=== PATIENT | male | born 1965 ===

== ENCOUNTER 2020-03-10 12:00 | Inpatient (IN) | payer MEDICAID, SELFPAY ==
[2020-03-10 12:56] LABS: COVID-19 Test Negative (Negative)
--- NOTE | 2020-03-10 13:10 | ECG_ITS ---
Test Reason : WEAKNESS Blood Pressure : / mmHG Vent. Rate : 133 BPM Atrial Rate : 133 BPM P-R Int : 122 ms QRS Dur : 086 ms QT Int : 382 ms P-R-T Axes : 050 -08 037 degrees QTc Int : 568 ms Sinus tachycardia Minimal voltage criteria for LVH, may be normal variant T wave abnormality, consider lateral ischemia Abnormal ECG When compared with ECG of 09-APR-2018 14:51, T wave inversion now evident in Lateral leads Referred By: Jesus Del Rosario Electronically Signed By:Gregory Hall
[2020-03-10 13:11] VITALS: BP 125/97; PULSE 136; RESP 18; TEMP 36.6; O2SAT 97; BMI 21.6
--- NOTE | 2020-03-10 13:13 | ED.GENADULT ---
HPI - General Adult General Chief complaint: General Medical <RADHA Ellison Last Filed: 03/10/20 13:16> Stated complaint: covid <RADHA Ellison - Last Filed: 03/10/20 13:16> Time Seen by Provider: 03/10/20 12:19 <RADHA Ellison Last Filed: 03/10/20 13:16> Source: patient and family <RADHA Sinha Last Filed: 03/10/20 16:54> Mode of arrival: ambulatory <RADHA Sinha Last Filed: 03/10/20 16:54> History of Present Illness HPI narrative: 54-year-old Male with a past medical history of asthma, alcohol abuse presenting to the ED for AMS x a few days. Per brother who patient lives with patient has been acting strange, making weird statements, confused, poor appetite. Patient himself reports decreased p.o. intake, generalized fatigue/weakness and feeling unwell. Admits to drinking about a pt of hard liquor daily and 12 pack of beers. Denies other substance abuse. Patient denies recent fall/trauma, CP/SOB, abdominal pain, nausea/vomiting <RADHA Sinha Last Filed: 03/10/20 16:54> Related Data Allergies/adverse reactions: Allergies Allergy/AdvReac Type Severity Reaction Status Date / Time penicillin V Allergy Unknown unknown Verified 12/03/18 00:00 Penicillins [PENICILLINS] Allergy Unknown UNKNOWN Unverified 10/31/19 15:09 <RADHA Ellison Last Filed: 03/10/20 13:16> Review of Systems Review of Systems: Constitutional: No Fever, No Chills, + Fatigue, + Malaise Cardiovascular: No Chest Pain, No SOB Respiratory: No Cough, No Sputum Gastrointestinal: No Nausea, No Vomiting, No Diarrhea, No Constipation, No Abdominal pain Genitourinary: No Dysuria, No Urinary Frequency, No Hematuria Skin: No Skin Lesions, No rash Neuro: + Weakness, No Headache History limited due to patient's AMS <RADHA Sinha Last Filed: 03/10/20 16:54> Yes all other systems are reviewed and are negative <RADHA Sinha Last Filed: 03/10/20 16:54> PMFSH Past Medical History Attestation statement: The following information was validated with the patient. <RADHA Sinha - Last Filed: 03/10/20 16:54> Medical History: Medical History (Updated 03/10/20 @ 16:26 by RADHA Sinha) Asthma <RADHA Ellison - Last Filed: 03/10/20 13:16> Social History Social History: Social History Advance Directives: No Advance Directives Information Provided: Yes <RADHA Ellison - Last Filed: 03/10/20 13:16> Physical Exam Vital Signs: Vital Signs: Last Vital Signs Temp 98.9 F 03/10/20 15:46 Pulse 113 H 03/10/20 15:46 Resp 16 03/10/20 15:46 BP 141/88 H 03/10/20 15:46 Pulse Ox 98 03/10/20 15:46 Body Mass Index 21.6 <RADHA Ellison - Last Filed: 03/10/20 13:16> Vital Signs: Last Vital Signs Temp 98.9 F 03/10/20 15:46 Pulse 113 H 03/10/20 15:46 Resp 16 03/10/20 15:46 BP 141/88 H 03/10/20 15:46 Pulse Ox 98 03/10/20 15:46 Body Mass Index 21.6 <RADHA Sinha - Last Filed: 03/10/20 16:54> Const: General: cooperative <RADHA Sinha Last Filed: 03/10/20 16:54> Orientation/consciousness: oriented to person and oriented to place <RADHA Sinha - Last Filed: 03/10/20 16:54> Limitations: no limitations <RADHA Sinha - Last Filed: 03/10/20 16:54> HENMT: Head: Yes normal to inspection <RADHA Sinha Last Filed: 03/10/20 16:54> Ears: hearing grossly normal bilaterally <RADHA Sinha - Last Filed: 03/10/20 16:54> General nose exam: Normal external nose present <RADHA Sinha Last Filed: 03/10/20 16:54> Face and sinus: Yes normal facial exam <RADHA Sinha - Last Filed: 03/10/20 16:54> Eyes: General: appearance normal, both eyes and all related structures <Deanna Burrell [facility] Last Filed: 03/10/20 16:54> EOM: EOMs intact bilaterally <Deanna Burrell [facility] Last Filed: 03/10/20 16:54> Neck: Neck: Yes normal visual inspection and Yes no meningeal signs <Deanna Burrell [facility] Last Filed: 03/10/20 16:54> Resp: Effort & Inspection: normal respiratory effort <Deanna Burrell [facility] Last Filed: 03/10/20 16:54> Auscultation: clear to auscultation bilaterally, no rhonchi and no wheezes <Deanna Burrell [facility] Last Filed: 03/10/20 16:54> Cardio: Rate: regular rate <Deanna Burrell [facility] Last Filed: 03/10/20 16:54> Heart sounds: S1 normal heart sound present and S2 normal heart sound present <Deanna Burrell [facility] Last Filed: 03/10/20 16:54> GI: Inspection: Yes normal to inspection <Deanna Burrell [facility] Last Filed: 03/10/20 16:54> Palpation (GI): Soft to palpation, nontender, no guarding and not rigid <Deanna Burrell [facility] Last Filed: 03/10/20 16:54> Skin: Rashes: no rashes <Deanna Burrell [facility] Last Filed: 03/10/20 16:54> Wounds: no wounds <Deanna Burrell [facility] Last Filed: 03/10/20 16:54> Neuro: General: oriented to person, oriented to place, tone normal, moves all extremities, no meningeal signs, no focal motor deficits and CN's II-XI intact bilaterally <Deanna Burrell [facility] Last Filed: 03/10/20 16:54> Gait exam (Neuro): Normal gait present <Deanna Burrell [facility] Last Filed: 03/10/20 16:54> Extrem: General: Yes normal to inspection <Deanna Burrell [facility] Last Filed: 03/10/20 16:54> Course Course Course Narrative: 54 yold male with pmh of HTN and alcohol abuse presents to the ED for weakness with symptoms alcohol withdrawal. Brother concerned of possible slight AMS since yesterday. patient will have basic labs including magnesium and troponin. Ehtanol level ordered. HPI, ROS, decision making, and dispostion will be done by ED provider. Neuro exam is intact and patient is A0x3. <RADHA Ellison - Last Filed: 03/10/20 13:16> Mild leukocytosis of 10.9, potassium low at 2.6 > 40 mEq p.o. and 20 IV ordered. Anion gap of 22 likely from dehydration. Bilirubin/AST/ALT chronically elevated from ETOH abuse, lipase 329 > will obtain CT AP Spoke to patient's brother Rangel at [phone], states patient lives with mother and him currently, has been concerned about patient over the past week progressing deconditioning, is not showering, is not eating, confused, does not feel safe for patient to go home. Patient persistently tachycardic, ripped out IV. Will initiate phenobarb protocol. Anticipate admission for alcohol withdrawal delirium -1700-- ED care transferred to [facility] pending UA, CT AP, and admission. <RADHA Sinha - Last Filed: 03/10/20 16:54> Medical Decision Making MDM Narrative Medical decision making narrative: 54-year-old Male with a past medical history of asthma, alcohol abuse presenting to the ED for AMS x a few days. Per brother who patient lives with patient has been acting strange, making weird statements, confused, poor appetite. Patient himself reports decreased p.o. intake, generalized fatigue/weakness and feeling unwell. On exam tachycardic, NAD, A&O x2, no other focal neuro deficits, confused. Nontoxic. Concern for encephalopathy vs alcohol withdrawal delirium vs metabolic abnormality/infectious etiology. Low concern for severe sepsis at this time. Rule out substance abuse/ICH. Low concern for meningitis/encephalitis Plan: EKG, labs, UA, CXR, head CT, re-evaluate, anticipated admission <RADHA Sinha - Last Filed: 03/10/20 16:54> Lab Data Result diagrams: : 03/10/20 13:24 03/10/20 13:24 <RADHA Ellison - Last Filed: 03/10/20 13:16> Labs: Lab Results 03/10/20 03/10/20 03/10/20 Range/Units 12:22 13:24 13:24 WBC 10.9 H (4.8-10.8) X10*3/uL RBC 4.01 L (4.60-5.80) X10*6/uL Hgb 14.1 (14.0-18.0) g/dl Hct 38.5 L (42-52) % MCV 96.0 (80-98) fL MCH 35.2 H (27.0-33.0) pg MCHC 36.6 H (31.0-36.0) g/dl RDW 11.4 (11.0-16.0) % Plt Count 182 (160-400) X10*3/uL MPV 11.4 (9.4-12.4) fL Immature Gran % (Auto) 0.7 H (0.0-0.4) % Neut % (Auto) 77.8 H (45-73) % Lymph % (Auto) 8.1 L (20-40) % Schuyler % (Auto) 12.6 H (2-11) % Eos % (Auto) 0.5 (0-4) % Baso % (Auto) 0.3 (0-2) % Lymph # (Auto) 0.9 L (1.2-4.9) X10*3/uL Schuyler # (Auto) 1.4 H (0.1-1.2) X10*3/uL Eos # (Auto) 0.1 (0.0-0.4) X10*3/uL Baso # (Auto) 0.0 (0.0-0.2) X10*3/uL Abs Immat Gran (auto) 0.08 H (0.00-0.03) X10*3/uL Absolute Neuts (auto) 8.5 H (2.0-8.3) X10*3/uL Absolute Nucleated RBC 0.040 H (0.0-0.012) X10*3/uL Nucleated RBC % (auto) 0.4 H (0.0-0.2) /100WBC PT 15.8 H (10.8-13.0) SEC INR 1.3 H (0.9-1.1) APTT 27.3 (24.1-38.0) SEC Sodium (135-145) mmol/L Potassium (3.3-5.1) mmol/l Chloride (96-108) mmol/L Carbon Dioxide (22-29) mmol/L Anion Gap (12-20) BUN (9-16) mg/dL Creatinine (0.5-1.4) mg/dL Estim Creat Clear Calc Estimated GFR Random Glucose (60-115) mg/dL Calcium (8.4-10.2) mg/dL Magnesium (1.6-2.6) mg/dL Total Bilirubin (0.0-1.0) mg/dL Direct Bilirubin (0.0-0.5) mg/dL AST (5-37) U/L ALT (0-40) U/L Alkaline Phosphatase (39-117) U/L Ammonia (13-55) umol/L Troponin I High Sens (<3.5-35.0) ng/L Total Protein (6.5-8.0) g/dL Albumin (3.5-5.0) g/dL Lipase (8-78) U/L Ethyl Alcohol mg/dL COVID-19 ([facility]) Negative (Negative) COVID-19 Clin Com See Note 03/10/20 03/10/20 03/10/20 Range/Units 13:24 13:24 13:24 WBC (4.8-10.8) X10*3/uL RBC (4.60-5.80) X10*6/uL Hgb (14.0-18.0) g/dl Hct (42-52) % MCV (80-98) fL MCH (27.0-33.0) pg MCHC (31.0-36.0) g/dl RDW (11.0-16.0) % Plt Count (160-400) X10*3/uL MPV (9.4-12.4) fL Immature Gran % (Auto) (0.0-0.4) % Neut % (Auto) (45-73) % Lymph % (Auto) (20-40) % Schuyler % (Auto) (2-11) % Eos % (Auto) (0-4) % Baso % (Auto) (0-2) % Lymph # (Auto) (1.2-4.9) X10*3/uL Schuyler # (Auto) (0.1-1.2) X10*3/uL Eos # (Auto) (0.0-0.4) X10*3/uL Baso # (Auto) (0.0-0.2) X10*3/uL Abs Immat Gran (auto) (0.00-0.03) X10*3/uL Absolute Neuts (auto) (2.0-8.3) X10*3/uL Absolute Nucleated RBC (0.0-0.012) X10*3/uL Nucleated RBC % (auto) (0.0-0.2) /100WBC PT (10.8-13.0) SEC INR (0.9-1.1) APTT (24.1-38.0) SEC Sodium 135 (135-145) mmol/L Potassium 2.6 L (3.3-5.1) mmol/l Chloride 89 L (96-108) mmol/L Carbon Dioxide 27 (22-29) mmol/L Anion Gap 22 H (12-20) BUN 16 (9-16) mg/dL Creatinine 1.02 (0.5-1.4) mg/dL Estim Creat Clear Calc 70.6 Estimated GFR > 60 Random Glucose 137 H (60-115) mg/dL Calcium 9.6 (8.4-10.2) mg/dL Magnesium 1.6 (1.6-2.6) mg/dL Total Bilirubin 3.7 H (0.0-1.0) mg/dL Direct Bilirubin 2.1 H (0.0-0.5) mg/dL AST 79 H (5-37) U/L ALT 60 H (0-40) U/L Alkaline Phosphatase 60 (39-117) U/L Ammonia (13-55) umol/L Troponin I High Sens < 3.5 (<3.5-35.0) ng/L Total Protein 8.4 H (6.5-8.0) g/dL Albumin 3.7 (3.5-5.0) g/dL Lipase 329 H (8-78) U/L Ethyl Alcohol < 10 mg/dL COVID-19 ([facility]) (Negative) COVID-19 Clin Com 03/10/20 Range/Units 14:30 WBC (4.8-10.8) X10*3/uL RBC (4.60-5.80) X10*6/uL Hgb (14.0-18.0) g/dl Hct (42-52) % MCV (80-98) fL MCH (27.0-33.0) pg MCHC (31.0-36.0) g/dl RDW (11.0-16.0) % Plt Count (160-400) X10*3/uL MPV (9.4-12.4) fL Immature Gran % (Auto) (0.0-0.4) % Neut % (Auto) (45-73) % Lymph % (Auto) (20-40) % Schuyler % (Auto) (2-11) % Eos % (Auto) (0-4) % Baso % (Auto) (0-2) % Lymph # (Auto) (1.2-4.9) X10*3/uL Schuyler # (Auto) (0.1-1.2) X10*3/uL Eos # (Auto) (0.0-0.4) X10*3/uL Baso # (Auto) (0.0-0.2) X10*3/uL Abs Immat Gran (auto) (0.00-0.03) X10*3/uL Absolute Neuts (auto) (2.0-8.3) X10*3/uL Absolute Nucleated RBC (0.0-0.012) X10*3/uL Nucleated RBC % (auto) (0.0-0.2) /100WBC PT (10.8-13.0) SEC INR (0.9-1.1) APTT (24.1-38.0) SEC Sodium (135-145) mmol/L Potassium (3.3-5.1) mmol/l Chloride (96-108) mmol/L Carbon Dioxide (22-29) mmol/L Anion Gap (12-20) BUN (9-16) mg/dL Creatinine (0.5-1.4) mg/dL Estim Creat Clear Calc Estimated GFR Random Glucose (60-115) mg/dL Calcium (8.4-10.2) mg/dL Magnesium (1.6-2.6) mg/dL Total Bilirubin (0.0-1.0) mg/dL Direct Bilirubin (0.0-0.5) mg/dL AST (5-37) U/L ALT (0-40) U/L Alkaline Phosphatase (39-117) U/L Ammonia 46 (13-55) umol/L Troponin I High Sens (<3.5-35.0) ng/L Total Protein (6.5-8.0) g/dL Albumin (3.5-5.0) g/dL Lipase (8-78) U/L Ethyl Alcohol mg/dL COVID-19 ([facility]) (Negative) COVID-19 Clin Com <RADHA Ellison - Last Filed: 03/10/20 13:16> Lab Results 03/10/20 03/10/20 03/10/20 Range/Units 12:22 13:24 13:24 WBC 10.9 H (4.8-10.8) X10*3/uL RBC 4.01 L (4.60-5.80) X10*6/uL Hgb 14.1 (14.0-18.0) g/dl Hct 38.5 L (42-52) % MCV 96.0 (80-98) fL MCH 35.2 H (27.0-33.0) pg MCHC 36.6 H (31.0-36.0) g/dl RDW 11.4 (11.0-16.0) % Plt Count 182 (160-400) X10*3/uL MPV 11.4 (9.4-12.4) fL Immature Gran % (Auto) 0.7 H (0.0-0.4) % Neut % (Auto) 77.8 H (45-73) % Lymph % (Auto) 8.1 L (20-40) % Schuyler % (Auto) 12.6 H (2-11) % Eos % (Auto) 0.5 (0-4) % Baso % (Auto) 0.3 (0-2) % Lymph # (Auto) 0.9 L (1.2-4.9) X10*3/uL Schuyler # (Auto) 1.4 H (0.1-1.2) X10*3/uL Eos # (Auto) 0.1 (0.0-0.4) X10*3/uL Baso # (Auto) 0.0 (0.0-0.2) X10*3/uL Abs Immat Gran (auto) 0.08 H (0.00-0.03) X10*3/uL Absolute Neuts (auto) 8.5 H (2.0-8.3) X10*3/uL Absolute Nucleated RBC 0.040 H (0.0-0.012) X10*3/uL Nucleated RBC % (auto) 0.4 H (0.0-0.2) /100WBC PT 15.8 H (10.8-13.0) SEC INR 1.3 H (0.9-1.1) APTT 27.3 (24.1-38.0) SEC Sodium (135-145) mmol/L Potassium (3.3-5.1) mmol/l Chloride (96-108) mmol/L Carbon Dioxide (22-29) mmol/L Anion Gap (12-20) BUN (9-16) mg/dL Creatinine (0.5-1.4) mg/dL Estim Creat Clear Calc Estimated GFR Random Glucose (60-115) mg/dL Calcium (8.4-10.2) mg/dL Magnesium (1.6-2.6) mg/dL Total Bilirubin (0.0-1.0) mg/dL Direct Bilirubin (0.0-0.5) mg/dL AST (5-37) U/L ALT (0-40) U/L Alkaline Phosphatase (39-117) U/L Ammonia (13-55) umol/L Troponin I High Sens (<3.5-35.0) ng/L Total Protein (6.5-8.0) g/dL Albumin (3.5-5.0) g/dL Lipase (8-78) U/L Ethyl Alcohol mg/dL COVID-19 ([facility]) Negative (Negative) COVID-19 Clin Com See Note 03/10/20 03/10/20 03/10/20 Range/Units 13:24 13:24 13:24 WBC (4.8-10.8) X10*3/uL RBC (4.60-5.80) X10*6/uL Hgb (14.0-18.0) g/dl Hct (42-52) % MCV (80-98) fL MCH (27.0-33.0) pg MCHC (31.0-36.0) g/dl RDW (11.0-16.0) % Plt Count (160-400) X10*3/uL MPV (9.4-12.4) fL Immature Gran % (Auto) (0.0-0.4) % Neut % (Auto) (45-73) % Lymph % (Auto) (20-40) % Schuyler % (Auto) (2-11) % Eos % (Auto) (0-4) % Baso % (Auto) (0-2) % Lymph # (Auto) (1.2-4.9) X10*3/uL Schuyler # (Auto) (0.1-1.2) X10*3/uL Eos # (Auto) (0.0-0.4) X10*3/uL Baso # (Auto) (0.0-0.2) X10*3/uL Abs Immat Gran (auto) (0.00-0.03) X10*3/uL Absolute Neuts (auto) (2.0-8.3) X10*3/uL Absolute Nucleated RBC (0.0-0.012) X10*3/uL Nucleated RBC % (auto) (0.0-0.2) /100WBC PT (10.8-13.0) SEC INR (0.9-1.1) APTT (24.1-38.0) SEC Sodium 135 (135-145) mmol/L Potassium 2.6 L (3.3-5.1) mmol/l Chloride 89 L (96-108) mmol/L Carbon Dioxide 27 (22-29) mmol/L Anion Gap 22 H (12-20) BUN 16 (9-16) mg/dL Creatinine 1.02 (0.5-1.4) mg/dL Estim Creat Clear Calc 70.6 Estimated GFR > 60 Random Glucose 137 H (60-115) mg/dL Calcium 9.6 (8.4-10.2) mg/dL Magnesium 1.6 (1.6-2.6) mg/dL Total Bilirubin 3.7 H (0.0-1.0) mg/dL Direct Bilirubin 2.1 H (0.0-0.5) mg/dL AST 79 H (5-37) U/L ALT 60 H (0-40) U/L Alkaline Phosphatase 60 (39-117) U/L Ammonia (13-55) umol/L Troponin I High Sens < 3.5 (<3.5-35.0) ng/L Total Protein 8.4 H (6.5-8.0) g/dL Albumin 3.7 (3.5-5.0) g/dL Lipase 329 H (8-78) U/L Ethyl Alcohol < 10 mg/dL COVID-19 ([facility]) (Negative) COVID-19 Clin Com 03/10/20 Range/Units 14:30 WBC (4.8-10.8) X10*3/uL RBC (4.60-5.80) X10*6/uL Hgb (14.0-18.0) g/dl Hct (42-52) % MCV (80-98) fL MCH (27.0-33.0) pg MCHC (31.0-36.0) g/dl RDW (11.0-16.0) % Plt Count (160-400) X10*3/uL MPV (9.4-12.4) fL Immature Gran % (Auto) (0.0-0.4) % Neut % (Auto) (45-73) % Lymph % (Auto) (20-40) % Schuyler % (Auto) (2-11) % Eos % (Auto) (0-4) % Baso % (Auto) (0-2) % Lymph # (Auto) (1.2-4.9) X10*3/uL Schuyler # (Auto) (0.1-1.2) X10*3/uL Eos # (Auto) (0.0-0.4) X10*3/uL Baso # (Auto) (0.0-0.2) X10*3/uL Abs Immat Gran (auto) (0.00-0.03) X10*3/uL Absolute Neuts (auto) (2.0-8.3) X10*3/uL Absolute Nucleated RBC (0.0-0.012) X10*3/uL Nucleated RBC % (auto) (0.0-0.2) /100WBC PT (10.8-13.0) SEC INR (0.9-1.1) APTT (24.1-38.0) SEC Sodium (135-145) mmol/L Potassium (3.3-5.1) mmol/l Chloride (96-108) mmol/L Carbon Dioxide (22-29) mmol/L Anion Gap (12-20) BUN (9-16) mg/dL Creatinine (0.5-1.4) mg/dL Estim Creat Clear Calc Estimated GFR Random Glucose (60-115) mg/dL Calcium (8.4-10.2) mg/dL Magnesium (1.6-2.6) mg/dL Total Bilirubin (0.0-1.0) mg/dL Direct Bilirubin (0.0-0.5) mg/dL AST (5-37) U/L ALT (0-40) U/L Alkaline Phosphatase (39-117) U/L Ammonia 46 (13-55) umol/L Troponin I High Sens (<3.5-35.0) ng/L Total Protein (6.5-8.0) g/dL Albumin (3.5-5.0) g/dL Lipase (8-78) U/L Ethyl Alcohol mg/dL COVID-19 ([facility]) (Negative) COVID-19 Clin Com <RADHA Sinha - Last Filed: 03/10/20 16:54> ECG Data Attestation: I personally reviewed and interpreted this ECG as follows: <RADHA Sinha Last Filed: 03/10/20 16:54> Interpretation: EKG sinus tachycardia with a rate of 133. ST depressions in V4 through V6. Artifact present <RADHA Sinha Last Filed: 03/10/20 16:54> Discharge Plan Discharge Clinical Impression: Alcohol abuse with withdrawal delirium <RADHA Ellison Last Filed: 03/10/20 13:16> Patient Disposition: Admitted As Inpatient <RADHA Ellison Last Filed: 03/10/20 13:16>
--- NOTE | 2020-03-10 13:29 | XR_ITS ---
EXAMINATION: XR CHEST CLINICAL INFORMATION: Loss of appetite. COMPARISON: None TECHNIQUE: 2 views of the chest were obtained. FINDINGS: No significant abnormality is noted involving the heart, lungs, mediastinum, bony thorax or soft tissues. XR/XR chest 2V IMPRESSION: Unremarkable chest examination.
[2020-03-10 13:30] LABS: MANUAL DIFF FLAG NO
[2020-03-10 13:34] LABS: Basophils Percent Auto 0.3 % (0-2); Eosinophils Absolute Auto 0.1 X10*3/uL (0.0-0.4); Eosinophils Percent Auto 0.5 % (0-4); Hematocrit 38.5 % (42-52); Hemoglobin 14.1 g/dl (14.0-18.0); Imm Gran Abs Auto 0.08 X10*3/uL (0.00-0.03); Imm Gran Pct Auto 0.7 % (0.0-0.4); Lymphocytes Absolute Auto 0.9 X10*3/uL (1.2-4.9); Lymphocytes Percent Auto 8.1 % (20-40); Mean Corpuscular HGB Conc 36.6 g/dl (31.0-36.0); Mean Corpuscular Hemoglobin 35.2 pg (27.0-33.0); Mean Platelet Volume 11.4 fL (9.4-12.4); Monocytes Absolute Auto 1.4 X10*3/uL (0.1-1.2); Monocytes Percent Auto 12.6 % (2-11); NRBC Pct Auto 0.4 /100WBC (0.0-0.2); Neutrophils Absolute Auto 8.5 X10*3/uL (2.0-8.3); Neutrophils Percent Auto 77.8 % (45-73); Platelet Count 182 X10*3/uL (160-400); Red Blood Count 4.01 X10*6/uL (4.60-5.80); Red Cell Distribution Width 11.4 % (11.0-16.0); White Blood Count 10.9 X10*3/uL (4.8-10.8)
[2020-03-10 13:39] LABS: INTERNATIONAL NORM RATIO 1.3 (0.9-1.1); Prothrombin Time 15.8 SEC (10.8-13.0)
[2020-03-10 13:42] LABS: Partial Thromboplastin Time 27.3 SEC (24.1-38.0)
[2020-03-10 14:10] LABS: Ethanol < 10 mg/dL
[2020-03-10 14:15] LABS: Troponin-I High Sensitivity < 3.5 ng/L (<3.5-35.0)
--- NOTE | 2020-03-10 14:20 | CT_ITS ---
EXAMINATION: CT HEAD WITHOUT CONTRAST CLINICAL INFORMATION: Confusion COMPARISON: Previous head CT June 2017 TECHNIQUE: Contiguous axial imaging was performed from the skull base to vertex without intravenous administration of contrast. This CT examination was performed using dose optimization techniques as appropriate, variously including the following: *Automated exposure control *Adjustment of mA and/or kV according to patient size (this includes techniques or standardized protocols for targeted exams where dose is matched to indication/reason for exam; i.e. extremities or head) *Use of iterative reconstruction technique DLP: 6 x 8 mGy-cm FINDINGS: There is no evidence of an extra-axial collection. There is no evidence of intra-axial or extra-axial hemorrhage. The ventricles and extra-axial CSF spaces are prominent suggestive of generalized. There is nonspecific periventricular white matter disease. No mass, mass effect or infarct is seen. Review at bone windows is normal. No skull fracture is seen. Visualized paranasal sinuses, mastoid air cells and middle ears are clear. CT/CT head/brain wo con IMPRESSION: No acute findings. Generalized nonspecific periventricular white matter disease.
[2020-03-10 14:27] LABS: Alanine Aminotransferase 60 U/L (0-40); Albumin Level 3.7 g/dL (3.5-5.0); Alkaline Phosphatase 60 U/L (39-117); Aspartate Amino Transferase 79 U/L (5-37); Bilirubin Direct 2.1 mg/dL (0.0-0.5); Bilirubin Total 3.7 mg/dL (0.0-1.0); Blood Urea Nitrogen 16 mg/dL (9-16); Calcium 9.6 mg/dL (8.4-10.2); Creatinine Clr Calc Pharmacy 70.6; Estimated Glomerular Filt Rate > 60; Glucose Random 137 mg/dL (60-115); Magnesium 1.6 mg/dL (1.6-2.6); Total Protein 8.4 g/dL (6.5-8.0)
[2020-03-10 14:40] LABS: Anion Gap 22 (12-20); Carbon Dioxide 27 mmol/L (22-29); Chloride 89 mmol/L (96-108); Lipase 329 U/L (8-78); Potassium 2.6 mmol/l (3.3-5.1); Sodium 135 mmol/L (135-145)
[2020-03-10 15:08] LABS: Ammonia 46 umol/L (13-55)
--- NOTE | 2020-03-10 15:15 | CT_ITS ---
EXAMINATION: CT ABDOMEN AND PELVIS WITH CONTRAST CLINICAL INFORMATION: Elevated LFTs/lipase. Decreased by mouth intake. COMPARISON: 04/07/2018 TECHNIQUE: Multidetector volumetric images were obtained from the superior aspect of the liver through the pubic symphysis following administration 85 mL of Omnipaque 350 intravenous contrast. Sagittal and coronal reformatted images were obtained on the technologist's workstation. Oral contrast: No This CT examination was performed using dose optimization techniques as appropriate, variously including the following: *Automated exposure control *Adjustment of mA and/or kV according to patient size (this includes techniques or standardized protocols for targeted exams where dose is matched to indication/reason for exam; i.e. extremities or head) *Use of iterative reconstruction technique DLP: 418 mGy-cm FINDINGS: LUNG BASES: The visualized lung bases are unremarkable. LIVER, GALLBLADDER, AND BILIARY TREE: The liver is normal size and shape with decreased attenuation. No biliary ductal dilatation. There is an area of increased enhancement at the periphery of segment 5 of the liver measuring 1.3 cm. This is less prominent than on the prior study.. Gallstone in the neck of the gallbladder. No wall thickening or pericholecystic fluid. PANCREAS: Unremarkable. SPLEEN: Unremarkable. ADRENAL GLANDS: Unremarkable. KIDNEYS AND URETERS: The kidneys are normal in size, shape, and attenuation. No hydronephrosis, hydroureter, or calculi seen. No perinephric stranding. BLADDER: Unremarkable. GASTROINTESTINAL TRACT: The stomach is unremarkable. Normal caliber small bowel. There is no obstruction. Colonic diverticulosis noted at the descending and sigmoid colon. No diverticulitis. Normal appendix. ABDOMINAL WALL: No colonic wall thickening or inflammatory change. No free air. LYMPH NODES: No free fluid. VASCULAR: Normal caliber aorta with mild atherosclerotic calcification. PELVIC VISCERA: The prostate and seminal vesicles are unremarkable. OSSEOUS STRUCTURES: No acute or suspicious osseous abnormality. Degenerative changes of the spine. Area of sclerosis in the L4 vertebral body is unchanged from prior. CT/CT abdomen pelvis w con IMPRESSION: Hepatic steatosis. Area of increased enhancement the periphery of segment 5 of the liver is noted, decreased in prominence from prior. This is nonspecific. Enhancing lesion is possible such as a hemangioma. This could be an area of altered perfusion or fatty sparing. This can be further evaluated with nonemergent MRI. Colonic diverticulosis without diverticulitis. Small stone in the gallbladder neck. No inflammatory change of the gallbladder.
[2020-03-10] MEDS: LORazepam 1 MG TABLET PO (15:18)
[2020-03-10 15:46] VITALS: BP 141/88; PULSE 113; RESP 16; TEMP 37.2; O2SAT 98
[2020-03-10] MEDS: Potassium Chloride Packet 20 MEQ PACKET 40 MEQ PO (15:47)
[2020-03-10] MEDS: Potassium Chloride/H20 10 MEQ/100 ML PIGGYBACK 100 MEQ IV ×2 (15:47→17:57)
--- NOTE | 2020-03-10 15:49 | PC.NURSE ---
PATIENT'S NIECE CALLS AT THIS TIME TO LEAVE CALL BACK NUMBER. PAT KASPER [phone]
[2020-03-10] MEDS: iohexoL 350 MG/ML 100 ML INFUS..BTL IV (16:41)
--- NOTE | 2020-03-10 17:06 | PC.NURSE ---
PT NOTED TO HAVE PULLED IV FROM ARM WHEN CLINICAL APPLICATION SPECIALIST CAME TO TAKE PT FOR IMAGING, PT DENEID HAVING REMOVED IT, STS IT JUST CAME OUT ON ITS OWN. NEW IV ESTABLISHED, PT TO CT, BACK IN ROOM W/ IV KCL INFUSING PER EMAR. NEW IV WRAPPED WITH GAUZE TO KEEP IN PLACE, PT AGAIN PULLING AT IV, REDIRECTED AND INSTRUCTED TO LEAVE IN PLACE. PT MAKING NONSENSICAL STATEMENTS IN NO RELATION TO SITUATION AT HAND. PT TALKING ABOUT THE SUNSHINE, THEN STATING HE WAS ABOUT TO GO TAKE A SHOWER, WHEN THIS RN ASKED IF PT WAS AWARE HE WAS IN HOSPITAL PT DID NOT RESPOND. PT IN NAD, AWAITING RESULTS AND DISPO.
[2020-03-10 17:34] VITALS: BP 124/79; PULSE 115; RESP 18; TEMP 37.3; O2SAT 95
[2020-03-10] MEDS: Multivitamin TABLET 1 TAB PO (17:58)
[2020-03-10] MEDS: PHENobarbitaL sodium 130 MG/ML VIAL 142 MG IM (17:58)
[2020-03-10] MEDS: Thiamine HCL 100 MG TABLET 50 MG PO (17:58)
--- NOTE | 2020-03-10 18:12 | PM.IMHP ---
History of Present Illness Date of Service: 03/10/20 Chief Complaint: Alcohol intoxication 54-year-old Montenegrin-speaking man presenting to the ER with alcohol intoxication. Patient was somewhat confused and vague and was unable to tell the year. 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 Usually drinking 12 beers a day with hard liquor. according to record his brother with whom lives stated that he had been acting strange and seemed confused. He had not drinking and seemed generally fatigued and weak. He did have some lab abnormalities including potassium of 2.6, total bilirubin 3.7, AST 79, ALT 60, lipase 329. Abdominal pelvic CT showed hepatic steatosis, diverticulosis without diverticulitis and small stone in the gallbladder neck. Head CT and chest x-ray were both negative for any acute abnormalities. He was started on phenobarbital, given potassium, thiamine, multivitamin. Heavy admitted for further management treatment of encephalopathy secondary to alcohol intoxication. Review of Systems Review of Systems: Yes Unobtainable due to mental status [facility] Medical History (Updated 03/10/20 @ 16:26 by RADHA Sinha) Asthma Pertinent family history: Unable to obtain due to patient's mental status. Social History (Updated 03/10/20 @ 19:36 by Marnie Armendariz NP) Alcohol intake: current Alcohol intake frequency: 3 or more drinks per day Alcohol type: beer and hard liquor Advance Directives: No Advance Directives Information Provided: Yes Meds Allergies Allergy/AdvReac Type Severity Reaction Status Date / Time penicillin V Allergy Unknown unknown Verified 12/03/18 00:00 Penicillins [PENICILLINS] Allergy Unknown UNKNOWN Unverified 10/31/19 15:09 Physical Exam Vital Signs and Narrative: Vital Signs: Last Vital Signs Temp 99.1 F 03/10/20 17:34 Pulse 115 H 03/10/20 17:34 Resp 18 03/10/20 17:34 BP 124/79 03/10/20 17:34 Pulse Ox 95 03/10/20 17:34 Body Mass Index 21.6 Appearing Sleepy head is normocephalic atraumatic eyes pupils are PERRLA sclera is anicteric mouth throat mucous membranes are intact and dry neck is supple no lymphadenopathy, no JVD noted lung sounds are clear to auscultation heart regular rate rhythm, clear S1, S2 positive bowel sounds, abdomen is soft, nontender neuro patient is alert when prompted Results Labs CBC and Chem 7: 03/10/20 13:24 03/10/20 13:24 Labs: Laboratory Results - last 24 hr 03/10/20 03/10/20 03/10/20 12:22 13:24 13:24 MCV 96.0 MCH 35.2 H MCHC 36.6 H RDW 11.4 Plt Count 182 MPV 11.4 Immature Gran % (Auto) 0.7 H Neut % (Auto) 77.8 H Lymph % (Auto) 8.1 L [place] % (Auto) 12.6 H Eos % (Auto) 0.5 Baso % (Auto) 0.3 Lymph # (Auto) 0.9 L [place] # (Auto) 1.4 H Eos # (Auto) 0.1 Baso # (Auto) 0.0 Abs Immat Gran (auto) 0.08 H Absolute Neuts (auto) 8.5 H Absolute Nucleated RBC 0.040 H Nucleated RBC % (auto) 0.4 H PT 15.8 H INR 1.3 H APTT 27.3 Anion Gap Estim Creat Clear Calc Estimated GFR Random Glucose Calcium Magnesium Total Bilirubin Direct Bilirubin AST ALT Alkaline Phosphatase Ammonia Troponin I High Sens Total Protein Albumin Lipase Ethyl Alcohol COVID-19 ([facility]) Negative COVID-19 Clin Com See Note 03/10/20 03/10/20 03/10/20 13:24 13:24 13:24 MCV MCH MCHC RDW Plt Count MPV Immature Gran % (Auto) Neut % (Auto) Lymph % (Auto) [place] % (Auto) Eos % (Auto) Baso % (Auto) Lymph # (Auto) [place] # (Auto) Eos # (Auto) Baso # (Auto) Abs Immat Gran (auto) Absolute Neuts (auto) Absolute Nucleated RBC Nucleated RBC % (auto) PT INR APTT Anion Gap 22 H Estim Creat Clear Calc 70.6 Estimated GFR > 60 Random Glucose 137 H Calcium 9.6 Magnesium 1.6 Total Bilirubin 3.7 H Direct Bilirubin 2.1 H AST 79 H ALT 60 H Alkaline Phosphatase 60 Ammonia Troponin I High Sens < 3.5 Total Protein 8.4 H Albumin 3.7 Lipase 329 H Ethyl Alcohol < 10 COVID-19 ([facility]) COVID-19 Clin Com 03/10/20 14:30 MCV MCH MCHC RDW Plt Count MPV Immature Gran % (Auto) Neut % (Auto) Lymph % (Auto) [place] % (Auto) Eos % (Auto) Baso % (Auto) Lymph # (Auto) [place] # (Auto) Eos # (Auto) Baso # (Auto) Abs Immat Gran (auto) Absolute Neuts (auto) Absolute Nucleated RBC Nucleated RBC % (auto) PT INR APTT Anion Gap Estim Creat Clear Calc Estimated GFR Random Glucose Calcium Magnesium Total Bilirubin Direct Bilirubin AST ALT Alkaline Phosphatase Ammonia 46 Troponin I High Sens Total Protein Albumin Lipase Ethyl Alcohol COVID-19 ([facility]) COVID-19 Clin Com Imaging Radiologist's Impressions: Impressions Chest X-Ray 03/10/20 13:29 IMPRESSION: Unremarkable chest examination. Head CT 03/10/20 14:20 IMPRESSION: No acute findings. Generalized nonspecific periventricular white matter disease. Abdomen/Pelvis CT 03/10/20 15:15 IMPRESSION: Hepatic steatosis. Area of increased enhancement the periphery of segment 5 of the liver is noted, decreased in prominence from prior. This is nonspecific. Enhancing lesion is possible such as a hemangioma. This could be an area of altered perfusion or fatty sparing. This can be further evaluated with nonemergent MRI. Colonic diverticulosis without diverticulitis. Small stone in the gallbladder neck. No inflammatory change of the gallbladder. Assessment and Plan (1) Alcohol abuse with withdrawal delirium: Status: Acute 54-year-old Montenegrin-speaking male admitted with encephalopathy secondary to alcohol intoxication. Acute encephalopathy, secondary to alcohol intoxication. Started phenobarbital protocol, thiamine, folic acid. Hypokalemia. Related to dehydration, alcohol use. Repleted, follow in the morning. Transaminitis and hyperbilirubinemia. No abdominal pain, fever or leukocytosis noted. Gallstone noted in the neck a gallbladder. Will obtain abdominal ultrasound to rule out any acute abnormalities.Recheck tomorrow if no improvement noted consider consulting Gastroenterology. DVT prophylaxis with heparin Case discussed with Dr. Sulema Beasley code
[2020-03-10 20:28] LABS: Glucose Urine UA NEG (NEG); Leukocyte Esterase Urine NEG (NEG); Nitrite Urine NEG (NEG); PH 5.5 (5.0-8.0); Specific Gravity - Urine <= 1.005 (1.005-1.025); Urine Blood 3+ (NEG); Urine Ketones 5 MG/DL (NEG); Urine Protein 1+ MG/DL (NEG-TRACE)
[2020-03-10 20:29] LABS: Appearance Urine CLEAR; Color Urine AMBER
[2020-03-10 20:38] LABS: Bacteria Urine 1+ /LPF; Squamous Epithelial Cell Urine 1+ /LPF; WBC Urine 0 /HPF (0-4)
[2020-03-10 20:53] LABS: Amphetamine Screen Urine Not Detected (Not Detect); Barbiturates, Urine POSITIVE (Not Detect); Benzodiazepines Screen Urine Not Detected (Not Detect); Cannabinoid Screen Urine Not Detected (Not Detect); Cocaine Screen Urine Not Detected (Not Detect); Opiate Screen Urine Not Detected (Not Detect); Phencyclidine Screen Urine Not Detected (Not Detect)
[2020-03-10 21:05] VITALS: BP 118/79; PULSE 106; RESP 20; TEMP 36.6; O2SAT 97
[2020-03-10] MEDS: Heparin Sodium,Porcine 5,000 UNIT/ML VIAL 5000 UNIT SUBCUT (21:06)
[2020-03-10] MEDS: PHENobarbitaL sodium 130 MG/ML VIAL 106 MG IM (21:07)
[2020-03-10 21:51] VITALS: BP 121/83; PULSE 103; RESP 24; O2SAT 95
[2020-03-11] VITALS (8 sets, daily range): BP systolic 96–137; BP diastolic 63–95; PULSE 91–108; RESP 15–20; TEMP 36.6–37; O2SAT 96–99; BMI 24.2
--- NOTE | 2020-03-11 00:11 | US_ITS ---
EXAMINATION: US ABDOMEN LIMITED CLINICAL INFORMATION: Gallstone. COMPARISON: CT 03/10/2020 TECHNIQUE: Real-time imaging of the right upper quadrant abdominal viscera. FINDINGS: PANCREAS: The visualized proximal portion of the pancreas is unremarkable. The distal portion is obscured secondary to overlying bowel gas. LIVER: The liver is normal in size. The liver contour is normal. There is diffusely increased liver parenchymal echogenicity, suspicious for hepatic steatosis. No focal hepatic lesion identified. There is no intrahepatic biliary duct dilatation seen. GALLBLADDER: The gallbladder is physiologically distended and contains some sludge without discrete stones. No gallbladder wall thickening or pericholecystic fluid. COMMON BILE DUCT: Normal in caliber measuring 0.6 cm in diameter. RIGHT KIDNEY: No hydronephrosis. No renal calculi or focal parenchymal lesions. The kidney measures 11.0 cm in maximum dimension. FREE FLUID: None. US/US abdomen limited IMPRESSION: 1. Gallbladder sludge without discrete gallstones visualized. 2. Increased hepatic echogenicity suspicious for steatosis.
[2020-03-11] MEDS: PHENobarbitaL sodium 130 MG/ML VIAL 106 MG IM (01:07)
[2020-03-11] MEDS: Dextrose 5 % and 0.9 % NaCl 1,000 ML 100 ML IVCONT (01:09)
[2020-03-11] MEDS: Enoxaparin Sodium 40 MG/0.4 ML SYRINGE SUBCUT (01:13)
[2020-03-11] MEDS: 0.9 % Sodium Chloride Flush 3 ML SYRINGE IVFLUSH ×3 (01:13→16:39)
[2020-03-11] MEDS: Potassium Chloride ER 20 MEQ TAB.ER.PRT PO (01:14)
[2020-03-11 08:00] LABS: Basophils Percent Auto 0.3 % (0-2); Eosinophils Absolute Auto 0.1 X10*3/uL (0.0-0.4); Eosinophils Percent Auto 1.3 % (0-4); Hematocrit 34.8 % (42-52); Hemoglobin 11.9 g/dl (14.0-18.0); Imm Gran Abs Auto 0.09 X10*3/uL (0.00-0.03); Imm Gran Pct Auto 0.9 % (0.0-0.4); Lymphocytes Absolute Auto 1.4 X10*3/uL (1.2-4.9); Lymphocytes Percent Auto 13.9 % (20-40); MANUAL DIFF FLAG SCAN; Mean Corpuscular HGB Conc 34.2 g/dl (31.0-36.0); Mean Corpuscular Hemoglobin 33.3 pg (27.0-33.0); Mean Corpuscular Volume 97.5 fL (80-98); Mean Platelet Volume 11.1 fL (9.4-12.4); Monocytes Absolute Auto 1.7 X10*3/uL (0.1-1.2); Monocytes Percent Auto 17.3 % (2-11); Neutrophils Absolute Auto 6.7 X10*3/uL (2.0-8.3); Neutrophils Percent Auto 66.3 % (45-73); Platelet Count 132 X10*3/uL (160-400); Red Blood Count 3.57 X10*6/uL (4.60-5.80); Red Cell Distribution Width 11.5 % (11.0-16.0); SCAN SMEAR FLAG 1; White Blood Count 10.1 X10*3/uL (4.8-10.8)
[2020-03-11 08:26] LABS: SLIDE REVIEW VERIFIED
[2020-03-11 08:40] LABS: Magnesium 1.8 mg/dL (1.6-2.6)
[2020-03-11 08:51] LABS: Alanine Aminotransferase 50 U/L (0-40); Albumin Level 3.1 g/dL (3.5-5.0); Alkaline Phosphatase 56 U/L (39-117); Aspartate Amino Transferase 65 U/L (5-37); Bilirubin Direct 1.5 mg/dL (0.0-0.5); Bilirubin Total 2.6 mg/dL (0.0-1.0); Blood Urea Nitrogen 15 mg/dL (9-16); Creatinine Clr Calc Pharmacy 87.8; Estimated Glomerular Filt Rate > 60; Glucose Random 119 mg/dL (60-115); Total Protein 7.1 g/dL (6.5-8.0)
[2020-03-11 09:08] LABS: Anion Gap 14 (12-20); Calcium 8.6 mg/dL (8.4-10.2); Carbon Dioxide 30 mmol/L (22-29); Chloride 97 mmol/L (96-108); Potassium 3.3 mmol/l (3.3-5.1); Sodium 138 mmol/L (135-145)
[2020-03-11] MEDS: Thiamine HCL 200 MG/2 ML VIAL 100 MG IVPUSH (09:08)
[2020-03-11] MEDS: PHENobarbitaL 15 MG TABLET 45 MG PO ×2 (09:10→20:41)
--- NOTE | 2020-03-11 09:20 | PC.NURSE ---
Pt resting comfortaby on stretcher. Medicated per APR. Hospitalist at bedside for eval. Pt awaiting room assignment. Talking with family on phone, pt gets disoriented to place and time. Very vague. SR on monitor, resp WNL. No acute distress at this time
--- NOTE | 2020-03-11 09:45 | P.PNIM_ITS ---
Subjective Subjective Date of Service: 03/11/20 Interval History: seen and examined this AM in the ED, awaiting bed reports no abdominal pain remains disorieted, but does know he is at [facility] ROS unreliable Physical Exam Vital Signs: Vital Signs: Last Vital Signs Temp 98.6 F 03/11/20 00:59 Pulse 96 03/11/20 09:16 Resp 16 03/11/20 09:16 BP 120/80 03/11/20 09:16 Pulse Ox 96 03/11/20 09:16 Body Mass Index 24.2 Const: General: cooperative and no acute distress Orientation/consciousness: No oriented to person, oriented to place and No oriented to time Eyes: Pupils: Equal, round and reactive pupils present EOM: EOMs intact bilaterally Resp: Effort & Inspection: normal respiratory effort Auscultation: clear to auscultation bilaterally Cardio: Heart sounds: S1 normal heart sound present and S2 normal heart sound present GI: Inspection: Yes normal to inspection Palpation (GI): Soft to palpation, nontender and no guarding Auscultation: normal bowel sounds Skin: General skin exam: no rashes or lesions noted Neuro: General: No oriented to person, oriented to place and No oriented to time Cranial nerves: Yes Equal, round and reactive pupils present Objective Data Current Medications Generic Name Dose Route Start Last Admin Trade Name Freq PRN Reason Stop Dose Admin Acetaminophen 650 mg 03/11/20 00:11 Acetaminophen 325 Mg Tablet PO Q6H PRN Pain, Mild (Pain Scale 1-3) Enoxaparin Sodium 40 mg 03/10/20 23:15 03/11/20 01:13 Enoxaparin Sodium 40 Mg/0.4 Ml Syringe SUBCUT 40 mg Q24H PARAS Administration Folic Acid 1 mg 03/11/20 09:00 03/11/20 09:08 Folic Acid 1 Mg/0.2 Ml Syringe IM 03/13/20 09:01 1 mg DAILY PARAS Administration Heparin Sodium (Porcine) 5,000 unit 03/10/20 19:45 03/11/20 09:07 Heparin Sodium,Porcine 5,000 Unit/Ml Vial SUBCUT Not Given Q12H PARAS Magnesium Hydroxide 30 ml 03/10/20 23:03 Milk Of Magnesia 30 Ml Oral.Susp PO DAILY PRN Constipation Medication 1 each 03/11/20 09:00 No Benzodiazepines MISCELLANE DAILY PARAS Ondansetron HCl 4 mg 03/11/20 00:11 Ondansetron Hcl 4 Mg/2 Ml Vial IVPUSH Q8H PRN Nausea and Vomiting Phenobarbital 45 mg 03/11/20 09:00 03/11/20 09:10 Phenobarbital 15 Mg Tablet PO 03/12/20 21:01 45 mg BID PARAS Administration Phenobarbital 15 mg 03/13/20 09:00 Phenobarbital 15 Mg Tablet PO 03/14/20 21:01 BID PARAS Phenobarbital 15 mg 03/15/20 09:00 Phenobarbital 15 Mg Tablet PO 03/16/20 09:01 DAILY PARAS Sodium Chloride 3 ml 03/11/20 00:00 03/11/20 09:08 0.9 % Sodium Chloride Flush 3 Ml Syringe IVFLUSH Not Given QSHIFT PARAS Sodium Chloride 3 ml 03/11/20 00:11 03/11/20 09:08 0.9 % Sodium Chloride Flush 3 Ml Syringe IVFLUSH Not Given QSHIFT PARAS Thiamine HCl 100 mg 03/11/20 09:00 03/11/20 09:08 Thiamine Hcl 200 Mg/2 Ml Vial IVPUSH 100 mg DAILY PARAS Administration Labs CBC & Chem 7: 03/11/20 07:49 03/11/20 07:49 Assessment and Plan (1) Alcohol abuse with withdrawal delirium: Status: Acute Assessment and Plan: This is a 54 yo M with a PMH of chronic alcohol abuse and dependence who presented to the hospital with alerted mental status. 1. Acute Encephalopathy multifactorial including alcohol abuse / intoxication clincially slightly improved continue with current mgmt 2. Alcohol intoxication / abuse / high risk for withdrawal started on phenobarb upon admission monitor lytes alcohol cessation has been encouraged 3. Alcoholic liver disease downtrending bili downtrending RUQ ultrasound -- no evidence of acute fior (some sludge, but no GB wall thickening / pericholecystit cluid) 4. HypoK Mg low normal -- start oral supplements K normalized, give po x 1 now Full Code DVT pptx -- mechanical due to low platelets
--- NOTE | 2020-03-11 11:38 | PC.NURSE ---
Report given to Ronel from [facility], pt to be transferred to unit.
--- NOTE | 2020-03-11 12:11 | MHC.CM.PN ---
Attempted to meet with patient in regards for discharge planning. Patient currently confused. Spoke with patient's sister, Amarilys via telephone at [phone]. Patient lives with his 78 year old mother, ambulates independently and had no services prior to coming to the hospital. Patient drinks hard liquor daily. He hasn't worked since November 2018 due to ETOH abuse and anxiety. Patient came to the ER due to weakness. Patient has a new patient appointment with Seb Khalil on 03/31. No HCP was found on file. Amarilys states patient hasn't been hospitalized in any other facility. Physical therapy eval for home safety will be needed when medically stable. Amarilys agreeable to referrals being broadcasted now, due to limitied bed avaiilability. Referral has been broadcasted to all facilities within 10 miles that accept Medicaid. If physical therapy feels patient can safely be discharged, family is requesting referral to Care team for substance abuse options: detox, CSS, etc. Continue to monitor for d/c needs.
[2020-03-11] MEDS: Magnesium Oxide 400 MG TABLET PO (16:39)
[2020-03-12] MEDS: 0.9 % Sodium Chloride Flush 3 ML SYRINGE IVFLUSH ×5 (00:05→21:12)
[2020-03-12 03:12] VITALS: BP 122/76; PULSE 94; RESP 18; TEMP 37.1; O2SAT 97
[2020-03-12 05:44] VITALS: BMI 25.0
[2020-03-12 07:04] VITALS: BP 125/81; PULSE 98; RESP 18; TEMP 36.6; O2SAT 97
[2020-03-12 07:08] LABS: Alanine Aminotransferase 48 U/L (0-40); Albumin Level 3.2 g/dL (3.5-5.0); Alkaline Phosphatase 60 U/L (39-117); Anion Gap 20 (12-20); Aspartate Amino Transferase 72 U/L (5-37); Bilirubin Direct 1.7 mg/dL (0.0-0.5); Bilirubin Total 2.8 mg/dL (0.0-1.0); Blood Urea Nitrogen 12 mg/dL (9-16); Calcium 8.6 mg/dL (8.4-10.2); Carbon Dioxide 25 mmol/L (22-29); Chloride 94 mmol/L (96-108); Creatinine Clr Calc Pharmacy 98.9; Estimated Glomerular Filt Rate > 60; Glucose Random 72 mg/dL (60-115); Potassium 2.9 mmol/l (3.3-5.1); Sodium 136 mmol/L (135-145); Total Protein 7.4 g/dL (6.5-8.0)
[2020-03-12 07:39] LABS: Magnesium 1.6 mg/dL (1.6-2.6)
[2020-03-12] MEDS: Potassium Chloride ER 20 MEQ TAB.ER.PRT 40 MEQ PO ×2 (08:38→21:12)
[2020-03-12] MEDS: PHENobarbitaL 15 MG TABLET 45 MG PO ×2 (08:38→21:12)
[2020-03-12] MEDS: Magnesium Oxide 400 MG TABLET PO ×2 (08:38→17:34)
[2020-03-12 10:58] VITALS: BP 114/73; PULSE 93; RESP 18; TEMP 36.4; O2SAT 98
--- NOTE | 2020-03-12 12:13 | MHC.RECOVRN ---
Recovery Support Note: 54 year old male presented to [facility], ambulatory, on 03/10/20 accompanied by brother due to acting strange, making nonsensical statements, appears confused. Pt subsequently admitted to [facility] due to alcohol withdrawal and encephalopathy. T/w met with pt in 444-2 to discuss substance use. Substance: Etoh Age of first use: Amount: 12-15 beers and/or 5-6 nips per day x 5 years Last use: a couple day ago Family history of addiction: +father Supports: mother, sister Denies current w/d symptoms. Pt reports 6 months of abstinence within the past 5 years. Pt stated I didn't pay attention to it, I drank more water, more soda. When asked if there was a trigger to return to use, pt stated Something, I can't recall. Pt reports hx therapy, not current. When asked about current housing and work, pt states I live in [place]. Right now, that I remember, I live with my mother. 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 I called out and I haven't gone back. When asked about desire to reduce alcohol use or engage in alcohol use disorder treatment, pt states not lately, no. Plan: Case discussed [facility] CM and RN. Pt provided with resources as well as t/w card if pt would like to obtain more information or discuss treatment options.
[2020-03-12 15:06] VITALS: BP 128/75; PULSE 92; RESP 20; TEMP 36.7; O2SAT 98
--- NOTE | 2020-03-12 17:44 | P.PNIM_ITS ---
Subjective Subjective Date of Service: 03/12/20 Interval History: seen and examined this AM no complaints, denies pain remains mostly confused, unable to tell me where he is nor where he lives ROS unreliable Physical Exam Vital Signs: Vital Signs: Last Vital Signs Temp 98.0 F 03/12/20 15:06 Pulse 92 03/12/20 15:06 Resp 20 03/12/20 15:06 BP 128/75 03/12/20 15:06 Pulse Ox 98 03/12/20 15:06 Body Mass Index 25.0 Const: General: cooperative and no acute distress Orientation/consciousness: No oriented to person, oriented to place and No oriented to time Eyes: Pupils: Equal, round and reactive pupils present EOM: EOMs intact bilaterally Resp: Effort & Inspection: normal respiratory effort Auscultation: clear to auscultation bilaterally Cardio: Heart sounds: S1 normal heart sound present and S2 normal heart sound present GI: Inspection: Yes normal to inspection Palpation (GI): Soft to palpation, nontender and no guarding Auscultation: normal bowel sounds Skin: General skin exam: no rashes or lesions noted Neuro: General: No oriented to person, oriented to place and No oriented to ti me Cranial nerves: Yes Equal, round and reactive pupils present Objective Data Current Medications Generic Name Dose Route Start Last Admin Trade Name Freq PRN Reason Stop Dose Admin Acetaminophen 650 mg 03/11/20 00:11 Acetaminophen 325 Mg Tablet PO Q6H PRN Pain, Mild (Pain Scale 1-3) Folic Acid 1 mg 03/11/20 09:00 03/12/20 11:23 Folic Acid 1 Mg/0.2 Ml Syringe IM 03/13/20 09:01 1 mg DAILY PARAS Administration Magnesium Hydroxide 30 ml 03/10/20 23:03 Milk Of Magnesia 30 Ml Oral.Susp PO DAILY PRN Constipation Magnesium Oxide 400 mg 03/11/20 17:30 03/12/20 17:34 Magnesium Oxide 400 Mg Tablet PO 400 mg BIDPC PARAS Administration Medication 1 each 03/11/20 09:00 No Benzodiazepines MISCELLANE DAILY PARAS Ondansetron HCl 4 mg 03/11/20 00:11 Ondansetron Hcl 4 Mg/2 Ml Vial IVPUSH Q8H PRN Nausea and Vomiting Phenobarbital 45 mg 03/11/20 09:00 03/12/20 08:38 Phenobarbital 15 Mg Tablet PO 03/12/20 21:01 45 mg BID PARAS Administration Phenobarbital 15 mg 03/13/20 09:00 Phenobarbital 15 Mg Tablet PO 03/14/20 21:01 BID PARAS Phenobarbital 15 mg 03/15/20 09:00 Phenobarbital 15 Mg Tablet PO 03/16/20 09:01 DAILY PARAS Potassium Chloride 40 meq 03/12/20 09:00 03/12/20 08:38 Potassium Chloride Er 20 Meq Tab.Er.Prt PO 03/12/20 21:01 40 meq BID PARAS Administration Sodium Chloride 3 ml 03/11/20 00:00 03/12/20 17:34 0.9 % Sodium Chloride Flush 3 Ml Syringe IVFLUSH 3 ml QSHIFT PARAS Administration Sodium Chloride 3 ml 03/11/20 00:11 03/12/20 17:34 0.9 % Sodium Chloride Flush 3 Ml Syringe IVFLUSH Not Given QSHIFT PARAS Thiamine HCl 100 mg 03/11/20 09:00 03/12/20 14:47 Thiamine Hcl 200 Mg/2 Ml Vial IVPUSH Not Given DAILY PARAS Labs CBC & Chem 7: 03/11/20 07:49 03/12/20 05:19 Assessment and Plan (1) Alcohol abuse with withdrawal delirium: Status: Acute Assessment and Plan: This is a 54 yo M with a PMH of chronic alcohol abuse and dependence who presented to the hospital with alerted mental status. 1. Acute Encephalopathy question chronicity of condition suspect he has some degree of underlying alcoholic dementia / memory impairment question his capacity to make decisions -- will involve psychiatry 2. Alcohol intoxication / abuse / high risk for withdrawal started on phenobarb upon admission monitor lytes alcohol cessation has been encouraged mvi,thiamin,folate 3. Alcoholic liver disease stable RUQ ultrasound -- no evidence of acute fior (some sludge, but no GB wall thickening / pericholecystit cluid) 4. HypoK continue Mg repletement po k 40mg x 2; recheck tomorrow Full Code DVT pptx -- mechanical due to low platelets
[2020-03-12 19:46] VITALS: BP 112/70; PULSE 96; RESP 20; TEMP 37.1; O2SAT 97
[2020-03-12 23:47] VITALS: BP 138/73; PULSE 97; RESP 18; TEMP 36.8; O2SAT 97
[2020-03-13 03:19] VITALS: BP 122/74; PULSE 95; RESP 18; TEMP 36.7; O2SAT 99
[2020-03-13 06:00] VITALS: BMI 26.2
[2020-03-13 07:15] LABS: Blood Urea Nitrogen 9 mg/dL (9-16); Calcium 8.2 mg/dL (8.4-10.2); Creatinine Clr Calc Pharmacy 112.1; Estimated Glomerular Filt Rate > 60; Glucose Random 73 mg/dL (60-115); Magnesium 1.5 mg/dL (1.6-2.6)
[2020-03-13] MEDS: 0.9 % Sodium Chloride Flush 3 ML SYRINGE IVFLUSH ×3 (07:29→22:43)
[2020-03-13] MEDS: Thiamine HCL 200 MG/2 ML VIAL 100 MG IVPUSH (07:29)
[2020-03-13] MEDS: PHENobarbitaL 15 MG TABLET PO ×2 (07:30→22:42)
[2020-03-13] MEDS: Magnesium Oxide 400 MG TABLET PO ×2 (07:30→16:40)
[2020-03-13 07:31] LABS: Anion Gap 18 (12-20); Carbon Dioxide 24 mmol/L (22-29); Chloride 96 mmol/L (96-108); Potassium 3.9 mmol/l (3.3-5.1); Sodium 134 mmol/L (135-145)
[2020-03-13 08:00] VITALS: BP 113/74; PULSE 95; RESP 18; TEMP 36.7; O2SAT 97
[2020-03-13] MEDS: Magnesium Sulfate/H2O 2 GM/50 ML PIGGYBACK IV (09:32)
[2020-03-13 10:55] VITALS: BP 113/75; PULSE 95; RESP 18; TEMP 36.6; O2SAT 97
--- NOTE | 2020-03-13 11:21 | PM.PSYCN ---
History of Present Illness Date of Service: 03/13/2020 Chief Complaint: Encephalopathy, alcohol withdrawal Reason for Consult: Capacity evaluation Requesting physician: Nelson Hannah Discussed with referring provider: Yes Sources of Information: patient interviewed and chart reviewed HPI Narrative: Patient is a 54 year old male with alcohol use disorder currently medically admitted to treat alcohol withdrawal. Consult requested to assess for capacity to make medical decisions related to discharge planning, specifically recommendation for placement. Patient seen in room 444. Awake, alert and engaged in interview. Patient oriented to self only. I don't know, and I thought I remembered, but I don't , is how he responded to almost every question. He is somewhat tangential, but quite calm. He can not recall his address or who he lives with He does recall that he drinks and states that he thinks he's been looking for something to drink, but can't find anything Past Psychiatric History: not reviewed Medical Evaluation Reviewed: Yes Review of Systems Review of Systems Yes Unobtainable due to mental status [facility] Medical History (Updated 03/10/20 @ 16:26 by RADHA Sinha) Asthma Diagnostics Vital Signs (24Hr): Vital Signs - 24 hr 03/12/20 15:06 03/12/20 19:46 03/12/20 23:47 Temperature 98.0 F 98.7 F 98.3 F Pulse Rate 92 96 97 Respiratory Rate 20 20 18 Blood Pressure 128/75 112/70 138/73 Pulse Oximetry 98 97 97 03/13/20 03:19 03/13/20 08:00 03/13/20 10:55 Temperature 98.1 F 98.1 F 97.8 F Pulse Rate 95 95 95 Respiratory Rate 18 18 18 Blood Pressure 122/74 113/74 113/75 Pulse Oximetry 99 97 97 Body Mass Index 26.2 Labs Results: 03/11/20 07:49 03/13/20 05:17 Labs: Laboratory Results - last 48 hr 03/12/20 03/13/20 05:19 05:17 Sodium 136 134 L Potassium 2.9 L 3.9 D Chloride 94 L 96 Carbon Dioxide 25 24 Anion Gap 20 18 BUN 12 9 Creatinine 0.76 0.67 Estim Creat Clear Calc 98.9 112.1 Estimated GFR > 60 > 60 Random Glucose 72 D 73 Calcium 8.6 8.2 L Magnesium 1.6 1.5 L Total Bilirubin 2.8 H Direct Bilirubin 1.7 H AST 72 H ALT 48 H Alkaline Phosphatase 60 Total Protein 7.4 Albumin 3.2 L Imaging Radiology Impressions: ITS Impressions Chest X-Ray 03/10/20 13:29 IMPRESSION: Unremarkable chest examination. Head CT 03/10/20 14:20 IMPRESSION: No acute findings. Generalized nonspecific periventricular white matter disease. Abdomen/Pelvis CT 03/10/20 15:15 IMPRESSION: Hepatic steatosis. Area of increased enhancement the periphery of segment 5 of the liver is noted, decreased in prominence from prior. This is nonspecific. Enhancing lesion is possible such as a hemangioma. This could be an area of altered perfusion or fatty sparing. This can be further evaluated with nonemergent MRI. Colonic diverticulosis without diverticulitis. Small stone in the gallbladder neck. No inflammatory change of the gallbladder. Abdomen Ultrasound 03/11/20 00:11 IMPRESSION: 1. Gallbladder sludge without discrete gallstones visualized. 2. Increased hepatic echogenicity suspicious for steatosis. Mental Status Exam Mental Status Exam Patient Appearance: Appropriate Patient Orientation: Person Level of Consciousness: Awake, Disoriented and Alert Patient Behavior: Appropriate, Passive and Confused Mood Description: Calm and Blunted Affect Description: Blunted Patient Cognition Impaired: Yes Speech Pattern: Clear and Long Pauses Memory Description: Immediate Impaired Thought Process: Confusion Thought Content: positive for Disoriented and positive for Poverty of Content Judgement: Poor Medications Medications Current Medications Generic Name Dose Route Start Last Admin Trade Name Freq PRN Reason Stop Dose Admin Acetaminophen 650 mg 03/11/20 00:11 Acetaminophen 325 Mg Tablet PO Q6H PRN Pain, Mild (Pain Scale 1-3) Magnesium Hydroxide 30 ml 03/10/20 23:03 Milk Of Magnesia 30 Ml Oral.Susp PO DAILY PRN Constipation Magnesium Oxide 400 mg 03/11/20 17:30 03/13/20 07:30 Magnesium Oxide 400 Mg Tablet PO 400 mg BIDPC PARAS Administration Medication 1 each 03/11/20 09:00 No Benzodiazepines MISCELLANE DAILY PARAS Ondansetron HCl 4 mg 03/11/20 00:11 Ondansetron Hcl 4 Mg/2 Ml Vial IVPUSH Q8H PRN Nausea and Vomiting Phenobarbital 15 mg 03/13/20 09:00 03/13/20 07:30 Phenobarbital 15 Mg Tablet PO 03/14/20 21:01 15 mg BID PARAS Administration Phenobarbital 15 mg 03/15/20 09:00 Phenobarbital 15 Mg Tablet PO 03/16/20 09:01 DAILY PARAS Sodium Chloride 3 ml 03/11/20 00:00 03/13/20 07:29 0.9 % Sodium Chloride Flush 3 Ml Syringe IVFLUSH 3 ml QSHIFT PARAS Administration Sodium Chloride 3 ml 03/11/20 00:11 03/13/20 07:29 0.9 % Sodium Chloride Flush 3 Ml Syringe IVFLUSH Not Given QSHIFT PARAS Thiamine HCl 100 mg 03/11/20 09:00 03/13/20 07:29 Thiamine Hcl 200 Mg/2 Ml Vial IVPUSH 100 mg DAILY PARAS Administration Allergies Allergies Allergy/AdvReac Type Severity Reaction Status Date / Time penicillin V Allergy Unknown unknown Verified 12/03/18 00:00 Penicillins [PENICILLINS] Allergy Unknown UNKNOWN Verified 03/12/20 08:37 Assessment & Plan Assessment & Plan (1) Alcohol abuse with withdrawal delirium: Status: Acute Code(s): F10.131 - Alcohol abuse with withdrawal delirium Recommendations: Patient does not appear to have capacity to make medical decisions, including decisions about placement He is unable to articulate risks, benefits, disoriented HCP should become involved in available Greater than 50% of the session was spent on counseling and/or coordination of care
--- NOTE | 2020-03-13 11:22 | HO.PM.IMPN ---
Subjective Subjective Date of Service: 03/13/20 Interval History: seen and examined this AM no complaints, denies pain doesnt remember my name, knows hes in the hospital, but not sure why. ROS unreliable Physical Exam Vital Signs: Vital Signs: Last Vital Signs Temp 97.8 F 03/13/20 10:55 Pulse 95 03/13/20 10:55 Resp 18 03/13/20 10:55 BP 113/75 03/13/20 10:55 Pulse Ox 97 03/13/20 10:55 Body Mass Index 26.2 Const: General: cooperative and no acute distress Orientation/consciousness: No oriented to person, oriented to place and No oriented to time Eyes: Pupils: Equal, round and reactive pupils present EOM: EOMs intact bilaterally Resp: Effort & Inspection: normal respiratory effort Auscultation: clear to auscultation bilaterally Cardio: Heart sounds: S1 normal heart sound present and S2 normal heart sound present GI: Inspection: Yes normal to inspection Palpation (GI): Soft to palpation, nontender and no guarding Auscultation: normal bowel sounds Skin: General skin exam: no rashes or lesions noted Neuro: General: No oriented to person, oriented to place and No oriented to time Cranial nerves: Yes Equal, round and reactive pupils present Objective Data Current Medications Generic Name Dose Route Start Last Admin Trade Name Freq PRN Reason Stop Dose Admin Acetaminophen 650 mg 03/11/20 00:11 Acetaminophen 325 Mg Tablet PO Q6H PRN Pain, Mild (Pain Scale 1-3) Magnesium Hydroxide 30 ml 03/10/20 23:03 Milk Of Magnesia 30 Ml Oral.Susp PO DAILY PRN Constipation Magnesium Oxide 400 mg 03/11/20 17:30 03/13/20 07:30 Magnesium Oxide 400 Mg Tablet PO 400 mg BIDPC PARAS Administration Medication 1 each 03/11/20 09:00 No Benzodiazepines MISCELLANE DAILY PARAS Ondansetron HCl 4 mg 03/11/20 00:11 Ondansetron Hcl 4 Mg/2 Ml Vial IVPUSH Q8H PRN Nausea and Vomiting Phenobarbital 15 mg 03/13/20 09:00 03/13/20 07:30 Phenobarbital 15 Mg Tablet PO 03/14/20 21:01 15 mg BID PARAS Administration Phenobarbital 15 mg 03/15/20 09:00 Phenobarbital 15 Mg Tablet PO 03/16/20 09:01 DAILY PARAS Sodium Chloride 3 ml 03/11/20 00:00 03/13/20 07:29 0.9 % Sodium Chloride Flush 3 Ml Syringe IVFLUSH 3 ml QSHIFT PARAS Administration Sodium Chloride 3 ml 03/11/20 00:11 03/13/20 07:29 0.9 % Sodium Chloride Flush 3 Ml Syringe IVFLUSH Not Given QSHIFT PARAS Thiamine HCl 100 mg 03/11/20 09:00 03/13/20 07:29 Thiamine Hcl 200 Mg/2 Ml Vial IVPUSH 100 mg DAILY PARAS Administration Labs CBC & Chem 7: 03/11/20 07:49 03/13/20 05:17 Assessment and Plan (1) Alcohol abuse with withdrawal delirium: Status: Acute Assessment and Plan: This is a 54 yo M with a PMH of chronic alcohol abuse and dependence who presented to the hospital with alerted mental status. 1. Acute Encephalopathy question chronicity of condition suspect he has some degree of underlying alcoholic dementia / memory impairment psych eval for competency today 2. Alcohol intoxication / abuse / high risk for withdrawal started on phenobarb upon admission monitor lytes alcohol cessation has been encouraged mvi,thiamin,folate 3. Alcoholic liver disease stable RUQ ultrasound -- no evidence of acute fior (some sludge, but no GB wall thickening / pericholecystit cluid) 4. HypoK continue Mg repletement po k 40mg x 2; recheck tomorrow Full Code DVT pptx -- mechanical due to low platelets dispo: tbd pending competency evaluation.
--- NOTE | 2020-03-13 11:58 | MHC.CM.PN ---
per rounds pt not medically ready for dc cm to work on guardianship
--- NOTE | 2020-03-13 12:10 | MHC.CM.PN ---
spoke with pts niece nicol lazaro [phone] who explins that she is the one checking on pt daily her uncle pola lazaro [phone] is usually the one making decisions his address is [address] [place] [id number] SPOKE WITH POLA WHO FEELS A HCP has been filled out in the past he does not have a copy and his dr at [facility] who has since left may have a copy will follw thru with same if not [facility] hcp if pt claers over the weekend
--- NOTE | 2020-03-13 13:06 | MHC.CM.PN ---
called and checked with [facility] medical records pt does not have a hcp on file
--- NOTE | 2020-03-13 13:08 | MHC.CM.PN ---
and [facility] does not have him as going to another hospitial
[2020-03-13 16:00] VITALS: BP 108/72; PULSE 102; RESP 16; TEMP 36.7; O2SAT 98
[2020-03-13 20:00] VITALS: BP 116/76; PULSE 105; RESP 21; TEMP 36.8; O2SAT 98
[2020-03-14] VITALS (7 sets, daily range): BP systolic 114–137; BP diastolic 64–85; PULSE 98–106; RESP 18; TEMP 36.3–37.4; O2SAT 94–99
[2020-03-14] MEDS: Magnesium Oxide 400 MG TABLET PO ×2 (09:22→17:14)
[2020-03-14] MEDS: PHENobarbitaL 15 MG TABLET PO ×2 (09:22→21:42)
[2020-03-14] MEDS: 0.9 % Sodium Chloride Flush 3 ML SYRINGE IVFLUSH ×4 (09:23→21:45)
[2020-03-14] MEDS: Thiamine HCL 200 MG/2 ML VIAL 100 MG IVPUSH (09:23)
--- NOTE | 2020-03-14 12:08 | HO.PM.IMPN ---
Subjective Subjective Date of Service: 03/14/20 Interval History: seen and examined this AM no complaints remains disoriented ROS unreliable Physical Exam Vital Signs: Vital Signs: Last Vital Signs Temp 97.4 F 03/14/20 11:07 Pulse 103 H 03/14/20 11:07 Resp 18 03/14/20 11:07 BP 134/76 03/14/20 11:07 Pulse Ox 95 03/14/20 11:07 Body Mass Index 26.2 Const: General: cooperative and no acute distress Orientation/consciousness: No oriented to person, oriented to place and No oriented to time Eyes: Pupils: Equal, round and reactive pupils present EOM: EOMs intact bilaterally Resp: Effort & Inspection: normal respiratory effort Auscultation: clear to auscultation bilaterally Cardio: Heart sounds: S1 normal heart sound present and S2 normal heart sound present GI: Inspection: Yes normal to inspection Palpation (GI): Soft to palpation, nontender and no guarding Auscultation: normal bowel sounds Skin: General skin exam: no rashes or lesions noted Neuro: General: No oriented to person, oriented to place and No oriented to time Cranial nerves: Yes Equal, round and reactive pupils present Objective Data Current Medications Generic Name Dose Route Start Last Admin Trade Name Freq PRN Reason Stop Dose Admin Acetaminophen 650 mg 03/11/20 00:11 Acetaminophen 325 Mg Tablet PO Q6H PRN Pain, Mild (Pain Scale 1-3) Magnesium Hydroxide 30 ml 03/10/20 23:03 Milk Of Magnesia 30 Ml Oral.Susp PO DAILY PRN Constipation Magnesium Oxide 400 mg 03/11/20 17:30 03/14/20 09:22 Magnesium Oxide 400 Mg Tablet PO 400 mg BIDPC PARAS Administration Medication 1 each 03/11/20 09:00 No Benzodiazepines MISCELLANE DAILY PARAS Ondansetron HCl 4 mg 03/11/20 00:11 Ondansetron Hcl 4 Mg/2 Ml Vial IVPUSH Q8H PRN Nausea and Vomiting Phenobarbital 15 mg 03/13/20 09:00 03/14/20 09:22 Phenobarbital 15 Mg Tablet PO 03/14/20 21:01 15 mg BID PARAS Administration Phenobarbital 15 mg 03/15/20 09:00 Phenobarbital 15 Mg Tablet PO 03/16/20 09:01 DAILY PARAS Sodium Chloride 3 ml 03/11/20 00:00 03/14/20 09:23 0.9 % Sodium Chloride Flush 3 Ml Syringe IVFLUSH 3 ml QSHIFT PARAS Administration Sodium Chloride 3 ml 03/11/20 00:11 03/14/20 09:20 0.9 % Sodium Chloride Flush 3 Ml Syringe IVFLUSH Not Given QSHIFT PARAS Thiamine HCl 100 mg 03/11/20 09:00 03/14/20 09:23 Thiamine Hcl 200 Mg/2 Ml Vial IVPUSH 100 mg DAILY PARAS Administration Labs CBC & Chem 7: 03/11/20 07:49 03/13/20 05:17 Assessment and Plan (1) Alcohol abuse with withdrawal delirium: Status: Acute Assessment and Plan: This is a 54 yo M with a PMH of chronic alcohol abuse and dependence who presented to the hospital with alerted mental status. 1. 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 Acute encephalopathy worsened acute due to above suspect he has at baseline 3. Alcohol intoxication / abuse / high risk for withdrawal started on phenobarb upon admission monitor lytes alcohol cessation has been encouraged mvi,thiamin,folate 4. Alcoholic liver disease stable RUQ ultrasound -- no evidence of acute fior (some sludge, but no GB wall thickening / pericholecystit cluid) 5. HypoK/hypoMg hypoK - normalized hypoMg - PO replacement Full Code DVT pptx -- mechanical due to low platelets dispo: TBD pending safe discharge plan
--- NOTE | 2020-03-14 23:59 | PC.NURSE ---
Patients sister Amarilys called, states she is very concerned about pts poor po intake/nutrition status. Will pass along to day shift.
[2020-03-15 03:56] VITALS: BP 115/80; PULSE 110; RESP 18; TEMP 36.8; O2SAT 98
[2020-03-15 06:00] VITALS: BMI 25.7
[2020-03-15 07:18] VITALS: BP 126/79; PULSE 104; RESP 18; TEMP 36.7; O2SAT 99
[2020-03-15] MEDS: 0.9 % Sodium Chloride Flush 3 ML SYRINGE IVFLUSH ×3 (07:53→20:57)
[2020-03-15] MEDS: Thiamine HCL 200 MG/2 ML VIAL 100 MG IVPUSH (07:53)
[2020-03-15] MEDS: Magnesium Oxide 400 MG TABLET PO ×2 (07:53→16:39)
[2020-03-15] MEDS: PHENobarbitaL 15 MG TABLET PO (07:53)
[2020-03-15 11:18] VITALS: BP 131/86; PULSE 102; RESP 18; TEMP 36.8; O2SAT 98
[2020-03-15 15:11] VITALS: BP 139/87; PULSE 98; RESP 18; TEMP 36.8; O2SAT 98
--- NOTE | 2020-03-15 16:49 | HO.PM.IMPN ---
Subjective Subjective Date of Service: 03/15/20 Interval History: seen and examined this AM no complaints ROS unreliable Physical Exam Vital Signs: Vital Signs: Last Vital Signs Temp 98.3 F 03/15/20 15:11 Pulse 98 03/15/20 15:11 Resp 18 03/15/20 15:11 BP 139/87 03/15/20 15:11 Pulse Ox 98 03/15/20 15:11 Body Mass Index 25.7 Const: General: cooperative and no acute distress Orientation/consciousness: No oriented to person, oriented to place and No oriented to time Eyes: Pupils: Equal, round and reactive pupils present EOM: EOMs intact bilaterally Resp: Effort & Inspection: normal respiratory effort Auscultation: clear to auscultation bilaterally Cardio: Heart sounds: S1 normal heart sound present and S2 normal heart sound present GI: Inspection: Yes normal to inspection Palpation (GI): Soft to palpation, nontender and no guarding Auscultation: normal bowel sounds Skin: General skin exam: no rashes or lesions noted Neuro: General: No oriented to person, oriented to place and No oriented to time Cranial nerves: Yes Equal, round and reactive pupils present Objective Data Current Medications Generic Name Dose Route Start Last Admin Trade Name Freq PRN Reason Stop Dose Admin Acetaminophen 650 mg 03/11/20 00:11 Acetaminophen 325 Mg Tablet PO Q6H PRN Pain, Mild (Pain Scale 1-3) Magnesium Hydroxide 30 ml 03/10/20 23:03 Milk Of Magnesia 30 Ml Oral.Susp PO DAILY PRN Constipation Magnesium Oxide 400 mg 03/11/20 17:30 03/15/20 16:39 Magnesium Oxide 400 Mg Tablet PO 400 mg BIDPC PARAS Administration Medication 1 each 03/11/20 09:00 No Benzodiazepines MISCELLANE DAILY PARAS Ondansetron HCl 4 mg 03/11/20 00:11 Ondansetron Hcl 4 Mg/2 Ml Vial IVPUSH Q8H PRN Nausea and Vomiting Phenobarbital 15 mg 03/15/20 09:00 03/15/20 07:53 Phenobarbital 15 Mg Tablet PO 03/16/20 09:01 15 mg DAILY PARAS Administration Sodium Chloride 3 ml 03/11/20 00:00 03/15/20 15:16 0.9 % Sodium Chloride Flush 3 Ml Syringe IVFLUSH 3 ml QSHIFT PARAS Administration Sodium Chloride 3 ml 03/11/20 00:11 03/15/20 15:16 0.9 % Sodium Chloride Flush 3 Ml Syringe IVFLUSH Not Given QSHIFT PARAS Thiamine HCl 100 mg 03/11/20 09:00 03/15/20 07:53 Thiamine Hcl 200 Mg/2 Ml Vial IVPUSH 100 mg DAILY PARAS Administration Labs CBC & Chem 7: 03/11/20 07:49 03/13/20 05:17 Assessment and Plan (1) Alcohol abuse with withdrawal delirium: Status: Acute Assessment and Plan: This is a 54 yo M with a PMH of chronic alcohol abuse and dependence who presented to the hospital with alerted mental status. 1. 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 Acute encephalopathy worsened acutely due to above suspect he has at baseline 3. Alcohol intoxication / abuse / high risk for withdrawal started on phenobarb upon admission - course to be completed tomorrow monitor lytes alcohol cessation has been encouraged mvi,thiamin,folate 4. Alcoholic liver disease stable RUQ ultrasound -- no evidence of acute fior (some sludge, but no GB wall thickening / pericholecystit cluid) 5. HypoK/hypoMg hypoK - normalized hypoMg - PO replacement Full Code DVT pptx -- mechanical due to low platelets dispo: TBD pending safe discharge plan
--- NOTE | 2020-03-15 17:09 | PC.NURSE ---
PT NOT EATING, ONLY MOSTLY DRINKING ORANGE JUICE. STATES I'LL EAT LATER. PO ENCOURAGED THROUGHOUT THE DAY. DR FERRIS AWARE.
[2020-03-15 19:06] VITALS: BP 132/89; PULSE 105; RESP 18; TEMP 37.4; O2SAT 96
[2020-03-16] VITALS: BP 120/77; PULSE 113; RESP 18; TEMP 36.9; O2SAT 97
[2020-03-16 03:30] VITALS: BP 128/76; PULSE 104; RESP 18; TEMP 36.8; O2SAT 98
[2020-03-16 05:49] VITALS: BMI 25.3
[2020-03-16 07:19] VITALS: BP 100/68; PULSE 105; RESP 18; TEMP 36.4; O2SAT 98
[2020-03-16] MEDS: 0.9 % Sodium Chloride Flush 3 ML SYRINGE IVFLUSH (08:32)
[2020-03-16] MEDS: Thiamine HCL 100 MG TABLET PO (08:33)
[2020-03-16] MEDS: Magnesium Oxide 400 MG TABLET PO (08:33)
[2020-03-16] MEDS: Folic Acid 1 MG TABLET PO (08:34)
[2020-03-16] MEDS: PHENobarbitaL 15 MG TABLET PO (08:34)
--- NOTE | 2020-03-16 09:39 | MHC.CM.PN ---
with interpertator met with pt we completred hcp pt namning brother pola willis [phone] as his agent and nicol willis as alternate [phone] copy placed on chart
[2020-03-16 11:09] VITALS: BP 108/72; PULSE 72; RESP 18; TEMP 36.4; O2SAT 98
[2020-03-16 11:27] VITALS: BP 108/72; PULSE 72; O2SAT 98
--- NOTE | 2020-03-16 11:56 | HO.PM.IMPN ---
Subjective Subjective Date of Service: 03/16/20 Interval History: seen and examined this AM no complaints reports his diet improving slightly asked him about family members whom he trusts to make his decision -- names his brother Rangel and Niece Jack Physical Exam Vital Signs: Vital Signs: Last Vital Signs Temp 97.6 F 03/16/20 11:09 Pulse 72 03/16/20 11:27 Resp 18 03/16/20 11:09 BP 108/72 03/16/20 11:27 Pulse Ox 98 03/16/20 11:27 Body Mass Index 25.3 Const: General: cooperative and no acute distress Orientation/consciousness: No oriented to person, oriented to place and No oriented to time Eyes: Pupils: Equal, round and reactive pupils present EOM: EOMs intact bilaterally Resp: Effort & Inspection: normal respiratory effort Auscultation: clear to auscultation bilaterally Cardio: Heart sounds: S1 normal heart sound present and S2 normal heart sound present GI: Inspection: Yes normal to inspection Palpation (GI): Soft to palpation, nontender and no guarding Auscultation: normal bowel sounds Skin: General skin exam: no rashes or lesions noted Neuro: General: No oriented to person, oriented to place and No oriented to time Cranial nerves: Yes Equal, round and reactive pupils present Objective Data Current Medications Generic Name Dose Route Start Last Admin Trade Name Esvin PRN Reason Stop Dose Admin Acetaminophen 650 mg 03/11/20 00:11 Acetaminophen 325 Mg Tablet PO Q6H PRN Pain, Mild (Pain Scale 1-3) Folic Acid 1 mg 03/16/20 09:00 03/16/20 08:34 Folic Acid 1 Mg Tablet PO 1 mg DAILY PARAS Administration Magnesium Hydroxide 30 ml 03/10/20 23:03 Milk Of Magnesia 30 Ml Oral.Susp PO DAILY PRN Constipation Magnesium Oxide 400 mg 03/11/20 17:30 03/16/20 08:33 Magnesium Oxide 400 Mg Tablet PO 400 mg BIDPC PARAS Administration Medication 1 each 03/11/20 09:00 No Benzodiazepines MISCELLANE DAILY PARAS Ondansetron HCl 4 mg 03/11/20 00:11 Ondansetron Hcl 4 Mg/2 Ml Vial IVPUSH Q8H PRN Nausea and Vomiting Sodium Chloride 3 ml 03/11/20 00:00 03/16/20 08:32 0.9 % Sodium Chloride Flush 3 Ml Syringe IVFLUSH 3 ml QSHIFT PARAS Administration Sodium Chloride 3 ml 03/11/20 00:11 03/16/20 08:35 0.9 % Sodium Chloride Flush 3 Ml Syringe IVFLUSH Not Given QSHIFT PARAS Thiamine HCl 100 mg 03/16/20 09:00 03/16/20 08:33 Thiamine Hcl 100 Mg Tablet PO 100 mg DAILY PARAS Administration Labs CBC & Chem 7: 03/11/20 07:49 03/13/20 05:17 Assessment and Plan (1) Alcohol abuse with withdrawal delirium: Status: Acute Assessment and Plan: This is a 54 yo M with a PMH of chronic alcohol abuse and dependence who presented to the hospital with alerted mental status. 1. 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 2. Acute encephalopathy worsened acutely due to above suspect he has at baseline 3. Alcohol intoxication / abuse / high risk for withdrawal started on phenobarb upon admission - course to be completed tomorrow monitor lytes alcohol cessation has been encouraged mvi,thiamin,folate 4. Alcoholic liver disease stable RUQ ultrasound -- no evidence of acute fior (some sludge, but no GB wall thickening / pericholecystit cluid) 5. HypoK/hypoMg hypoK - normalized hypoMg - PO replacement Full Code DVT pptx -- mechanical due to low platelets dispo: TBD pending safe discharge plan
--- NOTE | 2020-03-16 14:16 | MHC.CM.PN ---
per rounds pt ready for dc ,pt accepted at [facility] which was confirmed first choice awaiting ins auth
--- NOTE | 2020-03-16 14:46 | MHC.CM.PN ---
pt to be dcd today after being seen by care team brother will transport
[2020-03-16 15:10] VITALS: BP 130/83; PULSE 98; RESP 20; TEMP 36.3; O2SAT 99
--- NOTE | 2020-03-16 15:24 | PM.DS ---
DS: Providers Provider Date of Service: 03/16/20 Date of admission: 03/10/20 23:03 Primary care physician: Unknown Physician Consults: 03/12/20 17:43 Consult to Psychiatry Routine Consulting Provider: Cristino Manuel Reason for consultation: competency evaluation, suspected alcoholic memory impairment 03/16/20 14:21 Consult to Care Team Routine Comment: Reason for consultation: alcohol abuse and dependence DS: Diagnosis Discharge Diagnosis (1) Alcohol abuse with withdrawal delirium: Status: Acute (2) Alcoholic dementia: Status: Acute DS: Medications Discharge Medications Home Medications: Previous Rx's Medication Instructions Recorded magnesium oxide 400 mg PO BIDPC #60 tab 03/16/20 omeprazole 20 mg PO DAILY #30 cap 03/16/20 DS: Summary Hospital Course Hospital Course: Patient presented with acute encephalopathy which was initially felt secondary to alcohol intoxication and early withdrawal. He was treated with intravenous fluids and phenobarbital per protocol. He was started on IV thiamine and folate. Despite resolution of his intoxication and treatment of his withdrawal patient remained confused. He was seen by Psychiatry and he was deemed incompetent to make his own medical decisions. He however did have capacity to elect a healthcare proxy and elected some family members. Patient's acute illness resolved and ultimately family decided to take him home and they will be with him 05/09. He and the family have been explained about complete alcohol abstinence as well as the cause of his illness being related to alcohol use. Time Spent with Patient Time attestation: Total time spent providing and/or coordinating discharge services: Discharge coordination time: Greater than 30 minutes Physical Exam Vital Signs: Vital Signs: Last Vital Signs Temp 97.3 F 03/16/20 15:10 Pulse 98 03/16/20 15:10 Resp 20 03/16/20 15:10 BP 130/83 03/16/20 15:10 Pulse Ox 99 03/16/20 15:10 Body Mass Index 25.3 Const: General: cooperative and no acute distress Orientation/consciousness: No oriented to person, oriented to place and No oriented to time Eyes: Pupils: Equal, round and reactive pupils present EOM: EOMs intact bilaterally Resp: Effort & Inspection: normal respiratory effort Auscultation: clear to auscultation bilaterally Cardio: Heart sounds: S1 normal heart sound present and S2 normal heart sound present GI: Inspection: Yes normal to inspection Palpation (GI): Soft to palpation, nontender and no guarding Auscultation: normal bowel sounds Skin: General skin exam: no rashes or lesions noted Neuro: General: No oriented to person, oriented to place and No oriented to time Cranial nerves: Yes Equal, round and reactive pupils present DS: Data Data Completed and Pending Labs on day of discharge: Laboratory Tests 03/10/20 03/10/20 03/10/20 12:22 13:24 13:24 WBC 10.9 H RBC 4.01 L Hgb 14.1 Hct 38.5 L MCV 96.0 MCH 35.2 H MCHC 36.6 H RDW 11.4 Plt Count 182 MPV 11.4 Immature Gran % (Auto) 0.7 H Neut % (Auto) 77.8 H Lymph % (Auto) 8.1 L Ida % (Auto) 12.6 H Eos % (Auto) 0.5 Baso % (Auto) 0.3 Lymph # (Auto) 0.9 L Ida # (Auto) 1.4 H Eos # (Auto) 0.1 Baso # (Auto) 0.0 Abs Immat Gran (auto) 0.08 H Absolute Neuts (auto) 8.5 H Absolute Nucleated RBC 0.040 H Nucleated RBC % (auto) 0.4 H Smear Tech's Comments PT 15.8 H INR 1.3 H APTT 27.3 Sodium Potassium Chloride Carbon Dioxide Anion Gap BUN Creatinine Estim Creat Clear Calc Estimated GFR Random Glucose Calcium Magnesium Total Bilirubin Direct Bilirubin AST ALT Alkaline Phosphatase Ammonia Troponin I High Sens Total Protein Albumin Lipase Urine Color Urine Appearance Urine pH Ur Specific [place] Urine Protein Urine Glucose (UA) Urine Ketones Urine Blood Urine Nitrite Ur Leukocyte Esterase Urine RBC Urine WBC Ur Squamous Epith Cells Urine Bacteria Urine Opiates Screen Ur Barbiturates Screen Ur Phencyclidine Scrn Ur Amphetamines Screen U Benzodiazepines Scrn Urine Cocaine Screen U Marijuana (THC) Screen Ethyl Alcohol COVID-19 ([facility]) Negative COVID-19 Clin Com See Note 03/10/20 03/10/20 03/10/20 13:24 13:24 13:24 WBC RBC Hgb Hct MCV MCH MCHC RDW Plt Count MPV Immature Gran % (Auto) Neut % (Auto) Lymph % (Auto) Ida % (Auto) Eos % (Auto) Baso % (Auto) Lymph # (Auto) Ida # (Auto) Eos # (Auto) Baso # (Auto) Abs Immat Gran (auto) Absolute Neuts (auto) Absolute Nucleated RBC Nucleated RBC % (auto) Smear Tech's Comments PT INR APTT Sodium 135 Potassium 2.6 L Chloride 89 L Carbon Dioxide 27 Anion Gap 22 H BUN 16 Creatinine 1.02 Estim Creat Clear Calc 70.6 Estimated GFR > 60 Random Glucose 137 H Calcium 9.6 Magnesium 1.6 Total Bilirubin 3.7 H Direct Bilirubin 2.1 H AST 79 H ALT 60 H Alkaline Phosphatase 60 Ammonia Troponin I High Sens < 3.5 Total Protein 8.4 H Albumin 3.7 Lipase 329 H Urine Color Urine Appearance Urine pH Ur Specific [place] Urine Protein Urine Glucose (UA) Urine Ketones Urine Blood Urine Nitrite Ur Leukocyte Esterase Urine RBC Urine WBC Ur Squamous Epith Cells Urine Bacteria Urine Opiates Screen Ur Barbiturates Screen Ur Phencyclidine Scrn Ur Amphetamines Screen U Benzodiazepines Scrn Urine Cocaine Screen U Marijuana (THC) Screen Ethyl Alcohol < 10 COVID-19 ([facility]) COVID-19 [employer] 03/10/20 03/10/20 03/10/20 14:30 20:19 20:19 WBC RBC Hgb Hct MCV MCH MCHC RDW Plt Count MPV Immature Gran % (Auto) Neut % (Auto) Lymph % (Auto) Ida % (Auto) Eos % (Auto) Baso % (Auto) Lymph # (Auto) Ida # (Auto) Eos # (Auto) Baso # (Auto) Abs Immat Gran (auto) Absolute Neuts (auto) Absolute Nucleated RBC Nucleated RBC % (auto) Smear Tech's Comments PT INR APTT Sodium Potassium Chloride Carbon Dioxide Anion Gap BUN Creatinine Estim Creat Clear Calc Estimated GFR Random Glucose Calcium Magnesium Total Bilirubin Direct Bilirubin AST ALT Alkaline Phosphatase Ammonia 46 Troponin I High Sens Total Protein Albumin Lipase Urine Color LELE Urine Appearance CLEAR Urine pH 5.5 Ur Specific [place] <= 1.005 Urine Protein 1+ H Urine Glucose (UA) NEG Urine Ketones 5 Urine Blood 3+ H Urine Nitrite NEG Ur Leukocyte Esterase NEG Urine RBC 5-9 H Urine WBC 0 Ur Squamous Epith Cells 1+ Urine Bacteria 1+ Urine Opiates Screen Not Detected Ur Barbiturates Screen POSITIVE H Ur Phencyclidine Scrn Not Detected Ur Amphetamines Screen Not Detected U Benzodiazepines Scrn Not Detected Urine Cocaine Screen Not Detected U Marijuana (THC) Screen Not Detected Ethyl Alcohol COVID-19 ([facility]) COVID-19 [employer] 03/11/20 03/11/20 03/11/20 07:49 07:49 07:49 WBC 10.1 RBC 3.57 L Hgb 11.9 L Hct 34.8 L MCV 97.5 MCH 33.3 H MCHC 34.2 RDW 11.5 Plt Count 132 L D MPV 11.1 Immature Gran % (Auto) 0.9 H Neut % (Auto) 66.3 Lymph % (Auto) 13.9 L Ida % (Auto) 17.3 H Eos % (Auto) 1.3 Baso % (Auto) 0.3 Lymph # (Auto) 1.4 Ida # (Auto) 1.7 H Eos # (Auto) 0.1 Baso # (Auto) 0.0 Abs Immat Gran (auto) 0.09 H Absolute Neuts (auto) 6.7 Absolute Nucleated RBC 0.000 Nucleated RBC % (auto) 0.0 Smear Tech's Comments VERIFIED PT INR APTT Sodium 138 Potassium 3.3 D Chloride 97 Carbon Dioxide 30 H Anion Gap 14 BUN 15 Creatinine 0.82 Estim Creat Clear Calc 87.8 Estimated GFR > 60 Random Glucose 119 H Calcium 8.6 D Magnesium 1.8 Total Bilirubin 2.6 H Direct Bilirubin 1.5 H AST 65 H ALT 50 H Alkaline Phosphatase 56 Ammonia Troponin I High Sens Total Protein 7.1 Albumin 3.1 L Lipase Urine Color Urine Appearance Urine pH Ur Specific [place] Urine Protein Urine Glucose (UA) Urine Ketones Urine Blood Urine Nitrite Ur Leukocyte Esterase Urine RBC Urine WBC Ur Squamous Epith Cells Urine Bacteria Urine Opiates Screen Ur Barbiturates Screen Ur Phencyclidine Scrn Ur Amphetamines Screen U Benzodiazepines Scrn Urine Cocaine Screen U Marijuana (THC) Screen Ethyl Alcohol COVID-19 ([facility]) COVID-19 Clin Com 03/12/20 03/13/20 03/13/20 05:19 05:17 12:58 WBC RBC Hgb Hct MCV MCH MCHC RDW Plt Count MPV Immature Gran % (Auto) Neut % (Auto) Lymph % (Auto) Ida % (Auto) Eos % (Auto) Baso % (Auto) Lymph # (Auto) Ida # (Auto) Eos # (Auto) Baso # (Auto) Abs Immat Gran (auto) Absolute Neuts (auto) Absolute Nucleated RBC Nucleated RBC % (auto) Smear Tech's Comments PT INR APTT Sodium 136 134 L Potassium 2.9 L 3.9 D Cancelled Chloride 94 L 96 Carbon Dioxide 25 24 Anion Gap 20 18 BUN 12 9 Creatinine 0.76 0.67 Estim Creat Clear Calc 98.9 112.1 Estimated GFR > 60 > 60 Random Glucose 72 D 73 Calcium 8.6 8.2 L Magnesium 1.6 1.5 L Total Bilirubin 2.8 H Direct Bilirubin 1.7 H AST 72 H ALT 48 H Alkaline Phosphatase 60 Ammonia Troponin I High Sens Total Protein 7.4 Albumin 3.2 L Lipase Urine Color Urine Appearance Urine pH Ur Specific [place] Urine Protein Urine Glucose (UA) Urine Ketones Urine Blood Urine Nitrite Ur Leukocyte Esterase Urine RBC Urine WBC Ur Squamous Epith Cells Urine Bacteria Urine Opiates Screen Ur Barbiturates Screen Ur Phencyclidine Scrn Ur Amphetamines Screen U Benzodiazepines Scrn Urine Cocaine Screen U Marijuana (THC) Screen Ethyl Alcohol COVID-19 ([facility]) COVID-19 Clin Com Discharge Plan Discharge Patient Disposition: Home Health Service Referrals: Physician,Unknown [Primary Care Provider] - Discharge Medications: New magnesium oxide 400 mg (241.3 mg magnesium) Tablet 400 mg PO BIDPC Qty: 60 RF: 0 omeprazole 20 mg capsule,delayed release(DR/EC) 20 mg PO DAILY Qty: 30 RF: 0 Discharge Orders: Discharge Order (Routine); Ordered 03/16/20 Ordered By: Nelson Hannah Diet: advance to usual diet Activity on Discharge: As tolerated Stand Alone Forms: Patient Portal Discharge page Care Plan Goals: To stay healthy and out of the hospital. Health Concerns: Alcohol Use Plan of Treatment: Do not drink alcohol.
== END 2020-03-16 16:42 | disposition home health service (06) | DRG 42 ==
LOC: HO.ED 20:39 → HO.EDOVER 23:24 → HO.IMC 03-11 10:59
PROVIDERS: Nurse Practitioner Acute Care; Physician Assistant; Admitting Provider Internal Medicine; Emergency Provider Emergency Medicine Emergency Medical Services; PCP Physician Assistant; Visit Provider Family Medicine
DX: G31.2 Degeneration of nervous system due to alcohol (principal); F10.221 Alcohol dependence with intoxication delirium; F10.27 Alcohol dependence with alcohol-induced persisting dementia; E83.42 Hypomagnesemia; K70.9 Alcoholic liver disease, unspecified; E87.6 Hypokalemia; F10.231 Alcohol dependence with withdrawal delirium; Z20.822 Contact with and (suspected) exposure to COVID-19; E86.0 Dehydration; Z88.0 Allergy status to penicillin; Z79.899 Other long term (current) drug therapy
CPT/HCPCS: 36415; 70450; 71046; 74177; 76705; 80048; 80053; 80076; 80307; 80320; 81001; 82140; 83690; 83735; 84484; 85025; 85610; 85730; 87635; 93005; 96365; 96366; 96372; 96375; 97162; 99284; 99285; J1650; J2560; J3411; J3475; Q9967

== ENCOUNTER 2020-10-11 12:36 | Inpatient (IN) | payer OTHER, SELFPAY ==
--- NOTE | 2020-10-11 | ECG_ITS ---
Test Reason : WEAKNESS Blood Pressure : / mmHG Vent. Rate : 086 BPM Atrial Rate : 086 BPM P-R Int : 114 ms QRS Dur : 100 ms QT Int : 438 ms P-R-T Axes : 083 007 050 degrees QTc Int : 524 ms Normal sinus rhythm Moderate voltage criteria for LVH, may be normal variant T wave abnormality, consider anterior ischemia Prolonged QT Abnormal ECG When compared with ECG of 10-MAR-2020 13:28, T wave inversion now evident in Anterior leads Heart rate has decreased Referred By: Generic ED Physician Electronically Signed By:JOSEMANUEL TALAVERA
--- NOTE | ~2020-10-11 | XR_ITS ---
EXAMINATION: XR CHEST CLINICAL INFORMATION: FFT COMPARISON: Chest x-ray March 10, 2020 TECHNIQUE: Frontal view of the chest was obtained. FINDINGS: Cardiac silhouette is normal in size. Lungs are well aerated. There is no lobar consolidation. No pleural effusion or pneumothorax. Degenerative changes of the spine and shoulders. XR/XR chest 1V IMPRESSION: Stable examination demonstrating no acute pulmonary pathology.
[2020-10-11 12:40] VITALS: BP 128/81; PULSE 104; RESP 16; O2SAT 99; BMI 24.3
[2020-10-11 12:59] LABS: MANUAL DIFF FLAG NO
[2020-10-11 13:00] LABS: Basophils Absolute Auto 0.1 X10*3/uL (0.0-0.2); Basophils Percent Auto 1.8 % (0-2); Eosinophils Absolute Auto 0.1 X10*3/uL (0.0-0.4); Eosinophils Percent Auto 1.8 % (0-4); Hematocrit 35.6 % (42-52); Hemoglobin 12.4 g/dl (14.0-18.0); Imm Gran Abs Auto 0.03 X10*3/uL (0.00-0.03); Imm Gran Pct Auto 0.9 % (0.0-0.4); Lymphocytes Percent Auto 30.7 % (20-40); Mean Corpuscular HGB Conc 34.8 g/dl (31.0-36.0); Mean Corpuscular Hemoglobin 33.5 pg (27.0-33.0); Mean Corpuscular Volume 96.2 fL (80-98); Mean Platelet Volume 10.9 fL (9.4-12.4); Monocytes Absolute Auto 0.4 X10*3/uL (0.1-1.2); Monocytes Percent Auto 12.8 % (2-11); Neutrophils Absolute Auto 1.7 X10*3/uL (2.0-8.3); Platelet Count 64 X10*3/uL (160-400); Red Cell Distribution Width 11.3 % (11.0-16.0); White Blood Count 3.3 X10*3/uL (4.8-10.8)
[2020-10-11] MEDS: 0.9 % Sodium Chloride 1,000 ML 999 ML IVCONT ×3 (13:04→15:10)
--- NOTE | 2020-10-11 13:12 | ED.WEAKNESS ---
HPI - Weakness General Chief complaint: Weakness Stated complaint: WEAKNESS,FAILURE TO THRIVE Time Seen by Provider: 10/11/20 12:40 Source: patient and EMS Mode of arrival: EMS History of Present Illness HPI Narrative: 55-year-old male with a past medical history of alcohol abuse with withdrawal delirium, asthma, BIBA from home for family patient is having failure to thrive. Patient reports increased generalized weakness/fatigue. Reports acute on chronic bilateral foot numbness x1 year, and diarrhea. Admits is a daily drinker drinks about 1.5 pint of rum daily last drink this morning. Also reports multiple falls at home, denies head trauma or LOC. Denies illicit drug use. Denies fever, chills, cough, CP/SOB, abdominal pain, nausea/vomiting, LE edema MD Complaint: generalized weakness, tingling and lack of energy Related Data Previous Rx's Medication Instructions Recorded magnesium oxide 400 mg (241.3 mg 400 mg PO BIDPC #60 tab 03/16/20 magnesium) tablet omeprazole 20 mg capsule,delayed 20 mg PO DAILY #30 cap 03/16/20 release fluticasone propionate 220 1 puff INHALATION BID 30 Days #12 g 04/16/20 mcg/actuation HFA aerosol inhaler (Flovent HFA) hydroxyzine HCl 10 mg tablet 10 mg PO BID PRN 10 Days #20 tab 04/16/20 naltrexone 50 mg tablet 50 mg PO DAILY 30 Days #30 tab 04/16/20 erythromycin 5 mg/gram (0.5 %) eye 0.5 inch OPHTHALMIC (EYE) BID 10 05/07/20 ointment Days #3.5 g folic acid 1 mg tablet 1 mg PO DAILY 90 Days #90 tab 05/07/20 pyridoxine (vitamin B6) 250 mg 250 mg PO DAILY 90 Days #90 tab 05/07/20 tablet thiamine HCl (vitamin B1) 100 mg 100 mg PO DAILY 90 Days #90 tab 05/07/20 tablet disulfiram 500 mg tablet 500 mg PO DAILY 14 Days #14 tab 09/02/20 Allergies Allergy/AdvReac Type Severity Reaction Status Date / Time penicillin V Allergy Unknown unknown Verified 09/02/20 10:20 Penicillins [PENICILLINS] Allergy Unknown UNKNOWN Verified 09/02/20 10:20 Review of Systems Review of Systems: Constitutional: No Fever, No Chills, + Fatigue, + Malaise ENT/Mouth: No Ear Pain, No Nasal Congestion, No Sinus Pain, No sore throat Eyes: No Eye Pain, No Swelling, No Redness Cardiovascular: No Chest Pain, No SOB, No Edema, No Palpitations Respiratory: No Cough, No Dyspnea Gastrointestinal: No Nausea, No Vomiting, + Diarrhea, No Constipation, No Abdominal pain Genitourinary: No irregular bleeding, No Dysuria, No Hematuria, No Flank Pain Musculoskeletal: No joint pain, No Myalgias, No Joint Swelling Skin: No Skin Lesions, No rash Neuro: +Weakness, No Numbness, No Paresthesias, No Loss of Consciousness, No Headache Yes all other systems are reviewed and are negative Neurologic: Reports confusion Psychiatric: Psychiatric: Reports confusion [facility] Past Medical History Attestation statement: The following information was validated with the patient. Medical History Alcohol abuse with withdrawal delirium Asthma Surgical History No pertinent past surgical history Family History Family History Father Diabetes Hypertension Substance use disorder Mother Hypertension Sister No problems noted. Brother No problems noted. Brother No problems noted. Brother No problems noted. Brother No problems noted. Social History Social History Household Members: Family Housing: House Do you presently have visiting nurse or other home services: No Alcohol intake: current Alcohol intake frequency: 3 or more drinks per day Alcohol type: beer and hard liquor Patient Tobacco Use Status: Never used Tobacco e-Cigarette/Vaping Use: Never Used Second Hand Smoke Exposure: No Advance Directives: Yes Advance Directives Information Provided: Yes Advance Directives on File: No service: No Current occupational status: disabled Physical Exam Vital Signs: Vital Signs: Last Vital Signs Temp 98.4 F 10/11/20 15:59 Pulse 92 10/11/20 15:59 Resp 18 10/11/20 15:59 BP 143/74 H 10/11/20 15:59 Pulse Ox 99 10/11/20 15:59 Body Mass Index 24.3 Const: General: cooperative, healthy appearing, no acute distress and confusion Orientation/consciousness: patient oriented x3 and confusion Limitations: no limitations HENMT: Head: Yes normal to inspection and Yes atraumatic Ears: hearing grossly normal bilaterally General nose exam: Normal external nose present Face and sinus: Yes normal facial exam Throat: Yes posterior oropharynx normal Eyes: General: appearance normal, both eyes and all related structures Pupils: Equal, round and reactive pupils present EOM: EOMs intact bilaterally Neck: Neck: Yes normal visual inspection and Yes no meningeal signs Resp: Effort & Inspection: normal respiratory effort Auscultation: clear to auscultation bilaterally, no rales, no rhonchi and no wheezes Cardio: Rate: regular rate Heart sounds: S1 normal heart sound present and S2 normal heart sound present GI: Inspection: Yes normal to inspection Palpation (GI): Soft to palpation, nontender, no guarding, not rigid and No Ascites present Skin: Rashes: no rashes Wounds: no wounds Neuro: General: patient oriented x3, tone normal, moves all extremities, no meningeal signs, no focal motor deficits, CN's II-XI intact bilaterally and confusion Cranial nerves: Yes Equal, round and reactive pupils present Gait exam (Neuro): Normal gait present Motor exam (neuro): 5/5 motor strength present throughout and Pronator motor function not present Extrem: General: Yes normal to inspection and Yes no pedal edema Course Course Course Narrative: -leukopenia at 3.3 similar to prior, H&H is stable -1420--potassium low at 3.1 > p.o. repletion ordered, anion gap of 26 and lactic acidosis of 2.1 likely from dehydration/alcoholism rather than severe sepsis -bilirubins/AST/ALT chronically elevated, lipase chronically elevated, ammonia WNL -ethanol 327 -1529--UA not infected, tox screen positive for fentanyl XR chest 1V IMPRESSION: Stable examination demonstrating no acute pulmonary pathology. -1800--repeat lactic acid 1.8, repeat BMP with drop in calcium to 7.2 1 g of IV calcium gluconate ordered. 50mg of p.o. Librium also ordered to prevent ETOH withdrawal. Spoke to patient's niece Neelam, updated on patient's status, are in agreement for PT/case management in hopes of STR -patient placed in physician observation as needs more time to be evaluated by PT/case management MDM - Weakness MDM Narrative Medical decision making narrative: 55-year-old male with a past medical history of alcohol abuse with withdrawal delirium, asthma, BIBA from home for family patient is having failure to thrive. Patient reports increased generalized weakness/fatigue. Reports acute on chronic bilateral foot numbness x1 year, and diarrhea. On exam initially tachycardic, NAD, A&O x3 but pleasantly confused which appears to be patient's baseline from chronic ETOH abuse, no focal neuro deficits. Will rule out metabolic/infectious etiologies. Low concern for CVA. Plan: Labs, UA, CXR, COVID-19 testing, PT/case management Medical Records Attestation: I reviewed the patient's medical records. Lab Data Attestation: I reviewed the patient's lab results. Result diagrams: 10/11/20 12:53 10/11/20 17:04 Labs: Lab Results 10/11/20 10/11/20 10/11/20 Range/Units 12:53 12:53 12:53 WBC 3.3 L (4.8-10.8) X10*3/uL RBC 3.70 L (4.60-5.80) X10*6/uL Hgb 12.4 L (14.0-18.0) g/dl Hct 35.6 L (42-52) % MCV 96.2 (80-98) fL MCH 33.5 H (27.0-33.0) pg MCHC 34.8 (31.0-36.0) g/dl RDW 11.3 (11.0-16.0) % Plt Count 64 L D (160-400) X10*3/uL MPV 10.9 (9.4-12.4) fL Immature Gran % (Auto) 0.9 H (0.0-0.4) % Neut % (Auto) 52.0 (45-73) % Lymph % (Auto) 30.7 (20-40) % [place] % (Auto) 12.8 H (2-11) % Eos % (Auto) 1.8 (0-4) % Baso % (Auto) 1.8 (0-2) % Lymph # (Auto) 1.0 L (1.2-4.9) X10*3/uL [place] # (Auto) 0.4 (0.1-1.2) X10*3/uL Eos # (Auto) 0.1 (0.0-0.4) X10*3/uL Baso # (Auto) 0.1 (0.0-0.2) X10*3/uL Abs Immat Gran (auto) 0.03 (0.00-0.03) X10*3/uL Absolute Neuts (auto) 1.7 L (2.0-8.3) X10*3/uL Absolute Nucleated RBC 0.000 (0.0-0.012) X10*3/uL Nucleated RBC % (auto) 0.0 (0.0-0.2) /100WBC Sodium 137 (135-145) mmol/L Potassium 3.1 L (3.3-5.1) mmol/L Chloride 85 L (96-108) mmol/L Carbon Dioxide 29 (22-29) mmol/L Anion Gap 26 H (12-20) BUN 15 D (9-16) mg/dL Creatinine 0.86 (0.5-1.4) mg/dL Estim Creat Clear Calc 96.1 Estimated GFR > 60 Random Glucose 78 (60-115) mg/dL Lactic Acid 2.1 H* (0.5-2.0) mmol/L Lactic Acid Fup @ 2Hr (0.5-2.0) mmol/L Calcium 8.9 D (8.4-10.2) mg/dL Magnesium 1.7 (1.6-2.6) mg/dL Total Bilirubin 2.0 H (0.0-1.0) mg/dL Direct Bilirubin 1.4 H (0.0-0.5) mg/dL AST 249 H (5-37) U/L ALT 85 H (0-40) U/L Alkaline Phosphatase 60 (39-117) U/L Ammonia (13-55) umol/L Total Protein 8.3 H (6.5-8.0) g/dL Albumin 4.0 D (3.5-5.0) g/dL Lipase 133 H (8-78) U/L Urine Color Urine Appearance Urine pH (5.0-8.0) Ur Specific [place] (1.005-1.025) Urine Protein (NEG-TRACE) MG/DL Urine Glucose (UA) (NEG) MG/DL Urine Ketones (NEG) MG/DL Urine Blood (NEG) Urine Nitrite (NEG) Ur Leukocyte Esterase (NEG) Urine RBC (0) /HPF Urine WBC (0-4) /HPF Ur Squamous Epith Cells /LPF Urine Bacteria /LPF Urine Opiates Screen (Not Detect) Urine Fentanyl Screen (Not Detect) Ur Barbiturates Screen (Not Detect) Ur Phencyclidine Scrn (Not Detect) Ur Amphetamines Screen (Not Detect) U Benzodiazepines Scrn (Not Detect) Urine Cocaine Screen (Not Detect) U Marijuana (THC) Screen (Not Detect) Ethyl Alcohol mg/dL COVID-19 ([facility]) (Negative) COVID-19 Clin Com 10/11/20 10/11/20 10/11/20 Range/Units 12:53 12:55 13:28 WBC (4.8-10.8) X10*3/uL RBC (4.60-5.80) X10*6/uL Hgb (14.0-18.0) g/dl Hct (42-52) % MCV (80-98) fL MCH (27.0-33.0) pg MCHC (31.0-36.0) g/dl RDW (11.0-16.0) % Plt Count (160-400) X10*3/uL MPV (9.4-12.4) fL Immature Gran % (Auto) (0.0-0.4) % Neut % (Auto) (45-73) % Lymph % (Auto) (20-40) % [place] % (Auto) (2-11) % Eos % (Auto) (0-4) % Baso % (Auto) (0-2) % Lymph # (Auto) (1.2-4.9) X10*3/uL [place] # (Auto) (0.1-1.2) X10*3/uL Eos # (Auto) (0.0-0.4) X10*3/uL Baso # (Auto) (0.0-0.2) X10*3/uL Abs Immat Gran (auto) (0.00-0.03) X10*3/uL Absolute Neuts (auto) (2.0-8.3) X10*3/uL Absolute Nucleated RBC (0.0-0.012) X10*3/uL Nucleated RBC % (auto) (0.0-0.2) /100WBC Sodium (135-145) mmol/L Potassium (3.3-5.1) mmol/L Chloride (96-108) mmol/L Carbon Dioxide (22-29) mmol/L Anion Gap (12-20) BUN (9-16) mg/dL Creatinine (0.5-1.4) mg/dL Estim Creat Clear Calc Estimated GFR Random Glucose (60-115) mg/dL Lactic Acid (0.5-2.0) mmol/L Lactic Acid Fup @ 2Hr (0.5-2.0) mmol/L Calcium (8.4-10.2) mg/dL Magnesium (1.6-2.6) mg/dL Total Bilirubin (0.0-1.0) mg/dL Direct Bilirubin (0.0-0.5) mg/dL AST (5-37) U/L ALT (0-40) U/L Alkaline Phosphatase (39-117) U/L Ammonia 35 (13-55) umol/L Total Protein (6.5-8.0) g/dL Albumin (3.5-5.0) g/dL Lipase (8-78) U/L Urine Color Urine Appearance Urine pH (5.0-8.0) Ur Specific [place] (1.005-1.025) Urine Protein (NEG-TRACE) MG/DL Urine Glucose (UA) (NEG) MG/DL Urine Ketones (NEG) MG/DL Urine Blood (NEG) Urine Nitrite (NEG) Ur Leukocyte Esterase (NEG) Urine RBC (0) /HPF Urine WBC (0-4) /HPF Ur Squamous Epith Cells /LPF Urine Bacteria /LPF Urine Opiates Screen (Not Detect) Urine Fentanyl Screen (Not Detect) Ur Barbiturates Screen (Not Detect) Ur Phencyclidine Scrn (Not Detect) Ur Amphetamines Screen (Not Detect) U Benzodiazepines Scrn (Not Detect) Urine Cocaine Screen (Not Detect) U Marijuana (THC) Screen (Not Detect) Ethyl Alcohol 327 H* mg/dL COVID-19 ([facility]) Negative (Negative) COVID-19 Clin Com See Note 10/11/20 10/11/20 10/11/20 Range/Units 14:38 14:38 15:27 WBC (4.8-10.8) X10*3/uL RBC (4.60-5.80) X10*6/uL Hgb (14.0-18.0) g/dl Hct (42-52) % MCV (80-98) fL MCH (27.0-33.0) pg MCHC (31.0-36.0) g/dl RDW (11.0-16.0) % Plt Count (160-400) X10*3/uL MPV (9.4-12.4) fL Immature Gran % (Auto) (0.0-0.4) % Neut % (Auto) (45-73) % Lymph % (Auto) (20-40) % [place] % (Auto) (2-11) % Eos % (Auto) (0-4) % Baso % (Auto) (0-2) % Lymph # (Auto) (1.2-4.9) X10*3/uL [place] # (Auto) (0.1-1.2) X10*3/uL Eos # (Auto) (0.0-0.4) X10*3/uL Baso # (Auto) (0.0-0.2) X10*3/uL Abs Immat Gran (auto) (0.00-0.03) X10*3/uL Absolute Neuts (auto) (2.0-8.3) X10*3/uL Absolute Nucleated RBC (0.0-0.012) X10*3/uL Nucleated RBC % (auto) (0.0-0.2) /100WBC Sodium (135-145) mmol/L Potassium (3.3-5.1) mmol/L Chloride (96-108) mmol/L Carbon Dioxide (22-29) mmol/L Anion Gap (12-20) BUN (9-16) mg/dL Creatinine (0.5-1.4) mg/dL Estim Creat Clear Calc Estimated GFR Random Glucose (60-115) mg/dL Lactic Acid (0.5-2.0) mmol/L Lactic Acid Fup @ 2Hr 1.8 (0.5-2.0) mmol/L Calcium (8.4-10.2) mg/dL Magnesium (1.6-2.6) mg/dL Total Bilirubin (0.0-1.0) mg/dL Direct Bilirubin (0.0-0.5) mg/dL AST (5-37) U/L ALT (0-40) U/L Alkaline Phosphatase (39-117) U/L Ammonia (13-55) umol/L Total Protein (6.5-8.0) g/dL Albumin (3.5-5.0) g/dL Lipase (8-78) U/L Urine Color YELLOW Urine Appearance CLEAR Urine pH 6.0 (5.0-8.0) Ur Specific [place] 1.015 (1.005-1.025) Urine Protein 2+ H (NEG-TRACE) MG/DL Urine Glucose (UA) NEG (NEG) MG/DL Urine Ketones >=80 (NEG) MG/DL Urine Blood 2+ H (NEG) Urine Nitrite NEG (NEG) Ur Leukocyte Esterase NEG (NEG) Urine RBC 5-9 H (0) /HPF Urine WBC 0-2 (0-4) /HPF Ur Squamous Epith Cells TRACE /LPF Urine Bacteria NONE /LPF Urine Opiates Screen Not Detected (Not Detect) Urine Fentanyl Screen POSITIVE H (Not Detect) Ur Barbiturates Screen Not Detected (Not Detect) Ur Phencyclidine Scrn Not Detected (Not Detect) Ur Amphetamines Screen Not Detected (Not Detect) U Benzodiazepines Scrn Not Detected (Not Detect) Urine Cocaine Screen Not Detected (Not Detect) U Marijuana (THC) Screen Not Detected (Not Detect) Ethyl Alcohol mg/dL COVID-19 ([facility]) (Negative) COVID-19 Clin Com 10/11/20 Range/Units 17:04 WBC (4.8-10.8) X10*3/uL RBC (4.60-5.80) X10*6/uL Hgb (14.0-18.0) g/dl Hct (42-52) % MCV (80-98) fL MCH (27.0-33.0) pg MCHC (31.0-36.0) g/dl RDW (11.0-16.0) % Plt Count (160-400) X10*3/uL MPV (9.4-12.4) fL Immature Gran % (Auto) (0.0-0.4) % Neut % (Auto) (45-73) % Lymph % (Auto) (20-40) % [place] % (Auto) (2-11) % Eos % (Auto) (0-4) % Baso % (Auto) (0-2) % Lymph # (Auto) (1.2-4.9) X10*3/uL [place] # (Auto) (0.1-1.2) X10*3/uL Eos # (Auto) (0.0-0.4) X10*3/uL Baso # (Auto) (0.0-0.2) X10*3/uL Abs Immat Gran (auto) (0.00-0.03) X10*3/uL Absolute Neuts (auto) (2.0-8.3) X10*3/uL Absolute Nucleated RBC (0.0-0.012) X10*3/uL Nucleated RBC % (auto) (0.0-0.2) /100WBC Sodium 138 (135-145) mmol/L Potassium 3.1 L (3.3-5.1) mmol/L Chloride 97 (96-108) mmol/L Carbon Dioxide 20 L (22-29) mmol/L Anion Gap 24 H (12-20) BUN 11 (9-16) mg/dL Creatinine 0.66 (0.5-1.4) mg/dL Estim Creat Clear Calc 125.2 Estimated GFR > 60 Random Glucose 60 (60-115) mg/dL Lactic Acid (0.5-2.0) mmol/L Lactic Acid Fup @ 2Hr (0.5-2.0) mmol/L Calcium 7.2 L D (8.4-10.2) mg/dL Magnesium (1.6-2.6) mg/dL Total Bilirubin (0.0-1.0) mg/dL Direct Bilirubin (0.0-0.5) mg/dL AST (5-37) U/L ALT (0-40) U/L Alkaline Phosphatase (39-117) U/L Ammonia (13-55) umol/L Total Protein (6.5-8.0) g/dL Albumin (3.5-5.0) g/dL Lipase (8-78) U/L Urine Color Urine Appearance Urine pH (5.0-8.0) Ur Specific [place] (1.005-1.025) Urine Protein (NEG-TRACE) MG/DL Urine Glucose (UA) (NEG) MG/DL Urine Ketones (NEG) MG/DL Urine Blood (NEG) Urine Nitrite (NEG) Ur Leukocyte Esterase (NEG) Urine RBC (0) /HPF Urine WBC (0-4) /HPF Ur Squamous Epith Cells /LPF Urine Bacteria /LPF Urine Opiates Screen (Not Detect) Urine Fentanyl Screen (Not Detect) Ur Barbiturates Screen (Not Detect) Ur Phencyclidine Scrn (Not Detect) Ur Amphetamines Screen (Not Detect) U Benzodiazepines Scrn (Not Detect) Urine Cocaine Screen (Not Detect) U Marijuana (THC) Screen (Not Detect) Ethyl Alcohol mg/dL COVID-19 ([facility]) (Negative) COVID-19 Clin Com Discharge Plan Discharge Clinical Impression: Adult failure to thrive, Alcohol abuse with alcohol-induced disorder Instructions: Abuse of Alcohol (ED), Failure to Thrive in Older Adults (ED) Prescriptions: No Action magnesium oxide 400 mg (241.3 mg magnesium) Tablet 400 mg PO BIDPC Qty: 60 RF: 0 omeprazole 20 mg capsule,delayed release(DR/EC) 20 mg PO DAILY Qty: 30 RF: 0 Flovent HFA 220 mcg/actuation HFA aerosol inhaler 1 puff inhalation BID 30 Days Qty: 12 RF: 1 naltrexone 50 mg tablet 50 mg PO DAILY 30 Days Qty: 30 RF: 3 hydroxyzine HCl 10 mg tablet 10 mg PO BID PRN (Reason: anxiety) 10 Days Qty: 20 RF: 1 folic acid 1 mg tablet 1 mg PO DAILY 90 Days Qty: 90 RF: 1 thiamine HCl (vitamin B1) 100 mg tablet 100 mg PO DAILY 90 Days Qty: 90 RF: 1 pyridoxine (vitamin B6) 250 mg tablet 250 mg PO DAILY 90 Days Qty: 90 RF: 1 erythromycin 5 mg/gram (0.5 %) ointment 0.5 inch ophthalmic (eye) BID 10 Days Qty: 3.5 RF: 0 disulfiram 500 mg tablet 500 mg PO DAILY 14 Days Qty: 14 RF: 0
[2020-10-11 13:16] LABS: Ammonia 35 umol/L (13-55)
[2020-10-11 13:36] LABS: Alanine Aminotransferase 85 U/L (0-40); Alkaline Phosphatase 60 U/L (39-117); Anion Gap 26 (12-20); Aspartate Amino Transferase 249 U/L (5-37); Bilirubin Direct 1.4 mg/dL (0.0-0.5); Blood Urea Nitrogen 15 mg/dL (9-16); Calcium 8.9 mg/dL (8.4-10.2); Carbon Dioxide 29 mmol/L (22-29); Chloride 85 mmol/L (96-108); Creatinine Clr Calc Pharmacy 96.1; Estimated Glomerular Filt Rate > 60; Glucose Random 78 mg/dL (60-115); Lactic Acid 2.1 mmol/L (0.5-2.0); Lipase 133 U/L (8-78); Potassium 3.1 mmol/L (3.3-5.1); Sodium 137 mmol/L (135-145); Total Protein 8.3 g/dL (6.5-8.0)
[2020-10-11 13:38] LABS: Ethanol 327 mg/dL
[2020-10-11 13:41] LABS: Magnesium 1.7 mg/dL (1.6-2.6)
[2020-10-11 13:53] LABS: COVID-19 Test Negative (Negative); IDNOW Serial# 55D5AD1C
--- NOTE | 2020-10-11 13:57 | PC.NURSE ---
spoke with patients sister Amarilys regarding patients presentation to the hospital today. per pt's sister, his chronic conditions such as anxiety and neuropathy have began to increase over the past few months and within the past few days he has decreased his intake of food and water and continued to drink alcohol resulting in GI upset and patient fatigue.
[2020-10-11] MEDS: Potassium Chloride Packet 20 MEQ PACKET 40 MEQ PO ×2 (14:31→18:01)
[2020-10-11 14:47] LABS: Glucose Urine UA NEG (NEG); Leukocyte Esterase Urine NEG (NEG); Nitrite Urine NEG (NEG); Specific Gravity - Urine 1.015 (1.005-1.025); UACC Culture Trigger NO; Urine Blood 2+ (NEG); Urine Ketones >=80 MG/DL (NEG); Urine Protein 2+ MG/DL (NEG-TRACE)
[2020-10-11 14:57] LABS: Reflex Lactate? Lactic Acid Added
[2020-10-11 14:59] LABS: Appearance Urine CLEAR; Color Urine YELLOW
[2020-10-11 15:01] LABS: Squamous Epithelial Cell Urine TRACE /LPF; WBC Urine 0-2 /HPF (0-4)
[2020-10-11 15:08] LABS: Amphetamine Screen Urine Not Detected (Not Detect); Barbiturates, Urine Not Detected (Not Detect); Benzodiazepines Screen Urine Not Detected (Not Detect); Cannabinoid Screen Urine Not Detected (Not Detect); Cocaine Screen Urine Not Detected (Not Detect); Fentanyl, urine POSITIVE (Not Detect); Opiate Screen Urine Not Detected (Not Detect); Phencyclidine Screen Urine Not Detected (Not Detect)
[2020-10-11] MEDS: Folic Acid 1 MG in 0.9 % Sodium Chloride 50 ML 100.4 MG IV (15:10)
[2020-10-11] MEDS: Thiamine HCL 100 MG in 0.9 % Sodium Chloride 100 ML 202 MG IV (15:11)
[2020-10-11 15:12] VITALS: BP 145/86; PULSE 89; RESP 16; O2SAT 99
[2020-10-11 15:59] VITALS: BP 143/74; PULSE 92; RESP 18; TEMP 36.9; O2SAT 99
[2020-10-11 16:02] LABS: ~Lactic Acid-LAB USE ONLY 1.8 mmol/L (0.5-2.0)
[2020-10-11] MEDS: LORazepam 2 MG/ML VIAL IVPUSH ×2 (16:15→20:28)
[2020-10-11 17:51] LABS: Anion Gap 24 (12-20); Blood Urea Nitrogen 11 mg/dL (9-16); Calcium 7.2 mg/dL (8.4-10.2); Carbon Dioxide 20 mmol/L (22-29); Chloride 97 mmol/L (96-108); Creatinine Clr Calc Pharmacy 125.2; Estimated Glomerular Filt Rate > 60; Glucose Random 60 mg/dL (60-115); Potassium 3.1 mmol/L (3.3-5.1); Sodium 138 mmol/L (135-145)
[2020-10-11] MEDS: Calcium Gluconate/NaCl,Iso-Osm 1 GM/50 ML PLAST..BAG IV (18:12)
[2020-10-11] MEDS: chlordiazePOXIDE HCl 25 MG CAPSULE 50 MG PO (18:17)
[2020-10-11 19:23] VITALS: BP 165/89; PULSE 89; RESP 16; TEMP 36.9; O2SAT 97
--- NOTE | 2020-10-11 19:25 | PC.NURSE ---
Pt resting on stretcher in NAD, breathing with ease on RA. Pt aaox2, oriented only to person and place. Pt disoriented to time and situation, believes it is November 2020 and he is in ED for covid. Pt reoriented. This RN to request home meds be continued by provider, phenobarb protocol to begin. This RN to notify provider of CIWA score. Pt assisted to bedside commode with assist x 1, returned to stretcher without incidence. Side rails raised x 2, padded with seizure precautions, pt on bedside cardiac monitoring. Stretcher in low locked position, call harrison within reach, pt expresses understanding of how to use call harrison for his needs. Red fall prevention socks on, red fall alert bracelet on, red star posted outside of room.
[2020-10-11 20:27] VITALS: BP 162/90; PULSE 82; RESP 13; O2SAT 100
[2020-10-11] MEDS: Erythromycin Base 0.5% Oph Oin 1 GM TUBE 1 CM EYE-BOTH (20:28)
[2020-10-11 21:55] VITALS: BP 145/86; PULSE 93; RESP 18; TEMP 37.1; O2SAT 96
[2020-10-11] MEDS: Fluticasone Propionate 250 MCG BLST.W.DEV 1 PUFF INHALE (21:57)
[2020-10-12] VITALS (14 sets, daily range): BP systolic 138–167; BP diastolic 64–106; PULSE 80–95; RESP 12–18; TEMP 36.5–37; O2SAT 96–100
--- NOTE | 2020-10-12 00:40 | PC.NURSE ---
This RN to bedside to assess VS. Pt asleep but arousable to this RN with verbal stimulus. Pt noted to be HTN at 161/106. Kerry LEROY and Dr Villanueva made aware. Because CIWA does not take BP into consideration, this RN performed MINDs withdrawal scale (not documented as it is not available to this RN in worklist search). Pt with MINDs score of 3 which is minimal. Per Dr Villanueva, hold off on additional ativan dose at this time and reassess VS in at approximately 2a
--- NOTE | 2020-10-12 01:07 | PC.NURSE ---
On [employer], unit aide tech notes pt HR to be in 160s. Stefanie RN, Clara PCT to bedside found pt out of bed. Urine on floor. Pt assisted to bedside commode. This RN to bedside. Pt assisted back to stretcher after urinating in bedside commode. Pt reconnected to bedside [employer], NSR at 84 at this time. Pt transferred to . Bed alarm active and audible. Bed in low locked position, rails raised, call harrison within reach. Pt re-educated on need to call for assistance, expresses understanding. CIWA to be reassessed and reported to Dr Villanueva.
[2020-10-12] MEDS: LORazepam 2 MG/ML VIAL 1 MG IVPUSH ×2 (01:36→03:42)
--- NOTE | 2020-10-12 03:27 | PC.NURSE ---
Pt's CIWA is 10, RR 9-11, ETCO2 35. Dr Villanueva made aware. Unknown if pt's disorientation/numbness and tingling which contributes to his CIWA score is baseline or not. Per Dr Villanueva, pt to be medicated with zofran and 1mg IV ativan. Will medicate per orders
[2020-10-12] MEDS: ondansetron HCL 4 MG/2 ML VIAL IVPUSH (03:42)
--- NOTE | 2020-10-12 04:47 | PC.NURSE ---
Dr Villanueva made aware of pt's CIWA and VS. No additional ativan at this time per Dr Villanueva
--- NOTE | 2020-10-12 05:52 | PC.NURSE ---
Dr Villanueva made aware of pt's persistent HTN including current BP. No HTN listed in diagnoses, no antihypertensives listed in med rec. This RN asks Dr Villanueva if she would like to medicate pt with oral antihypertensives. Dr Villanueva states no, I don't think it's necessary at this point. I think he probably lives with an elevated BP.
[2020-10-12] MEDS: Omeprazole 20 MG CAPSULE.DR PO (06:16)
--- NOTE | 2020-10-12 07:30 | PC.NURSE ---
pt ate 25% of breakfast.
[2020-10-12] MEDS: Magnesium Oxide 400 MG TABLET PO ×2 (08:25→16:00)
--- NOTE | 2020-10-12 08:30 | PC.NURSE ---
pt at this time is a/o x 3 no sob/ridge noted rr 12, pt is very unsteady on his feet and is impulsive, md aware. pt was seen earlier by physical therapy.
[2020-10-12] MEDS: Folic Acid 1 MG TABLET PO (09:59)
[2020-10-12] MEDS: Thiamine HCL 100 MG TABLET PO (10:00)
[2020-10-12] MEDS: Pyridoxine HCl (Vitamin B6) 50 MG TABLET 250 MG PO (10:00)
[2020-10-12] MEDS: Naltrexone HCl 50 MG TABLET PO (10:00)
[2020-10-12] MEDS: PHENobarbitaL sodium 130 MG/ML VIAL 221 MG IM (10:03)
[2020-10-12] MEDS: Erythromycin Base 0.5% Oph Oin 1 GM TUBE 1 CM EYE-BOTH ×2 (10:08→20:51)
--- NOTE | 2020-10-12 11:00 | PC.NURSE ---
pt's sister Amarilys Nunes([phone]) called [facility] [place] was updated on pt status.
--- NOTE | 2020-10-12 11:17 | P.HPHOSP_ITS ---
History of Present Illness Date of Service: 10/12/20 Chief Complaint: alcohol withdrawal This is a 55 yo M with a PMH of EtOh abuse and dependence with prior alcohol withdrawal, who was [place] [facility] [place]16[place] for treatment of acute alcohol withdrawal along with acute encephalopathy. During that admission, he was diagnosed with alcoholic dementia and was deemed incompetant to make his own medical decision. After completion of his acute symptoms, he was discharged home with 24/7 care with his family. He now presents to the emergency room, after being brought in by ambulance. Patient initially presented [place] [facility] [place]. He was worked up in the ED with plans for case management consult for placement. However, on the AM of 10/12 he was noted to be more tachycardic and tremulous and so now will be admitted acute alcohol withdrawal. He has been started on the phenobarbital protocol for alcohol withdrawal. Patient is seen and examined in the ED on 10/12/20 AM around 11. He currently den ies any complaints. He reports that he knows he some ED, but not sure which one. He believes the date is June 29, 2020. He reports daily drinking. When asked about why he came to the ED, he is unable to tell me why. Upon further questioning about who called the paramedics, he tells me that he asked his brother to call him because he was feeling not feeling well. He is unable to divulge more information about this. Review of Systems Review of Systems: unable to compelete ROS due to patients mentation [facility] Medical History Alcohol abuse with withdrawal delirium Asthma Family History Father Diabetes Hypertension Substance use disorder Mother Hypertension Sister No problems noted. Brother No problems noted. Brother No problems noted. Brother No problems noted. Brother No problems noted. Surgical History No pertinent past surgical history Social History Household Members: Family Housing: House Do you presently have visiting nurse or other home services: No Alcohol intake: current Alcohol intake frequency: 3 or more drinks per day Alcohol type: beer and hard liquor Patient Tobacco Use Status: Never used Tobacco e-Cigarette/Vaping Use: Never Used Second Hand Smoke Exposure: No Advance Directives: Yes Advance Directives Information Provided: Yes Advance Directives on File: No service: No Current occupational status: disabled Meds Allergies Allergy/AdvReac Type Severity Reaction Status Date / Time penicillin V Allergy Unknown unknown Verified 10/11/20 19:16 Penicillins [PENICILLINS] Allergy Unknown UNKNOWN Verified 10/11/20 19:16 Active Medications: Current Medications Generic Name Dose Route Start Last Admin Trade Name Freq PRN Reason Stop Dose Admin Erythromycin 1 cm 10/11/20 21:00 10/12/20 10:08 Erythromycin Base 0.5% Oph Oin 1 Gm Tube EYE-BOTH 1 cm BID PARAS Administration Fluticasone Propionate 1 puff 10/11/20 20:00 10/12/20 07:56 Fluticasone Propionate 250 Mcg Blst.W.Dev INHALE Not Given RBID [facility] Folic Acid 1 mg 10/12/20 09:00 10/12/20 09:59 Folic Acid 1 Mg Tablet PO 1 mg DAILY PARAS Administration Hydroxyzine HCl 10 mg 10/11/20 19:40 Hydroxyzine Hcl 10 Mg Tablet PO BID PRN anxiety Magnesium Oxide 400 mg 10/12/20 08:30 10/12/20 08:25 Magnesium Oxide 400 Mg Tablet PO 400 mg BIDPC PARAS Administration Medication 1 each 10/12/20 09:00 No Benzodiazepines MISCELLANE DAILY [facility] Naltrexone HCl 50 mg 10/12/20 09:00 10/12/20 10:00 Naltrexone Hcl 50 Mg Tablet PO 50 mg DAILY PARAS Administration Non-Formulary Medication 500 mg 10/12/20 09:00 Disulfiram PO DAILY PARAS Omeprazole 20 mg 10/12/20 06:30 10/12/20 06:16 Omeprazole 20 Mg Capsule. PO 20 mg DAILY@0630 [facility] Administration Phenobarbital 45 mg 10/12/20 21:00 Phenobarbital 15 Mg Tablet PO 10/14/20 09:01 BID [facility] Protocol Phenobarbital 30 mg 10/14/20 21:00 Phenobarbital 30 Mg Tablet PO 10/16/20 09:01 BID [facility] Protocol Phenobarbital 30 mg 10/17/20 09:00 Phenobarbital 30 Mg Tablet PO 10/18/20 09:01 DAILY [facility] Protocol Phenobarbital Sodium 164.5 mg 10/12/20 13:00 Phenobarbital Sodium 130 Mg/Ml Vial IM 10/12/20 16:01 Q3H [facility] Protocol Pyridoxine HCl 250 mg 10/12/20 09:00 10/12/20 10:00 Pyridoxine Hcl (Vitamin B6) 50 Mg Tablet PO 250 mg DAILY PARAS Administration Thiamine HCl 100 mg 10/12/20 09:00 10/12/20 10:00 Thiamine Hcl 100 Mg Tablet PO 100 mg DAILY PARAS Administration Physical Exam Vital Signs and Narrative: Vital Signs: Last Vital Signs Temp 97.7 F 10/12/20 08:18 Pulse 92 10/12/20 09:37 Resp 12 10/12/20 09:37 BP 165/95 H 10/12/20 09:37 Pulse Ox 99 10/12/20 09:37 Body Mass Index 24.3 Const: Other: Constitutional - Awake and Alert, No apparent distress Eyes - PERRLA, EOMI Cardiovascular - S1S2, RRR, No edema Respiratory - Normal lung expansion, Normal respiratory effort, No respiratory distress, CTA bilaterally Gastrointestinal - NT / ND; +BS; No rebound or guarding - No CVA tenderness Extremities - no calf tenderness bilaterally, no swelling Musculoskeletal - Normal inspection, normal ROM; no spinal tenderness Skin - Warm/Dry Neurological - oriented to self otherwise completely disoriented to place, ti me, situation; moves all 4 limbs; no focal deficits Psychological - Appropriate affect Results Labs CBC and Chem 7: 10/11/20 12:53 10/11/20 17:04 Labs: Laboratory Results - last 24 hr 10/11/20 10/11/20 10/11/20 12:53 12:53 12:53 MCV 96.2 MCH 33.5 H MCHC 34.8 RDW 11.3 Plt Count 64 L D MPV 10.9 Immature Gran % (Auto) 0.9 H Neut % (Auto) 52.0 Lymph % (Auto) 30.7 [place] % (Auto) 12.8 H Eos % (Auto) 1.8 Baso % (Auto) 1.8 Lymph # (Auto) 1.0 L [place] # (Auto) 0.4 Eos # (Auto) 0.1 Baso # (Auto) 0.1 Abs Immat Gran (auto) 0.03 Absolute Neuts (auto) 1.7 L Absolute Nucleated RBC 0.000 Nucleated RBC % (auto) 0.0 Anion Gap 26 H Estim Creat Clear Calc 96.1 Estimated GFR > 60 Random Glucose 78 Lactic Acid 2.1 H* Lactic Acid Fup @ 2Hr Calcium 8.9 D Magnesium 1.7 Total Bilirubin 2.0 H Direct Bilirubin 1.4 H AST 249 H ALT 85 H Alkaline Phosphatase 60 Ammonia Total Protein 8.3 H Albumin 4.0 D Lipase 133 H Urine Color Urine Appearance Urine pH Ur Specific [place] Urine Protein Urine Glucose (UA) Urine Ketones Urine Blood Urine Nitrite Ur Leukocyte Esterase Urine RBC Urine WBC Ur Squamous Epith Cells Urine Bacteria Urine Opiates Screen Urine Fentanyl Screen Ur Barbiturates Screen Ur Phencyclidine Scrn Ur Amphetamines Screen U Benzodiazepines Scrn Urine Cocaine Screen U Marijuana (THC) Screen Ethyl Alcohol COVID-19 (WADE) COVID-[employer] 10/11/20 10/11/20 10/11/20 12:53 12:55 13:28 MCV MCH MCHC RDW Plt Count MPV Immature Gran % (Auto) Neut % (Auto) Lymph % (Auto) [place] % (Auto) Eos % (Auto) Baso % (Auto) Lymph # (Auto) [place] # (Auto) Eos # (Auto) Baso # (Auto) Abs Immat Gran (auto) Absolute Neuts (auto) Absolute Nucleated RBC Nucleated RBC % (auto) Anion Gap Estim Creat Clear Calc Estimated GFR Random Glucose Lactic Acid Lactic Acid Fup @ 2Hr Calcium Magnesium Total Bilirubin Direct Bilirubin AST ALT Alkaline Phosphatase Ammonia 35 Total Protein Albumin Lipase Urine Color Urine Appearance Urine pH Ur Specific [place] Urine Protein Urine Glucose (UA) Urine Ketones Urine Blood Urine Nitrite Ur Leukocyte Esterase Urine RBC Urine WBC Ur Squamous Epith Cells Urine Bacteria Urine Opiates Screen Urine Fentanyl Screen Ur Barbiturates Screen Ur Phencyclidine Scrn Ur Amphetamines Screen U Benzodiazepines Scrn Urine Cocaine Screen U Marijuana (THC) Screen Ethyl Alcohol 327 H* COVID-19 (WADE) Negative COVID-[employer] See Note 10/11/20 10/11/20 10/11/20 14:38 14:38 15:27 MCV MCH MCHC RDW Plt Count MPV Immature Gran % (Auto) Neut % (Auto) Lymph % (Auto) [place] % (Auto) Eos % (Auto) Baso % (Auto) Lymph # (Auto) [place] # (Auto) Eos # (Auto) Baso # (Auto) Abs Immat Gran (auto) Absolute Neuts (auto) Absolute Nucleated RBC Nucleated RBC % (auto) Anion Gap Estim Creat Clear Calc Estimated GFR Random Glucose Lactic Acid Lactic Acid Fup @ 2Hr 1.8 Calcium Magnesium Total Bilirubin Direct Bilirubin AST ALT Alkaline Phosphatase Ammonia Total Protein Albumin Lipase Urine Color YELLOW Urine Appearance CLEAR Urine pH 6.0 Ur Specific [place] 1.015 Urine Protein 2+ H Urine Glucose (UA) NEG Urine Ketones >=80 Urine Blood 2+ H Urine Nitrite NEG Ur Leukocyte Esterase NEG Urine RBC 5-9 H Urine WBC 0-2 Ur Squamous Epith Cells TRACE Urine Bacteria NONE Urine Opiates Screen Not Detected Urine Fentanyl Screen POSITIVE H Ur Barbiturates Screen Not Detected Ur Phencyclidine Scrn Not Detected Ur Amphetamines Screen Not Detected U Benzodiazepines Scrn Not Detected Urine Cocaine Screen Not Detected U Marijuana (THC) Screen Not Detected Ethyl Alcohol COVID-19 (WADE) COVID-19 [employer] 10/11/20 17:04 MCV MCH MCHC RDW Plt Count MPV Immature Gran % (Auto) Neut % (Auto) Lymph % (Auto) [place] % (Auto) Eos % (Auto) Baso % (Auto) Lymph # (Auto) [place] # (Auto) Eos # (Auto) Baso # (Auto) Abs Immat Gran (auto) Absolute Neuts (auto) Absolute Nucleated RBC Nucleated RBC % (auto) Anion Gap 24 H Estim Creat Clear Calc 125.2 Estimated GFR > 60 Random Glucose 60 Lactic Acid Lactic Acid Fup @ 2Hr Calcium 7.2 L D Magnesium Total Bilirubin Direct Bilirubin AST ALT Alkaline Phosphatase Ammonia Total Protein Albumin Lipase Urine Color Urine Appearance Urine pH Ur Specific [place] Urine Protein Urine Glucose (UA) Urine Ketones Urine Blood Urine Nitrite Ur Leukocyte Esterase Urine RBC Urine WBC Ur Squamous Epith Cells Urine Bacteria Urine Opiates Screen Urine Fentanyl Screen Ur Barbiturates Screen Ur Phencyclidine Scrn Ur Amphetamines Screen U Benzodiazepines Scrn Urine Cocaine Screen U Marijuana (THC) Screen Ethyl Alcohol COVID-19 (AWDE) COVID-19 Clin Com Imaging Radiologist's Impressions: Impressions Chest X-Ray 10/11/20 12:59 IMPRESSION: Stable examination demonstrating no acute pulmonary pathology. Assessment and Plan (1) Alcohol abuse with alcohol-induced disorder: Status: Acute This is a 55 yo M with a PMH of Alcohol abuse, dependence and likely alcoholic dementia who initially [place] [facility] [place] after being brought in by family for failure to thrive . At that time his EtOH levels were greater than 300 and he was treated symptomatically with plans for case management consult for placement. Unfortunately, his conditioned worsened and he will now be admitted for treated of alcohol withdrawal. 1. Acute Alcohol withdrawal started on phenobarb in the ED, will continue monitor lytes Thiamin / folate Care team consult 2. Alcoholic liver disease (Labs from 10/11 show): Radha Rice about baseline Transminases acutely elevated will trend check ammonia repeat labs now 3. Lactic acidosis from above and resolved with IVF 4. Pancytopenia only mild anemia, but has leukopenia and significant thrombocytopenia all are likely a result of alcohol abuse 5. HypoK repleted yesterday in the ED, check a repeat now Full Code DVT pptx, mechanical due to significant thrombocytopenia Quality Stroke Does the patient have a stroke diagnosis?: No VTE Prior VTE?: No VTE Risk Level:: Medical - moderate - high VTE Device Contraindication: N/A - Device Ordered VTE Drug Contraindication: Treatment Not Indicated
[2020-10-12 11:46] LABS: Hemoglobin 11.4 g/dl (14.0-18.0); Mean Corpuscular HGB Conc 34.5 g/dl (31.0-36.0); Mean Corpuscular Hemoglobin 33.8 pg (27.0-33.0); Mean Corpuscular Volume 97.9 fL (80-98); Red Blood Count 3.37 X10*6/uL (4.60-5.80); Red Cell Distribution Width 11.3 % (11.0-16.0); White Blood Count 3.5 X10*3/uL (4.8-10.8)
[2020-10-12] MEDS: Dextrose 5 % and 0.9 % NaCl 1,000 ML 100 ML IVCONT ×2 (11:49→20:51)
[2020-10-12 11:54] LABS: Ammonia 34 umol/L (13-55)
[2020-10-12 12:07] LABS: Magnesium 1.1 mg/dL (1.6-2.6)
[2020-10-12 12:08] LABS: Alanine Aminotransferase 71 U/L (0-40); Albumin Level 3.6 g/dL (3.5-5.0); Alkaline Phosphatase 57 U/L (39-117); Anion Gap 22 (12-20); Aspartate Amino Transferase 179 U/L (5-37); Bilirubin Direct 1.6 mg/dL (0.0-0.5); Bilirubin Total 2.6 mg/dL (0.0-1.0); Blood Urea Nitrogen 8 mg/dL (9-16); Calcium 8.7 mg/dL (8.4-10.2); Carbon Dioxide 28 mmol/L (22-29); Chloride 91 mmol/L (96-108); Creatinine Clr Calc Pharmacy 82.6; Estimated Glomerular Filt Rate > 60; Glucose Random 87 mg/dL (60-115); Potassium 3.4 mmol/L (3.3-5.1); Sodium 138 mmol/L (135-145); Total Protein 7.5 g/dL (6.5-8.0)
[2020-10-12] MEDS: PHENobarbitaL sodium 130 MG/ML VIAL 164.5 MG IM ×2 (14:04→16:00)
[2020-10-12 14:05] LABS: Mean Platelet Volume 11.1 fL (9.4-12.4); Platelet Count 43 X10*3/uL (160-400)
[2020-10-12] MEDS: Magnesium Sulfate/H2O 2 GM/50 ML PIGGYBACK IV (14:19)
--- NOTE | 2020-10-12 14:54 | PC.NURSE ---
nurse to nurse given to may. pt/family aware of plan of care for admission to hosp.
[2020-10-12] MEDS: 0.9 % Sodium Chloride Flush 3 ML SYRINGE IVFLUSH ×2 (16:00→20:51)
[2020-10-12] MEDS: PHENobarbitaL 15 MG TABLET 45 MG PO (20:51)
[2020-10-13] VITALS (8 sets, daily range): BP systolic 122–159; BP diastolic 71–106; PULSE 77–99; RESP 15–20; TEMP 36.4–37.7; O2SAT 98–100
[2020-10-13] MEDS: Omeprazole 20 MG CAPSULE.DR PO (05:37)
[2020-10-13 06:29] LABS: MANUAL DIFF FLAG NO
[2020-10-13 06:55] LABS: Alanine Aminotransferase 57 U/L (0-40); Albumin Level 3.4 g/dL (3.5-5.0); Alkaline Phosphatase 50 U/L (39-117); Anion Gap 14 (12-20); Aspartate Amino Transferase 137 U/L (5-37); Bilirubin Direct 1.5 mg/dL (0.0-0.5); Bilirubin Total 2.7 mg/dL (0.0-1.0); Blood Urea Nitrogen 7 mg/dL (9-16); Calcium 8.2 mg/dL (8.4-10.2); Carbon Dioxide 33 mmol/L (22-29); Chloride 91 mmol/L (96-108); Creatinine Clr Calc Pharmacy 99.5; Estimated Glomerular Filt Rate > 60; Glucose Random 96 mg/dL (60-115); Potassium 2.8 mmol/L (3.3-5.1); Sodium 135 mmol/L (135-145); Total Protein 6.9 g/dL (6.5-8.0)
[2020-10-13 06:59] LABS: Basophils Percent Auto 0.6 % (0-2); Eosinophils Absolute Auto 0.1 X10*3/uL (0.0-0.4); Eosinophils Percent Auto 2.2 % (0-4); Hematocrit 30.6 % (42-52); Hemoglobin 10.6 g/dl (14.0-18.0); Imm Gran Abs Auto 0.03 X10*3/uL (0.00-0.03); Lymphocytes Absolute Auto 0.8 X10*3/uL (1.2-4.9); Lymphocytes Percent Auto 25.1 % (20-40); Mean Corpuscular HGB Conc 34.6 g/dl (31.0-36.0); Mean Corpuscular Hemoglobin 33.8 pg (27.0-33.0); Mean Corpuscular Volume 97.5 fL (80-98); Mean Platelet Volume 10.8 fL (9.4-12.4); Monocytes Absolute Auto 0.4 X10*3/uL (0.1-1.2); Monocytes Percent Auto 13.3 % (2-11); Neutrophils Absolute Auto 1.8 X10*3/uL (2.0-8.3); Neutrophils Percent Auto 57.8 % (45-73); Platelet Count 38 X10*3/uL (160-400); Red Blood Count 3.14 X10*6/uL (4.60-5.80); Red Cell Distribution Width 11.1 % (11.0-16.0); White Blood Count 3.2 X10*3/uL (4.8-10.8)
[2020-10-13] MEDS: Folic Acid 1 MG TABLET PO (08:07)
[2020-10-13] MEDS: Erythromycin Base 0.5% Oph Oin 1 GM TUBE 1 CM EYE-BOTH ×2 (08:07→20:16)
[2020-10-13] MEDS: Thiamine HCL 100 MG TABLET PO (08:07)
[2020-10-13] MEDS: PHENobarbitaL 15 MG TABLET 45 MG PO ×2 (08:07→20:15)
[2020-10-13] MEDS: Pyridoxine HCl (Vitamin B6) 50 MG TABLET 250 MG PO (08:07)
[2020-10-13] MEDS: Magnesium Oxide 400 MG TABLET PO ×2 (08:07→17:49)
[2020-10-13] MEDS: Naltrexone HCl 50 MG TABLET PO (08:07)
[2020-10-13] MEDS: 0.9 % Sodium Chloride Flush 3 ML SYRINGE IVFLUSH ×3 (08:08→20:23)
--- NOTE | 2020-10-13 09:30 | MHC.CM.PN ---
Patient noted to have Alcoholic Dementia; CM met briefly with Patient,left a detailed message for Sister/Amarilys at [phone] and spoke with Patient's Mother/Estelita @ [phone].Patient lives with his Mother on the second floor of a house owned by one of her Sons and Patient was functionally independent [employer]. PT is recommending STR and Patient/family are agreeable to referrals being made to area SNFs; CM has initiated and will follow for dc planning. PCP is Dr. Kingsley Khalil.
[2020-10-13] MEDS: Magnesium Sulfate/H2O 2 GM/50 ML PIGGYBACK IV (10:11)
[2020-10-13] MEDS: Potassium Chloride ER 20 MEQ TAB.ER.PRT 40 MEQ PO (10:14)
--- NOTE | 2020-10-13 11:58 | P.CDIC_ITS ---
CDI Concurrent Query Service Date: 10/13/20 Documentation Clarification: Please clarify if you are treating a proba ble/suspected/likely or confirmed: Labs: Hypomagnesemia Other, please specify if known or undetermined Provider Response: Other Other Diagnosis: hypomagnesemia PLEASE DO NOT DELETE/MODIFY EXISTING CONTENT Additional information is needed in order to code to the highest accuracy and appropriate Severity of Illness (SOI). Please clarify the information noted below in your progress notes and discharge summary. Risk Factors/Clinical Indicators/Treatments LABS: magnesium 1.1 L* 1.0 magnesium oxide 400mg PO CDS: Mecca Foster CCS, CDIS Contact Number: [phone] Please Review the information above and exercise your independent professional judgment in responding to the query. If you concur, pleas document in the PROGRESS NOTES and DISCHARGE SUMMARY. If you do not agree with the query, ple ase document in the query above. THIS QUERY IS PART OF THE PERMANENT MEDICAL RECORD
--- NOTE | 2020-10-13 12:14 | P.PNIM_ITS ---
Subjective Subjective Date of Service: 10/13/20 Interval History: Shaky, lethargic Cardiovascular Cardiovascular: Reports no additional cardiovascular complaints Respiratory Respiratory: Reports no additional respiratory complaints Physical Exam Vital Signs: Vital Signs: Last Vital Signs Temp 97.5 F 10/13/20 11:25 Pulse 82 10/13/20 11:25 Resp 20 10/13/20 11:25 BP 129/78 10/13/20 11:25 Pulse Ox 100 10/13/20 11:25 Body Mass Index 24.3 General: AO X 3, no acute distress Resp: CTA bilateral CVS: S1,S2,RRR GI: soft, non tender, non distended Neuro: tremulous Psych: appropriate affect Objective Data Current Medications Generic Name Dose Route Start Last Admin Trade Name Freq PRN Reason Stop Dose Admin Acetaminophen 650 mg 10/12/20 11:15 Acetaminophen 325 Mg Tablet PO Q6H PRN Pain, Mild (Pain Scale 1-3) Erythromycin 1 cm 10/11/20 21:00 10/13/20 08:07 Erythromycin Base 0.5% Oph Oin 1 Gm Tube EYE-BOTH 1 cm BID PARAS Administration Fluticasone Propionate 1 puff 10/11/20 20:00 10/13/20 08:27 Fluticasone Propionate 250 Mcg Blst.W.Dev INHALE Not Given RBID PARAS Folic Acid 1 mg 10/12/20 09:00 10/13/20 08:07 Folic Acid 1 Mg Tablet PO 1 mg DAILY PARAS Administration Hydroxyzine HCl 10 mg 10/11/20 19:40 Hydroxyzine Hcl 10 Mg Tablet PO BID PRN anxiety Magnesium Oxide 400 mg 10/12/20 08:30 10/13/20 08:07 Magnesium Oxide 400 Mg Tablet PO 400 mg BIDPC PARAS Administration Medication 1 each 10/12/20 09:00 No Benzodiazepines MISCELLANE DAILY PARAS Naltrexone HCl 50 mg 10/12/20 09:00 10/13/20 08:07 Naltrexone Hcl 50 Mg Tablet PO 50 mg DAILY PARAS Administration Omeprazole 20 mg 10/12/20 06:30 10/13/20 05:37 Omeprazole 20 Mg Capsule.Dr PO 20 mg DAILY@0630 PARAS Administration Phenobarbital 45 mg 10/12/20 21:00 10/13/20 08:07 Phenobarbital 15 Mg Tablet PO 10/14/20 09:01 45 mg BID PARAS Administration Protocol Phenobarbital 30 mg 10/14/20 21:00 Phenobarbital 30 Mg Tablet PO 10/16/20 09:01 BID [facility] Protocol Phenobarbital 30 mg 10/17/20 09:00 Phenobarbital 30 Mg Tablet PO 10/18/20 09:01 DAILY [facility] Protocol Pyridoxine HCl 250 mg 10/12/20 09:00 10/13/20 08:07 Pyridoxine Hcl (Vitamin B6) 50 Mg Tablet PO 250 mg DAILY PARAS Administration Sodium Chloride 3 ml 10/12/20 16:00 10/13/20 10:14 0.9 % Sodium Chloride Flush 3 Ml Syringe IVFLUSH 3 ml QSHIFT PARAS Administration Thiamine HCl 100 mg 10/12/20 09:00 10/13/20 08:07 Thiamine Hcl 100 Mg Tablet PO 100 mg DAILY PARAS Administration Labs CBC & Chem 7: 10/13/20 06:03 10/13/20 06:03 Labs: Laboratory Results - last 24 hr 10/12/20 10/13/20 10/13/20 11:34 06:03 06:03 MCV 97.5 MCH 33.8 H MCHC 34.6 RDW 11.1 Plt Count 43 L D 38 L MPV 11.1 10.8 Immature Gran % (Auto) 1.0 H Neut % (Auto) 57.8 Lymph % (Auto) 25.1 [place] % (Auto) 13.3 H Eos % (Auto) 2.2 Baso % (Auto) 0.6 Lymph # (Auto) 0.8 L [place] # (Auto) 0.4 Eos # (Auto) 0.1 Baso # (Auto) 0.0 Abs Immat Gran (auto) 0.03 Absolute Neuts (auto) 1.8 L Absolute Nucleated RBC 0.000 Nucleated RBC % (auto) 0.0 Anion Gap 14 Estim Creat Clear Calc 99.5 Estimated GFR > 60 Random Glucose 96 Calcium 8.2 L Magnesium 1.0 L* Total Bilirubin 2.7 H Direct Bilirubin 1.5 H AST 137 H ALT 57 H Alkaline Phosphatase 50 Total Protein 6.9 Albumin 3.4 L Assessment and Plan (1) Alcohol abuse with alcohol-induced disorder: Status: Acute Assessment and Plan: 55M presented with alcohol withdrawal alcohol dependence with withdrawal continue phenonarb, ciwa alcoholic steatohepatitis/cirrhosis with pancytopenia stable avoid alcohol hypokalemia and hypomagnesemia due to ETOH replace and monitor Quality Stroke Does the patient have a stroke diagnosis?: No VTE Prior VTE?: No VTE Risk Level:: Medical - moderate - high VTE Device Contraindication: N/A - Device Ordered VTE Drug Contraindication: Treatment Not Indicated
--- NOTE | 2020-10-13 14:18 | HO.ADDICTCON ---
History of Present Illness Date of Service: 10/13/2020 Chief Complaint: Alcohol withdrawal Reason for Consult: Alcohol use disorder Requesting physician: Tez Clemons HPI Narrative: Patient is a 89 year old male with alcohol use disorder currently admitted with alcohol withdrawal. Consult requested due to ongoing alcohol use. Patient seen in room 462. Recovery support RN present at time of interview. Patient, awake, alert and somewhat engaged in interview. Minimal responses to questions. Endorses drinking at least 6 beers everyday and sometimes a bottle a of rum . Declines medications for alcohol use disorder and very clear that he does not wish to decrease or stop ETOh use. Currently receiving naltrexone inpatient--does not appear he had been taking it outpatient based on pharmacy records. PCP recently ordered disulfiram--unclear if he ever took this--unlikely. Denies any other substance use, though UDS showed +fentanyl. Patient unaware of what this substance is. Past Psychiatric History: not reviewed Personal & Social History: reports that he lives with his mother Review of Systems Review of Systems patient denies nausea, vomiting, loose stools, soes endorse anxiety Diagnostics Vital Signs (24Hr): Vital Signs - 24 hr 10/12/20 15:28 10/12/20 19:29 10/12/20 23:33 Temperature 97.7 F 98.0 F 98.6 F Pulse Rate 91 86 95 Respiratory Rate 17 18 18 Blood Pressure 164/99 H 166/93 H 138/64 Pulse Oximetry 98 100 96 10/13/20 03:32 10/13/20 07:38 10/13/20 11:25 Temperature 98.7 F 97.9 F 97.5 F Pulse Rate 99 77 82 Respiratory Rate 20 20 20 Blood Pressure 159/106 H 148/87 H 129/78 Pulse Oximetry 98 99 100 Body Mass Index 24.3 Labs Results: 10/13/20 06:03 10/13/20 06:03 Labs: Laboratory Results - last 48 hr 10/11/20 10/11/20 10/11/20 12:53 12:53 14:38 WBC RBC Hgb Hct MCV MCH MCHC RDW Plt Count MPV Immature Gran % (Auto) Neut % (Auto) Lymph % (Auto) [place] % (Auto) Eos % (Auto) Baso % (Auto) Lymph # (Auto) [place] # (Auto) Eos # (Auto) Baso # (Auto) Abs Immat Gran (auto) Absolute Neuts (auto) Absolute Nucleated RBC Nucleated RBC % (auto) Sodium Potassium Chloride Carbon Dioxide Anion Gap BUN Creatinine Estim Creat Clear Calc Estimated GFR Random Glucose Lactic Acid Fup @ 2Hr Calcium Magnesium 1.7 Total Bilirubin Direct Bilirubin AST ALT Alkaline Phosphatase Ammonia Total Protein Albumin Urine Color Urine Appearance Urine pH Ur Specific [place] Urine Protein Urine Glucose (UA) Urine Ketones Urine Blood Urine Nitrite Ur Leukocyte Esterase Urine RBC Urine WBC Ur Squamous Epith Cells Urine Bacteria Urine Opiates Screen Not Detected Urine Fentanyl Screen POSITIVE H Ur Barbiturates Screen Not Detected Ur Phencyclidine Scrn Not Detected Ur Amphetamines Screen Not Detected U Benzodiazepines Scrn Not Detected Urine Cocaine Screen Not Detected U Marijuana (THC) Screen Not Detected Ethyl Alcohol 327 H* 10/11/20 10/11/20 10/11/20 14:38 15:27 17:04 WBC RBC Hgb Hct MCV MCH MCHC RDW Plt Count MPV Immature Gran % (Auto) Neut % (Auto) Lymph % (Auto) [place] % (Auto) Eos % (Auto) Baso % (Auto) Lymph # (Auto) [place] # (Auto) Eos # (Auto) Baso # (Auto) Abs Immat Gran (auto) Absolute Neuts (auto) Absolute Nucleated RBC Nucleated RBC % (auto) Sodium 138 Potassium 3.1 L Chloride 97 Carbon Dioxide 20 L Anion Gap 24 H BUN 11 Creatinine 0.66 Estim Creat Clear Calc 125.2 Estimated GFR > 60 Random Glucose 60 Lactic Acid Fup @ 2Hr 1.8 Calcium 7.2 L D Magnesium Total Bilirubin Direct Bilirubin AST ALT Alkaline Phosphatase Ammonia Total Protein Albumin Urine Color YELLOW Urine Appearance CLEAR Urine pH 6.0 Ur Specific [place] 1.015 Urine Protein 2+ H Urine Glucose (UA) NEG Urine Ketones >=80 Urine Blood 2+ H Urine Nitrite NEG Ur Leukocyte Esterase NEG Urine RBC 5-9 H Urine WBC 0-2 Ur Squamous Epith Cells TRACE Urine Bacteria NONE Urine Opiates Screen Urine Fentanyl Screen Ur Barbiturates Screen Ur Phencyclidine Scrn Ur Amphetamines Screen U Benzodiazepines Scrn Urine Cocaine Screen U Marijuana (THC) Screen Ethyl Alcohol 10/12/20 10/12/20 10/12/20 11:34 11:34 11:34 WBC 3.5 L RBC 3.37 L Hgb 11.4 L Hct 33.0 L MCV 97.9 MCH 33.8 H MCHC 34.5 RDW 11.3 Plt Count 43 L D MPV 11.1 Immature Gran % (Auto) Neut % (Auto) Lymph % (Auto) [place] % (Auto) Eos % (Auto) Baso % (Auto) Lymph # (Auto) [place] # (Auto) Eos # (Auto) Baso # (Auto) Abs Immat Gran (auto) Absolute Neuts (auto) Absolute Nucleated RBC 0.000 Nucleated RBC % (auto) 0.0 Sodium 138 Potassium 3.4 Chloride 91 L Carbon Dioxide 28 Anion Gap 22 H BUN 8 L Creatinine 1.00 Estim Creat Clear Calc 82.6 Estimated GFR > 60 Random Glucose 87 D Lactic Acid Fup @ 2Hr Calcium 8.7 D Magnesium 1.1 L* Total Bilirubin 2.6 H Direct Bilirubin 1.6 H AST 179 H ALT 71 H Alkaline Phosphatase 57 Ammonia Total Protein 7.5 Albumin 3.6 Urine Color Urine Appearance Urine pH Ur Specific [place] Urine Protein Urine Glucose (UA) Urine Ketones Urine Blood Urine Nitrite Ur Leukocyte Esterase Urine RBC Urine WBC Ur Squamous Epith Cells Urine Bacteria Urine Opiates Screen Urine Fentanyl Screen Ur Barbiturates Screen Ur Phencyclidine Scrn Ur Amphetamines Screen U Benzodiazepines Scrn Urine Cocaine Screen U Marijuana (THC) Screen Ethyl Alcohol 10/12/20 10/13/20 10/13/20 11:34 06:03 06:03 WBC 3.2 L RBC 3.14 L Hgb 10.6 L Hct 30.6 L MCV 97.5 MCH 33.8 H MCHC 34.6 RDW 11.1 Plt Count 38 L MPV 10.8 Immature Gran % (Auto) 1.0 H Neut % (Auto) 57.8 Lymph % (Auto) 25.1 [place] % (Auto) 13.3 H Eos % (Auto) 2.2 Baso % (Auto) 0.6 Lymph # (Auto) 0.8 L [place] # (Auto) 0.4 Eos # (Auto) 0.1 Baso # (Auto) 0.0 Abs Immat Gran (auto) 0.03 Absolute Neuts (auto) 1.8 L Absolute Nucleated RBC 0.000 Nucleated RBC % (auto) 0.0 Sodium 135 Potassium 2.8 L Chloride 91 L Carbon Dioxide 33 H Anion Gap 14 BUN 7 L Creatinine 0.83 Estim Creat Clear Calc 99.5 Estimated GFR > 60 Random Glucose 96 Lactic Acid Fup @ 2Hr Calcium 8.2 L Magnesium 1.0 L* Total Bilirubin 2.7 H Direct Bilirubin 1.5 H AST 137 H ALT 57 H Alkaline Phosphatase 50 Ammonia 34 Total Protein 6.9 Albumin 3.4 L Urine Color Urine Appearance Urine pH Ur Specific [place] Urine Protein Urine Glucose (UA) Urine Ketones Urine Blood Urine Nitrite Ur Leukocyte Esterase Urine RBC Urine WBC Ur Squamous Epith Cells Urine Bacteria Urine Opiates Screen Urine Fentanyl Screen Ur Barbiturates Screen Ur Phencyclidine Scrn Ur Amphetamines Screen U Benzodiazepines Scrn Urine Cocaine Screen U Marijuana (THC) Screen Ethyl Alcohol Imaging Radiology Impressions: ITS Impressions Chest X-Ray 10/11/20 12:59 IMPRESSION: Stable examination demonstrating no acute pulmonary pathology. Mental Status Exam Mental Status Exam Patient Appearance: Appropriate Patient Orientation: Person Level of Consciousness: Awake and Alert Patient Behavior: Guarded and Timid Mood Description: Flat Affect Description: Flat Patient Cognition Impaired: Yes Speech Pattern: Clear Hallucinations: None Thought Process: Slowed Thinking Judgement: Poor Medications Medications Current Medications Generic Name Dose Route Start Last Admin Trade Name Freq PRN Reason Stop Dose Admin Acetaminophen 650 mg 10/12/20 11:15 Acetaminophen 325 Mg Tablet PO Q6H PRN Pain, Mild (Pain Scale 1-3) Erythromycin 1 cm 10/11/20 21:00 10/13/20 08:07 Erythromycin Base 0.5% Oph Oin 1 Gm Tube EYE-BOTH 1 cm BID PARAS Administration Fluticasone Propionate 1 puff 10/11/20 20:00 10/13/20 08:27 Fluticasone Propionate 250 Mcg Blst.W.Dev INHALE Not Given RBID PARAS Folic Acid 1 mg 10/12/20 09:00 10/13/20 08:07 Folic Acid 1 Mg Tablet PO 1 mg DAILY PARAS Administration Hydroxyzine HCl 10 mg 10/11/20 19:40 Hydroxyzine Hcl 10 Mg Tablet PO BID PRN anxiety Magnesium Oxide 400 mg 10/12/20 08:30 10/13/20 08:07 Magnesium Oxide 400 Mg Tablet PO 400 mg BIDPC PARAS Administration Medication 1 each 10/12/20 09:00 No Benzodiazepines MISCELLANE DAILY PARAS Naltrexone HCl 50 mg 10/12/20 09:00 10/13/20 08:07 Naltrexone Hcl 50 Mg Tablet PO 50 mg DAILY PARAS Administration Omeprazole 20 mg 10/12/20 06:30 10/13/20 05:37 Omeprazole 20 Mg Capsule.Dr PO 20 mg DAILY@0630 PARAS Administration Phenobarbital 45 mg 10/12/20 21:00 10/13/20 08:07 Phenobarbital 15 Mg Tablet PO 10/14/20 09:01 45 mg BID PARAS Administration Protocol Phenobarbital 30 mg 10/14/20 21:00 Phenobarbital 30 Mg Tablet PO 10/16/20 09:01 BID PARAS Protocol Phenobarbital 30 mg 10/17/20 09:00 Phenobarbital 30 Mg Tablet PO 10/18/20 09:01 DAILY PARAS Protocol Pyridoxine HCl 250 mg 10/12/20 09:00 10/13/20 08:07 Pyridoxine Hcl (Vitamin B6) 50 Mg Tablet PO 250 mg DAILY PARAS Administration Sodium Chloride 3 ml 10/12/20 16:00 10/13/20 10:14 0.9 % Sodium Chloride Flush 3 Ml Syringe IVFLUSH 3 ml QSHIFT PARAS Administration Thiamine HCl 100 mg 10/12/20 09:00 10/13/20 08:07 Thiamine Hcl 100 Mg Tablet PO 100 mg DAILY PARAS Administration Allergies Allergies Allergy/AdvReac Type Severity Reaction Status Date / Time penicillin V Allergy Unknown unknown Verified 10/11/20 19:16 Penicillins [PENICILLINS] Allergy Unknown UNKNOWN Verified 10/11/20 19:16 Assessment & Plan Assessment & Plan (1) Alcohol use disorder: Status: Acute Assessment and Plan: patient with limited to no insight regarding alcohol use and risks does not appear to be able to care for himself, including taking medications naltrexone could continue if risks and benefits explained to HCP as patient does not appear able to process or retain information regarding medical care 30 mins with patient Greater than 50% of the session was spent on counseling and/or coordination of care FOR[facility]LY [facility] Past Medical History Medical History Alcohol abuse with withdrawal delirium Asthma Family History Family History Father Diabetes Hypertension Substance use disorder Mother Hypertension Sister No problems noted. Brother No problems noted. Brother No problems noted. Brother No problems noted. Brother No problems noted. Surgical History Surgical History No pertinent past surgical history Social History Social History Household Members: Family Housing: Apartment Do you presently have visiting nurse or other home services: No Alcohol intake: current Alcohol intake frequency: 3 or more drinks per day Alcohol type: beer and hard liquor Patient Tobacco Use Status: Never used Tobacco e-Cigarette/Vaping Use: Never Used Second Hand Smoke Exposure: No Use of substances other than those prescribed or required for medical reasons: No Currently Displaying Signs/Symptoms of Drug Intoxication Withdrawal: No Have you been hit, kicked, punched, or otherwise hurt by someone within the past year? If so, by whom?: No Do you feel safe in your current relationship?: No Current Relationship Is there a partner from a previous relationship who is making you feel unsafe now?: No Are you made to feel afraid or neglected: No Advance Directives: Yes Advance Directives Information Provided: Yes Advance Directives on File: No Advance Directives Date on File: 10/12/20 Do you have thoughts of harming others: None Do you have a plan to hurt others: No Plan Recently lost weight without trying: Yes Eating poorly because of decreased appetite: Yes Nutrition Risks: No Nutritional Risk Poor oral hygiene: No service: No Current occupational status: unemployed
[2020-10-13] MEDS: Fluticasone Propionate 250 MCG BLST.W.DEV 1 PUFF INHALE (20:09)
[2020-10-13] MEDS: Acetaminophen 325 MG TABLET 650 MG PO (20:15)
[2020-10-14] VITALS (9 sets, daily range): BP systolic 120–141; BP diastolic 73–88; PULSE 82–88; RESP 17–20; TEMP 36.4–37; O2SAT 96–100
[2020-10-14] MEDS: Omeprazole 20 MG CAPSULE.DR PO (05:53)
[2020-10-14 07:05] LABS: Hematocrit 32.5 % (42-52); Hemoglobin 11.4 g/dl (14.0-18.0); Mean Corpuscular HGB Conc 35.1 g/dl (31.0-36.0); Mean Corpuscular Hemoglobin 33.7 pg (27.0-33.0); Mean Corpuscular Volume 96.2 fL (80-98); Mean Platelet Volume 12.1 fL (9.4-12.4); Red Blood Count 3.38 X10*6/uL (4.60-5.80); White Blood Count 4.5 X10*3/uL (4.8-10.8)
[2020-10-14 07:06] LABS: Platelet Count 47 X10*3/uL (160-400)
[2020-10-14 07:12] LABS: Anion Gap 19 (12-20); Blood Urea Nitrogen 7 mg/dL (9-16); Calcium 8.4 mg/dL (8.4-10.2); Carbon Dioxide 30 mmol/L (22-29); Chloride 85 mmol/L (96-108); Creatinine Clr Calc Pharmacy 116.4; Estimated Glomerular Filt Rate > 60; Glucose Fasting 84 mg/dL (60-99); Magnesium 1.5 mg/dL (1.6-2.6); Potassium 2.9 mmol/L (3.3-5.1); Sodium 131 mmol/L (135-145)
[2020-10-14] MEDS: Fluticasone Propionate 250 MCG BLST.W.DEV 1 PUFF INHALE ×2 (07:26→18:31)
[2020-10-14] MEDS: Erythromycin Base 0.5% Oph Oin 1 GM TUBE 1 CM EYE-BOTH ×2 (08:33→20:37)
[2020-10-14] MEDS: Naltrexone HCl 50 MG TABLET PO (08:33)
[2020-10-14] MEDS: Potassium Chloride ER 20 MEQ TAB.ER.PRT 40 MEQ PO (08:33)
[2020-10-14] MEDS: Folic Acid 1 MG TABLET PO (08:33)
[2020-10-14] MEDS: Magnesium Oxide 400 MG TABLET PO ×2 (08:33→17:21)
[2020-10-14] MEDS: PHENobarbitaL 15 MG TABLET 45 MG PO (08:33)
[2020-10-14] MEDS: Pyridoxine HCl (Vitamin B6) 50 MG TABLET 250 MG PO (08:33)
[2020-10-14] MEDS: Thiamine HCL 100 MG TABLET PO (08:33)
[2020-10-14] MEDS: 0.9 % Sodium Chloride Flush 3 ML SYRINGE IVFLUSH ×3 (08:39→20:37)
--- NOTE | 2020-10-14 10:10 | P.DS_ITS ---
DS: Providers Provider Date of Service: 10/14/20 Date of admission: 10/12/20 11:14 Primary care physician: Kingsley Khalil PA-C Consults: 10/12/20 11:15 Consult to Care Team Routine Comment: Reason for consultation: alcohol abuse DS: Diagnosis Discharge Diagnosis (1) Alcohol use disorder: Status: Acute DS: Medications Discharge Medications Home Medications: Previous Rx's Medication Instructions Recorded magnesium oxide 400 mg (241.3 mg 400 mg PO BIDPC #60 tab 03/16/20 magnesium) tablet omeprazole 20 mg capsule,delayed 20 mg PO DAILY #30 cap 03/16/20 release fluticasone propionate 220 1 puff INHALATION BID 30 Days #12 g 04/16/20 mcg/actuation HFA aerosol inhaler (Flovent HFA) hydroxyzine HCl 10 mg tablet 10 mg PO BID PRN 10 Days #20 tab 04/16/20 naltrexone 50 mg tablet 50 mg PO DAILY 30 Days #30 tab 04/16/20 erythromycin 5 mg/gram (0.5 %) eye 0.5 inch OPHTHALMIC (EYE) BID 10 05/07/20 ointment Days #3.5 g folic acid 1 mg tablet 1 mg PO DAILY 90 Days #90 tab 05/07/20 pyridoxine (vitamin B6) 250 mg 250 mg PO DAILY 90 Days #90 tab 05/07/20 tablet thiamine HCl (vitamin B1) 100 mg 100 mg PO DAILY 90 Days #90 tab 05/07/20 tablet disulfiram 500 mg tablet 500 mg PO DAILY 14 Days #14 tab 09/02/20 DS: Summary Hospital Course Hospital Course: patient was admitted for alcohol dependence with witdrawal. he was treated with phenobarbital with improvement in withdrawal symptoms. he had significant hypokalemia and hyomagnesemia which was repleted. 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 Patient demonstrated full understanding but is not inter ested at this time. patient is feeling much better and asking to be discharged home. He is not interested in rehab at this time. Time Spent with Patient Time attestation: Total time spent providing and/or coordinating discharge services: Discharge coordination time: Greater than 30 minutes Quality: Stroke Does the patient have a stroke diagnosis?: No Physical Exam Vital Signs: Vital Signs: Last Vital Signs Temp 98.1 F 10/14/20 07:12 Pulse 87 10/14/20 07:12 Resp 18 10/14/20 07:12 BP 135/88 10/14/20 07:12 Pulse Ox 100 10/14/20 07:12 Body Mass Index 24.3 DS: Data Data Completed and Pending Completed studies during hospitalization [Text1]: Procedures Detoxification Services for Substance Abuse Treatment (03/10/20) Labs on day of discharge: Laboratory Results - last 24 hr 10/14/20 10/14/20 05:18 05:18 WBC 4.5 L RBC 3.38 L Hgb 11.4 L Hct 32.5 L MCV 96.2 MCH 33.7 H MCHC 35.1 RDW 11.0 Plt Count 47 L MPV 12.1 Absolute Nucleated RBC 0.000 Nucleated RBC % (auto) 0.0 Sodium 131 L Potassium 2.9 L Chloride 85 L Carbon Dioxide 30 H Anion Gap 19 BUN 7 L Creatinine 0.71 Estim Creat Clear Calc 116.4 Estimated GFR > 60 Fasting Glucose 84 Calcium 8.4 Magnesium 1.5 L Discharge Plan Discharge Patient Disposition: Home, Self-Care Discharge Diagnosis: alcohol withdrawal Referrals: Kingsley Khalil PA-C [Primary Care Provider] - 1 Week Discharge Medications: Continued magnesium oxide 400 mg (241.3 mg magnesium) Tablet 400 mg PO BIDPC Qty: 60 RF: 0 omeprazole 20 mg capsule,delayed release(DR/EC) 20 mg PO DAILY Qty: 30 RF: 0 Flovent HFA 220 mcg/actuation HFA aerosol inhaler 1 puff inhalation BID 30 Days Qty: 12 RF: 1 naltrexone 50 mg tablet 50 mg PO DAILY 30 Days Qty: 30 RF: 3 hydroxyzine HCl 10 mg tablet 10 mg PO BID PRN (Reason: anxiety) 10 Days Qty: 20 RF: 1 folic acid 1 mg tablet 1 mg PO DAILY 90 Days Qty: 90 RF: 1 thiamine HCl (vitamin B1) 100 mg tablet 100 mg PO DAILY 90 Days Qty: 90 RF: 1 pyridoxine (vitamin B6) 250 mg tablet 250 mg PO DAILY 90 Days Qty: 90 RF: 1 erythromycin 5 mg/gram (0.5 %) ointment 0.5 inch ophthalmic (eye) BID 10 Days Qty: 3.5 RF: 0 disulfiram 500 mg tablet 500 mg PO DAILY 14 Days Qty: 14 RF: 0 Discharge Orders: Discharge Order (Routine); Ordered 10/14/20 Ordered By: Tez Clemons Diet: advance to usual diet Activity on Discharge: As tolerated Stand Alone Forms: Patient Portal Discharge page Care Plan Goals: recovery Health Concerns: alcohol Plan of Treatment: avoid alcohol Assessment: see above Patient Instructions: Abuse of Alcohol (ED), Failure to Thrive in Older Adults (ED)
--- NOTE | 2020-10-14 10:20 | MHC.CM.PN ---
Patient has been medically cleared for dc to home, no services.
--- NOTE | 2020-10-14 11:10 | HO.PM.IMPN ---
Subjective Subjective Date of Service: 10/14/20 Interval History: feeling better wants to go home Cardiovascular Cardiovascular: Reports no additional cardiovascular complaints Respiratory Respiratory: Reports no additional respiratory complaints Physical Exam Vital Signs: Vital Signs: Last Vital Signs Temp 98.1 F 10/14/20 07:12 Pulse 87 10/14/20 07:12 Resp 18 10/14/20 07:12 BP 135/88 10/14/20 07:12 Pulse Ox 100 10/14/20 07:12 Body Mass Index 24.3 General: AO X 2, no acute distress Resp: CTA bilateral CVS: S1,S2,RRR GI: soft, non tender, non distended Neuro: motor grossly intact Psych: appropriate affect Objective Data Current Medications Generic Name Dose Route Start Last Admin Trade Name Freq PRN Reason Stop Dose Admin Acetaminophen 650 mg 10/12/20 11:15 10/13/20 20:15 Acetaminophen 325 Mg Tablet PO 650 mg Q6H PRN Administration Pain, Mild (Pain Scale 1-3) Erythromycin 1 cm 10/11/20 21:00 10/14/20 08:33 Erythromycin Base 0.5% Oph Oin 1 Gm Tube EYE-BOTH 1 cm BID PARAS Administration Fluticasone Propionate 1 puff 10/11/20 20:00 10/14/20 07:26 Fluticasone Propionate 250 Mcg Blst.W.Dev INHALE 1 puff RBID PARAS Administration Folic Acid 1 mg 10/12/20 09:00 10/14/20 08:33 Folic Acid 1 Mg Tablet PO 1 mg DAILY PARAS Administration Hydroxyzine HCl 10 mg 10/11/20 19:40 Hydroxyzine Hcl 10 Mg Tablet PO BID PRN anxiety Magnesium Oxide 400 mg 10/12/20 08:30 10/14/20 08:33 Magnesium Oxide 400 Mg Tablet PO 400 mg BIDPC PARAS Administration Medication 1 each 10/12/20 09:00 No Benzodiazepines MISCELLANE DAILY PARAS Naltrexone HCl 50 mg 10/12/20 09:00 10/14/20 08:33 Naltrexone Hcl 50 Mg Tablet PO 50 mg DAILY PARAS Administration Omeprazole 20 mg 10/12/20 06:30 10/14/20 05:53 Omeprazole 20 Mg Capsule. PO 20 mg DAILY@0630 PARAS Administration Phenobarbital 30 mg 10/14/20 21:00 Phenobarbital 30 Mg Tablet PO 10/16/20 09:01 BID PARAS Protocol Phenobarbital 30 mg 10/17/20 09:00 Phenobarbital 30 Mg Tablet PO 10/18/20 09:01 DAILY PARAS Protocol Pyridoxine HCl 250 mg 10/12/20 09:00 10/14/20 08:33 Pyridoxine Hcl (Vitamin B6) 50 Mg Tablet PO 250 mg DAILY PARAS Administration Sodium Chloride 3 ml 10/12/20 16:00 10/14/20 08:39 0.9 % Sodium Chloride Flush 3 Ml Syringe IVFLUSH 3 ml QSHIFT PARAS Administration Thiamine HCl 100 mg 10/12/20 09:00 10/14/20 08:33 Thiamine Hcl 100 Mg Tablet PO 100 mg DAILY PARAS Administration Labs CBC & Chem 7: 10/14/20 05:18 10/14/20 05:18 Labs: Laboratory Results - last 24 hr 10/14/20 10/14/20 05:18 05:18 MCV 96.2 MCH 33.7 H MCHC 35.1 RDW 11.0 Plt Count 47 L MPV 12.1 Absolute Nucleated RBC 0.000 Nucleated RBC % (auto) 0.0 Anion Gap 19 Estim Creat Clear Calc 116.4 Estimated GFR > 60 Fasting Glucose 84 Calcium 8.4 Magnesium 1.5 L Assessment and Plan (1) Alcohol abuse with alcohol-induced disorder: Status: Acute Assessment and Plan: 55M presented with alcohol withdrawal alcohol dependence with withdrawal improved continue phenonarb, ciwa alcohol dementia family requesting capacity to make dispo decision, would like to force patient into rehab, will request psych eval alcoholic steatohepatitis/cirrhosis with pancytopenia stable avoid alcohol hypokalemia and hypomagnesemia due to ETOH replace and monitor Quality Stroke Does the patient have a stroke diagnosis?: No VTE Prior VTE?: No VTE Risk Level:: Medical - moderate - high VTE Device Contraindication: N/A - Device Ordered VTE Drug Contraindication: Treatment Not Indicated
--- NOTE | 2020-10-14 11:16 | MHC.CM.PN ---
Per MD, today's dc has been cancelled; Patient to be seen by Psych. CM will follow.
--- NOTE | 2020-10-14 14:49 | MHC.CM.PN ---
CM spoke with Patient's Sister/Amarilys over the phone. Amarilys, who has been the spokesperson for the Patient/Family will be out of town for the next 4 days and is requesting that Patient's Brother/Wilian @ [phone] be contacted in her absence. Patient's Brother/Rangel is the actual HCP @ [phone], Per Amarilys. Patient lives with his Mother/Nupur who Amarilys feels can no longer care for Patient r/t his drinking and poor/failing memory (she has a PCP and medical issues herself). STEPHAN explained to Amarilys that the MD is having Patient eval'd by Psych to determine if Patient has Capacity to make his own informed decisions and that if he is NOT deemed to have capacity, that Rangel/HCP will need to become more involved if the HCP is invoked. CM will continue to follow for dc planning.
--- NOTE | 2020-10-14 16:15 | PM.PSYCN ---
History of Present Illness Date of Service: 10/14/2020 Chief Complaint: Alcohol withdrawal Reason for Consult: decisional capacity to discharge HPI Narrative: CTSP who is requesting discharge after having been detoxed from alcohol and having had his medical complications from alcohol addiction managed. per hospitalist note of 10/12: his is a 55 yo M with a PMH of EtOh abuse and dependence with prior alcohol withdrawal, who was [place] [facility] [place]10[place] to 03/16/20 for treatment of acute alcohol withdrawal along with acute encephalopathy. During that admission, he was diagnosed with alcoholic dementia and was deemed incompetant to make his own medical decision. After completion of his acute symptoms, he was discharged home with 05/09 care with his family. He now presents to the emergency room, after being brought in by ambulance. Patient initially presented to [facility] on 10/12/11. He was worked up in the ED with plans for case management consult for placement. However, on the AM of 10/12 he was noted to be more tachycardic and tremulous and so now will be admitted acute alcohol withdrawal. He has been started on the phenobarbital protocol for alcohol withdrawal. Patient is seen and examined in the ED on 10/12/20 AM around 11. He currently denies any complaints. He reports that he knows he some ED, but not sure which one. He believes the date is June 29, 2020. He reports daily drinking. When asked about why he came to the ED, he is unable to tell me why. Upon further questioning about who called the paramedics, he tells me that he asked his brother to call him because he was feeling not feeling well. He is unable to divulge more information about this. on interview 10/14 pt is unable to say why he was admitted to the hospital other than because he was having aches and pains. he is unable to describe his treatment here. he reports staff have not been able to give him many answers about what is wrong with him. he believes it is early september 2020, a monday. he was informed of the actual date and then asked a second time several minutes later what the date is. he reported it as november 07, 2020, day of the week unknown. prompted him for the relevance of alcohol use to the present admission, which he originally denied, then minimized, then accepted to some extent. he had no concerns for his health for post-discharge and was confident he could stop drinking. Past Psychiatric History: denies h/o SA, SIBI, psych hosp, or psych Tx Medical Evaluation Reviewed: Yes [facility] Medical History Alcohol abuse with withdrawal delirium Asthma Surgical History No pertinent past surgical history Substance History: alcohol use disorder, severe Trauma History: denies Diagnostics Vital Signs (24Hr): Vital Signs - 24 hr 10/13/20 19:18 10/13/20 21:21 10/13/20 23:09 Temperature 100 F 98.9 F 97.8 F Pulse Rate 86 85 Respiratory Rate 15 18 Blood Pressure 137/79 122/71 Pulse Oximetry 99 98 10/14/20 03:19 10/14/20 07:12 10/14/20 11:20 Temperature 97.6 F 98.1 F 98.1 F Pulse Rate 83 87 82 Respiratory Rate 20 18 18 Blood Pressure 120/73 135/88 135/86 Pulse Oximetry 96 100 98 10/14/20 14:46 10/14/20 15:25 Temperature 98.2 F Pulse Rate 82 87 Respiratory Rate 18 Blood Pressure 135/86 122/74 Pulse Oximetry 98 98 Body Mass Index 24.3 Labs Results: 10/14/20 05:18 10/14/20 05:18 Labs: Laboratory Results - last 48 hr 10/13/20 10/13/20 10/14/20 06:03 06:03 05:18 WBC 3.2 L 4.5 L RBC 3.14 L 3.38 L Hgb 10.6 L 11.4 L Hct 30.6 L 32.5 L MCV 97.5 96.2 MCH 33.8 H 33.7 H MCHC 34.6 35.1 RDW 11.1 11.0 Plt Count 38 L 47 L MPV 10.8 12.1 Immature Gran % (Auto) 1.0 H Neut % (Auto) 57.8 Lymph % (Auto) 25.1 Dale % (Auto) 13.3 H Eos % (Auto) 2.2 Baso % (Auto) 0.6 Lymph # (Auto) 0.8 L Dale # (Auto) 0.4 Eos # (Auto) 0.1 Baso # (Auto) 0.0 Abs Immat Gran (auto) 0.03 Absolute Neuts (auto) 1.8 L Absolute Nucleated RBC 0.000 0.000 Nucleated RBC % (auto) 0.0 0.0 Sodium 135 Potassium 2.8 L Chloride 91 L Carbon Dioxide 33 H Anion Gap 14 BUN 7 L Creatinine 0.83 Estim Creat Clear Calc 99.5 Estimated GFR > 60 Random Glucose 96 Fasting Glucose Calcium 8.2 L Magnesium 1.0 L* Total Bilirubin 2.7 H Direct Bilirubin 1.5 H AST 137 H ALT 57 H Alkaline Phosphatase 50 Total Protein 6.9 Albumin 3.4 L 10/14/20 05:18 WBC RBC Hgb Hct MCV MCH MCHC RDW Plt Count MPV Immature Gran % (Auto) Neut % (Auto) Lymph % (Auto) Dale % (Auto) Eos % (Auto) Baso % (Auto) Lymph # (Auto) Dale # (Auto) Eos # (Auto) Baso # (Auto) Abs Immat Gran (auto) Absolute Neuts (auto) Absolute Nucleated RBC Nucleated RBC % (auto) Sodium 131 L Potassium 2.9 L Chloride 85 L Carbon Dioxide 30 H Anion Gap 19 BUN 7 L Creatinine 0.71 Estim Creat Clear Calc 116.4 Estimated GFR > 60 Random Glucose Fasting Glucose 84 Calcium 8.4 Magnesium 1.5 L Total Bilirubin Direct Bilirubin AST ALT Alkaline Phosphatase Total Protein Albumin Imaging Radiology Impressions: ITS Impressions Chest X-Ray 10/11/20 12:59 IMPRESSION: Stable examination demonstrating no acute pulmonary pathology. Mental Status Exam Mental Status Exam Patient Appearance: Appropriate Patient Orientation: Person Level of Consciousness: Awake and Alert Patient Behavior: Guarded and Timid Affect Description: Flat Patient Cognition Impaired: Yes Speech Pattern: Clear Memory Description: Recent Impaired Hallucinations: None Thought Process: Slowed Thinking Judgement: Poor Medications Medications Current Medications Generic Name Dose Route Start Last Admin Trade Name Freq PRN Reason Stop Dose Admin Acetaminophen 650 mg 10/12/20 11:15 10/13/20 20:15 Acetaminophen 325 Mg Tablet PO 650 mg Q6H PRN Administration Pain, Mild (Pain Scale 1-3) Erythromycin 1 cm 10/11/20 21:00 10/14/20 08:33 Erythromycin Base 0.5% Oph Oin 1 Gm Tube EYE-BOTH 1 cm BID PARAS Administration Fluticasone Propionate 1 puff 10/11/20 20:00 10/14/20 07:26 Fluticasone Propionate 250 Mcg Blst.W.Dev INHALE 1 puff RBID [facility] Administration Folic Acid 1 mg 10/12/20 09:00 10/14/20 08:33 Folic Acid 1 Mg Tablet PO 1 mg DAILY [facility] Administration Hydroxyzine HCl 10 mg 10/11/20 19:40 Hydroxyzine Hcl 10 Mg Tablet PO BID PRN anxiety Magnesium Oxide 400 mg 10/12/20 08:30 10/14/20 08:33 Magnesium Oxide 400 Mg Tablet PO 400 mg BIDPC PARAS Administration Medication 1 each 10/12/20 09:00 No Benzodiazepines MISCELLANE DAILY [facility] Naltrexone HCl 50 mg 10/12/20 09:00 10/14/20 08:33 Naltrexone Hcl 50 Mg Tablet PO 50 mg DAILY [facility] Administration Omeprazole 20 mg 10/12/20 06:30 10/14/20 05:53 Omeprazole 20 Mg Capsule. PO 20 mg DAILY@0630 [facility] Administration Phenobarbital 30 mg 10/14/20 21:00 Phenobarbital 30 Mg Tablet PO 10/16/20 09:01 BID [facility] Protocol Phenobarbital 30 mg 10/17/20 09:00 Phenobarbital 30 Mg Tablet PO 10/18/20 09:01 DAILY [facility] Protocol Pyridoxine HCl 250 mg 10/12/20 09:00 10/14/20 08:33 Pyridoxine Hcl (Vitamin B6) 50 Mg Tablet PO 250 mg DAILY [facility] Administration Sodium Chloride 3 ml 10/12/20 16:00 10/14/20 08:39 0.9 % Sodium Chloride Flush 3 Ml Syringe IVFLUSH 3 ml QSHIFT [facility] Administration Thiamine HCl 100 mg 10/12/20 09:00 10/14/20 08:33 Thiamine Hcl 100 Mg Tablet PO 100 mg DAILY [facility] Administration Allergies Allergies Allergy/AdvReac Type Severity Reaction Status Date / Time penicillin V Allergy Unknown unknown Verified 10/11/20 19:16 Penicillins [PENICILLINS] Allergy Unknown UNKNOWN Verified 10/11/20 19:16 Assessment & Plan Assessment & Plan (1) Delirium due to another medical condition: Status: Acute Code(s): F05 - Delirium due to known physiological condition Assessment and Plan: alcohol withdrawal (2) Alcohol abuse with alcohol-induced disorder: Status: Acute Code(s): F10.19 - Alcohol abuse with unspecified alcohol-induced disorder Assessment and Plan: phenobarb detox protocol Assessment and Plan: due to patient's lack of appreciation of dangers to his health of discharge and likely relapse to alcohol use in concert with his clearly impaired short-term memory, it is the opinion of this business writer that this patient lacks decisional capacity both for treatment of his alcohol use disorder as well as for discharge from the hospital presently. this is a dynamic assessment and if the question arises again, please consult psychiatry for updated opinion. Greater than 50% of the session was spent on counseling and/or coordination of care
--- NOTE | 2020-10-14 17:51 | PC.NURSE ---
Patient her for EtOH withdrawal, CIWA scores 2-5. Cooperative and stable with PO Phenobarb D/C order placed today but after conference with sister whom patient lives with, she does not feel he should be discharged to home. These concerns were relayed to SW, and thus to Dr. Clemons who despite feeling patient held capacity to determine his own dispo, cancelled Discharge for today pending Psych eval to determine capacity. Patient continues to have dark, orange colored urine, loose stools. Fair appetite and very unstable gait with transfers. Camera remains in use.
[2020-10-14] MEDS: PHENobarbitaL 30 MG TABLET PO (20:37)
[2020-10-14] MEDS: hydrOXYzine HCL 10 MG TABLET PO (21:18)
[2020-10-15] VITALS (9 sets, daily range): BP systolic 123–160; BP diastolic 76–96; PULSE 84–120; RESP 18–20; TEMP 36.3–37; O2SAT 94–100
[2020-10-15] MEDS: Acetaminophen 325 MG TABLET 650 MG PO (01:11)
[2020-10-15] MEDS: Omeprazole 20 MG CAPSULE.DR PO (06:34)
[2020-10-15] MEDS: Fluticasone Propionate 250 MCG BLST.W.DEV 1 PUFF INHALE (08:12)
[2020-10-15] MEDS: Erythromycin Base 0.5% Oph Oin 1 GM TUBE 1 CM EYE-BOTH ×2 (08:20→20:46)
[2020-10-15] MEDS: PHENobarbitaL 30 MG TABLET PO ×2 (08:20→20:46)
[2020-10-15] MEDS: Folic Acid 1 MG TABLET PO (08:21)
[2020-10-15] MEDS: Naltrexone HCl 50 MG TABLET PO (08:21)
[2020-10-15] MEDS: Thiamine HCL 100 MG TABLET PO (08:21)
[2020-10-15] MEDS: Pyridoxine HCl (Vitamin B6) 50 MG TABLET 250 MG PO (08:21)
[2020-10-15] MEDS: Magnesium Oxide 400 MG TABLET PO ×2 (08:21→16:14)
[2020-10-15] MEDS: 0.9 % Sodium Chloride Flush 3 ML SYRINGE IVFLUSH ×2 (08:23→16:14)
[2020-10-15 08:53] LABS: Anion Gap 14 (12-20); Blood Urea Nitrogen 7 mg/dL (9-16); Calcium 8.9 mg/dL (8.4-10.2); Carbon Dioxide 28 mmol/L (22-29); Chloride 90 mmol/L (96-108); Creatinine Clr Calc Pharmacy 119.7; Estimated Glomerular Filt Rate > 60; Glucose Random 85 mg/dL (60-115); Magnesium 1.4 mg/dL (1.6-2.6); Potassium 3.2 mmol/L (3.3-5.1); Sodium 129 mmol/L (135-145)
--- NOTE | 2020-10-15 11:19 | HO.PM.IMPN ---
Subjective Subjective Date of Service: 10/15/20 Interval History: no complaints Cardiovascular Cardiovascular: Reports no additional cardiovascular complaints Respiratory Respiratory: Reports no additional respiratory complaints Physical Exam Vital Signs: Vital Signs: Last Vital Signs Temp 98.6 F 10/15/20 07:53 Pulse 85 10/15/20 10:46 Resp 20 10/15/20 07:53 BP 151/83 H 10/15/20 10:46 Pulse Ox 100 10/15/20 10:46 Body Mass Index 24.3 General: AO X 3, no acute distress Resp: CTA bilateral CVS: S1,S2,RRR GI: soft, non tender, non distended Neuro: motor grossly intact Psych: impaired insight Objective Data Active Medications Acetaminophen (Acetaminophen 325 Mg Tablet) 650 mg PO Q6H PRN PRN Reason: Pain, Mild (Pain Scale 1-3) Last Admin: 10/15/20 01:11 Dose: 650 mg Documented by: MOSES Erythromycin (Erythromycin Base 0.5% Oph Oin 1 Gm Tube) 1 cm EYE-BOTH BID [facility] Last Admin: 10/15/20 08:20 Dose: 1 cm Documented by: MATHEW Fluticasone Propionate (Fluticasone Propionate 250 Mcg Blst.W.Dev) 1 puff INHALE RBID [facility] Last Admin: 10/15/20 08:12 Dose: 1 puff Documented by: JESSIE Folic Acid (Folic Acid 1 Mg Tablet) 1 mg PO DAILY [facility] Last Admin: 10/15/20 08:21 Dose: 1 mg Documented by: MATHEW Hydroxyzine HCl (Hydroxyzine Hcl 10 Mg Tablet) 10 mg PO BID PRN PRN Reason: anxiety Last Admin: 10/14/20 21:18 Dose: 10 mg Documented by: MOSES Magnesium Oxide (Magnesium Oxide 400 Mg Tablet) 400 mg PO BIDPC [facility] Last Admin: 10/15/20 08:21 Dose: 400 mg Documented by: MATHEW Medication (No Benzodiazepines) 1 each MISCELLANE DAILY [facility] Naltrexone HCl (Naltrexone Hcl 50 Mg Tablet) 50 mg PO DAILY [facility] Last Admin: 10/15/20 08:21 Dose: 50 mg Documented by: MATHEW Omeprazole (Omeprazole 20 Mg Capsule.Dr) 20 mg PO DAILY@0630 [facility] Last Admin: 10/15/20 06:34 Dose: 20 mg Documented by: MOSES Phenobarbital (Phenobarbital 30 Mg Tablet) 30 mg PO BID [facility]; Protocol Stop: 10/16/20 09:01 Last Admin: 10/15/20 08:20 Dose: 30 mg Documented by: MATHEW Phenobarbital (Phenobarbital 30 Mg Tablet) 30 mg PO DAILY [facility]; Protocol Stop: 10/18/20 09:01 Potassium Chloride (Potassium Chloride Er 20 Meq Tab.Er.Prt) 40 meq PO ONCE ONE Stop: 10/15/20 11:18 Pyridoxine HCl (Pyridoxine Hcl (Vitamin B6) 50 Mg Tablet) 250 mg PO DAILY [facility] Last Admin: 10/15/20 08:21 Dose: 250 mg Documented by: MATHEW Sodium Chloride (0.9 % Sodium Chloride Flush 3 Ml Syringe) 3 ml IVFLUSH QSHIFT [facility] Last Admin: 10/15/20 08:23 Dose: 3 ml Documented by: MATHEW Thiamine HCl (Thiamine Hcl 100 Mg Tablet) 100 mg PO DAILY [facility] Last Admin: 10/15/20 08:21 Dose: 100 mg Documented by: MATHEW Labs CBC & Chem 7: 10/14/20 05:18 10/15/20 08:00 Labs: Laboratory Results - last 24 hr 10/15/20 08:00 Anion Gap 14 Estim Creat Clear Calc 119.7 Estimated GFR > 60 Random Glucose 85 Calcium 8.9 Magnesium 1.4 L* Assessment and Plan (1) Alcohol abuse with alcohol-induced disorder: Status: Acute Assessment and Plan: 55M presented with alcohol withdrawal alcohol dependence with withdrawal improved continue phenonarb, ciwa alcohol dementia psych appreciated, does not have enough insight into medical condition to make decisions regarding disposition, due to deconditioning family would like patient to go to SNF for STR alcoholic steatohepatitis/cirrhosis with pancytopenia stable avoid alcohol hypokalemia and hypomagnesemia due to ETOH replace and monitor Quality Stroke Does the patient have a stroke diagnosis?: No VTE Prior VTE?: No VTE Risk Level:: Medical - moderate - high VTE Device Contraindication: N/A - Device Ordered VTE Drug Contraindication: Treatment Not Indicated
--- NOTE | 2020-10-15 11:23 | MHC.CM.PN ---
Per MD, Psych has deemed Patient NOT to have capacity. Patient's Brother, Rangel is the HCP @ [phone] and CM has requested copies. MD has indicated that HCP will be invoked. PT is recommending and family is in agreement with SNF/STR; referrals have been updated and CM will follow for dc planning.
[2020-10-15] MEDS: Potassium Chloride ER 20 MEQ TAB.ER.PRT 40 MEQ PO (11:53)
--- NOTE | 2020-10-15 12:20 | MHC.CM.PN ---
CM returned a call to Brother/Wilian. CM has asked Wilian to contact his Brother/Rangel to obtain a copy of the HCP. Patient has not been vaccinated for Covid and referrals have been notified of that. Patient is medically cleared for dc pending SNF bed offer. CM will follow.
--- NOTE | 2020-10-15 16:32 | MHC.CM.PN ---
CM SPOKE WITH PTS HCP, MIGUELINA (COPY IS ON FILE). MIGUELINA REPORTS HE FEELS THE PT NEEDS TO GO TO STR HOWEVER THE PT DOES NOT AGREE. HE IS AWARE THE HCP IS INVOKED AND HE WILL BE MAKING DECISIONS ON PLACEMENT. MIGUELINA IS AWARE SEVERAL REFERRALS HAVE BEEN MADE AND ONLY A COUPLE FACILITIES ARE FOLLOWING. PER DISCUSSION, CM WILL CONTACT HIM ONCE BED OFFERS AND DC DATE ARE KNOWN.
[2020-10-15] MEDS: hydrOXYzine HCL 10 MG TABLET PO (20:46)
[2020-10-16] VITALS (8 sets, daily range): BP systolic 135–172; BP diastolic 82–93; PULSE 87–98; RESP 18–20; TEMP 36.3–37.4; O2SAT 95–99
[2020-10-16] MEDS: 0.9 % Sodium Chloride Flush 3 ML SYRINGE IVFLUSH ×3 (00:37→17:00)
[2020-10-16] MEDS: Omeprazole 20 MG CAPSULE.DR PO (06:06)
[2020-10-16] MEDS: Fluticasone Propionate 250 MCG BLST.W.DEV 1 PUFF INHALE (07:56)
[2020-10-16 08:17] LABS: Anion Gap 13 (12-20); Blood Urea Nitrogen 7 mg/dL (9-16); Calcium 9.4 mg/dL (8.4-10.2); Carbon Dioxide 26 mmol/L (22-29); Chloride 95 mmol/L (96-108); Creatinine Clr Calc Pharmacy 119.7; Estimated Glomerular Filt Rate > 60; Glucose Fasting 79 mg/dL (60-99); Magnesium 1.5 mg/dL (1.6-2.6); Potassium 3.1 mmol/L (3.3-5.1); Sodium 131 mmol/L (135-145)
[2020-10-16] MEDS: Thiamine HCL 100 MG TABLET PO (09:45)
[2020-10-16] MEDS: PHENobarbitaL 30 MG TABLET PO (09:45)
[2020-10-16] MEDS: Pyridoxine HCl (Vitamin B6) 50 MG TABLET 250 MG PO (09:45)
[2020-10-16] MEDS: Naltrexone HCl 50 MG TABLET PO (09:46)
[2020-10-16] MEDS: Potassium Chloride ER 20 MEQ TAB.ER.PRT 40 MEQ PO (09:46)
[2020-10-16] MEDS: Erythromycin Base 0.5% Oph Oin 1 GM TUBE 1 CM EYE-BOTH ×2 (09:46→20:17)
[2020-10-16] MEDS: Magnesium Oxide 400 MG TABLET PO ×2 (09:46→17:00)
[2020-10-16] MEDS: Folic Acid 1 MG TABLET PO (09:46)
--- NOTE | 2020-10-16 10:56 | HO.PM.IMPN ---
Subjective Subjective Date of Service: 10/16/20 Interval History: no complaints Cardiovascular Cardiovascular: Reports no additional cardiovascular complaints Respiratory Respiratory: Reports no additional respiratory complaints Physical Exam Vital Signs: Vital Signs: Last Vital Signs Temp 98.3 F 10/16/20 08:00 Pulse 96 10/16/20 10:09 Resp 20 10/16/20 08:00 BP 157/93 H 10/16/20 10:09 Pulse Ox 98 10/16/20 10:09 Body Mass Index 24.3 General: AO X 3, no acute distress Resp:? CTA bilateral CVS: S1,S2,RRR GI: soft, non tender, non distended Neuro:? motor grossly intact Psych: impaired insight Objective Data Active Medications Acetaminophen (Acetaminophen 325 Mg Tablet) 650 mg PO Q6H PRN PRN Reason: Pain, Mild (Pain Scale 1-3) Last Admin: 10/15/20 01:11 Dose: 650 mg Documented by: MOSES Erythromycin (Erythromycin Base 0.5% Oph Oin 1 Gm Tube) 1 cm EYE-BOTH BID [facility] Last Admin: 10/16/20 09:46 Dose: 1 cm Documented by: ALBIN Fluticasone Propionate (Fluticasone Propionate 250 Mcg Blst.W.Dev) 1 puff INHALE RBID [facility] Last Admin: 10/16/20 07:56 Dose: 1 puff Documented by: JESSIE Folic Acid (Folic Acid 1 Mg Tablet) 1 mg PO DAILY [facility] Last Admin: 10/16/20 09:46 Dose: 1 mg Documented by: ALBIN Hydroxyzine HCl (Hydroxyzine Hcl 10 Mg Tablet) 10 mg PO BID PRN PRN Reason: anxiety Last Admin: 10/15/20 20:46 Dose: 10 mg Documented by: PODBANDAR Magnesium Oxide (Magnesium Oxide 400 Mg Tablet) 400 mg PO BIDPC [facility] Last Admin: 10/16/20 09:46 Dose: 400 mg Documented by: ALBIN Medication (No Benzodiazepines) 1 each MISCELLANE DAILY [facility] Naltrexone HCl (Naltrexone Hcl 50 Mg Tablet) 50 mg PO DAILY [facility] Last Admin: 10/16/20 09:46 Dose: 50 mg Documented by: ALBIN Omeprazole (Omeprazole 20 Mg Capsule.Dr) 20 mg PO DAILY@0630 [facility] Last Admin: 10/16/20 06:06 Dose: 20 mg Documented by: JOE Phenobarbital (Phenobarbital 30 Mg Tablet) 30 mg PO DAILY [facility]; Protocol Stop: 10/18/20 09:01 Pyridoxine HCl (Pyridoxine Hcl (Vitamin B6) 50 Mg Tablet) 250 mg PO DAILY [facility] Last Admin: 10/16/20 09:45 Dose: 250 mg Documented by: ALBIN Sodium Chloride (0.9 % Sodium Chloride Flush 3 Ml Syringe) 3 ml IVFLUSH QSHIFT [facility] Last Admin: 10/16/20 09:46 Dose: 3 ml Documented by: ALBIN Thiamine HCl (Thiamine Hcl 100 Mg Tablet) 100 mg PO DAILY [facility] Last Admin: 10/16/20 09:45 Dose: 100 mg Documented by: ALBIN Labs CBC & Chem 7: 10/14/20 05:18 10/16/20 05:45 Labs: Laboratory Results - last 24 hr 10/16/20 05:45 Anion Gap 13 Estim Creat Clear Calc 119.7 Estimated GFR > 60 Fasting Glucose 79 Calcium 9.4 Magnesium 1.5 L Assessment and Plan (1) Alcohol abuse with alcohol-induced disorder: Status: Acute Assessment and Plan: 55M presented with alcohol withdrawal alcohol dependence with withdrawal improved continue phenonarb, ciwa alcohol dementia psych appreciated, does not have enough insight into medical condition to make decisions regarding disposition and health (health care proxy invoked), due to deconditioning family would like patient to go to SNF for STR awaiting bed alcoholic steatohepatitis/cirrhosis with pancytopenia stable avoid alcohol hypokalemia and hypomagnesemia due to ETOH replace and monitor Quality Stroke Does the patient have a stroke diagnosis?: No VTE Prior VTE?: No VTE Risk Level:: Medical - moderate - high VTE Device Contraindication: N/A - Device Ordered VTE Drug Contraindication: Treatment Not Indicated
--- NOTE | 2020-10-16 11:15 | P.DS_ITS ---
DS: Providers Provider Date of Service: 10/17/20 Date of admission: 10/12/20 11:14 Primary care physician: Kingsley Khalil PA-C Consults: 10/12/20 11:15 Consult to Care Team Routine Comment: Reason for consultation: alcohol abuse 10/14/20 11:07 Consult to Psychiatry Routine Consulting Provider: Glenn Diaz Reason for consultation: family questioning capacity to make disposition decision DS: Diagnosis Discharge Diagnosis (1) Alcohol abuse with alcohol-induced disorder: Status: Acute DS: Summary Hospital Course Hospital Course: patient was admitted for alcohol dependence with witdrawal. he was treated with phenobarbital with improvement in withdrawal symptoms. he had significant hypokalemia and hyomagnesemia which was repleted. 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 patient was initially going to be discharged home, however, there was concern about his ability to fully understand his medical con dition, he was seen by psychiatry who felt patient did not understand his medical conidition, therefore, his health care proxy has been invoked. it was determined that he would benefit from STR at SNF, he is expected to require less than 30 days. Time Spent with Patient Time attestation: Total time spent providing and/or coordinating discharge services: Discharge coordination time: Greater than 30 minutes Quality: Stroke Does the patient have a stroke diagnosis?: No Physical Exam Vital Signs: Vital Signs: Last Vital Signs Temp 98.3 F 10/16/20 08:00 Pulse 96 10/16/20 10:09 Resp 20 10/16/20 08:00 BP 157/93 H 10/16/20 10:09 Pulse Ox 98 10/16/20 10:09 Body Mass Index 24.3 General: AO X 3, no acute distress Resp:? CTA bilateral CVS: S1,S2,RRR GI: soft, non tender, non distended Neuro:? motor grossly intact Psych: impaired insight DS: Data Data Completed and Pending Completed studies during hospitalization [Text1]: Procedures Detoxification Services for Substance Abuse Treatment (03/10/20) Labs on day of discharge: Laboratory Results - last 24 hr 10/16/20 05:45 Sodium 131 L Potassium 3.1 L Chloride 95 L Carbon Dioxide 26 Anion Gap 13 BUN 7 L Creatinine 0.69 Estim Creat Clear Calc 119.7 Estimated GFR > 60 Fasting Glucose 79 Calcium 9.4 Magnesium 1.5 L Discharge Plan Discharge Patient Disposition: Xfer SNF Discharge Diagnosis: alcohol withdrawal Referrals: [facility] [Outside] - 1 Week Kingsley Khalil PA-C [Primary Care Provider] - 1 Week Discharge Medications: Continued magnesium oxide 400 mg (241.3 mg magnesium) Tablet 400 mg PO BIDPC Qty: 60 RF: 0 omeprazole 20 mg capsule,delayed release(DR/EC) 20 mg PO DAILY Qty: 30 RF: 0 Flovent HFA 220 mcg/actuation HFA aerosol inhaler 1 puff inhalation BID 30 Days Qty: 12 RF: 1 naltrexone 50 mg tablet 50 mg PO DAILY 30 Days Qty: 30 RF: 3 hydroxyzine HCl 10 mg tablet 10 mg PO BID PRN (Reason: anxiety) 10 Days Qty: 20 RF: 1 folic acid 1 mg tablet 1 mg PO DAILY 90 Days Qty: 90 RF: 1 thiamine HCl (vitamin B1) 100 mg tablet 100 mg PO DAILY 90 Days Qty: 90 RF: 1 pyridoxine (vitamin B6) 250 mg tablet 250 mg PO DAILY 90 Days Qty: 90 RF: 1 erythromycin 5 mg/gram (0.5 %) ointment 0.5 inch ophthalmic (eye) BID 10 Days Qty: 3.5 RF: 0 disulfiram 500 mg tablet 500 mg PO DAILY 14 Days Qty: 14 RF: 0 Discharge Orders: Discharge Order (Routine); Ordered 10/17/20 Ordered By: Tez Clemons Diet: advance to usual diet Activity on Discharge: As tolerated Stand Alone Forms: Patient Portal Discharge page Care Plan Goals: recovery Health Concerns: alcohol Plan of Treatment: avoid alcohol Assessment: see above Patient Instructions: Abuse of Alcohol (ED), Failure to Thrive in Older Adults (ED)
--- NOTE | 2020-10-16 11:34 | MHC.CM.PN ---
Per MD, Patient is medically cleared for dc to SNF/STR today. STEPHAN spoke with Patient's Brother/HCP/Rangel @ [phone] to inform him that Patient will dc to [facility], pending [facility] authorization, likely today or tomorrow (pending auth). Rangel is aware of and in agreement with the dc plan.
[2020-10-16 12:18] LABS: COVID-19 Test Negative (Negative); IDNOW Serial# 9DD0AD1C
[2020-10-16] MEDS: hydrOXYzine HCL 10 MG TABLET PO (20:27)
[2020-10-17] MEDS: 0.9 % Sodium Chloride Flush 3 ML SYRINGE IVFLUSH ×2 (00:19→08:31)
[2020-10-17 03:20] VITALS: BP 164/84; PULSE 78; RESP 18; TEMP 36.4; O2SAT 98
[2020-10-17] MEDS: Omeprazole 20 MG CAPSULE.DR PO (06:40)
[2020-10-17 07:22] LABS: Anion Gap 12 (12-20); Blood Urea Nitrogen 8 mg/dL (9-16); Calcium 9.5 mg/dL (8.4-10.2); Carbon Dioxide 27 mmol/L (22-29); Chloride 98 mmol/L (96-108); Creatinine Clr Calc Pharmacy 125.2; Estimated Glomerular Filt Rate > 60; Glucose Fasting 84 mg/dL (60-99); Magnesium 1.2 mg/dL (1.6-2.6); Potassium 3.6 mmol/L (3.3-5.1); Sodium 133 mmol/L (135-145)
[2020-10-17 07:36] VITALS: BP 149/63; PULSE 78; RESP 18; TEMP 36.9; O2SAT 98
[2020-10-17 07:52] VITALS: PULSE 81; O2SAT 99
[2020-10-17] MEDS: Fluticasone Propionate 250 MCG BLST.W.DEV 1 PUFF INHALE (07:52)
--- NOTE | 2020-10-17 08:11 | MHC.CM.PN ---
CM has received word that SNF has obtained insurance auth. Patient will dc to [facility] today at 11AM, via [facility] (MD & RN have been made aware).
[2020-10-17] MEDS: Pyridoxine HCl (Vitamin B6) 50 MG TABLET 250 MG PO (08:29)
[2020-10-17] MEDS: Folic Acid 1 MG TABLET PO (08:30)
[2020-10-17] MEDS: PHENobarbitaL 30 MG TABLET PO (08:30)
[2020-10-17] MEDS: Naltrexone HCl 50 MG TABLET PO (08:30)
[2020-10-17] MEDS: Magnesium Oxide 400 MG TABLET 800 MG PO (08:30)
[2020-10-17] MEDS: Thiamine HCL 100 MG TABLET PO (08:31)
[2020-10-17] MEDS: Erythromycin Base 0.5% Oph Oin 1 GM TUBE 1 CM EYE-BOTH (08:31)
[2020-10-17] MEDS: Magnesium Sulfate/H2O 2 GM/50 ML PIGGYBACK IV (08:31)
--- NOTE | 2020-10-17 10:43 | MHC.CM.PN ---
CM has sent Brother/HCP/Donnell text @[phone] (per his request) letting him know that Patient is being dc to [facility] today at 11AM, as previously discussed.
== END 2020-10-17 11:20 | disposition skilled nursing facility (03) | DRG 425 ==
LOC: HO.ED 20:55 → HO.EDOVER 10-12 11:21 → HO.IMC 10-12 14:08
PROVIDERS: Physician Assistant; Admitting Provider Family Medicine; Emergency Provider Internal Medicine; PCP Physician Assistant; Visit Provider Internal Medicine
DX: E83.42 Hypomagnesemia (principal); D61.818 Other pancytopenia; F10.231 Alcohol dependence with withdrawal delirium; K70.30 Alcoholic cirrhosis of liver without ascites; K70.0 Alcoholic fatty liver; E87.2 Acidosis; F10.27 Alcohol dependence with alcohol-induced persisting dementia; Z20.822 Contact with and (suspected) exposure to COVID-19; E87.6 Hypokalemia; R62.7 Adult failure to thrive; Z68.24 Body mass index [BMI] 24.0-24.9, adult; Z88.0 Allergy status to penicillin; Z79.51 Long term (current) use of inhaled steroids; Z79.899 Other long term (current) drug therapy
CPT/HCPCS: 36415; 71045; 80048; 80053; 80076; 80307; 81001; 82077; 82140; 82248; 83605; 83690; 83735; 85025; 85027; 87635; 93005; 96361; 96365; 96367; 96372; 96375; 96376; 97116; 97162; 97530; 99285; J0610; J2060; J2405; J2560; J3411; J3475

== ENCOUNTER 2021-08-09 13:37 | Outpatient (REF) | payer OTHER, SELFPAY ==
[2021-08-09 15:02] LABS: MANUAL DIFF FLAG NO
[2021-08-09 15:08] LABS: Basophils Absolute Auto 0.1 X10*3/uL (0.0-0.2); Basophils Percent Auto 0.8 % (0-2); Eosinophils Absolute Auto 0.3 X10*3/uL (0.0-0.4); Eosinophils Percent Auto 4.5 % (0-4); Hemoglobin 13.8 g/dl (14.0-18.0); Imm Gran Abs Auto 0.02 X10*3/uL (0.00-0.03); Imm Gran Pct Auto 0.3 % (0.0-0.4); Lymphocytes Absolute Auto 1.8 X10*3/uL (1.2-4.9); Lymphocytes Percent Auto 27.9 % (20-40); Mean Corpuscular HGB Conc 33.7 g/dl (31.0-36.0); Mean Corpuscular Hemoglobin 32.6 pg (27.0-33.0); Mean Corpuscular Volume 96.9 fL (80.0-98.0); Monocytes Absolute Auto 0.5 X10*3/uL (0.1-1.2); Monocytes Percent Auto 7.4 % (2-11); Neutrophils Absolute Auto 3.8 x10*3/uL (2.0-8.3); Neutrophils Percent Auto 59.1 % (45-73); Platelet Count 189 X10*3/uL (160-400); Red Blood Count 4.23 X10*6/uL (4.60-5.80); Red Cell Distribution Width 11.6 % (11.0-16.0); White Blood Count 6.5 X10*3/uL (4.8-10.8)
[2021-08-09 15:13] LABS: Prothrombin Time 11.4 SEC (9.9-13.0)
[2021-08-09 15:40] LABS: Alanine Aminotransferase 68 U/L (0-40); Albumin Level 4.2 g/dL (3.5-5.0); Alkaline Phosphatase 52 U/L (39-117); Anion Gap 13 (12-20); Aspartate Amino Transferase 103 U/L (5-37); Bilirubin Direct 0.5 mg/dL (0.0-0.5); Bilirubin Total 0.9 mg/dL (0.0-1.0); Blood Urea Nitrogen 12 mg/dL (9-16); Carbon Dioxide 25 mmol/L (22-29); Chloride 102 mmol/L (96-108); Estimated Glomerular Filt Rate > 60; Glucose Random 87 mg/dL (60-115); Potassium 4.4 mmol/L (3.3-5.1); Sodium 136 mmol/L (135-145); Total Protein 8.1 g/dL (6.5-8.0)
[2021-08-09 15:52] LABS: Syphilis Screen Nonreactive (Nonreactive)
[2021-08-10 08:20] LABS: HBS Num1 1.04 mIU/mL (0-7.99); HBc Num1 0.14 S/CO (0.00-0.79); HBsAGNum1 0.17 S/CO (0.00-0.99); HIV AB/AG Nonreactive (Nonreactive); HIV Num 1 0.18 S/CO (0.00-0.99); Hepatitis B Core Antibody Nonreactive (Nonreactive); Hepatitis B Surface Antigen Negative (Negative); ~HepC Num1 0.09 S/CO (0.00-0.79); ~Hepatitis B Surface Antibody NONREACTIVE (Nonreactive); ~Hepatitis C Antibody Nonreactive (Nonreactive)
[2021-08-11 09:00] LABS: Hepatitis A Antibody IgG REACTIVE (Nonreactive); ~Hepatitis A Antibody IgG 16.07 S/CO (0.00-0.99)
[2021-08-11 20:53] LABS: TS Negative Control Passed; TS Panel A 0; TS Panel B 0; TS Positive Control Passed; TSpotTB Negative (Negative)
[2021-08-13 19:06] LABS: FIB-ALT 58 U/L (9-46); FIB-Alpha-2-Macroglobulin 305 mg/dL (106-279); FIB-Apolipoprotein A1 217 mg/dL (94-176); FIB-GGT 152 U/L (3-95); FIB-Haptoglobin 88 mg/dL (43-212); FIB-Total Bilirubin 0.7 mg/dL (0.2-1.2); Liver Fibrosis Score 0.51; Liver Fibrosis Stage F2; Nec Inflam Act Grade A1-A2; Nec Inflam Act Score 0.42
== END 2021-08-09 13:38 | disposition home or self-care (01) ==
LOC: HO.LAB 13:37
PROVIDERS: PCP Physician Assistant; Visit Provider Internal Medicine
DX: Z51.81 Encounter for therapeutic drug level monitoring (principal); Z11.1 Encounter for screening for respiratory tuberculosis; Z11.4 Encounter for screening for human immunodeficiency virus [HIV]; F10.27 Alcohol dependence with alcohol-induced persisting dementia; R29.898 Other symptoms and signs involving the musculoskeletal system; Z79.899 Other long term (current) drug therapy
CPT/HCPCS: 36415; 80048; 80076; 80305; 81596; 85025; 85610; 86481; 86704; 86706; 86708; 86780; 86803; 87340; 87389; 99202

== ENCOUNTER 2021-11-02 15:03 | Outpatient (REF) | payer OTHER, SELFPAY ==
[2021-11-02 17:00] LABS: Estimated Average Glucose 91 mg/dL; Hemoglobin A1c % 4.8 %
[2021-11-02 17:06] LABS: INTERNATIONAL NORM RATIO 1.1 (0.9-1.1); Prothrombin Time 12.2 SEC (10.0-13.1)
[2021-11-02 18:23] LABS: Alanine Aminotransferase 174 U/L (0-40); Albumin Level 3.5 g/dL (3.5-5.0); Alkaline Phosphatase 72 U/L (39-117); Aspartate Amino Transferase 179 U/L (5-37); Bilirubin Total 1.4 mg/dL (0.0-1.0); Blood Urea Nitrogen 35 mg/dL (9-16); Calcium 8.4 mg/dL (8.4-10.2); Cholesterol 105 mg/dL; Estimated Glomerular Filt Rate 28; Glucose Random 92 mg/dL (60-115); Total Protein 7.4 g/dL (6.5-8.0); Triglycerides 257 mg/dL
[2021-11-02 18:40] LABS: Anion Gap 22 (12-20); Carbon Dioxide 24 mmol/L (22-29); Chloride 90 mmol/L (96-108); HDL Cholesterol 7 mg/dL; LDL Cholesterol Calculated 47 mg/dl; Potassium 3.7 mmol/L (3.3-5.1); Sodium 132 mmol/L (135-145)
[2021-11-03 05:27] LABS: HBS Num1 0.66 mIU/mL (0-7.99); Hepatitis B Core Antibody Nonreactive (Nonreactive); Hepatitis B Surface Antigen Negative (Negative); ~HepC Num1 0.06 S/CO (0.00-0.79); ~Hepatitis B Surface Antibody NONREACTIVE (Nonreactive); ~Hepatitis C Antibody Nonreactive (Nonreactive)
== END 2021-11-02 15:04 | disposition home or self-care (01) ==
LOC: HO.HMGCLDS 15:03
PROVIDERS: PCP Physician Assistant; Visit Provider Physician Assistant
DX: Z13.1 Encounter for screening for diabetes mellitus (principal); Z11.3 Encounter for screening for infections with a predominantly sexual mode of transmission; F10.27 Alcohol dependence with alcohol-induced persisting dementia; I10 Essential (primary) hypertension
CPT/HCPCS: 36415; 80048; 80061; 80076; 83036; 83735; 85610; 86704; 86706; 86803; 87340

== ENCOUNTER 2021-11-04 11:35 | Inpatient (IN) | payer OTHER, SELFPAY ==
--- NOTE | ~2021-11-04 | XR_ITS ---
EXAMINATION: XR CHEST CLINICAL INFORMATION: Cough, fever COMPARISON: September 2020. TECHNIQUE: 2 views of the chest were obtained. Patient slightly rotated to the right. FINDINGS: No significant abnormality is noted involving the heart, lungs, mediastinum, bony thorax or soft tissues. XR/XR chest 2V IMPRESSION: Unremarkable examination.
--- NOTE | ~2021-11-04 | CT_ITS ---
EXAMINATION: CT ABDOMEN AND PELVIS WITHOUT CONTRAST CLINICAL INFORMATION: Diffuse abdominal pain COMPARISON: 03/10/2020 TECHNIQUE: Multidetector volumetric imaging was performed from the superior aspect of the liver through the pubic symphysis. Sagittal and coronal reformatted images were obtained on the technologist's workstation. This CT examination was performed using dose optimization techniques as appropriate, variously including the following: *Automated exposure control *Adjustment of mA and/or kV according to patient size (this includes techniques or standardized protocols for targeted exams where dose is matched to indication/reason for exam; i.e. extremities or head) *Use of iterative reconstruction technique DLP: 583 mGy-cm FINDINGS: LUNG BASES: The visualized lung bases are unremarkable. LIVER, GALLBLADDER, AND BILIARY TREE: The area of enhancement seen previously are believed high density lesion on this exam. Etiology is indeterminate Not adequately evaluated for change in size. The borders are not adequately defined gallbladder mildly distended. Gallstone is noted. PANCREAS: Unremarkable SPLEEN: Unremarkable. ADRENAL GLANDS: Unremarkable. KIDNEYS AND URETERS: The kidneys are normal in size, shape, and attenuation. No hydronephrosis, hydroureter, or calculi seen. No perinephric stranding. BLADDER: Mild thickening of the bladder wall. GASTROINTESTINAL TRACT: The small and large bowel are unremarkable. The appendix is unremarkable. ABDOMINAL WALL: No significant hernia is appreciated. LYMPH NODES: Shotty nonpathologically enlarged nodes are noted. Mild portal nodes also seen. VASCULAR: Atherosclerotic changes. No aneurysmal change. PELVIC VISCERA: Some minimal periureteral soft tissue stranding on the left of uncertain etiology. OSSEOUS STRUCTURES: Stable appearing sclerotic lesion at L4. Degenerative changes are noted CT/CT abdomen pelvis wo IV con IMPRESSION: Gallbladder is mildly distended. Gallstone is noted. Overall low attenuation in the liver may be consistent with fatty change. Hepatitis cannot be excluded. Lesion described previously is not adequately defined on this noncontrast study. Some mild periportal nodes are not felt to be changed from previous. This may be reactive. Some mild thickening of the bladder wall. Cystitis cannot be excluded There is some minimal soft tissue stranding around the left ureter but there is no hydronephrosis or stone. Element of The bowel pattern is nonobstructing. There is no free fluid. Fleischner guidelines were followed.
--- NOTE | ~2021-11-04 | MR_ITS ---
EXAMINATION: MR ABDOMEN WITHOUT AND WITH CONTRAST CLINICAL INFORMATION: Liver lesion. Elevated liver function tests. Please including MRCP COMPARISON: CT 11/04/2021. Ultrasound 03/11/2021. TECHNIQUE: MR abdomen was performed without and with use of 6.5 mL intravenous Gadavist gadolinium contrast. Postcontrast images are performed in multiphase dynamic sequences. Imaging was performed in 3 planes. Heavily T2-weighted MRCP images were obtained. FINDINGS: LUNG BASES: Lung bases are clear. LIVER: Mild loss of signal on opposed phase gradient echo T1 weighted images suggesting mild hepatic steatosis. There is areas of focal fatty sparing adjacent to gallbladder fossa. There is a peripheral triangular region of relative early enhancement there remains hyperenhancing relative to adjacent liver on later phase images along the anterior peripheral aspect of the right lobe of liver, postcontrast image 63/104 and coronal image 23/33. There is faint hyperintense T2 signal. The area is slightly hypointense on precontrast T1-weighted images, series 12 image 74/104. The appearance favors a perfusion abnormality likely with some degree of associated focal fatty sparing. This corresponds to the area of abnormal hyperenhancement on the remote prior CT scan 03/10/2020. Otherwise, the liver enhances normally. No new suspicious or concerning focal lesion seen. Hepatic and portal veins enhance normally. GALLBLADDER AND BILIARY TREE: Gallstones are present. Gallbladder upper limits of normal in thickness. No pericholecystic fluid. No intrahepatic biliary ductal dilatation. Common bile duct normal in caliber, 3 mm. SPLEEN: Normal. Normal size. No focal lesion. PANCREAS: Normal. ADRENAL GLANDS: Normal. No adrenal mass. KIDNEYS AND URETERS: Normal symmetric renal enhancement. No hydronephrosis or mass. LYMPHOVASCULAR STRUCTURES: Normal caliber aorta. IVC patent. No pathologically enlarged abdominal or retroperitoneal lymphadenopathy by short axis size criteria. OSSEOUS STRUCTURES: No acute or suspicious osseous abnormalities. MR/MR abdomen wo/w con IMPRESSION: There is a background of mild diffuse hepatic steatosis. Again seen is a 1.3 cm peripheral region of relative early hyperenhancement in segment 5 of the liver. This is unchanged from 03/10/2020, smaller than on the prior study 04/07/2018 (1.9 cm at that time). The appearance remains most consistent with a perfusion abnormality likely with a degree of associated focal fatty sparing. This does not have the expected appearance of a hemangioma. Given the stability since 2020 and interval decrease in size from 2019, this is strongly likely to be a benign finding for which no further imaging follow-up is recommended.
[2021-11-04 11:43] VITALS: BP 137/91; PULSE 82; RESP 18; TEMP 36.1; O2SAT 97; BMI 22.6
[2021-11-04 11:59] LABS: MANUAL DIFF FLAG NO
[2021-11-04 12:05] LABS: Basophils Absolute Auto 0.1 X10*3/uL (0.0-0.2); Basophils Percent Auto 0.4 % (0-2); Eosinophils Percent Auto 0.2 % (0-4); Hematocrit 39.2 % (42.0-52.0); Hemoglobin 13.5 g/dl (14.0-18.0); Imm Gran Abs Auto 0.23 X10*3/uL (0.00-0.03); Imm Gran Pct Auto 1.3 % (0.0-0.4); Lymphocytes Absolute Auto 0.9 X10*3/uL (1.2-4.9); Lymphocytes Percent Auto 4.9 % (20-40); Mean Corpuscular HGB Conc 34.4 g/dl (31.0-36.0); Mean Corpuscular Hemoglobin 32.2 pg (27.0-33.0); Mean Corpuscular Volume 93.6 fL (80.0-98.0); Mean Platelet Volume 10.5 fL (9.4-12.4); Monocytes Absolute Auto 1.4 X10*3/uL (0.1-1.2); Monocytes Percent Auto 7.3 % (2-11); Neutrophils Absolute Auto 15.8 x10*3/uL (2.0-8.3); Neutrophils Percent Auto 85.9 % (45-73); Platelet Count 147 X10*3/uL (160-400); Red Blood Count 4.19 X10*6/uL (4.60-5.80); Red Cell Distribution Width 12.7 % (11.0-16.0); White Blood Count 18.4 X10*3/uL (4.8-10.8)
[2021-11-04 12:28] LABS: COVID-19 Test Negative (Negative); IDNOW Serial# 16C4AD1C
[2021-11-04 12:32] LABS: Alanine Aminotransferase 114 U/L (0-40); Albumin Level 3.3 g/dL (3.5-5.0); Alkaline Phosphatase 81 U/L (39-117); Anion Gap 25 (12-20); Aspartate Amino Transferase 112 U/L (5-37); Bilirubin Direct 1.1 mg/dL (0.0-0.5); Bilirubin Total 1.5 mg/dL (0.0-1.0); Blood Urea Nitrogen 46 mg/dL (9-16); Calcium 8.2 mg/dL (8.4-10.2); Carbon Dioxide 16 mmol/L (22-29); Chloride 95 mmol/L (96-108); Creatinine Clr Calc Pharmacy 30.8; Estimated Glomerular Filt Rate 28; Glucose Random 93 mg/dL (60-115); Lipase 300 U/L (8-78); Potassium 3.5 mmol/L (3.3-5.1); Sodium 132 mmol/L (135-145)
[2021-11-04 12:40] LABS: Appearance Urine Turbid; Color Urine Yellow; Glucose Urine UA Negative (Negative); Leukocyte Esterase Urine Large (3+) (Negative); Nitrite Urine Negative (Negative); PH 5.5 (5.0-9.0); UMIC TRIGGER UACC YES; Urine Blood Large (3+) (Negative); Urine Ketones 15 mg/dL (Negative); Urine Protein 30 (1+) mg/dL (Neg-Trace)
[2021-11-04 12:55] LABS: Bacteria Urine 3+ (None Seen); Hyaline Casts Urine 0-2 /LPF (0-2); RBC Urine >20 /HPF (0-2); Squamous Epithelial Cell Urine 0-2 /HPF (0-2); UACC Culture Trigger YES; WBC Urine >50 /HPF (0-5)
--- NOTE | 2021-11-04 13:38 | ECG_ITS ---
Test Reason : abd Pain Blood Pressure : / mmHG Vent. Rate : 082 BPM Atrial Rate : 082 BPM P-R Int : 144 ms QRS Dur : 100 ms QT Int : 430 ms P-R-T Axes : 062 -09 -05 degrees QTc Int : 502 ms Normal sinus rhythm Inferior infarct , age undetermined Prolonged QT Abnormal ECG When compared with ECG of 11-OCT-2020 13:08, Inferior infarct is now Present Inverted T waves have replaced nonspecific T wave abnormality in Inferior leads T wave inversion no longer evident in Anterior leads Referred By: Carlee Villafuerte Electronically Signed By:JOSEMANUEL TALAVERA
--- NOTE | 2021-11-04 13:51 | ED_ITS ---
HPI - Abdominal Pain General Chief Complaint: Abdominal Pain Stated Complaint: Weakness Levels Low Sent By Kevin Office Time Seen by Provider: 11/04/21 13:28 Source: patient and family Mode of arrival: ambulatory Limitations: no limitations History of Present Illness HPI narrative: 56 yo male with history of alcohol abuse who presents with fever up to 101 since Monday with generalized weakness, abdominal pain, vomiting, diarrhea and cough. No shortness of breath, chest pain, urinary symptoms, black or bloody st ools. Patient drinks beer 6-7 daily with last drink yesterday. Patient had outpatient labs yesterday which showed AMARA-referred in for further eval Related Data Previous Rx's Medication Instructions Recorded cane #1 ea 12/17/20 blood pressure test kit-medium #1 ea 02/16/21 hydroxyzine HCl 10 mg tablet 10 mg PO BID anxiety 30 days #60 04/27/21 tabs magnesium oxide 400 mg (241.3 mg 400 mg PO BIDPC #60 tabs 04/27/21 magnesium) tablet metoprolol tartrate 25 mg tablet 25 mg PO BID 30 days #60 tabs 04/27/21 naltrexone 50 mg tablet 50 mg PO DAILY 30 days #30 tabs 04/27/21 omeprazole 20 mg capsule,delayed 20 mg PO DAILY #30 caps 04/27/21 release pyridoxine (vitamin B6) 250 mg 250 mg PO DAILY 90 days #90 tabs 04/27/21 tablet trazodone 50 mg tablet 50 mg PO BEDTIME 30 days #30 tabs 04/27/21 acamprosate 333 mg tablet,delayed 666 mg PO TID 30 days #180 tabs 08/09/21 release folic acid 1 mg tablet 1 mg PO DAILY 90 days #90 tabs 09/15/21 thiamine HCl (vitamin B1) 100 mg 100 mg PO DAILY 90 days #90 tabs 10/13/21 tablet fluticasone propionate 220 1 puff inhalation BID 30 days #12 10/29/21 mcg/actuation HFA aerosol inhaler grams (Flovent HFA) Allergies Allergy/AdvReac Type Severity Reaction Status Date / Time penicillin V Allergy Unknown unknown Verified 08/09/21 13:46 Penicillins [PENICILLINS] Allergy Unknown UNKNOWN Verified 08/09/21 13:46 Review of Systems Review of Systems Yes all other systems are reviewed and are negative Constitutional: Reports no additional constitutional complaints, Denies body ache(s), Denies chills, Reports fever(s), Denies headache(s) and Reports weakness Eyes: Reports no additional eye complaints and Denies change in vision Reports system reviewed and no additional complaints, except as documented, Den ies dizziness, Denies headache(s), Denies nasal congestion, Denies nasal discharge and Denies neck pain Cardiovascular: Reports no additional cardiovascular complaints, Denies chest pain, Denies leg edema and Denies dyspnea Respiratory: Reports no additional respiratory complaints, Reports cough and Denies dyspnea Gastrointestinal: Reports no additional gastrointestinal complaints, Reports abdominal pain, Reports diarrhea, Reports nausea and Reports vomiting Genitourinary: Denies urinary incontinence Musculoskeletal: Reports no additional musculoskeletal complaints, Denies back pain, Denies arthralgias, Denies joint swelling, Denies neck pain, Denies numbness and Denies tingling Skin/Breast: Reports system reviewed and no additional complaints, except as docu and Denies rash Reports system reviewed and no additional complaints, except as documented, Denies dizziness, Denies headache(s), Denies numbness, Denies tingling and Reports weakness PMFSH Past Medical History Attestation statement: The following information was validated with the patient. Source: old records reviewed and nursing notes reviewed Medical History Alcohol abuse with withdrawal delirium Asthma Surgical History No pertinent past surgical history Family History Family History Father Diabetes Hypertension Substance use disorder Mother Hypertension Sister No problems noted. Brother No problems noted. Brother No problems noted. Brother No problems noted. Brother No problems noted. Social History Social History Household Members: Family Housing: Apartment Do you presently have visiting nurse or other home services: No Alcohol intake: current Alcohol intake frequency: 3 or more drinks per day Patient Tobacco Use Status: Never used Tobacco e-Cigarette/Vaping Use: Never Used Second Hand Smoke Exposure: No Use of substances other than those prescribed or required for medical reasons: No Advance Directives: Yes Advance Directives on File: Yes Advance Directives Date on File: 10/12/20 service: No Current occupational status: unemployed Cognitive needs: Yes (cane) Hearing needs: No Vision needs: Yes (glasses) Physical Exam ED Vital Signs: Vital Signs - 24 hr 11/04/21 11:43 11/04/21 13:55 11/04/21 16:00 Temperature 96.9 F 98.5 F Pulse Rate 82 84 89 Respiratory Rate 18 20 18 Blood Pressure 137/91 H 143/91 H 173/99 H Pulse Oximetry 97 100 97 Oxygen Delivery Method Room Air Room Air Room Air BMI result Body Mass Index 22.6 Const General: cooperative, healthy appearing, comfortable and no acute distress Orientation/consciousness: patient oriented x3 Limitations: no limitations HENMT Head: Yes normal to inspection Ears: hearing grossly normal bilaterally Eyes General: appearance normal, both eyes and all related structures Pupils: Equal, round and reactive pupils present Neck Neck: Yes normal visual inspection, Yes full ROM, Yes no lymphadenopathy and Yes no meningeal signs Chest Chest palpation & inspection: normal inspection of the chest Resp Effort & Inspection: normal respiratory effort Auscultation: clear to auscultation bilaterally Cardio Rate: regular rate Rhythm: regular rhythm Peripheral pulses: Peripheral pulses 2+ throughout GI Inspection: Yes normal to inspection Palpation (GI): Soft to palpation and Tenderness to palpation present (GI) (mild diffuse tenderness ) General: Yes no CVA tenderness Back/Spine/Pelvis Back: no CVA tenderness Thoracic/Lumbar Spine: thoracic and lumbar spine normal to inspection Skin General skin exam: no rashes or lesions noted Neuro General: patient oriented x3, moves all extremities and no meningeal signs Cranial nerves: Yes Equal, round and reactive pupils present Cognition (Neuro): normal cognition Extrem General: Yes normal to inspection, Yes no pedal edema and Yes no calf tenderness Course Course Course Narrative: Reviewed labs which show leukocytosis with shift. Patient has acute kidney injury from baseline. Patient is acidotic with the normal gap. Acetone is pending. Likely alcoholic ketoacidosis. Patient to receive IV fluids and then will start thiamine and D5 normal saline maintenance. CT abdomen and pelvis shows no signs of pancreatitis. There is some cystitis seen and partial hydro with no renal colic. Patient will need admission. Discussed with Dr. Amor who accepted admission MDM - Abdominal Pain MDM Narrative Medical decision making narrative: 56 yo male with longstanding history of alcohol abuse here with several days of fever, weakness, vomiting, diarrhea, generalized abdominal pain and cough. Had labs yesterday which showed AMARA outpatient. Abd soft, diffusely tender. VSS. LS CTA. A&Ox4. Will need labs including blood cultures, lactic acid, UA, EKG, COVID screen, CT A/P and admission At this time infection suspected. Antibiotics ordered. Medical Records Attestation: I reviewed the patient's medical records. Lab Data Attestation: I reviewed the patient's lab results. Result diagrams: 11/04/21 11:53 11/04/21 11:53 Labs: Lab Results 11/04/21 11/04/21 11/04/21 Range/Units 11:53 11:53 11:53 WBC 18.4 H (4.8-10.8) X10*3/uL RBC 4.19 L (4.60-5.80) X10*6/uL Hgb 13.5 L (14.0-18.0) g/dl Hct 39.2 L (42.0-52.0) % MCV 93.6 (80.0-98.0) fL MCH 32.2 (27.0-33.0) pg MCHC 34.4 (31.0-36.0) g/dl RDW 12.7 (11.0-16.0) % Plt Count 147 L (160-400) X10*3/uL MPV 10.5 (9.4-12.4) fL Immature Gran % (Auto) 1.3 H (0.0-0.4) % Neut % (Auto) 85.9 H (45-73) % Lymph % (Auto) 4.9 L (20-40) % [place] % (Auto) 7.3 (2-11) % Eos % (Auto) 0.2 (0-4) % Baso % (Auto) 0.4 (0-2) % Lymph # (Auto) 0.9 L (1.2-4.9) X10*3/uL [place] # (Auto) 1.4 H (0.1-1.2) X10*3/uL Eos # (Auto) 0.0 (0.0-0.4) X10*3/uL Baso # (Auto) 0.1 (0.0-0.2) X10*3/uL Abs Immat Gran (auto) 0.23 H (0.00-0.03) X10*3/uL Absolute Neuts (auto) 15.8 H (2.0-8.3) x10*3/uL Absolute Nucleated RBC 0.000 (0.0-0.012) X10*3/uL Nucleated RBC % (auto) 0.0 (0.0-0.2) /100WBC VBG pH (7.32-7.43) VBG pCO2 mmHg VBG pO2 mmHg VBG HCO3 (22-26) mmol/L VBG O2 Saturation % VBG Base Excess mmol/L Sodium 132 L (135-145) mmol/L Potassium 3.5 (3.3-5.1) mmol/L Chloride 95 L (96-108) mmol/L Carbon Dioxide 16 L (22-29) mmol/L Anion Gap 25 H (12-20) BUN 46 H (9-16) mg/dL Creatinine 2.46 H (0.5-1.4) mg/dL Estim Creat Clear Calc 30.8 Estimated GFR 28 Random Glucose 93 (60-115) mg/dL Lactic Acid (0.5-2.0) mmol/L Calcium 8.2 L (8.4-10.2) mg/dL Magnesium (1.6-2.6) mg/dL Total Bilirubin 1.5 H (0.0-1.0) mg/dL Direct Bilirubin 1.1 H (0.0-0.5) mg/dL AST 112 H (5-37) U/L ALT 114 H (0-40) U/L Alkaline Phosphatase 81 (39-117) U/L Total Protein 7.0 (6.5-8.0) g/dL Albumin 3.3 L (3.5-5.0) g/dL Lipase 300 H (8-78) U/L Urine Color Urine Appearance Urine pH (5.0-9.0) Ur Specific [place] (1.005-1.025) Urine Protein (Neg-Trace) mg/dL Urine Glucose (UA) (Negative) mg/dL Urine Ketones (Negative) mg/dL Urine Blood (Negative) Urine Nitrite (Negative) Ur Leukocyte Esterase (Negative) Urine RBC (0-2) /HPF Urine WBC (0-5) /HPF Ur Squamous Epith Cells (0-2) /HPF Urine Bacteria (None Seen) Hyaline Casts (0-2) /LPF Ethyl Alcohol mg/dL Acetone, Qual (Negative) COVID-19 ([facility]) Negative (Negative) COVID-19 Clin Com See Note 11/04/21 11/04/21 11/04/21 Range/Units 12:06 14:55 14:56 WBC (4.8-10.8) X10*3/uL RBC (4.60-5.80) X10*6/uL Hgb (14.0-18.0) g/dl Hct (42.0-52.0) % MCV (80.0-98.0) fL MCH (27.0-33.0) pg MCHC (31.0-36.0) g/dl RDW (11.0-16.0) % Plt Count (160-400) X10*3/uL MPV (9.4-12.4) fL Immature Gran % (Auto) (0.0-0.4) % Neut % (Auto) (45-73) % Lymph % (Auto) (20-40) % [place] % (Auto) (2-11) % Eos % (Auto) (0-4) % Baso % (Auto) (0-2) % Lymph # (Auto) (1.2-4.9) X10*3/uL [place] # (Auto) (0.1-1.2) X10*3/uL Eos # (Auto) (0.0-0.4) X10*3/uL Baso # (Auto) (0.0-0.2) X10*3/uL Abs Immat Gran (auto) (0.00-0.03) X10*3/uL Absolute Neuts (auto) (2.0-8.3) x10*3/uL Absolute Nucleated RBC (0.0-0.012) X10*3/uL Nucleated RBC % (auto) (0.0-0.2) /100WBC VBG pH (7.32-7.43) VBG pCO2 mmHg VBG pO2 mmHg VBG HCO3 (22-26) mmol/L VBG O2 Saturation % VBG Base Excess mmol/L Sodium (135-145) mmol/L Potassium (3.3-5.1) mmol/L Chloride (96-108) mmol/L Carbon Dioxide (22-29) mmol/L Anion Gap (12-20) BUN (9-16) mg/dL Creatinine (0.5-1.4) mg/dL Estim Creat Clear Calc Estimated GFR Random Glucose (60-115) mg/dL Lactic Acid 1.1 (0.5-2.0) mmol/L Calcium (8.4-10.2) mg/dL Magnesium (1.6-2.6) mg/dL Total Bilirubin (0.0-1.0) mg/dL Direct Bilirubin (0.0-0.5) mg/dL AST (5-37) U/L ALT (0-40) U/L Alkaline Phosphatase (39-117) U/L Total Protein (6.5-8.0) g/dL Albumin (3.5-5.0) g/dL Lipase (8-78) U/L Urine Color Yellow Urine Appearance Turbid Urine pH 5.5 (5.0-9.0) Ur Specific [place] 1.010 (1.005-1.025) Urine Protein 30 (1+) H (Neg-Trace) mg/dL Urine Glucose (UA) Negative (Negative) mg/dL Urine Ketones 15 (Negative) mg/dL Urine Blood Large (3+) H (Negative) Urine Nitrite Negative (Negative) Ur Leukocyte Esterase Large (3+) H (Negative) Urine RBC >20 H (0-2) /HPF Urine WBC >50 H (0-5) /HPF Ur Squamous Epith Cells 0-2 (0-2) /HPF Urine Bacteria 3+ (None Seen) Hyaline Casts 0-2 (0-2) /LPF Ethyl Alcohol < 10 mg/dL Acetone, Qual (Negative) COVID-19 ([facility]) (Negative) COVID-19 Clin Com 11/04/21 11/04/21 Range/Units 15:00 15:32 WBC (4.8-10.8) X10*3/uL RBC (4.60-5.80) X10*6/uL Hgb (14.0-18.0) g/dl Hct (42.0-52.0) % MCV (80.0-98.0) fL MCH (27.0-33.0) pg MCHC (31.0-36.0) g/dl RDW (11.0-16.0) % Plt Count (160-400) X10*3/uL MPV (9.4-12.4) fL Immature Gran % (Auto) (0.0-0.4) % Neut % (Auto) (45-73) % Lymph % (Auto) (20-40) % [place] % (Auto) (2-11) % Eos % (Auto) (0-4) % Baso % (Auto) (0-2) % Lymph # (Auto) (1.2-4.9) X10*3/uL [place] # (Auto) (0.1-1.2) X10*3/uL Eos # (Auto) (0.0-0.4) X10*3/uL Baso # (Auto) (0.0-0.2) X10*3/uL Abs Immat Gran (auto) (0.00-0.03) X10*3/uL Absolute Neuts (auto) (2.0-8.3) x10*3/uL Absolute Nucleated RBC (0.0-0.012) X10*3/uL Nucleated RBC % (auto) (0.0-0.2) /100WBC VBG pH 7.35 (7.32-7.43) VBG pCO2 32 mmHg VBG pO2 45 mmHg VBG HCO3 18 L (22-26) mmol/L VBG O2 Saturation 72.0 % VBG Base Excess -6.1 mmol/L Sodium (135-145) mmol/L Potassium (3.3-5.1) mmol/L Chloride (96-108) mmol/L Carbon Dioxide (22-29) mmol/L Anion Gap (12-20) BUN (9-16) mg/dL Creatinine (0.5-1.4) mg/dL Estim Creat Clear Calc Estimated GFR Random Glucose (60-115) mg/dL Lactic Acid (0.5-2.0) mmol/L Calcium (8.4-10.2) mg/dL Magnesium 2.4 (1.6-2.6) mg/dL Total Bilirubin (0.0-1.0) mg/dL Direct Bilirubin (0.0-0.5) mg/dL AST (5-37) U/L ALT (0-40) U/L Alkaline Phosphatase (39-117) U/L Total Protein (6.5-8.0) g/dL Albumin (3.5-5.0) g/dL Lipase (8-78) U/L Urine Color Urine Appearance Urine pH (5.0-9.0) Ur Specific [place] (1.005-1.025) Urine Protein (Neg-Trace) mg/dL Urine Glucose (UA) (Negative) mg/dL Urine Ketones (Negative) mg/dL Urine Blood (Negative) Urine Nitrite (Negative) Ur Leukocyte Esterase (Negative) Urine RBC (0-2) /HPF Urine WBC (0-5) /HPF Ur Squamous Epith Cells (0-2) /HPF Urine Bacteria (None Seen) Hyaline Casts (0-2) /LPF Ethyl Alcohol mg/dL Acetone, Qual Small H (Negative) COVID-19 ([facility]) (Negative) COVID-19 Clin Com Imaging Data CT scan - abdomen: Attestation: I personally reviewed and interpreted this imaging study as follows: Radiologist's impression: EXAMINATION: CT ABDOMEN AND PELVIS WITHOUT CONTRAST? CLINICAL INFORMATION: Diffuse abdominal pain? COMPARISON: 03/10/2020? TECHNIQUE: Multidetector volumetric imaging was performed from the superior aspect of the liver through the pubic symphysis. Sagittal and coronal reformatted images were obtained on the technologist's workstation.? This CT examination was performed using dose optimization techniques as appropriate, variously including the following: *Automated exposure control *Adjustment of mA and/or kV according to patient size (this includes techniques or standardized protocols for targeted exams where dose is matched to indication/reason for exam; i.e. extremities or head) *Use of iterative reconstruction technique DLP: 583 mGy-cm FINDINGS: LUNG BASES: The visualized lung bases are unremarkable.? LIVER, GALLBLADDER, AND BILIARY TREE: The area of enhancement seen previously are believed high density lesion on this exam. Etiology is indeterminate Not adequately evaluated for change in size. The borders are not adequately defined gallbladder mildly distended. Gallstone is noted.? PANCREAS: Unremarkable? SPLEEN: Unremarkable.? ADRENAL GLANDS: Unremarkable.? KIDNEYS AND URETERS: The kidneys are normal in size, shape, and attenuation. No hydronephrosis, hydroureter, or calculi seen. No perinephric stranding. ? BLADDER: Mild thickening of the bladder wall.? GASTROINTESTINAL TRACT: The small and large bowel are unremarkable. The appendix is unremarkable.? ABDOMINAL WALL: No significant hernia is appreciated.? LYMPH NODES: Shotty nonpathologically enlarged nodes are noted. Mild portal nodes also seen. VASCULAR: Atherosclerotic changes. No aneurysmal change. PELVIC VISCERA: Some minimal periureteral soft tissue stranding on the left of uncertain etiology.? OSSEOUS STRUCTURES: Stable appearing sclerotic lesion at L4. Degenerative changes are noted? CT/CT abdomen pelvis wo IV con IMPRESSION: Gallbladder is mildly distended. Gallstone is noted. ? Overall low attenuation in the liver may be consistent with fatty change. Hepatitis cannot be excluded. Lesion described previously is not adequately defined on this noncontrast study. Some mild periportal nodes are not felt to be changed from previous. This may be reactive. ? Some mild thickening of the bladder wall. Cystitis cannot be excluded ? There is some minimal soft tissue stranding around the left ureter but there is no hydronephrosis or stone. Element of The bowel pattern is nonobstructing. There is no free fluid.? ? Fleischner guidelines were followed. Discharge Plan Discharge Clinical Impression: UTI (urinary tract infection), Leukocytosis, AMARA (acute kidney injury), Alcoholic ketoacidosis Patient Disposition: Admitted As Inpatient
[2021-11-04 13:55] VITALS: BP 143/91; PULSE 84; RESP 20; TEMP 36.9; O2SAT 100
--- NOTE | 2021-11-04 14:22 | PHA.MEDREC ---
Pharmacy Consult ? Medication Reconciliation Pharmacy has completed the medication reconciliation. Patient has a visiting nurse to help administer meds. Thanks Jean-Claude
[2021-11-04 15:04] LABS: Venous Blood Gas Refer to POC result
[2021-11-04 15:05] LABS: VBG Base Excess -6.1 mmol/L; VBG HCO3 18 mmol/L (22-26); VBG pCO2 32 mmHg; VBG pH 7.35 (7.32-7.43); VBG pO2 45 mmHg
[2021-11-04 15:14] LABS: Lactic Acid 1.1 mmol/L (0.5-2.0)
[2021-11-04 15:25] LABS: Ethanol < 10 mg/dL
[2021-11-04] MEDS: 0.9 % Sodium Chloride 1,000 ML 999 ML IV (15:27)
[2021-11-04] MEDS: Morphine Sulfate 2 MG/ML CARTRIDGE IVPUSH (15:27)
[2021-11-04] MEDS: cefTRIAXone sodium 1 GM in 0.9 % Sodium Chloride 50 ML IV (15:27)
[2021-11-04 16:00] VITALS: BP 173/99; PULSE 89; RESP 18; O2SAT 97
[2021-11-04] MEDS: PHENobarbitaL sodium 130 MG/ML IM ONCE 205 MG IM (16:03)
[2021-11-04 16:18] LABS: Magnesium 2.4 mg/dL (1.6-2.6)
[2021-11-04 16:54] LABS: Acetone, serum QL Small (Negative)
--- NOTE | 2021-11-04 17:24 | P.HPHOSP_ITS ---
History of Present Illness Date of Service: 11/04/21 Attending physician on admission: Mohini Amor Chief Complaint: amara,fever ,uti 36-year-old male with a history of hypertension, alcohol abuse, asthma: Who came to the hospital because of almost 1 week history of fever, on and off abdo rossana pain diarrhea. He also complains of body aches. He said that he went to his PCP then was sent to lab for lab work-and subsequently was referred to the ED for further evaluation. In addition to above patient says that he has urinary frequency and irritation specially at night. has dry cough. He said that because of above symptoms he was becoming be weaker and was eating less getting dehydrated-for that region he went to PCP and was referred for the lab work as above. He had 1 COVID vaccine-does not know which company. He lives with his -denies any similar complaints in the family or any acute viral sickness or any new antibiotic use or travel. Denies any new complaint of chest pain or shortness of breath or nausea or vomiting Denies any weakness or numbness. Lab imaging EKG reviewed: WBC 18.4, sodium 132, elevated BUN can not creatinine 46 and 2.46 respectively. Mild elevation of LFTs and lipase. ct abdomen: Fatty liver changes, ?Lesion described previously is not adequately defined on this noncontrast study. Some mild periportal nodes are not felt to be changed from previous. Review of Systems Review of Systems: as above. [facility] Medical History Alcohol abuse with withdrawal delirium Asthma Family History Father Diabetes Hypertension Substance use disorder Mother Hypertension Sister No problems noted. Brother No problems noted. Brother No problems noted. Brother No problems noted. Brother No problems noted. Pertinent family history: Lives with family, ADL independent. He mother has history of hypertension. Surgical History No pertinent past surgical history Social History Household Members: Family Housing: Apartment Do you presently have visiting nurse or other home services: No Alcohol intake: current Alcohol intake frequency: 3 or more drinks per day Patient Tobacco Use Status: Never used Tobacco e-Cigarette/Vaping Use: Never Used Second Hand Smoke Exposure: No Use of substances other than those prescribed or required for medical reasons: No Advance Directives: Yes Advance Directives on File: Yes Advance Directives Date on File: 10/12/20 service: No Current occupational status: unemployed Cognitive needs: Yes (cane) Hearing needs: No Vision needs: Yes (glasses) Meds Allergies Allergy/AdvReac Type Severity Reaction Status Date / Time penicillin V Allergy Unknown unknown Verified 08/09/21 13:46 Penicillins [PENICILLINS] Allergy Unknown UNKNOWN Verified 08/09/21 13:46 Active Medications: Current Medications Fluticasone Propionate (Fluticasone Propionate 250 Mcg Blst.W.Dev) 1 puff INHALE RBID [facility] Folic Acid (Folic Acid 1 Mg Tablet) 1 mg PO DAILY [facility] Ceftriaxone Sodium 1 gm/ (Sodium Chloride) 50 mls @ 100 mls/hr IV Q24H [facility] Magnesium Oxide (Magnesium Oxide 400 Mg Tablet) 400 mg PO BIDPC [facility] Metoprolol Tartrate (Metoprolol Tartrate 25 Mg Tablet) 25 mg PO BID [facility]; Protocol Naltrexone HCl (Naltrexone Hcl 50 Mg Tablet) 50 mg PO DAILY [facility] Omeprazole (Omeprazole 20 Mg Capsule.Dr) 20 mg PO DAILY [facility] Pharmacy Consult (Consult Rx Perform Med Rec) 1 each MISCELLANE ONCE PRN PRN Reason: Consult order Pharmacy Consult (Consult Rx Etoh Phenob Im/Po) 1 each MISCELLANE ONCE PRN; Protocol PRN Reason: Consult order Phenobarbital (Phenobarbital 15 Mg Tablet) 45 mg PO BID [facility]; Protocol Stop: 11/06/21 21:01 Phenobarbital (Phenobarbital 30 Mg Tablet) 30 mg PO BID [facility]; Protocol Stop: 11/08/21 21:01 Phenobarbital (Phenobarbital 30 Mg Tablet) 30 mg PO DAILY [facility]; Protocol Stop: 11/10/21 09:01 Phenobarbital Sodium (Phenobarbital Sodium 130 Mg/Ml Vial Im Q3hx2) 153 mg IM Q3H [facility]; Protocol Stop: 11/04/21 22:01 Pyridoxine HCl (Pyridoxine Hcl (Vitamin B6) 50 Mg Tablet) 250 mg PO DAILY [facility] Sodium Chloride (0.9 % Sodium Chloride Flush 3 Ml Syringe) 3 ml IVFLUSH QSHIFT [facility] Thiamine HCl (Thiamine Hcl 100 Mg Tablet) 100 mg PO DAILY [facility] Physical Exam Vital Signs and Narrative: Vital Signs: Last Vital Signs Temp 98.5 F 11/04/21 13:55 Pulse 89 11/04/21 16:00 Resp 18 11/04/21 16:00 BP 173/99 H 11/04/21 16:00 Pulse Ox 97 11/04/21 16:00 O2 Del Method 11/04/21 16:00 BMI result Body Mass Index 22.6 Appearance: Alert.? Oriented X3.? not in distress.? Eyes: Pupils equal, round and reactive to light.? Sclera nonicteric.? cvs: rrr, [id number] . res: clear to auscultation ,no rhonchii or wheezing abd: no rebound or guarding ,mild diffuse abd pain, bs present. ext pulses present , no cyanosis . neuro: axo3 , nonfocal. Results Labs CBC and Chem 7: 11/04/21 11:53 11/04/21 11:53 Labs: Laboratory Results - last 24 hr 11/04/21 11/04/21 11/04/21 11:53 11:53 11:53 MCV 93.6 MCH 32.2 MCHC 34.4 RDW 12.7 Plt Count 147 L MPV 10.5 Immature Gran % (Auto) 1.3 H Neut % (Auto) 85.9 H Lymph % (Auto) 4.9 L [place] % (Auto) 7.3 Eos % (Auto) 0.2 Baso % (Auto) 0.4 Lymph # (Auto) 0.9 L [place] # (Auto) 1.4 H Eos # (Auto) 0.0 Baso # (Auto) 0.1 Abs Immat Gran (auto) 0.23 H Absolute Neuts (auto) 15.8 H Absolute Nucleated RBC 0.000 Nucleated RBC % (auto) 0.0 VBG pH VBG pCO2 VBG pO2 VBG HCO3 VBG O2 Saturation VBG Base Excess Anion Gap 25 H Estim Creat Clear Calc 30.8 Estimated GFR 28 Random Glucose 93 Lactic Acid Calcium 8.2 L Magnesium Total Bilirubin 1.5 H Direct Bilirubin 1.1 H AST 112 H ALT 114 H Alkaline Phosphatase 81 Total Protein 7.0 Albumin 3.3 L Lipase 300 H Urine Color Urine Appearance Urine pH Ur Specific [place] Urine Protein Urine Glucose (UA) Urine Ketones Urine Blood Urine Nitrite Ur Leukocyte Esterase Urine RBC Urine WBC Ur Squamous Epith Cells Urine Bacteria Hyaline Casts Ethyl Alcohol Acetone, Qual COVID-19 ([facility]) Negative COVID-19 Clin Com See Note 11/04/21 11/04/21 11/04/21 12:06 14:55 14:56 MCV MCH MCHC RDW Plt Count MPV Immature Gran % (Auto) Neut % (Auto) Lymph % (Auto) [place] % (Auto) Eos % (Auto) Baso % (Auto) Lymph # (Auto) [place] # (Auto) Eos # (Auto) Baso # (Auto) Abs Immat Gran (auto) Absolute Neuts (auto) Absolute Nucleated RBC Nucleated RBC % (auto) VBG pH VBG pCO2 VBG pO2 VBG HCO3 VBG O2 Saturation VBG Base Excess Anion Gap Estim Creat Clear Calc Estimated GFR Random Glucose Lactic Acid 1.1 Calcium Magnesium Total Bilirubin Direct Bilirubin AST ALT Alkaline Phosphatase Total Protein Albumin Lipase Urine Color Yellow Urine Appearance Turbid Urine pH 5.5 Ur Specific [place] 1.010 Urine Protein 30 (1+) H Urine Glucose (UA) Negative Urine Ketones 15 Urine Blood Large (3+) H Urine Nitrite Negative Ur Leukocyte Esterase Large (3+) H Urine RBC >20 H Urine WBC >50 H Ur Squamous Epith Cells 0-2 Urine Bacteria 3+ Hyaline Casts 0-2 Ethyl Alcohol < 10 Acetone, Qual COVID-19 ([facility]) COVID-19 [employer] Solution 11/04/21 11/04/21 15:00 15:32 MCV MCH MCHC RDW Plt Count MPV Immature Gran % (Auto) Neut % (Auto) Lymph % (Auto) [place] % (Auto) Eos % (Auto) Baso % (Auto) Lymph # (Auto) [place] # (Auto) Eos # (Auto) Baso # (Auto) Abs Immat Gran (auto) Absolute Neuts (auto) Absolute Nucleated RBC Nucleated RBC % (auto) VBG pH 7.35 VBG pCO2 32 VBG pO2 45 VBG HCO3 18 L VBG O2 Saturation 72.0 VBG Base Excess -6.1 Anion Gap Estim Creat Clear Calc Estimated GFR Random Glucose Lactic Acid Calcium Magnesium 2.4 Total Bilirubin Direct Bilirubin AST ALT Alkaline Phosphatase Total Protein Albumin Lipase Urine Color Urine Appearance Urine pH Ur Specific [place] Urine Protein Urine Glucose (UA) Urine Ketones Urine Blood Urine Nitrite Ur Leukocyte Esterase Urine RBC Urine WBC Ur Squamous Epith Cells Urine Bacteria Hyaline Casts Ethyl Alcohol Acetone, Qual Small H COVID-19 ([facility]) COVID-19 Clin Com ECG Attestation: I personally reviewed and interpreted this ECG as follows: (nsr - some mild t wave inversion in lateral leads ) Imaging Radiologist's Impressions: Impressions Abdomen/Pelvis CT 11/04/21 13:57 IMPRESSION: Gallbladder is mildly distended. Gallstone is noted. Overall low attenuation in the liver may be consistent with fatty change. Hepatitis cannot be excluded. Lesion described previously is not adequately defined on this noncontrast study. Some mild periportal nodes are not felt to be changed from previous. This may be reactive. Some mild thickening of the bladder wall. Cystitis cannot be excluded There is some minimal soft tissue stranding around the left ureter but there is no hydronephrosis or stone. Element of The bowel pattern is nonobstructing. There is no free fluid. Fleischner guidelines were followed. Chest X-Ray 11/04/21 15:26 IMPRESSION: Unremarkable examination. Assessment and Plan (1) UTI (urinary tract infection): Status: Acute (2) Leukocytosis: Status: Acute (3) AMARA (acute kidney injury): Status: Acute (4) Alcoholic ketoacidosis: Status: Acute (5) Urinary frequency: Status: Acute (6) HTN (hypertension): Status: Acute Plan 36-year-old male with a history of hypertension, alcohol abuse, asthma: Who came to the hospital because of almost 1 week history of fever, on and off abdominal pain diarrhea. He also complains of body aches. 1. UTI: No sepsis No fever in ED so far. Has leukocytosis, no tachycardia or tachypnea. Lactic acid normal, blood cultures sent. Added ceftriaxone for UTI. 2. Elevated LFTs: Possible related to alcohol use. Hepatitis-B and C screen11/02/[address] abd : Overall low attenuation in the liver may be consistent with fatty change. Hepatitis cannot be excluded. Lesion described previously is not adequately defined on this noncontrast study. Some mild periportal nodes are not felt to be changed from previous. added stool studies for diarrahe GI eval. 3. AMARA with possible alcoholic ketoacidosis: Continue hydration, PVR if urinary retention above 350 use straight cath. 4. Hypertension : suboptimal Will adjust metoprolol. 5. Possible alcohol withdrawal: CIWA, thiamine, folic acid, phenobarb protocol. 6. Possible mild cognitive impairment: Continue supportive care. 7. Asthma mild intermittent: No shortness of breath Stable continue home medication. 8. Abnormal EKG : Mild T-wave inversion (which was also present in previous 1 of the EKG) Patient is asymptomatic, will add troponin to get baseline. If troponin elevated -may need further workup. Above management discussed with the patient in detail length he understand and in agreement with the above plan, time spent 70 minute. Patient has multiple medical issues including UTI, AMARA, alcohol withdrawal-need IV antibiotic, hydration, phenobarb-patient will need 2 midnight stays. Quality Stroke Does the patient have a stroke diagnosis?: No VTE Prior VTE?: No VTE Risk Level:: Medical - moderate - high VTE Device Contraindication: N/A - Device Ordered VTE Drug Contraindication: N/A - Med Ordered
--- NOTE | 2021-11-04 17:26 | ECG_ITS ---
Test Reason : repeat Blood Pressure : / mmHG Vent. Rate : 091 BPM Atrial Rate : 091 BPM P-R Int : 120 ms QRS Dur : 098 ms QT Int : 400 ms P-R-T Axes : 060 -19 -06 degrees QTc Int : 492 ms Normal sinus rhythm Minimal voltage criteria for LVH, may be normal variant ( R in aVL ) Inferior infarct (cited on or before 04-NOV-2021) Abnormal ECG When compared with ECG of 04-NOV-2021 14:01, No significant change was found Referred By: Carlee Villafuerte Electronically Signed By:JOSEMANUEL TALAVERA
--- NOTE | 2021-11-04 18:12 | PC.NURSE ---
pt able to urinate without difficulty, bladder scanned post void and bladder scan was zero. pt meets no requirement for straight cath.
[2021-11-04 18:39] VITALS: BP 158/86; PULSE 100; RESP 18; O2SAT 96
[2021-11-04] MEDS: Lactated Ringers 1,000 ML 100 ML IVCONT (18:40)
[2021-11-04] MEDS: Magnesium Oxide 400 MG TABLET PO (19:14)
[2021-11-04] MEDS: PHENobarbitaL sodium 130 MG/ML VIAL IM Q3Hx2 153 MG IM ×2 (19:14→21:43)
[2021-11-04] MEDS: Heparin Sodium,Porcine 5,000 UNIT/ML VIAL 5000 UNIT SUBCUT (19:14)
[2021-11-04 19:39] LABS: Troponin-I High Sensitivity 3.8 ng/L (<3.5-35.0)
[2021-11-04] MEDS: Metoprolol Tartrate 50 MG TABLET PO (21:43)
[2021-11-05] VITALS (8 sets, daily range): BP systolic 142–161; BP diastolic 67–89; PULSE 76–92; RESP 12–22; TEMP 36.8–38.1; O2SAT 95–99; BMI 22.6
[2021-11-05] MEDS: Acetaminophen 325 MG TABLET 650 MG PO ×2 (01:10→20:33)
[2021-11-05] MEDS: Lactated Ringers 1,000 ML 100 ML IVCONT ×2 (05:15→17:21)
[2021-11-05 07:14] LABS: Hematocrit 35.2 % (42.0-52.0); Hemoglobin 12.1 g/dl (14.0-18.0); Mean Corpuscular HGB Conc 34.4 g/dl (31.0-36.0); Mean Corpuscular Hemoglobin 32.3 pg (27.0-33.0); Mean Corpuscular Volume 93.9 fL (80.0-98.0); Mean Platelet Volume 10.7 fL (9.4-12.4); Platelet Count 143 X10*3/uL (160-400); Red Blood Count 3.75 X10*6/uL (4.60-5.80); Red Cell Distribution Width 12.8 % (11.0-16.0); White Blood Count 18.9 X10*3/uL (4.8-10.8)
[2021-11-05 07:35] LABS: Anion Gap 20 (12-20); Blood Urea Nitrogen 40 mg/dL (9-16); Calcium 7.5 mg/dL (8.4-10.2); Carbon Dioxide 15 mmol/L (22-29); Chloride 98 mmol/L (96-108); Creatinine Clr Calc Pharmacy 38.5; Estimated Glomerular Filt Rate 36; Glucose Random 83 mg/dL (60-115); Potassium 3.4 mmol/L (3.3-5.1); Sodium 130 mmol/L (135-145)
--- NOTE | 2021-11-05 07:35 | P.CNGI_ITS ---
History of Present Illness Data of Consult Service Date: 11/05/21 Requesting physician: Mohini Aomr Primary Care Provider: Kingsley Khalil PA-C HPI Reason for consult: Abdominal pain, elevated LFTs, abnormal CT scan 56 YM with known hx of alcohol,abuse, hypertension, asthma. Pt was seen at [facility] on 11/03/21 with 1 week history of fever, body aches, dry cough, intermittent abdominal pain diarrhea, urinary frequency and irritation specially at night. Pt reported seeing his PCP and was sent for lab work-and subsequently was referred to the ED for further evaluation. He said that because of above symptoms he was becoming be weaker and was eating less getting dehydrated. Pt complains of intermittent right-sided abdominal pain without clear precipitating factors. He has to stop eating if he is having pain. This afternoon he was able to eat half a sandwich, he has to run to the bathroom to have a bowel movement if he continues to eat. Patient reports his diarrhea has subsided. (he had 5 non-bloody BMs yesterday) Patient admits to poor appetite with weight loss of 30 lb over the past few months He has noted dysphagia to solid food for the past few weeks. Patient admits to drinking a lot for greater than 20 years. He was drinking hard liquor and switch to drinking beer only for the past 1-2 weeks (6 beers per day). He takes 500 mg of acetaminophen 6 times a day for a body aches (30 tablets per week). He had 1 COVID vaccine-does not know which company. He lives with his mother (on the 2nd floor of his brother's house) and has no children Pt denies any similar complaints in the family or any acute viral sickness or any new antibiotic use or travel. 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 Mild elevation of LFTs and lipase. Patient denies major cardiac or pulmonary problems, loud snoring or sleep apnea Denies problems with anesthesia in the past. Denies being on chronic anticoagulation. Patient denies known family history of alcoholism, colon polyps, colon cancer or other GI malignancies. PAST EGD/COLONOSCOPY: Pt denies having an EGD or a colonoscopy in the past. 11/04/[address] SCAN SHOWED: Gallbladder is mildly distended. Gallstone is noted. Overall low attenuation in the liver may be consistent with fatty change. Hepatitis cannot be excluded. Lesion described previously is not adequately defined on this noncontrast study. Some mild periportal nodes are not felt to be changed from previous. This may be reactive. ? Some mild thickening of the bladder wall. Cystitis cannot be excluded ? There is some minimal soft tissue stranding around the left ureter but there is no hydronephrosis or stone. Element of The bowel pattern is nonobstructing. There is no free fluid.? [facility] Past Medical History Medical History (Updated 11/18/21 @ 13:07 by Kingsley Khalil PA-C) Alcohol abuse with withdrawal delirium Alcohol dependence Alcohol use disorder Alcoholic ketoacidosis Asthma Elevated liver enzymes HTN (hypertension) Liver lesion Family History Family History Father Diabetes Hypertension Substance use disorder Mother Hypertension Sister No problems noted. Brother No problems noted. Brother No problems noted. Brother No problems noted. Brother No problems noted. Surgical History Surgical History No pertinent past surgical history Social History Social History Household Members: Family Housing: House Do you presently have visiting nurse or other home services: No Alcohol intake: current Alcohol intake frequency: 3 or more drinks per day Patient Tobacco Use Status: Never used Tobacco e-Cigarette/Vaping Use: Never Used Second Hand Smoke Exposure: No Advance Directives Date on File: 10/12/20 service: No Current occupational status: unemployed Cognitive needs: Yes (cane) Hearing needs: No Vision needs: Yes (glasses) Meds Allergies Allergy/AdvReac Type Severity Reaction Status Date / Time penicillin V Allergy Unknown unknown Verified 11/17/21 11:15 Penicillins [PENICILLINS] Allergy Unknown UNKNOWN Verified 11/17/21 11:15 Active Medications: Current Medications Acetaminophen (Acetaminophen 325 Mg Tablet) 650 mg PO Q6H PRN PRN Reason: Pain, Mild (Pain Scale 1-3) Last Admin: 11/05/21 01:10 Dose: 650 mg Fluticasone Propionate (Fluticasone Propionate 250 Mcg Blst.W.Dev) 1 puff INHALE RBID PARAS Last Admin: 11/04/21 19:13 Dose: Not Given Folic Acid (Folic Acid 1 Mg Tablet) 1 mg PO DAILY [facility] Heparin Sodium (Porcine) (Heparin Sodium,Porcine 5,000 Unit/Ml Vial) 5,000 unit SUBCUT Q8H [facility] Ceftriaxone Sodium 1 gm/ (Sodium Chloride) 50 mls @ 100 mls/hr IV Q24H [facility] Lactated Ringer's (Lr) 1,000 mls @ 100 mls/hr IVCONT .Q10H [facility] Last Admin: 11/05/21 05:15 Dose: 100 mls/hr Magnesium Oxide (Magnesium Oxide 400 Mg Tablet) 400 mg PO BIDPC [facility] Last Admin: 11/04/21 19:14 Dose: 400 mg Metoprolol Tartrate (Metoprolol Tartrate 50 Mg Tablet) 50 mg PO BID [facility]; Protocol Last Admin: 11/04/21 21:43 Dose: 50 mg Naltrexone HCl (Naltrexone Hcl 50 Mg Tablet) 50 mg PO DAILY [facility] Omeprazole (Omeprazole 20 Mg Capsule.Dr) 20 mg PO DAILY [facility] Pharmacy Consult (Consult Rx Perform Med Rec) 1 each MISCELLANE ONCE PRN PRN Reason: Consult order Pharmacy Consult (Consult Rx Etoh Phenob Im/Po) 1 each MISCELLANE ONCE PRN; Protocol PRN Reason: Consult order Phenobarbital (Phenobarbital 15 Mg Tablet) 45 mg PO BID [facility]; Protocol Stop: 11/06/21 21:01 Phenobarbital (Phenobarbital 30 Mg Tablet) 30 mg PO BID [facility]; Protocol Stop: 11/08/21 21:01 Phenobarbital (Phenobarbital 30 Mg Tablet) 30 mg PO DAILY [facility]; Protocol Stop: 11/10/21 09:01 Pyridoxine HCl (Pyridoxine Hcl (Vitamin B6) 50 Mg Tablet) 250 mg PO DAILY [facility] Sodium Chloride (0.9 % Sodium Chloride Flush 3 Ml Syringe) 3 ml IVFLUSH QSHIFT [facility] Last Admin: 11/05/21 00:13 Dose: Not Given Thiamine HCl (Thiamine Hcl 100 Mg Tablet) 100 mg PO DAILY [facility] Physical Exam Vital Signs: Vital Signs: Last Vital Signs Temp 98.2 F 11/05/21 00:48 Pulse 76 11/05/21 00:48 Resp 22 H 11/05/21 00:48 BP 153/81 H 11/05/21 00:48 Pulse Ox 96 11/05/21 00:48 O2 Del Method 11/05/21 00:48 BMI result Body Mass Index 22.6 Const: General: healthy appearing and no acute distress Nutritional Appearance: average body habitus Orientation/consciousness: patient oriented x3 Limitations: no limitations HEENT: Head: Yes normal to inspection Ears: hearing grossly normal bilaterally Eyes: Sclerae: sclerae normal Pupils: Equal, round and reactive pupils present Neck: Neck: Yes normal visual inspection Chest: Chest palpation & inspection: normal inspection of the chest Resp: Effort & Inspection: normal respiratory effort Auscultation: clear to auscultation bilaterally Cardio: Palpation: normal PMI Rate: regular rate Rhythm: regular rhythm Heart sounds: S1 normal heart sound present, S2 normal heart sound present and no murmurs GI: Palpation (GI): Soft to palpation, nontender and No hepatosplenomegaly pre sent Auscultation: normal bowel sounds Rectal Exam - Male: Yes deferred Skin: General skin exam: no rashes or lesions noted Neuro: General: patient oriented x3, gait normal and moves all extremities Cranial nerves: Yes Equal, round and reactive pupils present Psych: Appearance: grossly normal Mental Status: mental status grossly normal Results Labs CBC & Chem 7: 11/08/21 05:32 11/09/21 05:43 Labs: Short CBC 11/04/21 11/05/21 Range/Units 11:53 07:05 WBC 18.4 H 18.9 H (4.8-10.8) X10*3/uL Hgb 13.5 L 12.1 L (14.0-18.0) g/dl Hct 39.2 L 35.2 L (42.0-52.0) % Plt Count 147 L 143 L (160-400) X10*3/uL BMP 11/04/21 11:53 Sodium 132 L Potassium 3.5 Chloride 95 L Carbon Dioxide 16 L BUN 46 H Creatinine 2.46 H Calcium 8.2 L Liver Function 11/04/21 Range/Units 11:53 Total Bilirubin 1.5 H (0.0-1.0) mg/dL Direct Bilirubin 1.1 H (0.0-0.5) mg/dL AST 112 H (5-37) U/L ALT 114 H (0-40) U/L Alkaline Phosphatase 81 (39-117) U/L Albumin 3.3 L (3.5-5.0) g/dL Urine 11/04/21 Range/Units 12:06 Urine Color Yellow Urine Appearance Turbid Urine pH 5.5 (5.0-9.0) Ur Specific [place] 1.010 (1.005-1.025) Urine Protein 30 (1+) H (Neg-Trace) mg/dL Urine Glucose (UA) Negative (Negative) mg/dL Assessment and Plan (1) Elevated liver enzymes: Status: Inactive (2) Sepsis: Status: Resolved Plan 56 YM with known hx of alcohol,abuse, hypertension, asthma admitted with 1 week history of fever, body aches, dry cough, intermittent abdominal pain diarrhea, urinary frequency. Pt complains of intermittent right-sided abdominal pain without clear precipitating factors. Patient admits to poor appetite with weight loss of 30 lb over the past few months He has noted dysphagia to solid food for the past few weeks. He was drinking hard liquor and switch to drinking beer only for the past 1-2 weeks (6 beers per day). He takes 500 mg of acetaminophen 6 times a day for a body aches (30 tablets per week). Lab showed leucocytosis, elevated LFTs, lipase and creatinine - LFTs and renal function is improving. Elevated LFTs are likely due to ETOH abuse. Pt likely has superimposed acute p ancreatitis. Rt sided abdominal pain likely due to alcoholic hepatitis versus biliary pain 03/10/[address] SCAN SHOWED: Area of increased enhancement the periphery of segment 5 of the liver is noted, decreased in prominence from prior. This is nonspecific. Enhancing lesion is possible such as a hemangioma. This could be an area of altered perfusion or fatty sparing. This can be further evaluated with nonemergent MRI. RECOMMENDATIONS: 1. Monitor LFTs daily 2. Agree with CIWA protocol 3. Pt needs further evaluation with an MRI/MRCP to FU on the liver lesion seen on past CT scan (not seen on non-contrast CT obtained during present admission) 4. Pt needs ETOH rehab after discharge ADDENDUM: ABD MRI SHOWED: There is a background of mild diffuse hepatic steatosis. ? Again seen is a 1.3 cm peripheral region of relative early hyperenhancement in segment 5 of the liver. This is unchanged from 03/10/2020, smaller than on the prior study 04/07/2018 (1.9 cm at that time). The appearance remains most consistent with a perfusion abnormality likely with a degree of associated focal fatty sparing. This does not have the expected appearance of a hemangioma. Given the stability since 2020 and interval decrease in size from 2019, this is strongly likely to be a benign finding for which no further imaging follow-up is recommended. Procedures Date of Service Date of Service: 11/05/21
[2021-11-05] MEDS: Heparin Sodium,Porcine 5,000 UNIT/ML VIAL 5000 UNIT SUBCUT ×2 (10:21→17:21)
[2021-11-05] MEDS: Pyridoxine HCl (Vitamin B6) 50 MG TABLET 250 MG PO (10:22)
[2021-11-05] MEDS: PHENobarbitaL 15 MG TABLET 45 MG PO ×2 (10:22→20:33)
[2021-11-05] MEDS: Magnesium Oxide 400 MG TABLET PO ×2 (10:22→17:21)
[2021-11-05] MEDS: Metoprolol Tartrate 50 MG TABLET PO ×2 (10:23→20:32)
[2021-11-05] MEDS: 0.9 % Sodium Chloride Flush 3 ML SYRINGE IVFLUSH ×2 (10:23→20:34)
[2021-11-05] MEDS: Naltrexone HCl 50 MG TABLET PO (10:23)
[2021-11-05] MEDS: Folic Acid 1 MG TABLET PO (10:23)
[2021-11-05] MEDS: Thiamine HCL 100 MG TABLET PO (10:23)
[2021-11-05] MEDS: Omeprazole 20 MG CAPSULE.DR PO (10:23)
[2021-11-05] MEDS: Fluticasone Propionate 250 MCG BLST.W.DEV 1 PUFF INHALE ×2 (11:19→20:09)
--- NOTE | 2021-11-05 11:34 | MHC.CM.PN ---
pt lives with mother and brother he is unsure of vax status had no prebious servcies dc plan home no servceis
[2021-11-05] MEDS: cefTRIAXone sodium 1 GM in 0.9 % Sodium Chloride 50 ML IV (12:44)
--- NOTE | 2021-11-05 14:56 | MHC.RECOVRN ---
T/W met w/ pt, pt alert, oriented, watching t.v when t/w entered the room. Pt reports family supportive. Pt reports drinking 6-7 beers daily for past 2 years. Prior to 2 years ago, pt reports daily drinking of an increased amt, bottles, beers, rum, since 1986. Pt reports 2 years ago, ETOH started effecting health and with support of family decreased drinking. Pt reports no history of ETOH induced seizures, pt states at some point had tried DAMARIS, pt states did not help. Pt states many years ago was in an outpatient program at a hospital for ETOH use. Pt states not interested in recovery resources at this time.
--- NOTE | 2021-11-05 17:09 | P.PNIM_ITS ---
Subjective Subjective Date of Service: 11/05/21 Interval History: amara,fever ,uti Review of Systems Abdominal pain and measures are improving No diarrhea or nausea or fever or vomiting overnight. Physical Exam Vital Signs: Vital Signs: Last Vital Signs Temp 99.2 F 11/05/21 15:19 Pulse 88 11/05/21 15:19 Resp 18 11/05/21 15:19 BP 157/86 H 11/05/21 15:19 Pulse Ox 97 11/05/21 15:19 O2 Del Method 11/05/21 15:19 BMI result Body Mass Index 22.6 Appearance: Alert.? Oriented X3.? not in distress.? Eyes: Pupils equal, round and reactive to light.? Sclera nonicteric.? cvs: rrr, [id number] . res: clear to auscultation ,no rhonchii or wheezing abd: no rebound or guarding ,mild diffuse abd pain improivn, bs present. ext pulses present , no cyanosis . neuro: axo3 , nonfocal. Objective Data Active Medications Acetaminophen (Acetaminophen 325 Mg Tablet) 650 mg PO Q6H PRN PRN Reason: Pain, Mild (Pain Scale 1-3) Last Admin: 11/05/21 01:10 Dose: 650 mg Documented By: BARAK Fluticasone Propionate (Fluticasone Propionate 250 Mcg Blst.W.Dev) 1 puff INHALE RBID [facility] Last Admin: 11/05/21 11:19 Dose: 1 puff Documented By: ADAIR Folic Acid (Folic Acid 1 Mg Tablet) 1 mg PO DAILY [facility] Last Admin: 11/05/21 10:23 Dose: 1 mg Documented By: PANTERA Heparin Sodium (Porcine) (Heparin Sodium,Porcine 5,000 Unit/Ml Vial) 5,000 unit SUBCUT Q8H [facility] Last Admin: 11/05/21 10:21 Dose: 5,000 unit Documented By: PANTERA Ceftriaxone Sodium 1 gm/ (Sodium Chloride) 50 mls @ 100 mls/hr IV Q24H [facility] Last Infusion: 11/05/21 13:26 Dose: 0 mls/hr Documented By: PANTERA Lactated Ringer's (Lr) 1,000 mls @ 100 mls/hr IVCONT .Q10H [facility] Last Infusion: 11/05/21 15:52 Dose: 0 mls/hr Documented By: PANTERA [facility] ([facility] 400 Mg Tablet) [facility] Last Admin: 11/05/21 10: Dose: 400 mg Documented By: PANTERA Metoprolol Tartrate (Metoprolol Tartrate 50 Mg Tablet) 50 mg PO BID [facility]; Protocol Last Admin: 11/05/21 10:23 Dose: 50 mg Documented By: PANTERA Naltrexone HCl (Naltrexone Hcl 50 Mg Tablet) 50 mg PO DAILY [facility] Last Admin: 11/05/21 10:23 Dose: 50 mg Documented By: PANTERA Omeprazole (Omeprazole 20 Mg Capsule.Dr) 20 mg PO DAILY [facility] Last Admin: 11/05/21 10: Dose: 20 mg Documented By: PANTERA Pharmacy Consult (Consult Rx Perform Med Rec) 1 each MISCELLANE ONCE PRN PRN Reason: Consult order Pharmacy Consult (Consult Rx Etoh Phenob Im/Po) 1 each MISCELLANE ONCE PRN; Protocol PRN Reason: Consult order Phenobarbital (Phenobarbital 15 Mg Tablet) 45 mg PO BID [facility]; Protocol Stop: 11/06/21 21:01 Last Admin: 11/05/21 10: Dose: 45 mg Documented By: PANTERA Phenobarbital (Phenobarbital 30 Mg Tablet) 30 mg PO BID [facility]; Protocol Stop: 11/08/21 21:01 Phenobarbital (Phenobarbital 30 Mg Tablet) 30 mg PO DAILY [facility]; Protocol Stop: 11/10/21 09:01 Pyridoxine HCl (Pyridoxine Hcl (Vitamin B6) 50 Mg Tablet) 250 mg PO DAILY [facility] Last Admin: 11/05/21 10:22 Dose: 250 mg Documented By: PANTERA Sodium Chloride (0.9 % Sodium Chloride Flush 3 Ml Syringe) 3 ml IVFLUSH [facility] Last Admin: 11/05/21 10:23 Dose: 3 ml Documented By: PANTERA Thiamine HCl (Thiamine Hcl 100 Mg Tablet) 100 mg PO DAILY [facility] Last Admin: 11/05/21 10:23 Dose: 100 mg Documented By: PANTERA Labs CBC & Chem 7: 11/05/21 07:05 11/05/21 07:05 Labs: Laboratory Results - last 24 hr 11/05/21 11/05/21 07:05 07:05 MCV 93.9 MCH 32.3 MCHC 34.4 RDW 12.8 Plt Count 143 L MPV 10.7 Absolute Nucleated RBC 0.000 Nucleated RBC % (auto) 0.0 Anion Gap 20 Estim Creat Clear Calc 38.5 Estimated GFR 36 Random Glucose 83 Calcium 7.5 L D Microbiology Microbiology Results: Microbiology 11/04/21 14:37 Blood Culture - Preliminary Blood - Venous No growth after 24 hours. 11/04/21 14:37 Blood Culture - Preliminary Blood - Venous No growth after 24 hours. 11/04/21 Unknown Urine Culture - Preliminary Urine clean catch - Urine santana top Gram negative slade Assessment and Plan (1) UTI (urinary tract infection): Status: Acute (2) Leukocytosis: Status: Acute (3) AMARA (acute kidney injury): Status: Acute (4) Alcohol dependence: Status: Acute (5) Alcohol withdrawal: Status: Acute Plan 36-year-old male with a history of hypertension, alcohol abuse, asthma:? Who came to the hospital because of almost 1 week history of fever, on and off abdominal pain diarrhea. He also complains of body aches. 1. UTI: wbc trending up no fevers No sepsis No fever in ED so far. Has leukocytosis, no tachycardia or tachypnea. Lactic acid normal, blood cultures sent. ceftriaxone for UTI. 2. Elevated LFTs:? Possible related to alcohol use. Hepatitis-B and C screen11/02/[address] abd : Overall low attenuation in the liver may be consistent with fatty change. Hepatitis cannot be excluded. Lesion described previously is not adequately defined on this noncontrast study. Some mild periportal nodes are not felt to be changed from previous. added stool studies for diarrahe GI eval. 3. AMARA with possible alcoholic ketoacidosis: Continue hydration, PVR if urinary retention above 350 use straight cath. 4. Hypertension :? suboptimal Will adjust metoprolol. 5. Possible impending alcohol withdrawal: CIWA, thiamine, folic acid, phenobarb protocol. 6. Possible mild cognitive impairment:? Continue supportive care. 7. Asthma mild intermittent:? No shortness of breath Stable continue home medication. 8. Abnormal EKG :? Mild T-wave inversion (which was also present in previous 1 of the EKG) Patient is asymptomatic, will add troponin to get baseline. troponin neg echo added inpatient need: uti on iv antibiotics -urine and blood C&S pending,GI eval and workup for elevated lft's ,amara needs iv hydration Quality Stroke Does the patient have a stroke diagnosis?: No VTE Prior VTE?: No VTE Risk Level:: Medical - moderate - high VTE Device Contraindication: N/A - Device Ordered VTE Drug Contraindication: N/A - Med Ordered
[2021-11-06] VITALS (9 sets, daily range): BP systolic 127–162; BP diastolic 67–90; PULSE 65–97; RESP 16–20; TEMP 36.4–38.3; O2SAT 96–100
[2021-11-06] MEDS: Heparin Sodium,Porcine 5,000 UNIT/ML VIAL 5000 UNIT SUBCUT ×4 (00:16→23:54)
[2021-11-06] MEDS: Lactated Ringers 1,000 ML 100 ML IVCONT ×3 (03:21→21:42)
[2021-11-06 07:21] LABS: Alanine Aminotransferase 94 U/L (0-40); Albumin Level 2.6 g/dL (3.5-5.0); Alkaline Phosphatase 88 U/L (39-117); Anion Gap 17 (12-20); Aspartate Amino Transferase 117 U/L (5-37); Bilirubin Total 1.6 mg/dL (0.0-1.0); Blood Urea Nitrogen 34 mg/dL (9-16); Calcium 7.7 mg/dL (8.4-10.2); Carbon Dioxide 20 mmol/L (22-29); Chloride 101 mmol/L (96-108); Creatinine Clr Calc Pharmacy 43.5; Estimated Glomerular Filt Rate 41; Glucose Random 108 mg/dL (60-115); Sodium 135 mmol/L (135-145); Total Protein 5.8 g/dL (6.5-8.0)
[2021-11-06] MEDS: Fluticasone Propionate 250 MCG BLST.W.DEV 1 PUFF INHALE ×2 (07:37→20:59)
[2021-11-06] MEDS: Potassium Chloride Packet 20 MEQ PACKET 40 MEQ PO (08:00)
[2021-11-06] MEDS: Magnesium Oxide 400 MG TABLET PO ×2 (08:02→16:50)
[2021-11-06 08:03] LABS: Magnesium 1.9 mg/dL (1.6-2.6)
[2021-11-06] MEDS: Metoprolol Tartrate 50 MG TABLET PO ×2 (08:03→21:39)
[2021-11-06] MEDS: Naltrexone HCl 50 MG TABLET PO (08:03)
[2021-11-06] MEDS: PHENobarbitaL 15 MG TABLET 45 MG PO ×2 (08:03→21:40)
[2021-11-06] MEDS: Omeprazole 20 MG CAPSULE.DR PO (08:03)
[2021-11-06] MEDS: Pyridoxine HCl (Vitamin B6) 50 MG TABLET 250 MG PO (08:03)
[2021-11-06] MEDS: Folic Acid 1 MG TABLET PO (08:03)
[2021-11-06] MEDS: Acetaminophen 325 MG TABLET 650 MG PO (08:03)
[2021-11-06] MEDS: Thiamine HCL 100 MG TABLET PO (08:03)
[2021-11-06] MEDS: 0.9 % Sodium Chloride Flush 3 ML SYRINGE IVFLUSH ×2 (08:18→21:40)
[2021-11-06 09:35] LABS: Hematocrit 33.1 % (42.0-52.0); Hemoglobin 11.7 g/dl (14.0-18.0); Mean Corpuscular HGB Conc 35.3 g/dl (31.0-36.0); Mean Corpuscular Hemoglobin 33.1 pg (27.0-33.0); Mean Corpuscular Volume 93.8 fL (80.0-98.0); Mean Platelet Volume 10.8 fL (9.4-12.4); Platelet Count 199 X10*3/uL (160-400); Red Blood Count 3.53 X10*6/uL (4.60-5.80); Red Cell Distribution Width 12.8 % (11.0-16.0); White Blood Count 16.9 X10*3/uL (4.8-10.8)
[2021-11-06 09:50] LABS: Lactic Acid 0.9 mmol/L (0.5-2.0)
[2021-11-06] MEDS: Magnesium Sulfate/D5W 1 GM/100 ML PIGGYBACK IV (10:47)
--- NOTE | 2021-11-06 13:03 | PM.EVENT ---
Event Note Date of Service: 11/06/21 Event Note: Addiction consult Patient seen by recovery support RN on 11/05. Please see note Declining resources or referrals
--- NOTE | 2021-11-06 13:17 | P.PNIM_ITS ---
Subjective Subjective Date of Service: 11/06/21 Interval History: sepsis due to uti Review of Systems Patient still has urinary frequency in discomfort Abdominal pain seems to be improving Febrile Denies any nausea or vomiting. Up Physical Exam Vital Signs: Vital Signs: Last Vital Signs Temp 98.0 F 11/06/21 11:41 Pulse 65 11/06/21 11:41 Resp 16 11/06/21 11:41 BP 141/68 H 11/06/21 11:41 Pulse Ox 97 11/06/21 11:41 O2 Del Method 11/06/21 11:41 BMI result Body Mass Index 22.6 Appearance: Alert.? Oriented X3.? not in distress.? Eyes: Pupils equal, round and reactive to light.? Sclera nonicteric.? cvs: [id number], [id number] . res: clear to auscultation ,no rhonchii or wheezing abd: no rebound or guarding ,mild diffuse abd pain improvin, bs present. ext pulses present , no cyanosis . neuro: axo3 , nonfocal. Objective Data Active Medications Acetaminophen (Acetaminophen 325 Mg Tablet) 650 mg PO Q6H PRN PRN Reason: Pain, Mild (Pain Scale 1-3) Last Admin: 11/06/21 08:03 Dose: 650 mg Documented By: SEVERO Fluticasone Propionate (Fluticasone Propionate 250 Mcg Blst.W.Dev) 1 puff INHALE RBID [facility] Last Admin: 11/06/21 07:37 Dose: 1 puff Documented By: MADELYN Folic Acid (Folic Acid 1 Mg Tablet) 1 mg PO DAILY [facility] Last Admin: 11/06/21 08:03 Dose: 1 mg Documented By: SEVERO Heparin Sodium (Porcine) (Heparin Sodium,Porcine 5,000 Unit/Ml Vial) 5,000 unit SUBCUT Q8H [facility] Last Admin: 11/06/21 08:01 Dose: 5,000 unit Documented By: SEVERO Ceftriaxone Sodium 1 gm/ (Sodium Chloride) 50 mls @ 100 mls/hr IV Q24H [facility] Last Infusion: 11/05/21 13:26 Dose: 0 mls/hr Documented By: PANTERA Lactated Ringer's (Lr) 1,000 mls @ 100 mls/hr IVCONT .Q10H [facility] Last Admin: 11/06/21 10:46 Dose: 100 mls/hr Documented By: SEVERO Magnesium Oxide (Magnesium Oxide 400 Mg Tablet) 400 mg PO BIDPC [facility] Last Admin: 11/06/21 08:02 Dose: 400 mg Documented By: SEVERO Metoprolol Tartrate (Metoprolol Tartrate 50 Mg Tablet) 50 mg PO BID [facility]; Protoc ol Last Admin: 11/06/21 08:03 Dose: 50 mg Documented By: SEVERO Naltrexone HCl (Naltrexone Hcl 50 Mg Tablet) 50 mg PO DAILY [facility] Last Admin: 11/06/21 08:03 Dose: 50 mg Documented By: SEVERO Omeprazole (Omeprazole 20 Mg Capsule.Dr) 20 mg PO DAILY [facility] Last Admin: 11/06/21 08:03 Dose: 20 mg Documented By: SEVERO Pharmacy Consult (Consult Rx Perform Med Rec) 1 each MISCELLANE ONCE PRN PRN Reason: Consult order Pharmacy Consult (Consult Rx Etoh Phenob Im/Po) 1 each MISCELLANE ONCE PRN; Protocol PRN Reason: Consult order Phenobarbital (Phenobarbital 15 Mg Tablet) 45 mg PO BID [facility]; Protocol Stop: 11/06/21 21:01 Last Admin: 11/06/21 08:03 Dose: 45 mg Documented By: SEVERO Phenobarbital (Phenobarbital 30 Mg Tablet) 30 mg PO BID [facility]; Protocol Stop: 11/08/21 21:01 Phenobarbital (Phenobarbital 30 Mg Tablet) 30 mg PO DAILY [facility]; Protocol Stop: 11/10/21 09:01 Pyridoxine HCl (Pyridoxine Hcl (Vitamin B6) 50 Mg Tablet) 250 mg PO DAILY [facility] Last Admin: 11/06/21 08:03 Dose: 250 mg Documented By: SEVERO Sodium Chloride (0.9 % Sodium Chloride Flush 3 Ml Syringe) 3 ml IVFLUSH QSHIFT [facility] Last Admin: 11/06/21 08:18 Dose: 3 ml Documented By: SEVERO Thiamine HCl (Thiamine Hcl 100 Mg Tablet) 100 mg PO DAILY [facility] Last Admin: 11/06/21 08:03 Dose: 100 mg Documented By: SEVERO Labs CBC & Chem 7: 11/06/21 09:25 11/06/21 06:08 Labs: Laboratory Results - last 24 hr 11/06/21 11/06/21 11/06/21 06:08 09:25 09:25 MCV 93.8 MCH 33.1 H MCHC 35.3 RDW 12.8 Plt Count 199 D MPV 10.8 Absolute Nucleated RBC 0.000 Nucleated RBC % (auto) 0.0 Anion Gap 17 Estim Creat Clear Calc 43.5 Estimated GFR 41 Random Glucose 108 Lactic Acid 0.9 Calcium 7.7 L Magnesium 1.9 Total Bilirubin 1.6 H Direct Bilirubin 1.0 H AST 117 H ALT 94 H Alkaline Phosphatase 88 Total Protein 5.8 L Albumin 2.6 L D Microbiology Microbiology Results: Microbiology 11/04/21 Unknown Urine Culture - Preliminary Urine clean catch - Urine santana top Gram negative slade 11/04/21 14:37 Blood Culture - Preliminary Blood - Venous No growth after 24 hours. 11/04/21 14:37 Blood Culture - Preliminary Blood - Venous No growth after 24 hours. Assessment and Plan (1) Alcohol withdrawal: Status: Acute (2) UTI (urinary tract infection): Status: Acute (3) AMARA (acute kidney injury): Status: Acute Plan 36-year-old male with a history of hypertension, alcohol abuse, asthma:? Who came to the hospital because of almost 1 week history of fever, on and off abdominal pain diarrhea. He also complains of body aches. 1. sepsis sec to UTI: sepsis exam completed wbc trending down fever, sepsis Has leukocytosis, no tachycardia or tachypnea. repeat Lactic acid normal, urine culture -grew -gram neg slade, intial blood culture prelim@24hr neg, repeat blood cultures pending ?ceftriaxone for UTI. 2. Elevated LFTs:? Possible related to alcohol use. Hepatitis-B and C screen11/02/[address] abd : Overall low attenuation in the liver may be consistent with fatty change. Hepatitis cannot be excluded. Lesion described previously is not adequately defined on this noncontrast study. Some mild periportal nodes are not felt to be changed from previous. added stool studies for diarrahe GI eval-possible need MRI for above liver lesion? may also need mrcp. 3. AMARA with possible alcoholic ketoacidosis: Continue hydration, PVR if urinary retention above 350 use straight cath. 4. Hypertension :? suboptimal Will adjust metoprolol. 5. Possible impending? alcohol withdrawal: CIWA, thiamine, folic acid, phenobarb protocol. 6. Possible mild cognitive impairment:? Continue supportive care. 7. Asthma mild intermittent:? No shortness of breath Stable continue home medication. 8. Abnormal EKG :? Mild T-wave inversion (which was also present in previous 1 of the EKG) Patient is asymptomatic,tropx1 neg troponin neg, added echo to complete workup. inpatient need: uti on iv antibiotics -urine and blood C&S pending,GI eval and workup for elevated lft's ,amara needs iv hydration Quality Stroke Does the patient have a stroke diagnosis?: No VTE Prior VTE?: No VTE Risk Level:: Medical - moderate - high VTE Device Contraindication: N/A - Device Ordered VTE Drug Contraindication: N/A - Med Ordered
[2021-11-06] MEDS: cefTRIAXone sodium 1 GM in 0.9 % Sodium Chloride 50 ML IV (13:40)
[2021-11-06] MEDS: traZODone HCL 50 MG TABLET PO (21:39)
[2021-11-07] VITALS (7 sets, daily range): BP systolic 125–138; BP diastolic 60–75; PULSE 76–91; RESP 18–20; TEMP 36.7–37.3; O2SAT 96–98
[2021-11-07] MEDS: Fluticasone Propionate 250 MCG BLST.W.DEV 1 PUFF INHALE ×2 (07:50→19:23)
[2021-11-07] MEDS: Heparin Sodium,Porcine 5,000 UNIT/ML VIAL 5000 UNIT SUBCUT ×2 (07:58→17:00)
[2021-11-07] MEDS: PHENobarbitaL 30 MG TABLET PO ×2 (07:58→20:16)
[2021-11-07] MEDS: Magnesium Oxide 400 MG TABLET PO ×2 (07:58→16:59)
[2021-11-07] MEDS: Pyridoxine HCl (Vitamin B6) 50 MG TABLET 250 MG PO (07:59)
[2021-11-07] MEDS: Folic Acid 1 MG TABLET PO (07:59)
[2021-11-07] MEDS: Metoprolol Tartrate 50 MG TABLET PO ×2 (07:59→20:16)
[2021-11-07] MEDS: Omeprazole 20 MG CAPSULE.DR PO (07:59)
[2021-11-07] MEDS: Naltrexone HCl 50 MG TABLET PO (07:59)
[2021-11-07] MEDS: Thiamine HCL 100 MG TABLET PO (07:59)
[2021-11-07 08:27] LABS: Hematocrit 29.5 % (42.0-52.0); Hemoglobin 10.2 g/dl (14.0-18.0); Mean Corpuscular HGB Conc 34.6 g/dl (31.0-36.0); Mean Corpuscular Hemoglobin 32.7 pg (27.0-33.0); Mean Corpuscular Volume 94.6 fL (80.0-98.0); Mean Platelet Volume 10.7 fL (9.4-12.4); Platelet Count 182 X10*3/uL (160-400); Red Blood Count 3.12 X10*6/uL (4.60-5.80); Red Cell Distribution Width 12.9 % (11.0-16.0)
[2021-11-07 08:44] LABS: Anion Gap 14 (12-20); Blood Urea Nitrogen 24 mg/dL (9-16); Calcium 7.5 mg/dL (8.4-10.2); Carbon Dioxide 23 mmol/L (22-29); Chloride 98 mmol/L (96-108); Creatinine Clr Calc Pharmacy 47.7; Estimated Glomerular Filt Rate 46; Glucose Random 99 mg/dL (60-115); Potassium 3.7 mmol/L (3.3-5.1); Sodium 131 mmol/L (135-145)
[2021-11-07] MEDS: cefTRIAXone sodium 1 GM in 0.9 % Sodium Chloride 50 ML IV (13:28)
--- NOTE | 2021-11-07 13:53 | HO.PM.IMPN ---
Subjective Subjective Date of Service: 11/07/21 Interval History: sepsis due to uti Review of Systems Patient still has urinary frequency in discomfort Abdominal pain seems to be improving Febrile Denies any nausea or vomiting. Physical Exam Vital Signs: Vital Signs: Last Vital Signs Temp 99.0 F 11/07/21 11:54 Pulse 77 11/07/21 11:54 Resp 20 11/07/21 11:54 BP 138/75 11/07/21 11:54 Pulse Ox 97 11/07/21 11:54 O2 Del Method 11/07/21 11:54 BMI result Body Mass Index 22.6 Appearance: Alert.? Oriented X3.? not in distress.? Eyes: Pupils equal, round and reactive to light.? Sclera nonicteric.? cvs: rrr, [id number] . res: clear to auscultation ,no rhonchii or wheezing abd: no rebound or guarding ,mild diffuse abd pain improvin, bs present. ext pulses present , no cyanosis . neuro: axo3 , nonfocal. Objective Data Active Medications Acetaminophen (Acetaminophen 325 Mg Tablet) 650 mg PO Q6H PRN PRN Reason: Pain, Mild (Pain Scale 1-3) Last Admin: 11/06/21 08:03 Dose: 650 mg Documented By: SEVERO Fluticasone Propionate (Fluticasone Propionate 250 Mcg Blst.W.Dev) 1 puff INHALE RBID [facility] Last Admin: 11/07/21 07:50 Dose: 1 puff Documented By: MADELYN Folic Acid (Folic Acid 1 Mg Tablet) 1 mg PO DAILY [facility] Last Admin: 11/07/21 07:59 Dose: 1 mg Documented By: SEVERO Heparin Sodium (Porcine) (Heparin Sodium,Porcine 5,000 Unit/Ml Vial) 5,000 unit SUBCUT Q8H [facility] Last Admin: 11/07/21 07:58 Dose: 5,000 unit Documented By: SEVERO Ceftriaxone Sodium 1 gm/ (Sodium Chloride) 50 mls @ 100 mls/hr IV Q24H [facility] Last Admin: 11/07/21 13:28 Dose: 100 mls/hr Documented By: SEVERO Lactated Ringer's (Lr) 1,000 mls @ 100 mls/hr IVCONT .Q10H [facility] Last Infusion: 11/07/21 13:41 Dose: 0 mls/hr Documented By: SEVERO Magnesium Oxide (Magnesium Oxide 400 Mg Tablet) 400 mg PO BIDPC [facility] Last Admin: 11/07/21 07:58 Dose: 400 mg Documented By: SEVERO Metoprolol Tartrate (Metoprolol Tartrate 50 Mg Tablet) 50 mg PO BID [facility]; Protocol Last Admin: 11/07/21 07:59 Dose: 50 mg Documented By: SEVERO Naltrexone HCl (Naltrexone Hcl 50 Mg Tablet) 50 mg PO DAILY [facility] Last Admin: 11/07/21 07:59 Dose: 50 mg Documented By: SEVERO Omeprazole (Omeprazole 20 Mg Capsule.Dr) 20 mg PO DAILY [facility] Last Admin: 11/07/21 07:59 Dose: 20 mg Documented By: SEVERO Pharmacy Consult (Consult Rx Perform Med Rec) 1 each MISCELLANE ONCE PRN PRN Reason: Consult order Pharmacy Consult (Consult Rx Etoh Phenob Im/Po) 1 each MISCELLANE ONCE PRN; Protocol PRN Reason: Consult order Phenobarbital (Phenobarbital 30 Mg Tablet) 30 mg PO BID [facility]; Protocol Stop: 11/08/21 21:01 Last Admin: 11/07/21 07:58 Dose: 30 mg Documented By: SEVERO Phenobarbital (Phenobarbital 30 Mg Tablet) 30 mg PO DAILY [facility]; Protocol Stop: 11/10/21 09:01 Pyridoxine HCl (Pyridoxine Hcl (Vitamin B6) 50 Mg Tablet) 250 mg PO DAILY [facility] Last Admin: 11/07/21 07:59 Dose: 250 mg Documented By: SEVERO Sodium Chloride (0.9 % Sodium Chloride Flush 3 Ml Syringe) 3 [facility] Last Admin: 11/07/21 07:58 Dose: Not Given Documented By: SEVERO Non-Admin Reason: IV Running Thiamine HCl (Thiamine Hcl 100 Mg Tablet) 100 mg PO DAILY [facility] Last Admin: 11/07/21 07:59 Dose: 100 mg Documented By: SEVERO Trazodone HCl (Trazodone Hcl 50 Mg Tablet) 50 mg PO BEDTIME [facility] Last Admin: 11/06/21 21:39 Dose: 50 mg Documented By: LORRIENM Labs CBC & Chem 7: 11/07/21 08:12 11/07/21 08:12 Labs: Laboratory Results - last 24 hr 11/07/21 11/07/21 08:12 08:12 MCV 94.6 MCH 32.7 MCHC 34.6 RDW 12.9 Plt Count 182 MPV 10.7 Absolute Nucleated RBC 0.000 Nucleated RBC % (auto) 0.0 Anion Gap 14 Estim Creat Clear Calc 47.7 Estimated GFR 46 Random Glucose 99 Calcium 7.5 L Microbiology Microbiology Results: Microbiology 11/06/21 09:25 Blood Culture - Preliminary Blood - Venous No growth after 24 hours. 11/06/21 09:25 Blood Culture - Preliminary Blood - Venous No growth after 24 hours. 11/04/21 Unknown Urine Culture - Final Urine clean catch - Urine santana top Escherichia coli 11/04/21 14:37 Blood Culture - Preliminary Blood - Venous No growth after 48 hours. 11/04/21 14:37 Blood Culture - Preliminary Blood - Venous No growth after 48 hours. Assessment and Plan (1) UTI (urinary tract infection): Status: Acute (2) AMARA (acute kidney injury): Status: Acute Plan 36-year-old male with a history of hypertension, alcohol abuse, asthma:? Who came to the hospital because of almost 1 week history of fever, on and off abdominal pain diarrhea. He also complains of body aches. 1. sepsis sec to? UTI: sepsis exam completed wbc trending down sepsis improved Has leukocytosis, no tachycardia or tachypnea. repeat Lactic acid normal, urine culture -grew -gram neg slade, intial blood culture prelim@24hr neg, repeat blood cultures pending ?ceftriaxone for UTI. 2. Elevated LFTs:? Possible related to alcohol use. Hepatitis-B and C screen11/02/[address] abd : Overall low attenuation in the liver may be consistent with fatty change. Hepatitis cannot be excluded. Lesion described previously is not adequately defined on this noncontrast study. Some mild periportal nodes are not felt to be changed from previous. added stool studies for diarrahe GI eval-possible need MRI for above liver lesion? may also need mrcp. 3. AMARA with possible alcoholic ketoacidosis:improving Continue hydration, PVR if urinary retention above 350 use straight cath. 4. Hypertension :? suboptimal Will adjust metoprolol. 5. Possible impending? alcohol withdrawal: CIWA, thiamine, folic acid, phenobarb protocol. 6. Possible mild cognitive impairment:? Continue supportive care. 7. Asthma mild intermittent:? No shortness of breath Stable continue home medication. 8. Abnormal EKG :? Mild T-wave inversion (which was also present in previous 1 of the EKG) Patient is asymptomatic,tropx1 neg troponin neg, may need echo . inpatient need: uti on iv antibiotics -urine and blood C&S pending,GI eval and workup for elevated lft's ,amara needs iv hydration Quality Stroke Does the patient have a stroke diagnosis?: No VTE Prior VTE?: No VTE Risk Level:: Medical - moderate - high VTE Device Contraindication: N/A - Device Ordered VTE Drug Contraindication: N/A - Med Ordered
[2021-11-07] MEDS: Lactated Ringers 1,000 ML 100 ML IVCONT (16:59)
[2021-11-07] MEDS: traZODone HCL 50 MG TABLET PO (20:16)
[2021-11-08] VITALS (7 sets, daily range): BP systolic 134–155; BP diastolic 64–81; PULSE 68–80; RESP 14–20; TEMP 36.6–37.6; O2SAT 95–99
[2021-11-08] MEDS: Heparin Sodium,Porcine 5,000 UNIT/ML VIAL 5000 UNIT SUBCUT ×4 (00:34→23:17)
[2021-11-08] MEDS: Lactated Ringers 1,000 ML 100 ML IVCONT (03:01)
[2021-11-08 05:55] LABS: Hematocrit 28.6 % (42.0-52.0); Hemoglobin 9.8 g/dl (14.0-18.0); Mean Corpuscular HGB Conc 34.3 g/dl (31.0-36.0); Mean Corpuscular Hemoglobin 32.2 pg (27.0-33.0); Mean Corpuscular Volume 94.1 fL (80.0-98.0); Mean Platelet Volume 10.9 fL (9.4-12.4); Platelet Count 233 X10*3/uL (160-400); Red Blood Count 3.04 X10*6/uL (4.60-5.80); Red Cell Distribution Width 12.8 % (11.0-16.0); White Blood Count 10.7 X10*3/uL (4.8-10.8)
[2021-11-08 06:16] LABS: Anion Gap 14 (12-20); Blood Urea Nitrogen 19 mg/dL (9-16); Calcium 7.6 mg/dL (8.4-10.2); Carbon Dioxide 22 mmol/L (22-29); Chloride 101 mmol/L (96-108); Creatinine Clr Calc Pharmacy 54.1; Estimated Glomerular Filt Rate 53; Glucose Random 97 mg/dL (60-115); Potassium 3.3 mmol/L (3.3-5.1); Sodium 134 mmol/L (135-145)
[2021-11-08] MEDS: Pyridoxine HCl (Vitamin B6) 50 MG TABLET 250 MG PO (07:46)
[2021-11-08] MEDS: PHENobarbitaL 30 MG TABLET PO ×2 (07:47→20:05)
[2021-11-08] MEDS: Magnesium Oxide 400 MG TABLET PO ×2 (07:47→16:02)
[2021-11-08] MEDS: Thiamine HCL 100 MG TABLET PO (07:47)
[2021-11-08] MEDS: Naltrexone HCl 50 MG TABLET PO (07:47)
[2021-11-08] MEDS: Omeprazole 20 MG CAPSULE.DR PO (07:47)
[2021-11-08] MEDS: Metoprolol Tartrate 50 MG TABLET PO ×2 (07:47→20:05)
[2021-11-08] MEDS: Folic Acid 1 MG TABLET PO (07:47)
[2021-11-08] MEDS: Fluticasone Propionate 250 MCG BLST.W.DEV 1 PUFF INHALE ×2 (08:12→18:50)
--- NOTE | 2021-11-08 11:44 | HO.PM.IMPN ---
Subjective Subjective Date of Service: 11/08/21 Interval History: amara,liver lesion abd pain Review of Systems abd pain,body pain seems improvin no fevers still has diarrahe Physical Exam Vital Signs: Vital Signs: Last Vital Signs Temp 97.8 F 11/08/21 11:41 Pulse 70 11/08/21 11:41 Resp 18 11/08/21 11:41 BP 135/74 11/08/21 11:41 Pulse Ox 97 11/08/21 11:41 O2 Del Method 11/08/21 11:41 BMI result Body Mass Index 22.6 Appearance: Alert.? Oriented X3.? not in distress.? Eyes: Pupils equal, round and reactive to light.? Sclera nonicteric.? cvs: rrr, [id number] . res: clear to auscultation ,no rhonchii or wheezing abd: no rebound or guarding ,mild diffuse abd pain improvin, bs present. ext pulses present , no cyanosis . neuro: axo3 , nonfocal. Objective Data Active Medications Acetaminophen (Acetaminophen 325 Mg Tablet) 650 mg PO Q6H PRN PRN Reason: Pain, Mild (Pain Scale 1-3) Last Admin: 11/06/21 08:03 Dose: 650 mg Documented By: SEVERO Fluticasone Propionate (Fluticasone Propionate 250 Mcg Blst.W.Dev) 1 puff INHALE RBID [facility] Last Admin: 11/08/21 08:12 Dose: 1 puff Documented By: SHERON Folic Acid (Folic Acid 1 Mg Tablet) 1 mg PO DAILY [facility] Last Admin: 11/08/21 07:47 Dose: 1 mg Documented By: PANTERA Heparin Sodium (Porcine) (Heparin Sodium,Porcine 5,000 Unit/Ml Vial) 5,000 unit SUBCUT Q8H [facility] Last Admin: 11/08/21 07:46 Dose: 5,000 unit Documented By: PANTERA Ceftriaxone Sodium 1 gm/ (Sodium Chloride) 50 mls @ 100 mls/hr IV Q24H [facility] Last Infusion: 11/07/21 14:07 Dose: 0 mls/hr Documented By: SEVERO Magnesium Oxide (Magnesium Oxide 400 Mg Tablet) 400 mg PO BIDPC [facility] Last Admin: 11/08/21 07:47 Dose: 400 mg Documented By: PANTERA Metoprolol Tartrate (Metoprolol Tartrate 50 Mg Tablet) 50 mg PO BID [facility]; Protocol Last Admin: 11/08/21 07:47 Dose: 50 mg Documented By: PANTERA Naltrexone HCl (Naltrexone Hcl 50 Mg Tablet) 50 mg PO DAILY [facility] Last Admin: 11/08/21 07:47 Dose: 50 mg Documented By: PANTERA Omeprazole (Omeprazole 20 Mg Capsule.Dr) 20 mg PO DAILY [facility] Last Admin: 11/08/21 07:47 Dose: 20 mg Documented By: PANTERA Pharmacy Consult (Consult Rx Perform Med Rec) 1 each MISCELLANE ONCE PRN PRN Reason: Consult order Pharmacy Consult (Consult Rx Etoh Phenob Im/Po) 1 each MISCELLANE ONCE PRN; Protocol PRN Reason: Consult order Phenobarbital (Phenobarbital 30 Mg Tablet) 30 mg PO BID [facility]; Protocol Stop: 11/08/21 21:01 Last Admin: 11/08/21 07:47 Dose: 30 mg Documented By: PANTERA Phenobarbital (Phenobarbital 30 Mg Tablet) 30 mg PO DAILY [facility]; Protocol Stop: 11/10/21 09:01 Pyridoxine HCl (Pyridoxine Hcl (Vitamin B6) 50 Mg Tablet) 250 mg PO DAILY [facility] Last Admin: 11/08/21 07:46 Dose: 250 mg Documented By: PANTERA Sodium Chloride (0.9 % Sodium Chloride Flush 3 Ml Syringe) 3 ml IVFLUSH QSHIFT [facility] Last Admin: 11/08/21 07:48 Dose: Not Given Documented By: PANTERA Non-Admin Reason: IV Running Thiamine HCl (Thiamine Hcl 100 Mg Tablet) 100 mg PO DAILY [facility] Last Admin: 11/08/21 07:47 Dose: 100 mg Documented By: PANTERA Trazodone HCl (Trazodone Hcl 50 Mg Tablet) 50 mg PO BEDTIME [facility] Last Admin: 11/07/21 20:16 Dose: 50 mg Documented By: IVANA Labs CBC & Chem 7: 11/08/21 05:32 11/08/21 05:32 Labs: Laboratory Results - last 24 hr 11/08/21 11/08/21 05:32 05:32 MCV 94.1 MCH 32.2 MCHC 34.3 RDW 12.8 Plt Count 233 D MPV 10.9 Absolute Nucleated RBC 0.000 Nucleated RBC % (auto) 0.0 Anion Gap 14 Estim Creat Clear Calc 54.1 Estimated GFR 53 Random Glucose 97 Calcium 7.6 L Microbiology Microbiology Results: Microbiology 11/06/21 09:25 Blood Culture - Preliminary Blood - Venous No growth after 48 hours. 11/06/21 09:25 Blood Culture - Preliminary Blood - Venous No growth after 48 hours. 11/04/21 Unknown Urine Culture - Final Urine clean catch - Urine santana top Escherichia coli Assessment and Plan (1) UTI (urinary tract infection): Status: Acute (2) AMARA (acute kidney injury): Status: Acute (3) Elevated liver enzymes: Status: Acute (4) Alcohol use disorder: Status: Acute (5) Liver lesion: Status: Acute Plan 36-year-old male with a history of hypertension, alcohol abuse, asthma:? Who came to the hospital because of almost 1 week history of fever, on and off abdominal pain diarrhea. He also complains of body aches. 1. sepsis sec to? UTI: sepsis exam completed wbc improved, blood culture neg@48hrs,urine cultures: ecoli senstive to ceftriaxone. sepsis improved Has leukocytosis, no tachycardia or tachypnea. repeat Lactic acid normal, urine culture -grew -gram neg slade, intial blood culture prelim@24hr neg, repeat blood cultures pending ?ceftriaxone for UTI-day 4. 2. Elevated LFTs:? Possible related to alcohol use. Hepatitis-B and C screen11/02/[address] abd : Overall low attenuation in the liver may be consistent with fatty change. Hepatitis cannot be excluded. Lesion described previously is not adequately defined on this noncontrast study. Some mild periportal nodes are not felt to be changed from previous. added stool studies for diarrahe GI eval-added mr/mrcp for above. 3. AMARA with possible alcoholic ketoacidosis:improving Continue hydration, PVR if urinary retention above 350 use straight cath. 4. Hypertension :? suboptimal Will adjust metoprolol. 5. Possible impending? alcohol withdrawal: CIWA, thiamine, folic acid, phenobarb protocol. 6. Possible mild cognitive impairment:? Continue supportive care. 7. Asthma mild intermittent:? No shortness of breath Stable continue home medication. 8. Abnormal EKG :? Mild T-wave inversion (which was also present in previous 1 of the EKG) Patient is asymptomatic,tropx1 neg troponin neg, may need echo . inpatient need: GI eval and workup for elevated lft's ,amara needs iv hydration Quality Stroke Does the patient have a stroke diagnosis?: No VTE Prior VTE?: No VTE Risk Level:: Medical - moderate - high VTE Device Contraindication: N/A - Device Ordered VTE Drug Contraindication: N/A - Med Ordered
[2021-11-08] MEDS: Potassium Chloride Packet 20 MEQ PACKET PO (13:02)
[2021-11-08] MEDS: cefTRIAXone sodium 1 GM in 0.9 % Sodium Chloride 50 ML IV (13:03)
--- NOTE | 2021-11-08 13:22 | MHC.CLN ---
F/U PT IS MODERATELY MALNOURISHED SEE ALSO CLINICAL NUTRITION ASSESSMENT DATED 11/05/21 DIET RX: 2GM NA -APPROPRIATE PT RECEPTIVE TO TRIAL OF ENSURE CLEAR BID TO INCREASE KCALS SUPP TO PROVIDE [id number], 16G PROTEIN MONITOR PO INTAKE CLOSELY
[2021-11-08] MEDS: traZODone HCL 50 MG TABLET PO (20:05)
[2021-11-09] VITALS: BP 172/83; PULSE 65; RESP 20; TEMP 36.9; O2SAT 98
[2021-11-09 03:38] VITALS: BP 153/72; PULSE 78; RESP 16; TEMP 36.9; O2SAT 97
[2021-11-09 06:47] LABS: Alanine Aminotransferase 116 U/L (0-40); Albumin Level 2.4 g/dL (3.5-5.0); Alkaline Phosphatase 70 U/L (39-117); Anion Gap 13 (12-20); Aspartate Amino Transferase 92 U/L (5-37); Bilirubin Direct 0.6 mg/dL (0.0-0.5); Bilirubin Total 0.7 mg/dL (0.0-1.0); Blood Urea Nitrogen 13 mg/dL (9-16); Calcium 7.8 mg/dL (8.4-10.2); Carbon Dioxide 23 mmol/L (22-29); Chloride 102 mmol/L (96-108); Estimated Glomerular Filt Rate 56; Glucose Random 101 mg/dL (60-115); Potassium 3.4 mmol/L (3.3-5.1); Sodium 135 mmol/L (135-145); Total Protein 5.7 g/dL (6.5-8.0)
[2021-11-09 07:47] VITALS: BP 155/79; PULSE 68; RESP 18; TEMP 36.3; O2SAT 96
[2021-11-09] MEDS: Fluticasone Propionate 250 MCG BLST.W.DEV 1 PUFF INHALE (08:08)
[2021-11-09 08:09] VITALS: PULSE 67; RESP 15; O2SAT 98
[2021-11-09] MEDS: Omeprazole 20 MG CAPSULE.DR PO (08:58)
[2021-11-09] MEDS: PHENobarbitaL 30 MG TABLET PO (08:58)
[2021-11-09] MEDS: Naltrexone HCl 50 MG TABLET PO (08:58)
[2021-11-09] MEDS: Pyridoxine HCl (Vitamin B6) 50 MG TABLET 250 MG PO (08:58)
[2021-11-09] MEDS: Heparin Sodium,Porcine 5,000 UNIT/ML VIAL 5000 UNIT SUBCUT ×2 (08:58→16:29)
[2021-11-09] MEDS: Folic Acid 1 MG TABLET PO (08:58)
[2021-11-09] MEDS: Magnesium Oxide 400 MG TABLET PO ×2 (08:58→18:15)
[2021-11-09] MEDS: Metoprolol Tartrate 50 MG TABLET PO (08:58)
[2021-11-09] MEDS: 0.9 % Sodium Chloride Flush 3 ML SYRINGE IVFLUSH (08:59)
[2021-11-09] MEDS: Thiamine HCL 100 MG TABLET PO (09:01)
[2021-11-09 11:40] VITALS: BP 188/86; PULSE 65; RESP 18; TEMP 36.4; O2SAT 99
--- NOTE | 2021-11-09 12:05 | P.DS_ITS ---
DS: Providers Provider Date of Service: 11/09/21 Date of admission: 11/04/21 17:09 Primary care physician: Kingsley Khalil PA-C Consults: 11/04/21 18:06 Consult to Gastroenterology [place]ine [place] [facility] [place] Reason for consultation: abd pain/elevated lft/abnormal ct abd Has provider been notified: No 11/04/21 18:07 Consult to Care Team Routine Comment: Reason for consultation: alcohol abuse 11/06/21 12:19 Addiction Medicine Routine Consulting Provider: Haley Burdick Reason for consultation: alcohol use Has provider been notified: No Attending physician on discharge: Nelson Hannah Discharging clinician: Marnie Armendariz DS: Diagnosis Discharge Diagnosis (1) UTI (urinary tract infection): Status: Acute (2) AMARA (acute kidney injury): Status: Acute (3) Elevated liver enzymes: Status: Acute (4) Alcohol use disorder: Status: Acute (5) Liver lesion: Status: Acute DS: Summary Hospital Course Hospital Course: HP as per admitting provider 56-year-old male with a history of hypertension, alcohol abuse, asthma:? Who came to the hospital because of almost 1 week history of fever, on and off abdominal pain diarrhea. He also complains of body aches. He said that he went to his PCP then was sent to lab for lab work-and subsequently was referred to the ED for further evaluation. In addition to above patient says that he has urinary frequency and irritation specially at night. has dry cough. He said that because of above symptoms he was becoming be weaker and was eating less getting dehydrated-for that region he went to PCP and was referred for the lab work as above. He had 1 COVID vaccine-does not know which company. He lives with his - denies any similar complaints in the family or any acute viral sickness or any new antibiotic use or travel. Denies any new complaint of chest pain or shortness of breath? or nausea or vomiting Denies any weakness or numbness. Lab imaging EKG reviewed:WBC 18.4, sodium 132, elevated BUN can not creatinine 46 and 2.46 respectively. Mild elevation of LFTs and lipase. ct abdomen: Fatty liver changes,??Lesion described previously is not adequately defined on this noncontrast study. Some mild periportal nodes are not felt to be changed from previous. Sepsis secondary to E coli urinary tract infection Blood cultures negative common urine culture positive for E coli Treated with IV Rocephin for total of 4 days, completed treatment Sepsis resolved Transaminitis secondary to alcohol abuse Hepatitis-B and C screen negative MRCP negative for severe abnormality AMARA secondary to alcoholic ketoacidosis Treated with IV fluids Resolved Hypertension. Suboptimal Treated with metoprolol, Norvasc 2.5 mg added Patient to monitor blood pressure closely at home and reports PCP Alcohol abuse Treated with CIWA scale and phenobarbital protocol Chronic mild cognitive impairment Secondary to alcohol abuse Mild intermittent asthma. No exacerbation line continue home medications Time Spent with Patient Time attestation: Total time spent providing and/or coordinating discharge services: Discharge coordination time: Greater than 30 minutes Quality: Safe Use of Opioids Does Pt have an Active Cancer Diagnosis on the Problem List?: No Quality: Stroke Does the patient have a stroke diagnosis?: No Physical Exam Vital Signs: Vital Signs: Last Vital Signs Temp 97.5 F 11/09/21 11:40 Pulse 65 11/09/21 11:40 Resp 18 11/09/21 11:40 BP 188/86 H 11/09/21 11:40 Pulse Ox 99 11/09/21 11:40 O2 Del Method 11/09/21 11:40 BMI result Body Mass Index 22.6 Appearing in no acute distress head is normocephalic atraumatic eyes pupils are PERRLA sclera is anicteric mouth throat mucous membranes are intact and moist neck is supple no lymphadenopathy, no JVD noted lung sounds are clear to auscultation heart regular rate rhythm, clear S1, S2 positive bowel sounds, abdomen is soft, nontender neuro patient is alert x3, no focal deficits DS: Data Data Completed and Pending Completed studies during hospitalization [Text1]: Procedures Detoxification Services for Substance Abuse Treatment (10/12/20) Labs on day of discharge: Laboratory Results - last 24 hr 11/09/21 05:43 Sodium 135 Potassium 3.4 Chloride 102 Carbon Dioxide 23 Anion Gap 13 BUN 13 Creatinine 1.33 Estim Creat Clear Calc 57.0 Estimated GFR 56 Random Glucose 101 Calcium 7.8 L Total Bilirubin 0.7 Direct Bilirubin 0.6 H AST 92 H ALT 116 H Alkaline Phosphatase 70 D Total Protein 5.7 L Albumin 2.4 L Preliminary micro results at discharge 11/06/21 09:25 Blood Culture - Preliminary Blood - Venous No growth after 48 hours. 11/06/21 09:25 Blood Culture - Preliminary Blood - Venous No growth after 48 hours. 11/04/21 14:37 Blood Culture - Preliminary Blood - Venous No growth after 48 hours. 11/04/21 14:37 Blood Culture - Preliminary Blood - Venous No growth after 48 hours. Discharge Plan Discharge Anticipated Discharge Date/Time: 11/09/21 12:00 Patient Disposition: Home, Self-Care Discharge Diagnosis: Sepsis secondary to urinary tract infection Transaminitis AMARA secondary to alcoholic ketoacidosis Referrals: Kingsley Khalil PA-C [Primary Care Provider] - 1 Week Discharge Medications: New amlodipine 5 mg Tablet 2.5 mg PO DAILY 30 Days Qty: 15 0RF Protocol: Hold for SBP< HOLD for SBP < : 90 metoprolol tartrate 50 mg Tablet 50 mg PO BID 30 Days Qty: 60 0RF Protocol: Hold for SBP/HR < HOLD for SBP < : 90 HOLD for HR < : 60 Continued (DME) blood pressure test kit-medium Kit See Rx Instructions .Route Qty: 1 0RF Rx Instructions: As directed folic acid 1 mg tablet 1 mg PO DAILY 90 Days Qty: 90 1RF thiamine HCl (vitamin B1) 100 mg tablet 100 mg PO DAILY 90 Days Qty: 90 1RF Flovent HFA 220 mcg/actuation HFA aerosol inhaler 1 puff inhalation BID 30 Days Qty: 12 1RF (DME) cane Device See Rx Instructions .Route Qty: 1 0RF Rx Instructions: As directed hydroxyzine HCl 10 mg tablet 10 mg PO BID 30 Days Qty: 60 3RF magnesium oxide 400 mg (241.3 mg magnesium) tablet 400 mg PO BIDPC Qty: 60 3RF naltrexone 50 mg tablet 50 mg PO DAILY 30 Days Qty: 30 3RF omeprazole 20 mg capsule,delayed release(DR/EC) 20 mg PO DAILY Qty: 30 3RF pyridoxine (vitamin B6) 250 mg tablet 250 mg PO DAILY 90 Days Qty: 90 1RF trazodone 50 mg tablet 50 mg PO BEDTIME 30 Days Qty: 30 3RF acamprosate 333 mg tablet,delayed release (DR/EC) 666 mg PO TID 30 Days Qty: 180 3RF Discontinued metoprolol tartrate 25 mg tablet 25 mg PO BID 30 Days Qty: 60 3RF Discharge Orders: Discharge Order (Routine); Ordered 11/09/21 Ordered By: Marnie Armendariz Diet: Advance to usual diet Activity on Discharge: As tolerated Stand Alone Forms: Patient Portal Discharge page Care Plan Goals: Stop drinking alcohol Health Concerns: Sepsis secondary to urinary tract infection Transaminitis AMARA secondary to alcoholic ketoacidosis Plan of Treatment: Follow-up with her primary care provider as needed Your been started on a new blood pressure medication called amlodipine, take as prescribed and follow your blood pressure at home closely Assessment: See discharge summary
--- NOTE | 2021-11-09 12:26 | MHC.CM.PN ---
pt dcd home no skilled servceismordered by
[2021-11-09] MEDS: cefTRIAXone sodium 1 GM in 0.9 % Sodium Chloride 50 ML IV (12:45)
[2021-11-09] MEDS: amLODIPine Besylate 5 MG TABLET PO (12:45)
[2021-11-09 16:00] VITALS: BP 152/78; PULSE 69; RESP 14; TEMP 37.4; O2SAT 99
== END 2021-11-09 18:50 | disposition home or self-care (01) | DRG 463 ==
LOC: HO.ED 15:38 → HO.EDOVER 17:20 → HO.IMC 11-05 07:13
PROVIDERS: Nurse Practitioner Family; Admitting Provider Internal Medicine; Emergency Provider Emergency Medicine; PCP Physician Assistant; Visit Provider Nurse Practitioner Acute Care
DX: N39.0 Urinary tract infection, site not specified (principal); A41.9 Sepsis, unspecified organism; N17.9 Acute kidney failure, unspecified; E87.2 Acidosis; K76.0 Fatty (change of) liver, not elsewhere classified; F10.239 Alcohol dependence with withdrawal, unspecified; D72.829 Elevated white blood cell count, unspecified; J45.20 Mild intermittent asthma, uncomplicated; G31.84 Mild cognitive impairment of uncertain or unknown etiology; B96.20 Unspecified Escherichia coli [E. coli] as the cause of diseases classified elsewhere; Z20.822 Contact with and (suspected) exposure to COVID-19; Z28.311 Partially vaccinated for COVID-19; Z88.0 Allergy status to penicillin; Z79.51 Long term (current) use of inhaled steroids; Z79.899 Other long term (current) drug therapy
CPT/HCPCS: 36415; 71046; 74176; 74183; 80048; 80076; 81001; 82009; 82077; 82803; 83605; 83690; 83735; 84484; 85025; 85027; 87040; 87086; 87088; 87186; 87635; 93005; 94640; 94664; 96361; 96372; 96374; 96375; 99285; A9585; J0696; J2270; J2560; J3475

== ENCOUNTER 2021-11-17 11:30 | Outpatient (REF) | payer OTHER, SELFPAY ==
[2021-11-17 11:42] LABS: MANUAL DIFF FLAG NO
[2021-11-17 12:09] LABS: Basophils Absolute Auto 0.1 X10*3/uL (0.0-0.2); Basophils Percent Auto 1.4 % (0-2); Eosinophils Absolute Auto 0.1 X10*3/uL (0.0-0.4); Eosinophils Percent Auto 2.4 % (0-4); Hematocrit 36.2 % (42.0-52.0); Hemoglobin 11.7 g/dl (14.0-18.0); Imm Gran Abs Auto 0.03 X10*3/uL (0.00-0.03); Imm Gran Pct Auto 0.5 % (0.0-0.4); Lymphocytes Absolute Auto 1.7 X10*3/uL (1.2-4.9); Lymphocytes Percent Auto 28.1 % (20-40); Mean Corpuscular HGB Conc 32.3 g/dl (31.0-36.0); Mean Corpuscular Hemoglobin 32.4 pg (27.0-33.0); Mean Corpuscular Volume 100.3 fL (80.0-98.0); Mean Platelet Volume 10.1 fL (9.4-12.4); Monocytes Absolute Auto 0.4 X10*3/uL (0.1-1.2); Monocytes Percent Auto 7.3 % (2-11); Neutrophils Absolute Auto 3.6 x10*3/uL (2.0-8.3); Neutrophils Percent Auto 60.3 % (45-73); Platelet Count 383 X10*3/uL (160-400); Red Blood Count 3.61 X10*6/uL (4.60-5.80); Red Cell Distribution Width 12.1 % (11.0-16.0); White Blood Count 5.9 X10*3/uL (4.8-10.8)
[2021-11-17 12:17] LABS: Prothrombin Time 11.7 SEC (10.0-13.1)
[2021-11-17 12:35] LABS: Alanine Aminotransferase 62 U/L (0-40); Alkaline Phosphatase 76 U/L (39-117); Anion Gap 17 (12-20); Aspartate Amino Transferase 57 U/L (5-37); Bilirubin Total 0.6 mg/dL (0.0-1.0); Blood Urea Nitrogen 16 mg/dL (9-16); Calcium 9.8 mg/dL (8.4-10.2); Carbon Dioxide 24 mmol/L (22-29); Chloride 103 mmol/L (96-108); Estimated Glomerular Filt Rate 39; Glucose Random 96 mg/dL (60-115); Potassium 4.6 mmol/L (3.3-5.1); Sodium 139 mmol/L (135-145); Total Protein 8.5 g/dL (6.5-8.0)
[2021-11-17 13:26] LABS: Appearance Urine Cloudy; Color Urine Yellow; Glucose Urine UA Negative (Negative); Leukocyte Esterase Urine Large (3+) (Negative); Nitrite Urine Negative (Negative); PH 5.5 (5.0-9.0); Specific Gravity - Urine 1.015 (1.005-1.025); UMIC TRIGGER UACC YES; Urine Blood Large (3+) (Negative); Urine Ketones Trace mg/dL (Negative); Urine Protein 30 (1+) mg/dL (Neg-Trace)
[2021-11-17 13:37] LABS: Bacteria Urine None Seen (None Seen); UACC Culture Trigger YES; WBC Urine >50 /HPF (0-5)
== END 2021-11-17 11:31 | disposition home or self-care (01) ==
LOC: HO.LAB 11:30
PROVIDERS: PCP Physician Assistant; Visit Provider Nurse Practitioner Family
DX: F10.27 Alcohol dependence with alcohol-induced persisting dementia (principal); R35.0 Frequency of micturition; R79.89 Other specified abnormal findings of blood chemistry; I10 Essential (primary) hypertension
CPT/HCPCS: 36415; 80053; 81001; 85025; 85027; 85610; 87086

== ENCOUNTER → 2022-01-04 12:30 | Outpatient (BNVA) | payer OTHER, SELFPAY | PROVIDERS: PCP Physician Assistant; Referring Provider Physician Assistant; Visit Provider Internal Medicine | DX: Z12.11 Encounter for screening for malignant neoplasm of colon (principal); R79.89 Other specified abnormal findings of blood chemistry | CPT/HCPCS: 99202 ==

== ENCOUNTER 2022-02-11 09:31 | Outpatient (REF) | payer OTHER, SELFPAY ==
--- NOTE | ~2022-02-11 | US_ITS ---
EXAMINATION: US ABDOMEN COMPLETE CLINICAL INFORMATION: Other specified abnormal findings of blood chemistry. COMPARISON: MRI of the abdomen 11/08/2021. CT of the abdomen and pelvis 11/04/2021. Ultrasound of the abdomen limited 03/11/2020. Ultrasound of the abdomen complete 04/09/2018. TECHNIQUE: Real-time imaging of the abdominal viscera. FINDINGS: PANCREAS: The pancreas appears unremarkable, without masses or ductal dilatation, with the exception of the tail which is obscured by bowel gas. ABDOMINAL AORTA: The proximal, mid, and distal segments are normal in caliber. INFERIOR VENA CAVA: Visualized portions are normal. LIVER: Liver is normal in size measuring 15.3 but demonstrates slightly increased echogenicity suggesting hepatic steatosis. Similar findings were seen on the prior CT of the abdomen as well as MRI of the abdomen. The liver contour is normal. No focal hepatic lesion. There is no intrahepatic biliary duct dilatation seen. GALLBLADDER: The gallbladder is physiologically distended. Multiple mobile gallstones are present. No evidence of gallbladder wall thickening or pericholecystic fluid. COMMON BILE DUCT: Not seen. RIGHT KIDNEY: An upper pole 4 mm nonobstructing calculus is present. No hydronephrosis or focal parenchymal lesions. The kidney measures 9.4 cm in maximum dimension. LEFT KIDNEY: Normal. No hydronephrosis. No renal calculi or focal parenchymal lesions. The kidney measures 9.0 cm in maximum dimension. SPLEEN: Normal. The spleen measures 9.5 cm in maximum dimension. FREE FLUID: None. US/US abdomen complete IMPRESSION: 1. Cholelithiasis without evidence of cholecystitis. 2. Hepatic steatosis. 3. Nonobstructing 4 mm right upper pole calculus.
== END 2022-02-11 09:32 | disposition home or self-care (01) ==
LOC: HO.US 09:31
PROVIDERS: Visit Provider Internal Medicine
DX: R79.89 Other specified abnormal findings of blood chemistry (principal)
CPT/HCPCS: 76700

== ENCOUNTER 2022-05-23 12:54 | Outpatient (REF) | payer OTHER, SELFPAY ==
[2022-05-23 14:38] LABS: Hematocrit 39.6 % (42.0-52.0); Hemoglobin 13.4 g/dl (14.0-18.0); Mean Corpuscular HGB Conc 33.8 g/dl (31.0-36.0); Mean Corpuscular Hemoglobin 30.8 pg (27.0-33.0); Mean Platelet Volume 9.8 fL (9.4-12.4); Platelet Count 241 X10*3/uL (160-400); Red Blood Count 4.35 X10*6/uL (4.60-5.80); Red Cell Distribution Width 11.6 % (11.0-16.0); White Blood Count 8.5 X10*3/uL (4.8-10.8)
[2022-05-23 14:43] LABS: INTERNATIONAL NORM RATIO 1.1 (0.9-1.1); Prothrombin Time 12.5 SEC (10.0-13.1)
[2022-05-23 15:14] LABS: Alanine Aminotransferase 15 U/L (0-40); Albumin Level 3.9 g/dL (3.5-5.0); Alkaline Phosphatase 51 U/L (39-117); Anion Gap 12 (12-20); Aspartate Amino Transferase 23 U/L (5-37); Bilirubin Total 0.9 mg/dL (0.0-1.0); Blood Urea Nitrogen 17 mg/dL (9-16); Calcium 9.4 mg/dL (8.4-10.2); Carbon Dioxide 29 mmol/L (22-29); Chloride 101 mmol/L (96-108); Estimated Glomerular Filt Rate 48; Glucose Random 89 mg/dL (60-115); Iron 72 mcg/dL (45-160); Percent Iron Saturation 33 % (15-50); Potassium 4.4 mmol/L (3.3-5.1); Sodium 138 mmol/L (135-145); Total Iron Binding Capacity 218 mcg/dL (228-428); Total Protein 7.4 g/dL (6.5-8.0); Unsaturated Iron Binding 146 ug/dL
[2022-05-23 15:38] LABS: Ferritin 344 ng/mL (20-250); Folate > 20.0 ng/mL (> or = 4.0); Vitamin B12 704 pg/mL (200-900); Vitamin D 25-OH Total 16.3 ng/mL (>30)
== END 2022-05-23 12:55 | disposition home or self-care (01) ==
LOC: HO.LAB 12:54
PROVIDERS: PCP Physician Assistant; Visit Provider Internal Medicine
DX: D64.9 Anemia, unspecified (principal); R79.89 Other specified abnormal findings of blood chemistry
CPT/HCPCS: 36415; 80053; 82306; 82607; 82728; 82746; 83540; 85027; 85610

== ENCOUNTER → 2022-08-03 13:00 | Outpatient (BNVA) | payer OTHER, SELFPAY | PROVIDERS: PCP Physician Assistant; Visit Provider Internal Medicine | DX: Z12.11 Encounter for screening for malignant neoplasm of colon (principal); R79.89 Other specified abnormal findings of blood chemistry; D64.9 Anemia, unspecified; F10.20 Alcohol dependence, uncomplicated | CPT/HCPCS: 99212 ==

== ENCOUNTER 2022-08-29 10:57 | Outpatient (AMB) | payer OTHER, SELFPAY ==
[2022-08-29 11:05] VITALS: BP 110/80; PULSE 60; O2SAT 95; BMI 28.4
--- NOTE | 2022-08-29 11:05 | MHC.PC.OV ---
Vital Signs 08/29/22 11:05 Height 5 ft 6 in Weight 176 lb 4 oz BMI 28.4 BP 110/80 Blood Pressure Location Lt brachial Position Sitting Pulse 60 Pulse Source Pulse Oximeter Pulse Oximetry (%) 95 Oxygen Delivery Method Room Air Intake Visit Reasons: f/u alcohol dementia Save All Operator Required: No Accompanied by: Self / Same As Patient Allergies penicillin V Allergy (Unknown, Verified 08/29/22 11:27) unknown Penicillins [PENICILLINS] Allergy (Unknown, Verified 08/29/22 11:27) UNKNOWN Medication List - Last Reconciled 08/29/22 by Kingsley Khalil PA-C acamprosate 666 mg (2 x 333 mg) PO TID 30 days blood pressure test kit-medium As directed cane As directed diphenhydramine-zinc acetate 2-0.1 % (Benadryl Extra Strength) 1 appl topical BID 14 days ferrous sulfate 325 mg PO DAILY 90 days folic acid 1 mg PO DAILY 90 days hydroxyzine HCl 10 mg PO BID 90 days magnesium oxide 400 mg PO BIDPC metoprolol tartrate 50 mg PO BID naltrexone 50 mg PO DAILY 30 days omeprazole 20 mg PO DAILY pyridoxine (vitamin B6) 250 mg PO DAILY 90 days thiamine HCl (vitamin B1) 100 mg PO DAILY 90 days trazodone 50 mg PO BEDTIME 90 days Tobacco use date assessed: 08/29/22 Dental Screening Dental Screen Date: 08/29/22 Did you have a dental visit in the last 12 months?: No Did you have a dental problem in the last 6 months where you did not have access to dental care?: No Was dental information given to patient?: No HPI f/u alcohol dementia HPI Details Patient is a 57-year-old male here today for follow-up visit.? Patient has a past medical history significant for hypertension, alcohol use disorder, asthma, anxiety. .. Alcohol use disorder:? Has been sober now for many months.? I congratulated him on this.? His brother does still report he has been asking for him to by a [employer] [place].? He continues on naltrexone and campral for the treatment of his alcohol use disorder. 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 His family is applying him for SSI in [facility].? Has CT of his head in 2020 that did not show any hemorrhage or evidence of malignancy. Has been following gastroenterology, getting ultrasounds of abdomen. Most recent LFTs completely normal. Due to the patient is history and clinical findings his memory loss is most likely due to his previous excessive alcohol use and MRI imaging of brain likely will not change course of treatment. .. Hypertension:? Blood pressure today in office acceptable.? Continues on metoprolol 50 mg b.i.d., has been holding amlodipine due to previous episodes of hypotension.? He does have visiting nurse who administers medications in takes vitals and no reports of blood pressure issues lately. .. Fatty liver disease:? Has follow-up with Gastroenterology, MRI of abdomen showing consistency with fatty liver disease, liver enzymes remain somewhat elevated.? [facility] Medical History Alcohol abuse with withdrawal delirium Alcohol dependence Alcohol use disorder Alcoholic ketoacidosis Asthma Elevated liver enzymes HTN (hypertension) Liver lesion Surgical History No pertinent past surgical history Family History Father Diabetes Hypertension Substance use disorder Mother Hypertension Sister No problems noted. Brother No problems noted. Brother No problems noted. Brother No problems noted. Brother No problems noted. Social History Household Members: Family Housing: House Do you presently have visiting nurse or other home services: No Alcohol intake: current Alcohol intake frequency: 3 or more drinks per day Patient Tobacco Use Status: Never used Tobacco e-Cigarette/Vaping Use: Never Used Second Hand Smoke Exposure: No Advance Directives Date on File: 10/12/20 service: No Current occupational status: unemployed Cognitive needs: Yes (cane) Hearing needs: No Vision needs: Yes (glasses) Questionnaire PHQ-9 Over the last 2 weeks, how often have you been bothered by any of the following problems? 1. Little interest or pleasure in doing things: not at all (Pt is taking depression medication and they are working per Pt.) 2. Feeling down, depressed, or hopeless: not at all 3. Trouble falling or staying asleep, or sleeping too much: not at all 4. Feeling tired or having little energy: not at all 5. Poor appetite or overeating: not at all 6. Feeling bad about yourself - or that you are a failure or have let yourself or your family down: not at all 7. Trouble concentrating on things, such as reading the newspaper or watching television: not at all 8. Moving or speaking so slowly that other people could have noticed. Or the opposite - being so fidgety or restless that you have been moving around a lot more than usual: not at all 9. Thoughts that you would be better off or of hurting yourself in some way: not at all Total score: 0 Depression Screening Interpretation: Negative 63784 - PHQ-9 Billing: Yes Source: Developed by Drs. Eliceo Chino, Uzma Morfin, Chaim Jefferson and colleagues, with an educational sadie from [employer]. Thrive Questionnaire Date Thrive assessed: 08/29/22 I am a: Patient What is your living situation today?: I have a steady place to live Within the past 12 months, did the food you bought not last and you didn't have the money to get more?: Never true Within the past 12 months, did you worry whether your food would run out before you got money to buy more?: Never true Do you have trouble paying for medicines?: No Do you have trouble getting transportation to medical appointments?: No Do you have trouble paying your heating and electricity bill?: No Do you have trouble taking care of your child, family member or friend?: No Do you have trouble with day-to-day activities such as bathing, preparing meals, shopping, managing finances, etc.?: No Are you currently unemployed and looking for a job?: No Are you interested in more education?: No Please select the resources that you would like help with: None Currently or been in a relationship where the following occur: no concerns reported AUDIT C Alcohol Use Questionnaire (AUDIT-C) 1. How often do you have a drink containing alcohol?: Never 3. How often do you have six or more drinks on one occasion?: Never Total Score: 0 Score Reviewed/Action Taken: No BRIT-7 AMB Questionnaire BRIT-7 Date BRIT - 7 assessed: 08/29/22 Feeling nervous, anxious, or on edge: 0 = Not at all Not being able to stop or control worryin = Not at all Worrying too much about different things: 0 = Not at all Trouble relaxin = Not at all Being so restless that it is hard to sit still: 0 = Not at all Becoming easily annoyed or irritable: 0 = Not at all Feeling afraid as if something awful might happen: 0 = Not at all Total BRIT-7 score (0-4 normal; 5-9 mild; 10-14 moderate; 15-21 severe): 0 Source: Developed by Drs. Eliceo Chino, Uzma Morfin, Chaim Jefferson and colleagues, with an educational sadie from [employer]. BRIT-7 Assessment Billing BRIT-7 Assessment Tool: BRIT-7 Assessment 31301 Review of Systems Const Denies headache(s) Eyes Denies loss of vision ENT Denies vertigo, Denies dizziness, Denies headache(s) and Denies sore throat Card Denies chest pain, Denies leg edema and Denies lightheadedness Resp Denies cough, Denies hemoptysis and Denies wheezing GI Denies abdominal pain, Denies melena, Denies constipation, Denies diarrhea and Denies vomiting Denies dysuria, Denies urinary frequency and Denies urinary urgency Musc Denies arthralgias, Denies joint swelling, Denies numbness and Denies tingling Neuro Denies Abnormal speech present, Denies behavioral changes, Denies vertigo, Denies dizziness, Denies headache(s), Denies loss of vision, Denies memory loss, Denies numbness and Denies tingling Psych Denies anxiety, Denies behavioral changes, Denies depression, Denies memory loss and Denies panic attacks Alex/Lymph Denies easy bleeding and Denies easy bruising Aller/Immun Denies wheezing Physical exam (Primary Care) Vital Signs: Last Vital Signs Pulse 60 08/29/22 11:05 BP 110/80 08/29/22 11:05 Pulse Ox 95 08/29/22 11:05 Oxygen Delivery Method Room Air 08/29/22 11:05 BMI result Body Mass Index 28.4 Tobacco/Smoking Status: Tobacco use Status Tobacco use date assessed 08/29/22 08/29/22 11:11 Patient Tobacco Use Status Never used Tobacco 08/29/22 11:11 e-Cigarette/Vaping Use Never Used 08/29/22 11:11 PHQ-9: PHQ-9 Score PHQ-9: Total score 0 08/29/22 11:29 Depression Screening Interpretation: Negative Thrive Assessment: Date of Thrive Assessment Date Thrive assessed 08/29/22 08/29/22 11:11 Currently or been in a relationship where the following occur: no concerns reported Const General: healthy appearing, no acute distress, alert and awake Nutritional Appearance: well nourished Orientation/consciousness: oriented to person, oriented to place and oriented to time HENMT Ears: TM's normal bilaterally General nose exam: Normal nasal mucous membranes and turbinates present Eyes Conjunctivae: conjunctivae normal Sclerae: sclerae normal Pupils: Equal, round and reactive pupils present Neck Neck: Yes no lymphadenopathy and Yes no JVD Thyroid: Thyroid normal Carotids: no bruits Resp Effort & Inspection: normal respiratory effort and not tachypneic Auscultation: no crackles, no rales, no rhonchi and no wheezes Cardio Rate: regular rate Rhythm: regular rhythm Heart sounds: no murmurs and normal S1 and S2 GI Palpation (GI): Soft to palpation, nontender, no hepatomegaly and no splenomegaly Auscultation: normal bowel sounds Skin General skin exam: no rashes or lesions noted and dry skin Neuro General: oriented to person, oriented to place and oriented to time Cranial nerves: Yes Equal, round and reactive pupils present Speech: No Abnormal speech present Gait exam (Neuro): Normal gait present Motor exam (neuro): no tremor noted Extrem Right upper extremity: full ROM Left upper extremity: full ROM Right lower extremity: full ROM; no edema Left lower extremity: full ROM; no edema Psych Mental Status: mental status grossly normal Speech and movement: Normal speech and movement present Affect: normal affect Attitude: cooperative Thought process: Normal thought process present Assessment and Plan Assessment & Plan (1) Alcoholic dementia: Code(s): F10.27 - Alcohol dependence with alcohol-induced persisting dementia Qualifiers: Dementia behavioral disturbance: without behavioral disturbance Qualified Code(s): F10.27 - Alcohol dependence with alcohol-induced persisting dementia Plan: Continues to live with brother from keeps a close eye on patient. Continues to have memory deficit and is currently applying for social security benefits. (2) MDD (major depressive disorder), recurrent episode, moderate: Code(s): F33.1 - Major depressive disorder, recurrent, moderate Plan: Patient continues on daily use of trazodone night. Denies any severe depressive moods. (3) HTN (hypertension): Code(s): I10 - Essential (primary) hypertension Qualifiers: Hypertension type: primary hypertension Qualified Code(s): I10 - Essential (primary) hypertension Plan: Patient's blood pressure acceptable today in office. Will continue metoprolol 50 mg b.i.d.. Heart rates have been stable Orders: Orders Comprehensive [place]in. Panel Fast 4 Months Z13.1 - Encounter for screening for diabetes mellitus Lipid Panel 4 Months I10 - Essential (primary) hypertension Prostate Specific Antigen Scr 4 Months Z12.5 - Encounter for screening for malignant neoplasm of prostate Microalbumin, Random (w Creat) 4 Months I10 - Essential (primary) hypertension Complete Blood Count no Diff 4 Months I10 - Essential (primary) hypertension Vitamin B12 and Folate 4 Months D64.9 - Anemia, unspecified, E53.8 - Deficiency of other specified B group vitamins IRON PROFILE 4 Months D50.9 - Iron deficiency anemia, unspecified, D64.9 - Anemia, unspecified Coding Level of Care Code Est Pt Level 4 (65582) Diagnoses Alcoholic dementia F10.27 Dementia behavioral disturbance: without behavioral disturbance MDD (major depressive disorder), recurrent episode, moderate F33.1 HTN (hypertension) I10 Hypertension type: primary hypertension Additional Codes BRIT-7 Assessment Billing - BRIT-7 Assessment Tool: BRIT-7 Assessment [id number] ([id number])
== END 2022-08-29 11:41 | disposition home or self-care (01) ==
PROVIDERS: PCP Physician Assistant; Visit Provider Physician Assistant
DX: F10.27 Alcohol dependence with alcohol-induced persisting dementia (principal); F33.1 Major depressive disorder, recurrent, moderate; I10 Essential (primary) hypertension
CPT/HCPCS: 99214

== ENCOUNTER 2022-10-26 13:11 | Outpatient (AMB) | payer OTHER, SELFPAY ==
--- NOTE | 2022-10-26 13:18 | MHC.OFFVIS ---
Intake Vital Signs 10/26/22 13:20 Height 5 ft 6 in Weight 171 lb 15.369 oz BMI 27.8 BP 130/76 Blood Pressure Location Lt brachial Position Sitting Pulse 71 Intake Visit Reasons: 3 mnth follow up Intake Note: Arnaud presents in the office as a 3 month follow up. CC: States that he is not having any concerns at this time. Allergies penicillin V Allergy (Unknown, Verified 10/26/22 13:21) unknown Penicillins [PENICILLINS] Allergy (Unknown, Verified 10/26/22 13:21) UNKNOWN HPI HPI Comments History of Present Illness Details This is a 56-year-old gentleman with past medical history of alcohol use disorder, hypertension, who is presenting for follow-up. 01/04/23: He was seen in the hospital in October when he was admitted with fever, was also noted to have elevated LFTs. Patient presents today with his brother. Reports has not had alcohol since his hospitalization in October. He lives with his mother and brother, who ensure that no alcohol was brought to home. He is also continuing acamprosate t.i.d. and thinks that this has helped him. No gastrointestinal complaints today to include abdominal pain nausea, vomiting, abdominal distention, lower extremity edema. He does notice increased fatigue, and lower extremity numbness. In terms of his alcohol use, has been drinking many years. Was told he had abnormal liver enzymes at least 5 years ago, but had a hard time quitting alcohol. Used to consume 6 beers a day with 3 pt of rum per day over the weekend. Denies any IV drug use. Hepatitis serologies negative from recent workup. No family history of iron overload, early neuropsychiatric disorder. No family history of early COPD. No family history of colorectal cancer. Most recent imaging includes an MRI abdomen that shows fatty changes in the liver, as well as a benign lesion. FibroSure testing from July 2021: F2, A2. 08/03/22: Presents today with sister Amarilys. No acute gastrointestinal issues including abd pain, N,V, change in bowel habit. Memory loss and neuropathy seem to be the main concerns. Sister tells me has an appt with Neurologist coming up in a few weeks. Labs from May reviewed, LFTs now completely normal. Pt has been abstinent since November 2021. 10/26/22: Here with his brother. Reports no acute GI issues. Remains abstinent from etOH. Waiting to be booked for the colonoscopy. [facility] Medical History Liver lesion Alcoholic ketoacidosis Alcohol dependence HTN (hypertension) Elevated liver enzymes Alcohol use disorder Alcohol abuse with withdrawal delirium Asthma Surgical History No pertinent past surgical history Family History Father Diabetes Hypertension Substance use disorder Mother Hypertension Sister No problems noted. Brother No problems noted. Brother No problems noted. Brother No problems noted. Brother No problems noted. Social History Household Members: Family Housing: House Do you presently have visiting nurse or other home services: No Alcohol intake: current Alcohol intake frequency: 3 or more drinks per day Patient Tobacco Use Status: Never used Tobacco e-Cigarette/Vaping Use: Never Used Second Hand Smoke Exposure: No Advance Directives Date on File: 10/12/20 service: No Current occupational status: unemployed Cognitive needs: Yes (cane) Hearing needs: No Vision needs: Yes (glasses) Review of Systems Const All systems reviewed & are unremarkable except as noted in HPI and below Physical Exam Vital Signs: Last Vital Signs Pulse 71 10/26/22 13:20 BP 130/76 10/26/22 13:20 BMI result Body Mass Index 27.8 Gen appear: NAD HEENT: nonicteric, no cervical lymphadenopathy Chest: CTA CVS: Regular S1/S2 Abd: soft, nontender, nondistended, bowel sounds + Ext: no peripheral edema Neuro: A/Ox3, noted to move all extremities spontaneously Psych: interacting appropriately Assessment & Plan Assessment & Plan (1) Anemia: Code(s): D64.9 - Anemia, unspecified (2) Colon cancer screening: Code(s): Z12.11 - Encounter for screening for malignant neoplasm of colon Plan: Anemia has improved. Was most likely 2/2 bone marrow suppresion based in iron indices. Patient is due for colon cancer screening. He already has the prep. Instructions reviewed again with him. Will also recheck CBC and ferritin. (3) Alcohol use disorder: Plan: In remission. No advanced fibrosis based on work up (see above). Will rechcek LFTs and INR Plan Follow up after colo. Orders: Orders Comprehensive Met. Panel Today D64.9 - Anemia, unspecified Ferritin Today D64.9 - Anemia, unspecified Prothrombin Time INR Today D64.9 - Anemia, unspecified Complete Blood Count no Diff Today D64.9 - Anemia, unspecified Hemoglobin A1c Today Z13.1 - Encounter for screening for diabetes mellitus Lipid Panel Today Z13.1 - Encounter for screening for diabetes mellitus Medications: New peg 3350-electrolytes 236-22.74-6.74 -5.86 gram (Golytely) as per split prep instructions, until fecal effluent is clear 240 mL PO Q10M 4,000 mL 0RF colonoscopy Coding Level of Care Code Est Pt Level 4 (65426) Diagnoses Anemia D64.9 Colon cancer screening Z12.11 Alcohol use disorder F10.90
[2022-10-26 13:20] VITALS: BP 130/76; PULSE 71; BMI 27.8
== END 2022-10-26 14:38 | disposition home or self-care (01) ==
PROVIDERS: PCP Physician Assistant; Visit Provider Internal Medicine
DX: D64.9 Anemia, unspecified (principal); Z12.11 Encounter for screening for malignant neoplasm of colon; F10.90 Alcohol use, unspecified, uncomplicated
CPT/HCPCS: 99214

== ENCOUNTER → 2022-10-26 13:11 | Outpatient (BNVA) | payer OTHER, SELFPAY | PROVIDERS: PCP Physician Assistant; Visit Provider Internal Medicine | DX: Z12.11 Encounter for screening for malignant neoplasm of colon (principal); F10.90 Alcohol use, unspecified, uncomplicated; D64.9 Anemia, unspecified | CPT/HCPCS: 99212 ==

== ENCOUNTER 2022-12-06 11:29 | Day surgery (SDC) | payer MEDICARE, MEDICAID, SELFPAY ==
[2022-12-02 11:51] VITALS: BMI 27.8
[2022-12-02 13:52] VITALS: BMI 27.8
--- NOTE | 2022-12-05 09:41 | P.CONAN_ITS ---
Documented by User: Gabby Mcnair NP 12/05/22 09:45 HPI - Anesthesia Eval Consult details Narrative: 57yo M for Colonoscopy ETOH abuse - naltrexone daily PMFSH Active Problems Active Problems: All Active Problems (Updated 08/29/22 @ 11:33 by Kingsley Khalil PA-C) Generalized pruritus (Acute) Memory deficit (Acute) MDD (major depressive disorder), recurrent episode, moderate (Acute) Anemia (Acute) Alcohol use disorder (Acute) Pyuria (Acute) Protein in urine (Acute) Elevated LFTs (Acute) Tachycardia (Acute) Lower extremity weakness (Acute) Balance disorder (Acute) Conjunctivitis (Acute) Tremor (Acute) Delirium due to another medical condition (Acute) Alcohol abuse with alcohol-induced disorder (Acute) Adult failure to thrive (Acute) Paresthesia of lower extremity (Acute) Right ankle sprain (Acute) Sprain of ankle, deltoid ligament (Acute) Alcohol abuse (Acute) Colon cancer screening (Acute) Stye (Acute) Screening for diabetes mellitus (DM) (Acute) Asthma (Acute) Insomnia (Acute) Anxiety (Acute) Alcoholic dementia (Acute) Past Medical History Medical History Liver lesion Alcoholic ketoacidosis Alcohol dependence HTN (hypertension) Elevated liver enzymes Alcohol use disorder Alcohol abuse with withdrawal delirium Asthma Family History Family History Father Diabetes Hypertension Substance use disorder Mother Hypertension Sister No problems noted. Brother No problems noted. Brother No problems noted. Brother No problems noted. Brother No problems noted. Surgical History Surgical History No pertinent past surgical history Social History Social History Household Members: Family Housing: House Are you a primary patient care technician to a significant other at home: No Do you presently have visiting nurse or other home services: Yes (daily medication nurse) Alcohol intake: current Alcohol intake frequency: former alcohol drinker Patient Tobacco Use Status: Never used Tobacco e-Cigarette/Vaping Use: Never Used Second Hand Smoke Exposure: No Advance Directives Date on File: 10/12/20 service: No Current occupational status: unemployed Cognitive needs: Yes (cane) Hearing needs: No Vision needs: Yes (glasses) Meds Allergies Allergy/AdvReac Type Severity Reaction Status Date / Time Penicillins [PENICILLINS] Allergy Unknown CHILDHOOD Verified 12/06/22 11:55 ALLERGY Home Medications Medication Instructions Recorded Confirmed Last Taken Type metoprolol tartrate 50 mg tablet 50 mg PO BID 08/03/22 08/29/22 Unknown History Exam Exam Date and Time: December 05, 2022 0941 Height,Weight and Vital Signs: Height 5 ft 6 in Weight 78.018 kg Pertinent Lab Results Pertinent Lab Results: Laboratory Tests 05/23/22 13:06 WBC 8.5 Hgb 13.4 L Hct 39.6 L Plt Count 241 D Sodium 138 Potassium 4.4 Chloride 101 Carbon Dioxide 29 BUN 17 H Creatinine 1.52 H Laboratory Tests 05/23/22 13:06 PT 12.5 INR 1.1 Total Bilirubin 0.9 AST 23 ALT 15 Alkaline Phosphatase 51 Total Protein 7.4 Albumin 3.9 Assessment and Plan Assessment Anesthesia Assessment: Chart Reviewed Documented by User: Louie Ambriz MD 12/06/22 14:13 [facility] Past Medical History Medical History Liver lesion Alcoholic ketoacidosis Alcohol dependence HTN (hypertension) Elevated liver enzymes Alcohol use disorder Alcohol abuse with withdrawal delirium Asthma Family History Family History Father Diabetes Hypertension Substance use disorder Mother Hypertension Sister No problems noted. Brother No problems noted. Brother No problems noted. Brother No problems noted. Brother No problems noted. Family history of problems with anesthesia: No Surgical History Surgical History No pertinent past surgical history History of Problems with Anesthesia: No Social History Social History Household Members: Family Housing: House Are you a primary patient care technician to a significant other at home: No Do you presently have visiting nurse or other home services: Yes (daily medication nurse) Alcohol intake: current Alcohol intake frequency: former alcohol drinker Patient Tobacco Use Status: Never used Tobacco e-Cigarette/Vaping Use: Never Used Second Hand Smoke Exposure: No Advance Directives Date on File: 10/12/20 service: No Current occupational status: unemployed Cognitive needs: Yes (cane) Hearing needs: No Vision needs: Yes (glasses) Meds Allergies Allergy/AdvReac Type Severity Reaction Status Date / Time Penicillins [PENICILLINS] Allergy Unknown CHILDHOOD Verified 12/06/22 11:55 ALLERGY Home Medications Medication Instructions Recorded Confirmed Last Taken Type metoprolol tartrate 50 mg tablet 50 mg PO BID 08/03/22 08/29/22 Unknown History Exam Airway Mallampati Class: II TM Dist: >3cm Neck ROM: Full Loose/Missing/Broken Teeth: Yes Assessment and Plan Assessment Anesthesia Assessment: Anesthesia Plan Discussed Final Anesthetic Review Family History of Problems with Anesthesia: No History of Problems with Anesthesia: No NPO: Yes ASA Class: III Final Preanesthetic Review: No Changes in Pt Med Stat, Meds/Allgs Chart Reviewed, Consent Obtained/Reviewed and Anes Risks/Benef Reviewed Patient Risk: Intermediate Procedure Risk: Low Anesthetic Plan Anesthetic Plan: MAC: Disposition: Standard PACU
[2022-12-06 12:01] VITALS: BP 117/63; PULSE 63; RESP 16; TEMP 36.8; O2SAT 97
[2022-12-06] MEDS: Lactated Ringers 1,000 ML 100 ML IVCONT (12:05)
--- NOTE | 2022-12-06 12:29 | MHC.SHP ---
Pre-Procedural Eval Section A Date of Service: 12/06/22 Section B Chief Complaint: Screening Details of Present Illness: PMH: Alcoholic ketoacidosis Alcohol dependence HTN (hypertension) Elevated liver enzymes Alcohol use disorder Alcohol abuse with withdrawal delirium Asthma Present Medications: see Short Stay Collaborative assessment History of Previous Operations: No relevant previous surgery Allergies: Allergies Allergy/AdvReac Type Severity Reaction Status Date / Time Penicillins [PENICILLINS] Allergy Unknown CHILDHOOD Verified 12/06/22 11:55 ALLERGY Review of Systems Review of Systems Comment: Ten point ROS negative Exam Exam Comment: Gen appear: No acute distress HEENT: no icterus Chest: No overt resp distress Abd: soft, nontender, nondistended Psych: Stable affect, answering questions appropriately Neuro: A/Ox3 noted to move all extremities spontaneously Ext: no peripheral edema Plan Diagnosis/Plan: Unchanged I have reviewed the history and physical and performed a pertinent physical examination on my patient. No changes have occurred unless specified. Time Spent With Patient Time: Total time managing care of this patient today ____ minutes.
--- NOTE | 2022-12-06 12:30 | PC.NURSE ---
Patient unaware of what medications he took this morning. I took a handful of my normal morning medications that the nurse gave me . Dr. Ambriz made aware. OR team aware. Okay to proceed.
--- NOTE | 2022-12-06 12:32 | P.OP_ITS ---
Operative Note Operative Note Date of Service: 12/06/22 Narrative: Procedure: Colonoscopy Indication: Screening Endoscopist: Tessa Mancuso MD Anesthesia Provider: Dr Louie Ambriz Anesthesia type: MAC Instrument: Olympus [id number]-[id number] Consent: Indication, risks vs benefits, and alternatives were discussed with the patient who gave written informed consent to proceed. EKG, pulse, pulse oximetry and blood pressure were monitored throughout the procedure. Please see anesthesia flowsheet. Procedure: The patient was brought to the procedure room and placed in the left lateral decubitus position. IV medications were administered by the anesthesia provider in attendance. A digital rectal exam was performed which was normal. Distal attachment cap was affixed to the tip of the scope and the colonoscope was then inserted through the anus and advanced through the colon to the cecum at 70 cm,and terminal ileum. Appendiceal orifice and ileocecal valve are identified. Mucosa was carefully examined under high definition white light as the instrument was slowly withdrawn in a retrograde panoramic fashion. Retroflexion was performed in rectum. The procedure was not difficult. There were no immediate obvious complications. The quality of the prep was BBPS: 3+3+2 = adequate Withdrawal time 16 minutes. Limitations: No limitations. Findings: Mucosa: Normal to cecum and terminal ileum. Protruding lesions: * 2 sessile polyp of size 4-7 mm in cecum. Cold snare polypectomy was performed. The polyps were completely removed and retrieved. * 2 sessile polyp of size 3-4 mm in sigmoid colon. Cold snare polypectomy was performed. The polyps were completely removed and retrieved. * Large internal hemorrhoids without stigmata of recent bleeding. Excavated lesions: * Scattered diverticulosis of left sided colon. Impression: 1. Normal colon and terminal mucosa 2. Total of 4 polyps removed from cecum and sigmoid colon. 3. Internal hemorrhoids 4. Diverticulosis Recommendations: - Follow path results. - Repeat colonoscopy in 3-5 years depending on path results.
[2022-12-06 13:15] VITALS: BP 102/60; PULSE 60; RESP 16; TEMP 36.7; O2SAT 98
[2022-12-06 13:30] VITALS: BP 120/75; PULSE 67; RESP 16; TEMP 36.4; O2SAT 98
[2022-12-06 14:00] LABS: Hematocrit 41.7 % (42.0-52.0); Hemoglobin 13.8 g/dl (14.0-18.0); Mean Corpuscular HGB Conc 33.1 g/dl (31.0-36.0); Mean Corpuscular Hemoglobin 30.5 pg (27.0-33.0); Mean Corpuscular Volume 92.1 fL (80.0-98.0); Platelet Count 225 X10*3/uL (160-400); Red Blood Count 4.53 X10*6/uL (4.60-5.80); Red Cell Distribution Width 12.3 % (11.0-16.0); White Blood Count 9.7 X10*3/uL (4.8-10.8)
[2022-12-06 14:09] LABS: Prothrombin Time 12.7 SEC (11.1-13.3)
[2022-12-06 14:19] LABS: Alanine Aminotransferase 31 U/L (0-40); Albumin Level 3.5 g/dL (3.5-5.0); Alkaline Phosphatase 50 U/L (39-117); Anion Gap 14 (12-20); Aspartate Amino Transferase 31 U/L (5-37); Bilirubin Total 0.5 mg/dL (0.0-1.0); Blood Urea Nitrogen 12 mg/dL (9-16); Calcium 9.3 mg/dL (8.4-10.2); Carbon Dioxide 25 mmol/L (22-29); Chloride 106 mmol/L (96-108); Creatinine Clr Calc Pharmacy 71.9; Estimated Glomerular Filt Rate > 60; Glucose Random 87 mg/dL (60-115); Potassium 4.4 mmol/L (3.3-5.1); Sodium 141 mmol/L (135-145); Total Protein 7.1 g/dL (6.5-8.0)
[2022-12-06 14:30] LABS: Ferritin 506 ng/mL (20-250)
== END 2022-12-06 14:25 | disposition home or self-care (01) ==
PROVIDERS: Visit Provider Internal Medicine
PROC: 0DJD8ZZ Inspection of Lower Intestinal Tract, Via Natural or Artificial Opening Endoscopic (ICD-10-PCS; CPT 45378; principal; 2022-12-06 13:10)
DX: Z12.11 Encounter for screening for malignant neoplasm of colon (principal); D12.0 Benign neoplasm of cecum; K57.30 Diverticulosis of large intestine without perforation or abscess without bleeding; K64.8 Other hemorrhoids; D64.9 Anemia, unspecified; I10 Essential (primary) hypertension; F10.27 Alcohol dependence with alcohol-induced persisting dementia; J45.909 Unspecified asthma, uncomplicated; F33.1 Major depressive disorder, recurrent, moderate; R00.0 Tachycardia, unspecified; R79.89 Other specified abnormal findings of blood chemistry; R20.2 Paresthesia of skin; R53.1 Weakness; K76.9 Liver disease, unspecified
CPT/HCPCS: 45385; 36415; 80053; 82728; 85027; 85610; 88305

== ENCOUNTER → 2022-12-06 11:29 | Outpatient (BNV) | payer MEDICARE, MEDICAID, SELFPAY | PROVIDERS: Visit Provider Internal Medicine | DX: Z12.11 Encounter for screening for malignant neoplasm of colon (principal); D12.0 Benign neoplasm of cecum; D12.5 Benign neoplasm of sigmoid colon; K64.0 First degree hemorrhoids | CPT/HCPCS: 45385 ==

== ENCOUNTER 2023-04-06 15:22 | Outpatient (AMB) | payer MEDICARE, MEDICAID, SELFPAY ==
--- NOTE | 2023-04-06 15:29 | MHC.PC.OV ---
Vital Signs 04/06/23 15:32 Height 5 ft 6 in Weight 173 lb BMI 27.9 BP 130/80 Blood Pressure Location Lt brachial Position Sitting Pulse 58 Pulse Source Pulse Oximeter Pulse Oximetry (%) 96 Oxygen Delivery Method Room Air Intake Visit Reasons: set up PT & nightmares Intake Note: Pt is here for a follow-up regarding medication and in need of a physical therapy order for bilateral leg pain exacerbated by prolonged standing and weakness. Public Address System Mechanic Required: No Accompanied by: Brother Allergies Penicillins [PENICILLINS] Allergy (Unknown, Verified 04/06/23 15:38) CHILDHOOD ALLERGY Tobacco use date assessed: 04/06/23 Dental Screening Dental Screen Date: 04/06/23 Did you have a dental visit in the last 12 months?: No Did you have a dental problem in the last 6 months where you did not have access to dental care?: No Was dental information given to patient?: Patient has dentist HPI set up PT & nightmares HPI Details Patient is a 57-year-old male here today for follow-up visit.? Patient has a past medical history significant for hypertension, alcohol use disorder, asthma, anxiety. .. Alcohol use disorder:? Has continued to stay sober from alcohol.? I congratulated him on this.? He continues on naltrexone and campral for the treatment of his alcohol use disorder. Family wondering if they can reduce doses of his alcohol determined medication. 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 His family is applying him for SSI in [facility].? Has CT of his head in 2020 that did not show any hemorrhage or evidence of malignancy. He is now followed by a neurologist and has been started on denies a pill a higher dose. Unfortunately has developed what family's calling night terrors . Due to the patient is history and clinical findings his memory loss is most likely due to his previous excessive alcohol use and MRI imaging of brain likely will not change course of treatment. .. Hypertension:? Blood pressure today in office acceptable.? Continues on metoprolol 50 mg b.i.d., has been holding amlodipine due to previous episodes of hypotension.? He does have visiting nurse who administers medications in takes vitals and no reports of blood pressure issues lately. .. Fatty liver disease:? Has follow-up with Gastroenterology, MRI of abdomen showing consistency with fatty liver disease, liver enzymes remain somewhat elevated.? [facility] Medical History Liver lesion Alcoholic ketoacidosis Alcohol dependence HTN (hypertension) Elevated liver enzymes Alcohol use disorder Alcohol abuse with withdrawal delirium Asthma Surgical History No pertinent past surgical history Family History Father Diabetes Hypertension Substance use disorder Mother Hypertension Sister No problems noted. Brother No problems noted. Brother No problems noted. Brother No problems noted. Brother No problems noted. Social History Household Members: Family Housing: House Are you a primary director of health care marketing to a significant other at home: No Do you presently have visiting nurse or other home services: Yes (daily medication nurse) Alcohol intake: current Alcohol intake frequency: former alcohol drinker Patient Tobacco Use Status: Never used Tobacco e-Cigarette/Vaping Use: Never Used Second Hand Smoke Exposure: No Advance Directives Date on File: 10/12/20 service: No Current occupational status: unemployed Cognitive needs: Yes (cane) Hearing needs: No Vision needs: Yes (glasses) Questionnaire PHQ-9 Over the last 2 weeks, how often have you been bothered by any of the following problems? 1. Little interest or pleasure in doing things: not at all (Pt is taking depression medication and they are working per Pt.) 2. Feeling down, depressed, or hopeless: not at all 3. Trouble falling or staying asleep, or sleeping too much: not at all 4. Feeling tired or having little energy: not at all 5. Poor appetite or overeating: not at all 6. Feeling bad about yourself - or that you are a failure or have let yourself or your family down: not at all 7. Trouble concentrating on things, such as reading the newspaper or watching television: not at all 8. Moving or speaking so slowly that other people could have noticed. Or the opposite - being so fidgety or restless that you have been moving around a lot more than usual: not at all 9. Thoughts that you would be better off or of hurting yourself in some way: not at all Total score: 0 Depression Screening Interpretation: Negative Depression Screening Done: Yes 46107 - PHQ-9 Billing: Yes Source: Developed by Drs. Eliceo Chino, Uzma Morfin, Chaim Jefferson and colleagues, with an educational sadie from [employer]. Thrive Questionnaire Date Thrive assessed: 04/06/23 I am a: Patient What is your living situation today?: I have a steady place to live Within the past 12 months, did the food you bought not last and you didn't have the money to get more?: Never true Within the past 12 months, did you worry whether your food would run out before you got money to buy more?: Never true Do you have trouble paying for medicines?: No Do you have trouble getting transportation to medical appointments?: No Do you have trouble paying your heating and electricity bill?: No Do you have trouble taking care of your child, family member or friend?: No Do you have trouble with day-to-day activities such as bathing, preparing meals, shopping, managing finances, etc.?: No Are you currently unemployed and looking for a job?: No Are you interested in more education?: No Please select the resources that you would like help with: None Currently or been in a relationship where the following occur: no concerns reported THRIVE Score: 0 AUDIT C Alcohol Use Questionnaire (AUDIT-C) 1. How often do you have a drink containing alcohol?: Never 3. How often do you have six or more drinks on one occasion?: Never Total Score: 0 Score Reviewed/Action Taken: No BRIT-7 AMB Questionnaire BRIT-7 Date BRIT - 7 assessed: 04/06/23 Feeling nervous, anxious, or on edge: 0 = Not at all Not being able to stop or control worryin = Not at all Worrying too much about different things: 0 = Not at all Trouble relaxin = Not at all Being so restless that it is hard to sit still: 0 = Not at all Becoming easily annoyed or irritable: 0 = Not at all Feeling afraid as if something awful might happen: 0 = Not at all Total BRIT-7 score (0-4 normal; 5-9 mild; 10-14 moderate; 15-21 severe): 0 Source: Developed by Drs. Eliceo Chino, Uzma Morfin, Chaim Jefferson and colleagues, with an educational sadie from [employer]. BRIT-7 Assessment Billing BRIT-7 Assessment Tool: BRIT-7 Assessment 30156 Review of Systems Const Denies headache(s) Eyes Denies loss of vision ENT Denies vertigo, Denies dizziness, Denies headache(s) and Denies sore throat Card Denies chest pain, Denies leg edema and Denies lightheadedness Resp Denies cough, Denies hemoptysis and Denies wheezing GI Denies abdominal pain, Denies melena, Denies constipation, Denies diarrhea and Denies vomiting Denies dysuria, Denies urinary frequency and Denies urinary urgency Musc Denies arthralgias, Denies joint swelling, Denies numbness and Denies tingling Neuro Denies Abnormal speech present, Denies behavioral changes, Denies vertigo, Denies dizziness, Denies headache(s), Denies loss of vision, Denies memory loss, Denies numbness and Denies tingling Psych Denies anxiety, Denies behavioral changes, Denies depression, Denies memory loss and Denies panic attacks Alex/Lymph Denies easy bleeding and Denies easy bruising Aller/Immun Denies wheezing Physical exam (Primary Care) Vital Signs: Last Vital Signs Pulse 58 04/06/23 15:32 BP 130/80 04/06/23 15:32 Pulse Ox 96 04/06/23 15:32 Oxygen Delivery Method Room Air 04/06/23 15:32 BMI result Body Mass Index 27.9 Tobacco/Smoking Status: Tobacco use Status Tobacco use date assessed 04/06/23 04/06/23 15:46 Patient Tobacco Use Status Never used Tobacco 04/06/23 15:29 e-Cigarette/Vaping Use Never Used 04/06/23 15:29 PHQ-9: PHQ-9 Score PHQ-9: Total score 0 04/06/23 15:49 Depression Screening Interpretation: Negative Thrive Assessment: Date of Thrive Assessment Date Thrive assessed 04/06/23 04/06/23 15:46 Currently or been in a relationship where the following occur: no concerns reported Const General: healthy appearing, no acute distress, alert and awake Nutritional Appearance: well nourished Orientation/consciousness: oriented to person, oriented to place and oriented to time HENMT Ears: TM's normal bilaterally General nose exam: Normal nasal mucous membranes and turbinates present Eyes Conjunctivae: conjunctivae normal Sclerae: sclerae normal Pupils: Equal, round and reactive pupils present Neck Neck: Yes no lymphadenopathy and Yes no JVD Thyroid: Thyroid normal Carotids: no bruits Resp Effort & Inspection: normal respiratory effort and not tachypneic Auscultation: no crackles, no rales, no rhonchi and no wheezes Cardio Rate: regular rate Rhythm: regular rhythm Heart sounds: no murmurs and normal S1 and S2 GI Palpation (GI): Soft to palpation, nontender, no hepatomegaly and no splenomegaly Auscultation: normal bowel sounds Skin General skin exam: no rashes or lesions noted and dry skin Neuro General: oriented to person, oriented to place and oriented to time Cranial nerves: Yes Equal, round and reactive pupils present Speech: No Abnormal speech present Gait exam (Neuro): Normal gait present Motor exam (neuro): no tremor noted Extrem Right upper extremity: full ROM Left upper extremity: full ROM Right lower extremity: full ROM; no edema Left lower extremity: full ROM; no edema Psych Mental Status: mental status grossly normal Speech and movement: Normal speech and movement present Affect: normal affect Attitude: cooperative Thought process: Normal thought process present Assessment and Plan Assessment & Plan (1) Balance disorder: Code(s): R26.89 - Other abnormalities of gait and mobility Plan: Patient seems to have developed a balance issue over his years of sedentary lifestyle and excessive alcohol drinking. Family reports he is fairly sedentary at home and often has some issues walking. He is often holding onto furniture and avina when walking in his home. No reported falls. Would likely benefit from physical therapy to increase strength in his lower extremities (2) Alcoholic dementia: Code(s): F10.27 - Alcohol dependence with alcohol-induced persisting dementia Qualifiers: Dementia behavioral disturbance: without behavioral disturbance Qualified Code(s): F10.27 - Alcohol dependence with alcohol-induced persisting dementia Plan: Has been sober from alcohol for nearly a year now and continues on Campral and naltrexone. Will discontinue Campral to reduce polypharmacy. Will continue naltrexone. He has unfortunately developed alcoholic dementia and was started on denies a pill and is followed by Neurology. Since higher dose of benazepril 10 mg he has been experiencing nightmares thus will reduce his dose of benazepril down to 5 mg (3) MDD (major depressive disorder), recurrent episode, moderate: Code(s): F33.1 - Major depressive disorder, recurrent, moderate Plan: Patient continues on daily use of trazodone night. Denies any severe depressive moods. (4) HTN (hypertension): Code(s): I10 - Essential (primary) hypertension Qualifiers: Hypertension type: primary hypertension Qualified Code(s): I10 - Essential (primary) hypertension Plan: Patient's blood pressure acceptable today in office. Will continue metoprolol 50 mg b.i.d.. Heart rates have been stable Orders: Orders PT Evaluation and Treatment 04/06/23 R26.89 - Other abnormalities of gait and mobility, R29.898 - Other symptoms and signs involving the musculoskeletal system Medications: New donepezil 5 mg PO BEDTIME 90 days 90 tabs 0RF F05 - Delirium due to known physiological condition Discontinued acamprosate Discontinued Reason: Doctor's Order 666 mg (2 x 333 mg) PO TID 180 tabs 3RF Coding Level of Care Code Est Pt Level 4 (98833) Diagnoses Balance disorder R26.89 Dementia associated with alcoholism without behavioral disturbance F10.27 Dementia behavioral disturbance: without behavioral disturbance MDD (major depressive disorder), recurrent episode, moderate F33.1 Primary hypertension I10 Hypertension type: primary hypertension Additional Codes BRIT-7 Assessment Billing - BRIT-7 Assessment Tool: BRIT-7 Assessment [id number] ([id number])
[2023-04-06 15:32] VITALS: BP 130/80; PULSE 58; O2SAT 96; BMI 27.9
== END 2023-04-06 16:06 | disposition home or self-care (01) ==
PROVIDERS: PCP Physician Assistant; Visit Provider Physician Assistant
DX: R26.89 Other abnormalities of gait and mobility (principal); F10.27 Alcohol dependence with alcohol-induced persisting dementia; F33.1 Major depressive disorder, recurrent, moderate; I10 Essential (primary) hypertension
CPT/HCPCS: 99214

== ENCOUNTER 2023-08-14 14:11 | Outpatient (AMB) | payer MEDICARE, MEDICAID, SELFPAY ==
[2023-08-14 14:26] VITALS: BP 112/74; PULSE 55; O2SAT 96; BMI 28.1
--- NOTE | 2023-08-14 14:26 | A.OFFPC_ITS ---
Vital Signs 08/14/23 14:26 Height 5 ft 6 in Weight 174 lb 4 oz BMI 28.1 BP 112/74 Blood Pressure Location Lt brachial Position Sitting Pulse 55 Pulse Source Pulse Oximeter Pulse Oximetry (%) 96 Oxygen Delivery Method Room Air Intake Visit Reasons: Meds review Licensing Worker Required: No Accompanied by: Friend Allergies Penicillins [PENICILLINS] Allergy (Unknown, Verified 08/14/23 14:54) CHILDHOOD ALLERGY Medication List - Last Reconciled 08/14/23 by Kingsley Khalil PA-C blood pressure test kit-medium As directed cane As directed diphenhydramine-zinc acetate 2-0.1 % (Benadryl Extra Strength) 1 appl topical BID 14 days donepezil 10 mg PO BEDTIME ferrous sulfate 325 mg PO DAILY 90 days folic acid 1 mg PO DAILY 90 days hydroxyzine HCl 10 mg PO BID 90 days magnesium oxide 400 mg PO BID 30 days metoprolol tartrate 50 mg PO BID 90 days naltrexone 50 mg PO DAILY 30 days omeprazole 20 mg PO DAILY pyridoxine (vitamin B6) 250 mg PO DAILY 90 days sertraline 25 mg PO DAILY 90 days thiamine HCl (vitamin B1) 100 mg PO DAILY 90 days trazodone 50 mg PO BEDTIME 90 days Tobacco use date assessed: 04/06/23 Dental Screening Dental Screen Date: 04/06/23 HPI Meds review HPI Details Patient is a 58 year-old male here today for follow-up visit.? Patient has a past medical history significant for hypertension, alcohol use disorder, asthma, anxiety. .. Alcohol use disorder:? Has continued to stay sober from alcohol.? I congratulated him on this.? He continues on naltrexone for the treatment of his alcohol use disorder. We have discontinued Campral though continues on daily naltrexone given to him home nurse . 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 His family is applying him for SSI in [facility].? Has CT of his head in 2020 that did not show any hemorrhage or evidence of malignancy. He is now followed by a neurologist and has been started on denies a pill a higher dose. Unfortunately has developed what family's calling night terrors . Due to the patient is history and clinical findings his memory loss is most likely due to his previous excessive alcohol use and MRI imaging of brain likely will not change course of treatment. .. Hypertension:? Blood pressure today in office acceptable.? Continues on metoprolol 50 mg b.i.d., has been holding amlodipine due to previous episodes of hypotension.? He does have visiting nurse who administers medications in takes vitals and no reports of blood pressure issues lately. .. Fatty liver disease:? Has follow-up with Gastroenterology, MRI of abdomen showing consistency with fatty liver disease, Continues to abstain from alcohol intake. Continue to follow liver enzymes [facility] Medical History Liver lesion Alcoholic ketoacidosis Alcohol dependence HTN (hypertension) Elevated liver enzymes Alcohol use disorder Alcohol abuse with withdrawal delirium Asthma Surgical History No pertinent past surgical history Family History Father Diabetes Hypertension Substance use disorder Mother Hypertension Sister No problems noted. Brother No problems noted. Brother No problems noted. Brother No problems noted. Brother No problems noted. Social History Household Members: Family Housing: House Are you a primary healthcare analyst to a significant other at home: No Do you presently have visiting nurse or other home services: Yes (daily med ication nurse) Alcohol intake: current Alcohol intake frequency: former alcohol drinker Patient Tobacco Use Status: Never used Tobacco e-Cigarette/Vaping Use: Never Used Second Hand Smoke Exposure: No Advance Directives Date on File: 10/12/20 service: No Current occupational status: unemployed Cognitive needs: Yes (cane) Hearing needs: No Vision needs: Yes (glasses) Questionnaire Thrive Questionnaire Date Thrive assessed: 04/06/23 BRIT-7 AMB Questionnaire BRIT-7 Date BRIT - 7 assessed: 04/06/23 Source: Developed by Drs. Eliceo Chino, Uzma Morfin, Chaim Jefferson and colleagues, with an educational sadie from [employer]. Review of Systems Const Denies headache(s) Eyes Denies loss of vision ENT Denies vertigo, Denies dizziness, Denies headache(s) and Denies sore throat Card Denies chest pain, Denies leg edema and Denies lightheadedness Resp Denies cough, Denies hemoptysis and Denies wheezing GI Denies abdominal pain, Denies melena, Denies constipation, Denies diarrhea and Denies vomiting Denies dysuria, Denies urinary frequency and Denies urinary urgency Musc Denies arthralgias, Denies joint swelling, Denies numbness and Denies tingling Neuro Denies Abnormal speech present, Denies behavioral changes, Denies vertigo, Denies dizziness, Denies headache(s), Denies loss of vision, Denies memory loss, Denies numbness and Denies tingling Psych Denies anxiety, Denies behavioral changes, Denies depression, Denies memory loss and Denies panic attacks Alex/Lymph Denies easy bleeding and Denies easy bruising Aller/Immun Denies wheezing Physical exam (Primary Care) Vital Signs: Last Vital Signs Pulse 55 08/14/23 14:26 BP 112/74 08/14/23 14:26 Pulse Ox 96 08/14/23 14:26 Oxygen Delivery Method Room Air 08/14/23 14:26 BMI result Body Mass Index 28.1 Tobacco/Smoking Status: Tobacco use Status Tobacco use date assessed 04/06/23 08/14/23 14:30 Patient Tobacco Use Status Never used Tobacco 08/14/23 14:30 e-Cigarette/Vaping Use Never Used 08/14/23 14:30 Thrive Assessment: Date of Thrive Assessment Date Thrive assessed 04/06/23 08/14/23 14:30 Const General: healthy appearing, no acute distress, alert and awake Nutritional Appearance: well nourished Orientation/consciousness: oriented to person, oriented to place and oriented to time HENMT Ears: TM's normal bilaterally General nose exam: Normal nasal mucous membranes and turbinates present Eyes Conjunctivae: conjunctivae normal Sclerae: sclerae normal Pupils: Equal, round and reactive pupils present Neck Neck: Yes no lymphadenopathy and Yes no JVD Thyroid: Thyroid normal Carotids: no bruits Resp Effort & Inspection: normal respiratory effort and not tachypneic Auscultation: no crackles, no rales, no rhonchi and no wheezes Cardio Rate: regular rate Rhythm: regular rhythm Heart sounds: no murmurs and normal S1 and S2 GI Palpation (GI): Soft to palpation, nontender, no hepatomegaly and no splenomegaly Auscultation: normal bowel sounds Skin General skin exam: no rashes or lesions noted and dry skin Neuro General: oriented to person, oriented to place and oriented to time Cranial nerves: Yes Equal, round and reactive pupils present Speech: No Abnormal speech present Gait exam (Neuro): Normal gait present Motor exam (neuro): no tremor noted Extrem Right upper extremity: full ROM Left upper extremity: full ROM Right lower extremity: full ROM; no edema Left lower extremity: full ROM; no edema Psych Mental Status: mental status grossly normal Speech and movement: Normal speech and movement present Affect: normal affect Attitude: cooperative Thought process: Normal thought process present Assessment and Plan Assessment & Plan (1) Alcoholic dementia: Code(s): F10.27 - Alcohol dependence with alcohol-induced persisting dementia Qualifiers: Dementia behavioral disturbance: without behavioral disturbance Qualified Code(s): F10.27 - Alcohol dependence with alcohol-induced persisting dementia Plan: Has been sober from alcohol for nearly a year now and continues on Campral and naltrexone. Has discontinue Campral He has unfortunately developed alcoholic dementia and was started on denies a pill and is followed by Neurology. Since higher dose of benazepril 10 mg he has been experiencing nightmares thus will reduce his dose of benazepril down to 5 mg (2) MDD (major depressive disorder), recurrent episode, moderate: Code(s): F33.1 - Major depressive disorder, recurrent, moderate Plan: Patient continues on daily use of trazodone night. Denies any severe depressive moods. (3) HTN (hypertension): Code(s): I10 - Essential (primary) hypertension Qualifiers: Hypertension type: primary hypertension Qualified Code(s): I10 - Essential (primary) hypertension Plan: Patient's blood pressure acceptable today in office. Will continue metoprolol 50 mg b.i.d.. Heart rates have been stable (4) Alcohol abuse with alcohol-induced disorder: Code(s): F10.19 - Alcohol abuse with unspecified alcohol-induced disorder Plan: In remission. Continues on naltrexone 50 mg daily with good effect on reducing his urges to drink. (5) Alcoholic dementia: Code(s): F10.27 - Alcohol dependence with alcohol-induced persisting dementia Qualifiers: Dementia behavioral disturbance: with behavioral disturbance Qualified Code(s): F10.27 - Alcohol dependence with alcohol-induced persisting dementia Plan: Continues to be cared for by visiting nurse and family. Lives with his brother. Continues on benazepril for his dementia. Patient Instructions: Goal: Blood pressure to remain below 140/90 Barriers: Adherence to physical activity and healthy eating habits Coding Level of Care Code Est Pt Level 4 (66823) Complex EM visit Add On G2211 Diagnoses Dementia associated with alcoholism without behavioral disturbance F10.27 Dementia behavioral disturbance: without behavioral disturbance MDD (major depressive disorder), recurrent episode, moderate F33.1 Primary hypertension I10 Hypertension type: primary hypertension Alcohol abuse with alcohol-induced disorder F10.19
== END 2023-08-14 15:09 | disposition home or self-care (01) ==
PROVIDERS: PCP Physician Assistant; Visit Provider Physician Assistant
DX: I10 Essential (primary) hypertension (principal); F10.27 Alcohol dependence with alcohol-induced persisting dementia; F33.1 Major depressive disorder, recurrent, moderate
CPT/HCPCS: 99214; G2211

== ENCOUNTER 2023-12-20 14:33 | Outpatient (AMB) | payer MEDICARE, MEDICAID, SELFPAY ==
--- NOTE | 2023-12-20 14:36 | A.OFFVIS_ITS ---
Intake Vital Signs 12/20/23 14:42 Height 5 ft 6 in Weight 163 lb 6 oz BMI 26.4 BP 102/60 Blood Pressure Location Lt brachial Position Sitting Pulse 59 Pulse Source Pulse Oximeter Pulse Oximetry (%) 95 Oxygen Delivery Method Room Air Intake Visit Reasons: AWV Drill Setup Operator Required: No Accompanied by: Son Allergies Penicillins [PENICILLINS] Allergy (Unknown, Verified 12/20/23 14:42) CHILDHOOD ALLERGY HPI AWV HPI Details Patient is a 58-year-old male here today for an annual wellness visit. Patient's past medical history significant for hypertension, tachycardia and alcohol induced dementia. Today we discussed patient's sent of life planning. Given MOLST and filled out today in office And also reviewed his comprehensive care plan that was scanned into patient's documents. Colorectal cancer screening- up-to-date with colonoscopy Vaccines: Up-to-date with tetanus. Declines flu and COVID vaccines. Considering shingles vaccine HPI Comments History of Present Illness Details reviewed past medical history- yes reviewed surgical / hospitalization history- yes reviewed current medications- yes reviewed family history- yes home safety throw rugs? grab bars? raised toilet seat? working smoke detectors? activities of daily living difficulty bathing or showering? difficulty dressing? difficulty using the toilet? difficulty getting in and out of bed? difficulty walking? receives help from other person's with any of the above tasks? instrumental activities of daily living uses telephone - gets to place out of walking distance- go shopping for groceries- repairs own meals- does own minor home maintenance- does own laundry- does own housework- manages own money- currently takes medication- end of life planning discussed advanced directives- yes advanced directives on file? discussed wishes expressed in advanced directives. fall risk have you had any falls with injuries in the past year? have you had 2 or more falls in the past year? fall risk assessment: [facility] Medical History Liver lesion Alcoholic ketoacidosis Alcohol dependence HTN (hypertension) Elevated liver enzymes Alcohol use disorder Alcohol abuse with withdrawal delirium Asthma Surgical History No pertinent past surgical history Family History Father Diabetes Hypertension Substance use disorder Mother Hypertension Sister No problems noted. Brother No problems noted. Brother No problems noted. Brother No problems noted. Brother No problems noted. Social History Household Members: Family Housing: House Are you a primary medicare biller to a significant other at home: No Do you presently have visiting nurse or other home services: Yes (daily medication nurse) Alcohol intake: current Alcohol intake frequency: former alcohol drinker Patient Tobacco Use Status: Never used Tobacco e-Cigarette/Vaping Use: Never Used Second Hand Smoke Exposure: No Advance Directives Date on File: 10/12/20 service: No Current occupational status: unemployed Cognitive needs: Yes (cane) Hearing needs: No Vision needs: Yes (glasses) Questionnaire Medicare Wellness Checkup What [age] 65-69 What gender do you identify with?: male During the past 4 weeks, how much have you been bothered by emotional problems such as feeling anxious, depressed, irritable, sad or downhearted, and blue?: moderately During the past 4 weeks, has your physical & emotional health limited your social activities with family, friends, neighbors, or groups?: moderately During the past 4 weeks, how much bodily pain have you generally had?: mild pain During the past 4 weeks, was someone available to help you if you needed & wanted help?: yes, as much as I wanted During the past 4 weeks, what was the hardest physical activity you could do for at least 2 minutes?: light Can you get to places out of walking distance without help? (For eg., can you travel alone on buses, taxis or drive your car?): No Can you go shopping for groceries or clothes without someone's help?: No Can you prepare your own meals?: No Can you do your housework without help?: No Because of any health problems, do you need the help of another person with your personal care needs such as eating, bathing, dressing or getting around the house?: Yes Can you handle your own money without help?: No During the past 4 weeks, how would you rate your health in general?: good During the past 4 weeks how have things been going for you?: pretty well Are you having difficulties driving your car?: not applicable, I don't use a car Do you always fasten your seat belt when you are in a car?: yes, usually During past 4 weeks, have you been bothered by the following: never: Sexual problems? and Problems using the telephone? and sometimes: Falling or dizzy when standing up, Trouble eating well?, Teeth or denture problems? and Tiredness or fatigue? Have you fallen 2 or more times in the past year?: No Are you afraid of falling?: Yes Are you a smoker?: no During the past 4 weeks, how many drinks of wine, beer, or other alcoholic beverages did you have?: no alcohol at all Do you exercise for about 20 minutes 3 or more times a week?: yes, most of the time Have you been given information to help with the following?: yes: Hazards in your house that might hurt you? and yes: Keeping track of your medications? How often do you have trouble taking medicines the way you have been told to take them?: I seldom take medications as prescribed How confident are you that you can control & manage most of your health problems?: not very confident What is your race?: or origin or descent Mini Mental State Exam (MMSE) Orientation What is the (year) (season) (date) (day) (month)?: year Where are we (state) (county) (town or city) (hospital) (floor)?: town or city Attention & Calculation (CHOOSE ONE) Ask pt to begin with 100 & count backward by 7. Stop after 5 repeats. If pt cannot ask them to spell the word WORLD backward.: 93 Spell WORLD backwards (DLROW): 5 letters Score Score: 8 Activity of Daily Living Bathing - sponge bath, tub bath or shower: receives no assistance (gets in/out by self, if usual bathing means Dressing - getting clothes from closets & drawers, including inner/outer garments & fasteners.: gets clothes & gets completely dressed without help Toileting - going to the 'toilet room' for urine/bowel elimination & cleaning self/arranging clothes: goes to toilet room, cleans self, arranges clothes without help Transfer: moves in & out of bed and chair without help (may use support object) Continence: controls urination/bowel movements completely by self Feeding: feeds self without help Total Score: 0 Information obtained from: patient Using telephone: independent Traveling: dependent Shopping: dependent Preparing meals: dependent Housework: dependent Taking medicine: needs assistance Managing money: dependent PHQ-9 Over the last 2 weeks, how often have you been bothered by any of the following problems? 1. Little interest or pleasure in doing things: more than half the days 2. Feeling down, depressed, or hopeless: several days 3. Trouble falling or staying asleep, or sleeping too much: more than half the days 4. Feeling tired or having little energy: more than half the days 5. Poor appetite or overeating: not at all 6. Feeling bad about yourself - or that you are a failure or have let yourself or your family down: several days 7. Trouble concentrating on things, such as reading the newspaper or watching television: not at all 8. Moving or speaking so slowly that other people could have noticed. Or the opposite - being so fidgety or restless that you have been moving around a lot more than usual: not at all 9. Thoughts that you would be better off or of hurting yourself in some way: not at all Total score: 8 67353 - PHQ-9 Billing: Yes Source: Developed by Drs. Eliceo Chino, Uzma Morfin, Chaim Jefferson and colleagues, with an educational sadie from [employer]. Physical Exam Vital Signs: Last Vital Signs Pulse 59 12/20/23 14:42 BP 102/60 12/20/23 14:42 Pulse Ox 95 12/20/23 14:42 Oxygen Delivery Method Room Air 12/20/23 14:42 BMI result Body Mass Index 26.4 HEENT Other: hearing screening whisper test- pass Eyes Other: vision screening-has corrective lenses 20/20 os od ou Other: urinary incontinence? no Neuro Other: balance Romberg- normal tandem walk test- able walk-in turned test- able rise from sit to stand- within 2 seconds Office Procedures Flu Questionnaire Does the patient have a severe egg allergy?: No Does the patient have severe life threatening allergies?: No Does the patient have a fever or illness today?: No Has the patient ever had Guillain-[place] Syndrome?: No Has the patient ever had any past reaction to a flu shot?: No Immunizations Fluarix Triv [id number] (PF) 45 mcg (15 mcg x 3)/0.5 mL IM syringe Performing Provider: Kingsley Khalil PA-C [place] [facility] Documented (not given) by: JOAN Adams on 12/20/23 14:43 Reason Not Given: Patient Refused Assessment & Plan Assessment & Plan (1) Medicare annual wellness visit, initial: Code(s): Z00.00 - Encounter for general adult medical examination without abnormal findings Plan: As per HPI Orders: Orders Complete Blood Count no Diff 12/20/23 D64.9 - Anemia, unspecified Microalbumin, Random (w Creat) 12/20/23 I10 - Essential (primary) hypertension Comprehensive [place]. Panel Fast 12/20/23 I10 - Essential (primary) hypertension Influenza [id number] Immunization 12/20/23 Z23 - Encounter for immunization IRON PROFILE 12/20/23 D50.9 - Iron deficiency anemia, unspecified, D64.9 - Anemia, unspecified Prostate Specific Antigen Scr 12/20/23 I10 - Essential (primary) hypertension, Z12.5 - Encounter for screening for malignant neoplasm of prostate Quality Reporting (2019) Depression/Bipolar (159/160/161/177) PHQ-9: Total score: 8 Coding Level of Care Code Medicare First (G0438) Diagnoses Medicare annual wellness visit, initial Z00.00 CPT Codes Advance Care Planning - Time spent: 1-15 minutes, on File ([id number]) Additional Codes PHQ-9 - 12356 - PHQ-9 Billing: Yes ([id number]) Advance Care Planning Advance Care Planning discussion: Completed/Scanned Date of discussion: 12/20/23 Who was present: Healthcare proxy- Liborio Forms completed: MOLST Time spent: 1-15 minutes, on File Actual minutes spent: 5
[2023-12-20 14:42] VITALS: BP 102/60; PULSE 59; O2SAT 95; BMI 26.4
== END 2023-12-20 15:19 | disposition home or self-care (01) ==
LOC: HO.HMCH 14:34
PROVIDERS: PCP Physician Assistant; Visit Provider Physician Assistant
DX: Z00.00 Encounter for general adult medical examination without abnormal findings (principal)

== ENCOUNTER → 2023-12-20 14:33 | Outpatient (BNVA) | payer MEDICARE, MEDICAID, SELFPAY | PROVIDERS: PCP Physician Assistant; Visit Provider Physician Assistant | DX: Z00.00 Encounter for general adult medical examination without abnormal findings (principal); I10 Essential (primary) hypertension; D50.9 Iron deficiency anemia, unspecified | CPT/HCPCS: 90471; 96127 ==

== ENCOUNTER 2024-04-23 12:08 | Outpatient (REF) | payer MEDICARE, MEDICAID, SELFPAY ==
[2024-04-23 12:36] LABS: Hematocrit 43.5 % (42.0-52.0); Hemoglobin 14.4 g/dl (14.0-18.0); Mean Corpuscular HGB Conc 33.1 g/dl (31.0-36.0); Mean Corpuscular Hemoglobin 31.5 pg (27.0-33.0); Mean Corpuscular Volume 95.2 fL (80.0-98.0); Mean Platelet Volume 9.5 fL (9.4-12.4); Platelet Count 248 X10*3/uL (160-400); Red Blood Count 4.57 X10*6/uL (4.60-5.80); Red Cell Distribution Width 12.5 % (11.0-16.0); White Blood Count 11.6 X10*3/uL (4.8-10.8)
[2024-04-23 13:01] LABS: Creatinine Urine 201.37 mg/dL; Microalbum/Creatinine Ratio Ur 20.3 ug/mg cr (<30)
[2024-04-23 13:22] LABS: Prostate Specific Antigen Scr 0.66 ng/mL (<0.05-4.0)
[2024-04-23 13:24] LABS: Alanine Aminotransferase 33 U/L (0-40); Alkaline Phosphatase 62 U/L (39-117); Anion Gap 10 (12-20); Aspartate Amino Transferase 30 U/L (5-37); Bilirubin Total 0.6 mg/dL (0.0-1.0); Blood Urea Nitrogen 14 mg/dL (9-16); Calcium 9.5 mg/dL (8.4-10.2); Carbon Dioxide 28 mmol/L (22-29); Chloride 109 mmol/L (96-108); Estimated Glomerular Filt Rate > 60; Glucose Fasting 108 mg/dL (60-99); Iron 78 mcg/dL (45-160); Percent Iron Saturation 45 % (15-50); Potassium 4.5 mmol/L (3.3-5.1); Sodium 142 mmol/L (135-145); Total Iron Binding Capacity 174 mcg/dL (228-428); Total Protein 7.9 g/dL (6.5-8.0); Unsaturated Iron Binding 96 ug/dL
== END 2024-04-23 12:09 | disposition home or self-care (01) ==
LOC: HO.LAB 12:08
PROVIDERS: PCP Physician Assistant; Visit Provider Physician Assistant
DX: D64.9 Anemia, unspecified (principal); I10 Essential (primary) hypertension; D50.9 Iron deficiency anemia, unspecified; Z12.5 Encounter for screening for malignant neoplasm of prostate
CPT/HCPCS: 36415; 80053; 82043; 82570; 83540; 84153; 85027

== ENCOUNTER 2024-06-18 15:55 | Outpatient (AMB) | payer MEDICARE, MEDICAID, SELFPAY ==
[2024-06-18 15:59] VITALS: BP 90/70; PULSE 61; TEMP 36.1; O2SAT 96; BMI 26.0
--- NOTE | 2024-06-18 15:59 | MHC.PC.OV ---
Vital Signs 06/18/24 15:59 Height 5 ft 6 in Weight 161 lb 4 oz BMI 26.0 BP 90/70 Blood Pressure Location Lt brachial Position Sitting Pulse 61 Pulse Source Pulse Oximeter Temp 96.9 F Temp Source Temporal Artery Scan Pulse Oximetry (%) 96 Oxygen Delivery Method Room Air Intake Visit Reasons: f/u HTN Assembler Cards And Announcements Required: No Accompanied by: Brother Allergies Penicillins [PENICILLINS] Allergy (Unknown, Verified 06/18/24 16:05) CHILDHOOD ALLERGY Medication List - Last Reconciled 06/18/24 by Kingsley Khalil PA-C blood pressure test kit-medium As directed cane As directed diphenhydramine-zinc acetate 2-0.1 % (Benadryl Extra Strength) 1 appl topical BID 14 days donepezil 10 mg PO BEDTIME ferrous sulfate 325 mg PO DAILY 90 days folic acid 1 mg PO DAILY 90 days hydroxyzine HCl 10 mg PO BID 90 days magnesium oxide 400 mg PO BID 30 days metoprolol tartrate 50 mg PO BID 90 days naltrexone 50 mg PO DAILY 30 days omeprazole 20 mg PO DAILY pyridoxine (vitamin B6) 250 mg PO DAILY 90 days sertraline 25 mg PO DAILY 90 days thiamine HCl (vitamin B1) 100 mg PO DAILY 90 days trazodone 50 mg PO BEDTIME 90 days Tobacco use date assessed: 06/18/24 Dental Screening Dental Screen Date: 06/18/24 Did you have a dental visit in the last 12 months?: Yes Did you have a dental problem in the last 6 months where you did not have access to dental care?: No Was dental information given to patient?: Patient has dentist HPI f/u HTN HPI Details Patient is a 58 year-old male here today for follow-up visit.? Patient has a past medical history significant for hypertension, alcohol use disorder, asthma, anxiety. .. Alcohol use disorder-in remission:? Has continued to stay sober from alcohol.? I congratulated him on this.? He continues on naltrexone for the treatment of his alcohol use disorder. Be continues on naltrexone given to him home nurse . 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 His family is applying him for SSI in [facility].? Has CT of his head in 2020 that did not show any hemorrhage or evidence of malignancy. Family still asking for visiting nurses to come do assessments and administer medication has faustino has permanent memory impairment him continues to need cuing on administration of his medication. Family also concerned about faustino is balance as he does seem some unstable when he stands from a sitting position for long time. .. Hypertension:? Blood pressure today in office acceptable.? Continues on metoprolol 50 mg b.i.d .? He does have visiting nurse who administers medications in takes vitals and no reports of blood pressure issues lately. .. Fatty liver disease:? Has follow-up with Gastroenterology, MRI of abdomen showing consistency with fatty liver disease, Continues to abstain from alcohol intake. Continue to follow liver enzymes [facility] Medical History Liver lesion Alcoholic ketoacidosis Alcohol dependence HTN (hypertension) Elevated liver enzymes Alcohol use disorder Alcohol abuse with withdrawal delirium Asthma Surgical History No pertinent past surgical history Family History Father Diabetes Hypertension Substance use disorder Mother Hypertension Sister No problems noted. Brother No problems noted. Brother No problems noted. Brother No problems noted. Brother No problems noted. Social History Household Members: Family Housing: House Are you a primary animal caretaker to a significant other at home: No Do you presently have visiting nurse or other home services: Yes (daily medication nurse) Alcohol intake: current Alcohol intake frequency: former alcohol drinker Patient Tobacco Use Status: Never used Tobacco e-Cigarette/Vaping Use: Never Used Second Hand Smoke Exposure: No Advance Directives Date on File: 10/12/20 service: No Current occupational status: unemployed Cognitive needs: Yes (cane) Hearing needs: No Vision needs: Yes (glasses) Questionnaire PHQ-9 Over the last 2 weeks, how often have you been bothered by any of the following problems? 1. Little interest or pleasure in doing things: several days 2. Feeling down, depressed, or hopeless: several days 3. Trouble falling or staying asleep, or sleeping too much: several days 4. Feeling tired or having little energy: several days 5. Poor appetite or overeating: not at all 6. Feeling bad about yourself - or that you are a failure or have let yourself or your family down: not at all 7. Trouble concentrating on things, such as reading the newspaper or watching television: not at all 8. Moving or speaking so slowly that other people could have noticed. Or the opposite - being so fidgety or restless that you have been moving around a lot more than usual: several days 9. Thoughts that you would be better off or of hurting yourself in some way: not at all Total score: 5 Depression Screening Interpretation: Positive Depression Screening Follow-up: Existing condition Depression Screening Done: Yes 85953 - PHQ-9 Billing: Yes Source: Developed by Drs. Eliceo Chino, Uzam Morfin, Chaim Jefferson and colleagues, with an educational sadie from [employer]. Thrive Questionnaire Date Thrive assessed: 06/18/24 I am a: Patient What is your living situation today?: I have a steady place to live Within the past 12 months, did the food you bought not last and you didn't have the money to get more?: Sometimes True Within the past 12 months, did you worry whether your food would run out before you got money to buy more?: I choose not to answer this question Do you have trouble paying for medicines?: No Do you have trouble getting transportation to medical appointments?: No Do you have trouble paying your heating and electricity bill?: No Do you have trouble taking care of your child, family member or friend?: I choose not to answer this question Do you have trouble with day-to-day activities such as bathing, preparing meals, shopping, managing finances, etc.?: I choose not to answer this question Are you currently unemployed and looking for a job?: I choose not to answer this question Are you interested in more education?: I choose not to answer this question Please select the resources that you would like help with: Care for elder or disabled Currently or been in a relationship where the following occur: I choose not to answer THRIVE Score: 1 AUDIT C Alcohol Use Questionnaire (AUDIT-C) 1. How often do you have a drink containing alcohol?: Never 3. How often do you have six or more drinks on one occasion?: Never Total Score: 0 BRIT-7 AMB Questionnaire BRIT-7 Date BRIT - 7 assessed: 06/18/24 Feeling nervous, anxious, or on edge: 1 = Several days Not being able to stop or control worryin = Not at all Worrying too much about different things: 1 = Several days Trouble relaxin = Several days Being so restless that it is hard to sit still: 0 = Not at all Becoming easily annoyed or irritable: 0 = Not at all Feeling afraid as if something awful might happen: 0 = Not at all Total BRIT-7 score (0-4 normal; 5-9 mild; 10-14 moderate; 15-21 severe): 3 Source: Developed by Drs. Eliceo Chino, Uzma Morfin, Chaim Jefferson and colleagues, with an educational sadie from [employer]. BRIT-7 Assessment Billing BRIT-7 Assessment Tool: BRIT-7 Assessment 73890 Review of Systems Const Denies headache(s) Eyes Denies loss of vision ENT Denies vertigo, Denies dizziness, Denies headache(s) and Denies sore throat Card Denies chest pain, Denies leg edema and Denies lightheadedness Resp Denies cough, Denies hemoptysis and Denies wheezing GI Denies abdominal pain, Denies melena, Denies constipation, Denies diarrhea and Denies vomiting Denies dysuria, Denies urinary frequency and Denies urinary urgency Musc Denies arthralgias, Denies joint swelling, Denies numbness and Denies tingling Neuro Denies Abnormal speech present, Denies behavioral changes, Denies vertigo, Denies dizziness, Denies headache(s), Denies loss of vision, Denies memory loss, Denies numbness and Denies tingling Psych Denies anxiety, Denies behavioral changes, Denies depression, Denies memory loss and Denies panic attacks Alex/Lymph Denies easy bleeding and Denies easy bruising Aller/Immun Denies wheezing Physical exam (Primary Care) Vital Signs: Last Vital Signs Temp 96.9 F 06/18/24 15:59 Pulse 61 06/18/24 15:59 BP 90/70 06/18/24 15:59 Pulse Ox 96 06/18/24 15:59 Oxygen Delivery Method Room Air 06/18/24 15:59 BMI result Body Mass Index 26.0 Tobacco/Smoking Status: Tobacco use Status Tobacco use date assessed 06/18/24 06/18/24 16:03 Patient Tobacco Use Status Never used Tobacco 06/18/24 16:01 e-Cigarette/Vaping Use Never Used 06/18/24 16:01 PHQ-9: PHQ-9 Score PHQ-9: Total score 5 06/18/24 16:06 Depression Screening Interpretation: Positive Depression Screening Follow-up: Existing condition Thrive Assessment: Date of Thrive Assessment Date Thrive assessed 06/18/24 06/18/24 16:01 Currently or been in a relationship where the following occur: I choose not to answer Const General: healthy appearing, no acute distress, alert and awake Nutritional Appearance: well nourished Orientation/consciousness: oriented to person, oriented to place and oriented to time HENMT Ears: TM's normal bilaterally General nose exam: Normal nasal mucous membranes and turbinates present Eyes Conjunctivae: conjunctivae normal Sclerae: sclerae normal Pupils: Equal, round and reactive pupils present Neck Neck: Yes no lymphadenopathy and Yes no JVD Thyroid: Thyroid normal Carotids: no bruits Resp Effort & Inspection: normal respiratory effort and not tachypneic Auscultation: no crackles, no rales, no rhonchi and no wheezes Cardio Rate: regular rate Rhythm: regular rhythm Heart sounds: no murmurs and normal S1 and S2 GI Palpation (GI): Soft to palpation, nontender, no hepatomegaly and no splenomegaly Auscultation: normal bowel sounds Skin General skin exam: no rashes or lesions noted and dry skin Neuro General: oriented to person, oriented to place and oriented to time Cranial nerves: Yes Equal, round and reactive pupils present Speech: No Abnormal speech present Gait exam (Neuro): Normal gait present Motor exam (neuro): no tremor noted Extrem Right upper extremity: full ROM Left upper extremity: full ROM Right lower extremity: full ROM; no edema Left lower extremity: full ROM; no edema Psych Mental Status: mental status grossly normal Speech and movement: Normal speech and movement present Affect: normal affect Attitude: cooperative Thought process: Normal thought process present Coding Level of Care Code Est Pt Level 4 (98805) Diagnoses Primary hypertension I10 Hypertension type: primary hypertension Acute bronchitis, unspecified organism J20.9 Bronchitis organism: unspecified organism 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.27 Dementia behavioral disturbance: with behavioral disturbance Impairment of balance R26.89 MDD (major depressive disorder), recurrent episode, moderate F33.1 Additional Codes BRIT-7 Assessment Billing - BRIT-7 Assessment Tool: BRIT-7 Assessment 88440 ([id number]) PHQ-9 - 56745 - PHQ-9 Billing: Yes ([id number]) Assessment & Plan Assessment & Plan (1) HTN (hypertension): Code(s): I10 - Essential (primary) hypertension Category: Medical Qualifiers: Hypertension type: primary hypertension Qualified Code(s): I10 - Essential (primary) hypertension Plan: Patient's blood pressure on the low side today in office. We have hold his amlodipine in the past. Advised to continue monitoring blood pressure at home and if consistently below 100/60 will consider reducing dose of his metoprolol (2) Acute bronchitis: Code(s): J20.9 - Acute bronchitis, unspecified Category: Medical Qualifiers: Bronchitis organism: unspecified organism Qualified Code(s): J20.9 - Acute bronchitis, unspecified Plan: Seems to have mild dry cough, pulmonary exam benign today in office. Will send for chest x-ray to evaluate for any signs of bronchitis or pneumonia. Otherwise advised on use of cough cold medication [id number]. (3) Alcoholic dementia: Code(s): F10.27 - Alcohol dependence with alcohol-induced persisting dementia Category: Medical Qualifiers: Dementia behavioral disturbance: with behavioral disturbance Qualified Code(s): F10.27 - Alcohol dependence with alcohol-induced persisting dementia Plan: As per HPI patient continues to have memory impairment. Does need a home visiting nurse medical professional to help administer his medications as noted in HPI. (4) Impairment of balance: Code(s): R26.89 - Other abnormalities of gait and mobility Category: Medical Plan: Will try to set patient up with outpatient physical therapy to help him with his lower extremity strengthening and balance. (5) MDD (major depressive disorder), recurrent episode, moderate: Code(s): F33.1 - Major depressive disorder, recurrent, moderate Category: Medical Plan: Patient's PHQ-9 score 5, does have a history of depression. He does have lot of family support and continues on sertraline 25 mg. Not interested in mental health therapy at this time. Orders: Orders XR chest 2V 06/18/24 J20.9 - Acute bronchitis, unspecified UA CC w/rflx Micro + Cult 06/18/24 R30.0 - Dysuria, R80.9 - Proteinuria, unspecified PT Evaluation and Treatment 06/18/24 R26.89 - Other abnormalities of gait and mobility
== END 2024-06-18 16:24 | disposition home or self-care (01) ==
LOC: HO.HMCH 15:56
PROVIDERS: PCP Physician Assistant; Visit Provider Physician Assistant
DX: I10 Essential (primary) hypertension (principal); F10.27 Alcohol dependence with alcohol-induced persisting dementia; F33.1 Major depressive disorder, recurrent, moderate; J20.9 Acute bronchitis, unspecified; R26.89 Other abnormalities of gait and mobility

== ENCOUNTER → 2024-06-18 15:55 | Outpatient (BNVA) | payer MEDICARE, MEDICAID, SELFPAY | PROVIDERS: PCP Physician Assistant; Visit Provider Physician Assistant | DX: I10 Essential (primary) hypertension (principal); J20.9 Acute bronchitis, unspecified; F10.27 Alcohol dependence with alcohol-induced persisting dementia; R26.89 Other abnormalities of gait and mobility; F33.1 Major depressive disorder, recurrent, moderate | CPT/HCPCS: 96127; 99212 ==

== ENCOUNTER 2025-01-02 15:53 | Outpatient (AMB) | payer MEDICARE, MEDICAID, SELFPAY ==
[2025-01-02 15:56] VITALS: BP 100/72; PULSE 60; O2SAT 98; BMI 27.3
--- NOTE | 2025-01-02 15:56 | MHC.PC.OV ---
Vital Signs 01/02/25 15:56 01/02/25 16:21 Height 5 ft 6 in Weight 169 lb BMI 27.3 BP 100/72 110/70 Blood Pressure Location Lt brachial Position Sitting Pulse 60 Pulse Source Pulse Oximeter Pulse Oximetry (%) 98 Oxygen Delivery Method Room Air Intake Visit Reasons: f/u HTN [employer] Required: No Accompanied by: Self / Same As Patient Allergies Penicillins (PENICILLINS) Allergy (Unknown, Verified 01/02/25 16:06) CHILDHOOD ALLERGY Medication List - Last Reconciled 01/02/25 by Kingsley Khalil PA-C blood pressure test kit-medium As directed cane As directed diphenhydramine-zinc acetate 2-0.1 % (Benadryl Extra Strength) 1 appl topical BID 14 days donepezil 10 mg PO BEDTIME ferrous sulfate 325 mg PO DAILY 90 days folic acid 1 mg PO DAILY 90 days hydroxyzine HCl 10 mg PO BID 90 days magnesium oxide 400 mg PO BID 30 days metoprolol tartrate 50 mg PO BID 90 days naltrexone 50 mg PO DAILY 30 days omeprazole 20 mg PO DAILY pyridoxine (vitamin B6) 250 mg PO DAILY 90 days sertraline 25 mg PO DAILY 90 days thiamine HCl (vitamin B1) 100 mg PO DAILY 90 days trazodone 50 mg PO BEDTIME 90 days Tobacco use date assessed: 01/02/25 Dental Screening Dental Screen Date: 01/02/25 Did you have a dental visit in the last 12 months?: No Did you have a dental problem in the last 6 months where you did not have access to dental care?: No Was dental information given to patient?: No HPI f/u HTN HPI Details Patient is a 59 year-old male here today for follow-up visit.? Patient has a past medical history significant for hypertension, alcohol use disorder, asthma, anxiety. Concern--> The patient has been experiencing monthly fevers, with a temperature measured orally at home as high as 102?F. Associated symptoms include increased urination and yellow-colored urine. .. Alcohol use disorder-in remission:? Has continued to stay sober from alcohol.? I congratulated him on this.? He continues on naltrexone for the treatment of his alcohol use disorder. Be continues on naltrexone given to him home nurse . 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 His family is applying him for SSI in [facility].? Has CT of his head in 2020 that did not show any hemorrhage or evidence of malignancy. -- > Family also concerned about faustino only getting once a week VNA nursing to come fill his medicine box. Family is asking for daily visits from the nurse as they suspect he isn't taking some of his medication.. .. Hypertension:? Blood pressure today in office acceptable.? Continues on metoprolol 50 mg b.i.d .? He does have visiting nurse who administers medications in takes vitals and no reports of blood pressure issues lately. .. Fatty liver disease:? Has follow-up with Gastroenterology, MRI of abdomen showing consistency with fatty liver disease, Continues to abstain from alcohol intake. Continue to follow liver enzymes [facility] Medical History Liver lesion Alcoholic ketoacidosis Alcohol dependence HTN (hypertension) Elevated liver enzymes Alcohol use disorder Alcohol abuse with withdrawal delirium Asthma Surgical History No pertinent past surgical history Family History Father Diabetes Hypertension Substance use disorder Mother Hypertension Sister No problems noted. Brother No problems noted. Brother No problems noted. Brother No problems noted. Brother No problems noted. Social History Household Members: Family Housing: House Are you a primary chronic care nurse to a significant other at home: No Do you presently have visiting nurse or other home services: Yes (daily medication nurse) Alcohol intake: current Alcohol intake frequency: former alcohol drinker Patient Tobacco Use Status: Never used Tobacco e-Cigarette/Vaping Use: Never Used Second Hand Smoke Exposure: No Advance Directives Date on File: 10/12/20 service: No Current occupational status: unemployed Cognitive needs: Yes (cane) Hearing needs: No Vision needs: Yes (glasses) Questionnaire PHQ-9 Over the last 2 weeks, how often have you been bothered by any of the following problems? 1. Little interest or pleasure in doing things: several days 2. Feeling down, depressed, or hopeless: several days 3. Trouble falling or staying asleep, or sleeping too much: several days 4. Feeling tired or having little energy: several days 5. Poor appetite or overeating: not at all 6. Feeling bad about yourself - or that you are a failure or have let yourself or your family down: not at all 7. Trouble concentrating on things, such as reading the newspaper or watching television: not at all 8. Moving or speaking so slowly that other people could have noticed. Or the opposite - being so fidgety or restless that you have been moving around a lot more than usual: several days 9. Thoughts that you would be better off or of hurting yourself in some way: not at all Total score: 5 Source: Developed by Drs. Eliceo Chino, Uzma Morfin, Chaim Jefferson and colleagues, with an educational sadie from [employer]. Thrive Questionnaire Date Thrive assessed: 01/02/25 I am a: Patient What is your living situation today?: I have a steady place to live Within the past 12 months, did the food you bought not last and you didn't have the money to get more?: Sometimes True Within the past 12 months, did you worry whether your food would run out before you got money to buy more?: I choose not to answer this question Do you have trouble paying for medicines?: No Do you have trouble getting transportation to medical appointments?: No Do you have trouble paying your heating and electricity bill?: No Do you have trouble taking care of your child, family member or friend?: I choose not to answer this question Do you have trouble with day-to-day activities such as bathing, preparing meals, shopping, managing finances, etc.?: I choose not to answer this question Are you currently unemployed and looking for a job?: I choose not to answer this question Are you interested in more education?: I choose not to answer this question Please select the resources that you would like help with: Care for elder or disabled Currently or been in a relationship where the following occur: I choose not to answer THRIVE Score: 1 AUDIT C Alcohol Use Questionnaire (AUDIT-C) 1. How often do you have a drink containing alcohol?: Never 3. How often do you have six or more drinks on one occasion?: Never Total Score: 0 BRIT-7 AMB Questionnaire BRIT-7 Date BRIT - 7 assessed: 01/02/25 Feeling nervous, anxious, or on edge: 1 = Several days Not being able to stop or control worryin = Not at all Worrying too much about different things: 1 = Several days Trouble relaxin = Several days Being so restless that it is hard to sit still: 0 = Not at all Becoming easily annoyed or irritable: 0 = Not at all Feeling afraid as if something awful might happen: 0 = Not at all Total BRIT-7 score (0-4 normal; 5-9 mild; 10-14 moderate; 15-21 severe): 3 Source: Developed by Drs. Eliceo Chino, Uzma Morfin, Chaim Jefferson and colleagues, with an educational sadie from [employer]. BRIT-7 Assessment Billing BRIT-7 Assessment Tool: BRIT-7 Assessment 01166 Review of Systems Const Denies headache(s) Eyes Denies loss of vision ENT Denies vertigo, Denies dizziness, Denies headache(s) and Denies sore throat Card Denies chest pain, Denies leg edema and Denies lightheadedness Resp Denies cough, Denies hemoptysis and Denies wheezing GI Denies abdominal pain, Denies melena, Denies constipation, Denies diarrhea and Denies vomiting Denies dysuria, Reports urinary frequency and Denies urinary urgency Musc Denies arthralgias, Denies joint swelling, Denies numbness and Denies tingling Neuro Denies Abnormal speech present, Denies behavioral changes, Denies vertigo, Denies dizziness, Denies headache(s), Denies loss of vision, Denies memory loss, Denies numbness and Denies tingling Psych Denies anxiety, Denies behavioral changes, Denies depression, Denies memory loss and Denies panic attacks Alex/Lymph Denies easy bleeding and Denies easy bruising Aller/Immun Denies wheezing Physical exam (Primary Care) Vital Signs: Last Vital Signs Pulse 60 01/02/25 15:56 BP 110/70 01/02/25 16:21 Pulse Ox 98 01/02/25 15:56 Oxygen Delivery Method Room Air 01/02/25 15:56 BMI result Body Mass Index 27.3 Tobacco/Smoking Status: Tobacco use Status Tobacco use date assessed 01/02/25 01/02/25 16:04 Patient Tobacco Use Status Never used Tobacco 01/02/25 16:04 e-Cigarette/Vaping Use Never Used 01/02/25 16:04 PHQ-9: PHQ-9 Score PHQ-9: Total score 5 01/02/25 16:08 Thrive Assessment: Date of Thrive Assessment Date Thrive assessed 01/02/25 01/02/25 16:04 Currently or been in a relationship where the following occur: I choose not to answer Const General: healthy appearing, no acute distress, alert and awake Nutritional Appearance: well nourished Orientation/consciousness: oriented to person, oriented to place and oriented to time HENMT Ears: TM's normal bilaterally General nose exam: Normal nasal mucous membranes and turbinates present Eyes Conjunctivae: conjunctivae normal Sclerae: sclerae normal Pupils: Equal, round and reactive pupils present Neck Neck: Yes no lymphadenopathy and Yes no JVD Thyroid: Thyroid normal Carotids: no bruits Resp Effort & Inspection: normal respiratory effort and not tachypneic Auscultation: no crackles, no rales, no rhonchi and no wheezes Cardio Rate: regular rate Rhythm: regular rhythm Heart sounds: no murmurs and normal S1 and S2 GI Palpation (GI): Soft to palpation, nontender, no hepatomegaly and no splenomegaly Auscultation: normal bowel sounds Skin General skin exam: no rashes or lesions noted and dry skin Neuro General: oriented to person, oriented to place and oriented to time Cranial nerves: Yes Equal, round and reactive pupils present Speech: No Abnormal speech present Gait exam (Neuro): Normal gait present Motor exam (neuro): no tremor noted Extrem Right upper extremity: full ROM Left upper extremity: full ROM Right lower extremity: full ROM; no edema Left lower extremity: full ROM; no edema Psych Mental Status: mental status grossly normal Speech and movement: Normal speech and movement present Affect: normal affect Attitude: cooperative Thought process: Normal thought process present Coding Level of Care Code Est Pt Level 4 (75742) Diagnoses Fever of unknown origin R50.9 Primary hypertension I10 Hypertension type: primary hypertension 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.27 Dementia behavioral disturbance: with behavioral disturbance Additional Codes BRIT-7 Assessment Billing - BRIT-7 Assessment Tool: BRIT-7 Assessment 20157 ([id number]) Assessment & Plan Assessment & Plan (1) Fever of unknown origin: Code(s): R50.9 - Fever, unspecified Category: Medical Plan: To investigate the recurrent fevers and polyuria, laboratory studies will be ordered. This will include a urinalysis with culture to assess for a urinary tract infection and determine antibiotic susceptibility, and a hepatitis panel to rule out other infectious etiologies. Antibiotic treatment will be deferred until the culture results are available to ensure targeted therapy. (2) HTN (hypertension): Code(s): I10 - Essential (primary) hypertension Category: Medical Qualifiers: Hypertension type: primary hypertension Qualified Code(s): I10 - Essential (primary) hypertension Plan: Patient's blood pressure today in office acceptable. Advised to continue monitoring blood pressure at home and if consistently below 100/60 will consider reducing dose of his metoprolol (3) Alcoholic dementia: Code(s): F10.27 - Alcohol dependence with alcohol-induced persisting dementia Category: Medical Qualifiers: Dementia behavioral disturbance: with behavioral disturbance Qualified Code(s): F10.27 - Alcohol dependence with alcohol-induced persisting dementia Plan: Family interested in getting more PAP[employer] C[employer]TER hours on a daily basis as they suspect he is not taking his medication. Will try to reach out to home visiting nurses. As per HPI patient continues to have memory impairment. Does need a home visiting nurse medical professional to help administer his medications as noted in HPI. Orders: Orders UA CC w/rflx Micro + Cult 01/02/25 R30.0 - Dysuria, R80.9 - Proteinuria, unspecified Comprehensive [place]. Panel Fast 01/02/25 I10 - Essential (primary) hypertension HIV Ab/Ag 01/02/25 R50.9 - Fever, unspecified, Z11.3 - Encounter for screening for infections with a predominantly sexual mode of transmission Hepatitis B,C Profile 01/02/25 R50.9 - Fever, unspecified, Z11.3 - Encounter for screening for infections with a predominantly sexual mode of transmission Complete Blood Count no Diff 01/02/25 I10 - Essential (primary) hypertension Lipid Panel 01/02/25 I10 - Essential (primary) hypertension
[2025-01-02 16:21] VITALS: BP 110/70
== END 2025-01-02 16:34 | disposition home or self-care (01) ==
LOC: HO.HMCH 15:54
PROVIDERS: PCP Physician Assistant; Visit Provider Physician Assistant
DX: R50.9 Fever, unspecified (principal); I10 Essential (primary) hypertension; F10.27 Alcohol dependence with alcohol-induced persisting dementia

== ENCOUNTER → 2025-01-02 15:53 | Outpatient (BNVA) | payer MEDICARE, MEDICAID, SELFPAY | PROVIDERS: PCP Physician Assistant; Visit Provider Physician Assistant | DX: R50.9 Fever, unspecified (principal); I10 Essential (primary) hypertension; F10.27 Alcohol dependence with alcohol-induced persisting dementia | CPT/HCPCS: 96127; 99212 ==